=== PATIENT | female | born 1940 | race Caucasian/White ===

== ENCOUNTER 2024-01-03 14:02 | Observation (INO) | payer MEDICARE ==
[2024-01-03 14:06] LABS: Glucose,Whole Blood 64 mg/dL (70-110)
[2024-01-03 14:43] LABS: Glucose,Whole Blood 86 mg/dL (70-110)
--- NOTE | 2024-01-03 15:07 | ED ---
Recheck HPI - General Chief Complaint: Recheck/Abnormal Lab/Rx Stated Complaint: severly low blood sugar Time Seen by Provider: 01/03/24 15:02 Source: patient, family, RN notes reviewed, old records reviewed Mode of arrival: ambulatory Limitations: no limitations - History of Present Illness Initial Comments: This is a 83-year-old female to the ER for evaluation of weakness today. Weakness and recurrent weakness with recurrent episodes of unresponsiveness throughout the day today. EMS eventually called found to have low blood sugar and then patient has recurrently low blood sugar here in the emergency department MD Complaint: abnormal lab (Low blood sugar) -: hour(s) Returns Today for: Called Because of Abnormal Lab/Test Symptoms Since Prior Visit: no new symptoms Context: called for abnormal lab result Associated Symptoms: none Treatments Prior to Arrival: other - Related Data Home Medications Medication Instructions Recorded Confirmed Amiodarone [Cordarone] 200 mg PO BID 01/03/24 01/03/24 Atorvastatin [Lipitor] 20 mg PO HS 01/03/24 01/03/24 Budesonide/Formoterol Fumarate 2 puff INHALATION RT-BID 01/03/24 01/03/24 [Symbicort 160-4.5 Mcg Inhaler] Cholecalciferol [Vitamin D3 (25 75 mcg PO DAILY 01/03/24 01/03/24 Mcg = 1000 Iu)] Clopidogrel [Plavix] 75 mg PO QAM 01/03/24 01/03/24 Digoxin [Digitek] 125 mcg PO QAM 01/03/24 01/03/24 Empagliflozin [Jardiance] 25 mg PO QAM 01/03/24 01/03/24 Famotidine [Pepcid] 20 mg PO HS 01/03/24 01/03/24 Isosorbide Mononitrate ER [Imdur] 15 mg PO DAILY 01/03/24 01/03/24 Metoprolol Tartrate [Lopressor] 12.5 mg PO TID 01/03/24 01/03/24 Pregabalin [Lyrica] 75 mg PO TID 01/03/24 01/03/24 busPIRone HCL 10 mg PO QAM 01/03/24 01/03/24 Previous Rx's Medication Instructions Recorded Apixaban [Eliquis] 5 mg PO BID #60 tab 01/05/24 Cefuroxime [Ceftin] 250 mg PO BID 7 Days #14 tab 01/05/24 Furosemide [Lasix] 20 mg PO MOWEFR #0 01/05/24 INSULIN ASPART (NovoLOG) [NovoLOG 0 unit SQ ACHS each 01/05/24 (formulary)] Insulin Glargine,Hum.rec.anlog 10 units SQ HS #0 01/05/24 [Lantus Solostar Pen] Midodrine [ProAmatine] 5 mg PO TID PRN #0 01/05/24 Zinc Oxide 20% Oint 1 applic TOPICAL BID #20 gm 01/05/24 Allergies Allergy/AdvReac Type Severity Reaction Status Date / Time codeine Allergy Unknown Verified 01/03/24 17:34 Review of Systems ROS Statement: Those systems with pertinent positive or pertinent negative responses have been documented in the HPI. ROS Other: All systems not noted in ROS Statement are negative. Past Medical History Past Medical History: Coronary Artery Disease (CAD), Diabetes Mellitus, Eye Disorder Additional Past Medical History / Comment(s): Heart attack 2013. Disconnected retina 2013 History of Any Multi-Drug Resistant Organisms: None Reported Past Surgical History: Coronary Bypass/CABG Past Anesthesia/Blood Transfusion Reactions: No Reported Reaction Past Psychological History: No Psychological Hx Reported Past Alcohol Use History: Rare Past Drug Use History: None Reported General Exam Limitations: no limitations General appearance: alert, in no apparent distress, anxious Head exam: Present: atraumatic, normocephalic, normal inspection Eye exam: Present: normal appearance, PERRL, EOMI. Absent: scleral icterus, conjunctival injection, periorbital swelling ENT exam: Present: normal exam, mucous membranes moist Neck exam: Present: normal inspection. Absent: tenderness, meningismus, lymphadenopathy Respiratory exam: Present: normal lung sounds bilaterally. Absent: respiratory distress, wheezes, rales, rhonchi, stridor Cardiovascular Exam: Present: normal rhythm, bradycardia, normal heart sounds. Absent: systolic murmur, diastolic murmur, rubs, gallop, clicks GI/Abdominal exam: Present: soft, normal bowel sounds. Absent: distended, tenderness, guarding, rebound, rigid Extremities exam: Present: normal inspection, full ROM, normal capillary refill. Absent: tenderness, pedal edema, joint swelling, calf tenderness Back exam: Present: normal inspection Neurological exam: Present: alert, oriented X3, CN II-XII intact Psychiatric exam: Present: normal affect, normal mood Skin exam: Present: warm, dry, intact, normal color. Absent: rash Course Vital Signs 01/03/24 01/03/24 01/03/24 14:40 17:00 18:00 Temperature 97.4 F L Pulse Rate 51 L 59 L 64 Respiratory 18 16 16 Rate Blood Pressure 93/57 121/43 127/67 O2 Sat by Pulse 100 99 98 Oximetry 01/03/24 01/03/24 01/03/24 18:30 19:00 19:36 Temperature 97.7 F Pulse Rate 66 64 69 Respiratory 16 16 18 Rate Blood Pressure 169/71 175/65 177/65 O2 Sat by Pulse 96 95 95 Oximetry 01/03/24 21:01 Temperature 97.8 F Pulse Rate 71 Respiratory 18 Rate Blood Pressure 170/62 O2 Sat by Pulse 98 Oximetry - Reevaluation(s) Reevaluation #1: 01/03/24 18:36 Records reviewed Reevaluation #2: 01/03/24 18:36 Patient symptoms unchanged Reevaluation #3: 01/03/24 18:36 Patient informed of results and questions answered Reevaluation #4: Was pt. sent in by a medical professional or institution (, PA, ELECTRICIAN RESEARCH, urgent care, hospital, or senior living...) When possible be specific @ -no Did you speak to anyone other than the patient for history (EMS, parent, family, police, friend...)? What history was obtained from this source @ -no Did you review nursing and triage notes (agree or disagree)? Why? @ -agree Are old charts reviewed (outside hosp., previous admission, EMS record, old EKG, old radiological studies, urgent care reports/EKG's, senior living records)? Report findings @ -yes Differential Diagnosis (chest pain, altered mental status, abdominal pain women, abdominal pain men, vaginal bleeding, weakness, fever, dyspnea, syncope, headache, dizziness, GI bleed, back pain, seizure, CVA, palpatations, mental health, musculoskeletal)? @ -prior EKG interpreted by me (3pts min.). @ -yes X-rays interpreted by me (1pt min.). @ -no CT interpreted by me (1pt min.). @ -no U/S interpreted by me (1pt. min.). @ -no What testing was considered but not performed or refused? (CT, X-rays, U/S, labs)? Why? @ -none What meds were considered but not given or refused? Why? @ -none Did you discuss the management of the patient with other professionals (professionals i.e. , PA, ELECTRICIAN RESEARCH, lab, RT, psych nurse, director social welfare, drywall finishing foreman, teacher, housing management officer, adult protective caseworker)? Give summary @ -no Was smoking cessation discussed for >3mins.? @ -no Was critical care preformed (if so, how long)? @ -no Were there social determinants of health that impacted care today? How? (Homelessness, low income, unemployed, alcoholism, drug addiction, transportation, low edu. Level, literacy, decrease access to med. care, detention, rehab)? @ -none Was there de-escalation of care discussed even if they declined (Discuss DNR or withdrawal of care, Hospice)? DNR status @ -no What co-morbidities impacted this encounter? (DM, HTN, Smoking, COPD, CAD, Cancer, CVA, ARF, Chemo, Hep., AIDS, mental health diagnosis, sleep apnea, morbid obesity)? @ -none Was patient admitted / discharged? Hospital course, mention meds given and route, prescriptions, significant lab abnormalities, going to OR and other pertinent info. @ - 83-year-old female presenting today for evaluation of altered mental status and unresponsiveness found with low blood sugar, patient has multiple repeated repeated low blood sugars here in the ER Admitted Undiagnosed new problem with uncertain prognosis? @ -no Drug Therapy requiring intensive monitoring for toxicity (Heparin, Nitro, Insulin, Cardizem)? @ -no Were any procedures done? @ -no Diagnosis/symptom? @ -Recurrent hypoglycemia Acute, or Chronic, or Acute on Chronic? @ -Acute Uncomplicated (without systemic symptoms) or Complicated (systemic symptoms)? @ -Complicated Side effects of treatment? @ -no Exacerbation, Progression, or Severe Exacerbation? @ -exacerbation Poses a threat to life or bodily function? How? (Chest pain, USA, NM, pneumonia, PE, COPD, DKA, ARF, appy, cholecystitis, CVA, Diverticulitis, Homicidal, Suicidal, threat to staff... and all critical care pts) @ -yes extremes of age Reevaluation #5: Differential Weakness: Hypoglycemia, shock, sepsis, hyponatremia, anemia, infection, NM, ETOH, adverse medicine reaction, overdose, stroke, this is not meant to be an all-inclusive list. - Consultations Consultation #1: Spoke with admitting who agrees to admit this patient Medical Decision Making - Medical Decision Making 83-year-old female presenting today for evaluation of altered mental status and unresponsiveness found with low blood sugar, patient has multiple repeated repeated low blood sugars here in the ER - Lab Data Result diagrams: 01/04/24 04:16 01/04/24 04:16 Lab Results 01/03/24 01/03/24 01/03/24 Range/Units 14:05 14:41 15:35 WBC 11.1 H (3.8-10.6) k/uL RBC 4.09 (3.80-5.40) m/uL Hgb 11.5 (11.4-16.0) gm/dL Hct 36.8 (34.0-46.0) % MCV 90.0 (80.0-100.0) fL MCH 28.2 (25.0-35.0) pg MCHC 31.3 (31.0-37.0) g/dL RDW 14.8 (11.5-15.5) % Plt Count 371 (150-450) k/uL MPV 7.6 Neutrophils % 82 % Lymphocytes % 10 % Monocytes % 5 % Eosinophils % 1 % Basophils % 0 % Neutrophils # 9.0 H (1.3-7.7) k/uL Lymphocytes # 1.1 (1.0-4.8) k/uL Monocytes # 0.6 (0-1.0) k/uL Eosinophils # 0.1 (0-0.7) k/uL Basophils # 0.0 (0-0.2) k/uL Hypochromasia Slight Sodium (137-145) mmol/L Potassium (3.5-5.1) mmol/L Chloride (98-107) mmol/L Carbon Dioxide (22-30) mmol/L Anion Gap mmol/L BUN (7-17) mg/dL Creatinine (0.52-1.04) mg/dL Est GFR (CKD-EPI)AfAm (>60 ml/min/1.73 sqM) Est GFR (CKD-EPI)NonAf (>60 ml/min/1.73 sqM) Glucose (74-99) mg/dL POC Glucose (mg/dL) 64 L 86 (70-110) mg/dL POC Glu Edger Liner ID Nara Barron Calcium (8.4-10.2) mg/dL Phosphorus (2.5-4.5) mg/dL Magnesium (1.6-2.3) mg/dL Total Bilirubin (0.2-1.3) mg/dL AST (14-36) U/L ALT (4-34) U/L Alkaline Phosphatase (38-126) U/L Troponin I (0.000-0.034) ng/mL Total Protein (6.3-8.2) g/dL Albumin (3.5-5.0) g/dL 01/03/24 01/03/24 01/03/24 Range/Units 15:35 15:35 16:13 WBC (3.8-10.6) k/uL RBC (3.80-5.40) m/uL Hgb (11.4-16.0) gm/dL Hct (34.0-46.0) % MCV (80.0-100.0) fL MCH (25.0-35.0) pg MCHC (31.0-37.0) g/dL RDW (11.5-15.5) % Plt Count (150-450) k/uL MPV Neutrophils % % Lymphocytes % % Monocytes % % Eosinophils % % Basophils % % Neutrophils # (1.3-7.7) k/uL Lymphocytes # (1.0-4.8) k/uL Monocytes # (0-1.0) k/uL Eosinophils # (0-0.7) k/uL Basophils # (0-0.2) k/uL Hypochromasia Sodium 141 (137-145) mmol/L Potassium 4.0 (3.5-5.1) mmol/L Chloride 108 H (98-107) mmol/L Carbon Dioxide 28 (22-30) mmol/L Anion Gap 5 mmol/L BUN 27 H (7-17) mg/dL Creatinine 1.31 H (0.52-1.04) mg/dL Est GFR (CKD-EPI)AfAm 44 (>60 ml/min/1.73 sqM) Est GFR (CKD-EPI)NonAf 38 (>60 ml/min/1.73 sqM) Glucose 42 L* (74-99) mg/dL POC Glucose (mg/dL) 62 L (70-110) mg/dL POC Glu Edger Liner ID Edith Ramos Calcium 9.3 (8.4-10.2) mg/dL Phosphorus 3.6 (2.5-4.5) mg/dL Magnesium 1.8 (1.6-2.3) mg/dL Total Bilirubin 0.3 (0.2-1.3) mg/dL AST 24 (14-36) U/L ALT 20 (4-34) U/L Alkaline Phosphatase 80 (38-126) U/L Troponin I 0.012 (0.000-0.034) ng/mL Total Protein 6.0 L (6.3-8.2) g/dL Albumin 3.5 (3.5-5.0) g/dL Critical Care Time Critical Care Time: Yes Total Critical Care Time: 31 Disposition Clinical Impression: Weakness, Near syncope, Hypoglycemia Disposition: ADMITTED IP TO THIS HOSP Condition: Stable Is patient prescribed a controlled substance at d/c from ED?: No Time of Disposition: 17:00
[2024-01-03] MEDS: DEXTROSE 5%-0.45% NACL 1,000 ML IV ONE (15:37)
[2024-01-03 15:47] LABS: Basophils % (A) 0 %; Eosinophils # (A) 0.1 k/uL (0-0.7); Eosinophils % (A) 1 %; HCT 36.8 % (34.0-46.0); HGB 11.5 gm/dL (11.4-16.0); Hypochromasia Slight; Lymphocytes # (A) 1.1 k/uL (1.0-4.8); Lymphocytes % (A) 10 %; MCH 28.2 pg (25.0-35.0); MCHC 31.3 g/dL (31.0-37.0); Mean Platelet Volume 7.6; Monocytes # (A) 0.6 k/uL (0-1.0); Monocytes % (A) 5 %; Neutrophils % (A) 82 %; Platelet Count 371 k/uL (150-450); RBC 4.09 m/uL (3.80-5.40); RDW 14.8 % (11.5-15.5); WBC 11.1 k/uL (3.8-10.6)
[2024-01-03 16:03] LABS: ALT 20 U/L (4-34); AST 24 U/L (14-36); African American GFR (CKD) 44 (>60 ml/min/1.73 sqM); Albumin 3.5 g/dL (3.5-5.0); Alkaline Phosphatase 80 U/L (38-126); Anion Gap 5 mmol/L; Blood Urea Nitrogen 27 mg/dL (7-17); Calcium 9.3 mg/dL (8.4-10.2); Carbon Dioxide 28 mmol/L (22-30); Chloride 108 mmol/L (98-107); Magnesium 1.8 mg/dL (1.6-2.3); Non-African American GFR(CKD) 38 (>60 ml/min/1.73 sqM); Phosphorus 3.6 mg/dL (2.5-4.5); Sodium 141 mmol/L (137-145); Total Bilirubin 0.3 mg/dL (0.2-1.3)
[2024-01-03 16:08] LABS: Glucose 42 mg/dL (74-99)
[2024-01-03 16:15] LABS: Glucose,Whole Blood 62 mg/dL (70-110)
[2024-01-03] MEDS ORDERED: NALOXONE 0.4 MG/ML 1 ML VIAL IV PRN ×2 (17:00→17:01)
[2024-01-03] MEDS ORDERED: ONDANSETRON 4 MG/2 ML VIAL IVP PRN (17:01)
[2024-01-03] MEDS ORDERED: MORPHINE SULFATE 4 MG/ML SYRINGE IV PRN (17:01)
[2024-01-03 18:10] LABS: Glucose,Whole Blood 104 mg/dL (70-110)
[2024-01-03 20:03] LABS: Glucose,Whole Blood 120 mg/dL (70-110)
[2024-01-03 20:16] LABS: Appearance,Urine Cloudy (Clear); Bacteria,Urine Occasional /hpf; Bilirubin,Urine Negative (Negative); Blood,Urine Moderate (Negative); Color,Urine Colorless; Glucose,Urine (UA) 4+ (Negative); Ketones,Urine Negative (Negative); Leukocyte Esterase,Urine Large (Negative); Nitrite,Urine Negative (Negative); PH, Urine 5.5 (5.0-8.0); Protein,Urine 1+ (Negative); RBC,Urine 9 /hpf (0-5); Specific Gravity,Urine 1.012 (1.001-1.035); Squamous Epithelial Cell,Urine <1 /hpf (0-4); Urobilinogen,Urine <2.0 mg/dL (<2.0); WBC,Urine 24 /hpf (0-5)
[2024-01-03] MEDS ORDERED: ZINC OXIDE PASTE (Z-GUARD) 1 APPLIC TOPICAL PRN (22:50)
[2024-01-03] MEDS: MIDODRINE 5 MG TAB PO SCH (22:53)
[2024-01-03] MEDS: METOPROLOL TARTRATE 12.5 MG TAB PO SCH (23:00)
[2024-01-03] MEDS: FAMOTIDINE 20 MG TAB PO SCH (23:00)
[2024-01-03] MEDS: ATORVASTATIN 20 MG TAB PO SCH (23:00)
[2024-01-03] MEDS: PREGABALIN 75 MG CAP PO SCH (23:01)
[2024-01-04 06:24] LABS: Glucose,Whole Blood 135 mg/dL (70-110)
[2024-01-04] MEDS: APIXABAN 2.5 MG TABLET PO SCH (07:30)
[2024-01-04] MEDS: SYMBICORT 160-4.5 MCG INHALER INHALATION SCH (08:20)
[2024-01-04] MEDS: FUROSEMIDE 20 MG TAB PO SCH (08:37)
[2024-01-04] MEDS: busPIRone HCl 5 MG TAB PO SCH (08:37)
[2024-01-04] MEDS: CHOLECALCIFEROL 25 MCG (1000 IU) TABLET PO SCH (08:38)
[2024-01-04] MEDS: APIXABAN 5 MG TAB PO SCH (08:38)
[2024-01-04] MEDS: AMIODARONE 200 MG TAB PO SCH (08:38)
[2024-01-04] MEDS: CLOPIDOGREL 75 MG TAB PO SCH (08:39)
[2024-01-04] MEDS: DIGOXIN 125 MCG TAB PO SCH (08:39)
[2024-01-04] MEDS: ISOSORBIDE MONONITRATE ER 15 MG TAB PO SCH (08:39)
[2024-01-04 08:42] LABS: ALT 20 U/L (8-44); AST 19 U/L (13-35); Albumin 3.5 g/dL (3.8-4.9); Albumin/Globulin Ratio 1.46 Ratio (1.60-3.17); Alkaline Phosphatase 91 U/L (41-126); Basophils # (A) 0.06 X 10*3/uL (0.00-0.10); Basophils % (A) 0.8 %; Blood Urea Nitrogen 21.2 mg/dL (9.0-27.0); Calcium 8.8 mg/dL (8.7-10.3); Carbon Dioxide 25.4 mmol/L (21.6-31.8); Chloride 106 mmol/L (96-109); Eosinophils # (A) 0.19 X 10*3/uL (0.04-0.35); Eosinophils % (A) 2.4 %; Globulin 2.4 g/dL (1.6-3.3); Glucose 154 mg/dL (70-110); HCT 36.4 % (37.2-46.3); HGB 11.4 g/dL (12.0-15.0); Lymphocytes # (A) 1.49 X 10*3/uL (0.90-5.00); Lymphocytes % (A) 18.8 %; MCH 27.1 pg (27.0-32.0); MCHC 31.3 g/dL (32.0-37.0); MCV 86.7 FL (80.0-97.0); Magnesium 1.9 mg/dL (1.5-2.4); Mean Platelet Volume 10.6 FL (9.5-12.2); Monocytes # (A) 0.73 X 10*3/uL (0.20-1.00); Monocytes % (A) 9.2 %; NRBC Per 100 WBC 0 X 10*3/uL (0.00-0.01); Neutrophils # (A) 5.23 X 10*3/uL (1.80-7.70); Neutrophils % (A) 65.8 %; Phosphorus 3.7 mg/dL (2.4-5.1); Platelet Count 344 X 10*3/uL (140-440); Potassium 4.3 mmol/L (3.5-5.5); RDW 15.4 % (11.5-14.5); Sodium 142 mmol/L (135-145); Total Bilirubin <0.2 mg/dL (0.3-1.2); Total Protein 5.9 g/dL (6.2-8.2); WBC 7.94 X 10*3/uL (4.50-10.00)
[2024-01-04] MEDS ORDERED: DAPAGLIFLOZIN PROPANEDIOL 10 MG TABLET PO SCH (09:00)
[2024-01-04 11:31] LABS: Glucose,Whole Blood 176 mg/dL (70-110)
[2024-01-04] MEDS: INSULIN ASPART (NovoLOG) 100 UNIT/ML VIAL SQ SCH (12:52)
[2024-01-04 13:56] VITALS: BMI 27.4
[2024-01-04] MEDS: ACETAMINOPHEN TAB 325 MG TAB PO PRN (14:30)
[2024-01-04 16:58] LABS: Glucose,Whole Blood 109 mg/dL (70-110)
[2024-01-04] MEDS: INSULIN DETEMIR (LEVEMIR) 100 UNIT/ML SYR SQ SCH (21:19)
[2024-01-04 21:22] LABS: Glucose,Whole Blood 152 mg/dL (70-110)
[2024-01-05 06:21] LABS: Glucose,Whole Blood 65 mg/dL (70-110)
[2024-01-05 06:48] LABS: Glucose,Whole Blood 113 mg/dL (70-110)
[2024-01-05 07:43] VITALS: BP 136/55; PULSE 68; RESP 16; TEMP 97.9
--- NOTE | 2024-01-07 14:20 | P.HPIM ---
History of Present Illness H&P Date: 01/04/24 Chief Complaint: Severe hyperglycemia HISTORY OF PRESENT ILLNESS: This is an 83-year-old female with a previous medical history significant for coronary artery disease status post coronary artery bypass graft, hypertension and hypertensive cardiovascular disease, hyperlipidemia, diabetes mellitus type 2, with diabetic polyneuropathy, history of peripheral vascular occlusive disease status post multiple angioplasties with left above knee amputation that was done at [facility], history of paroxysmal atrial fibrillation, history of recurrent UTI, patient was at [facility] for quite some times, she just left [facility] about a week ago on December 09, 2023 and she was supposed to come to see me in the office for follow-up, as a matter fact I saw the patient not too long ago about a week ago in the office and the patient was confused about her insulin regimen, she was overwhelmed with her new living at [facility] and she was asking to have a scooter because the patient is not able to move her wheelchair all the way down to the dining room and back, patient apparently had elevated blood glucose level while she was there, and she was started on Lantus at 24 units at bedtime along with Humalog 7 units before each meal 3 times every day, apparently the patient was supposed to go to the dentist for work on her tooth that was broken and she did receive by her staff at [facility] 7 units of insulin patient did not take any food at that time, patient became quite obtunded and she was not responsive, EMS was called and the patient was brought into the ER at [facility], she was found to have significant hypoglycemia, she was treated but because of the fact that she was in and out of hypoglycemia she was admitted to the hospital she was started on D5W and she was kept in the hospital for observation, at the same time patient was complaining of increased urinary frequency, she had a slight elevation of leukocytes in the urine, she was also found to have a UTI without evidence of sepsis at this time, patient was kept in the hospital overnight, she was started back on Lantus at 12 units at bedtime, however she dropped in the morning to 65, this was taken down to 10 units at bedtime, along with a sliding scale insulin she was taken off , she was maintained on Jardiance, and she was started on oral antibiotic in the form of ciprofloxacin 500 mg orally twice every day for 7 days for UTI without SIRS. REVIEW OF SYSTEMS: Constitutional: No documented fever, no chills, no night sweats. No weight change. No weakness, fatigue or lethargy. No daytime sleepiness. EENT: No headache. No blurred vision or double vision, no loss of vision. No loss of Hearing, no ringing in the ears, no dizziness. No nasal drainage or congestion. No epistaxis. No sore throat. Lungs: No shortness of breath, no cough, no sputum production. No wheezing. Reports dyspnea with activity. Cardiovascular: No chest pain, no lower extremity edema. No palpitations. No paroxysmal nocturnal dyspnea. No orthopnea. No lightheadedness or dizziness. No syncopal episodes. Abdominal: Reports no abdominal pain. No nausea, vomiting. No diarrhea. No constipation. No bloody or tarry stools reports loss of appetite. Genitourinary: No dysuria, increased frequency, urgency. No urinary retention. No flank pain. Musculoskeletal: No myalgias. No muscle weakness, positive for gait dysfunction, no frequent falls. No back pain. No neck pain. Integumentary: No wounds, no lesions. No rash or pruritus. No unusual bruisin g. No change in hair or nails. Neurologic: No aphasia. No facial droop. No change in mentation. No head injury. No headache. No paralysis. No paresthesia. Psychiatric: No depression. No anxiety. No mood swings. Endocrine: No abnormal blood sugars. No weight change. PAST MEDICAL HISTORY: Hypertension and hypertensive cardiovascular disease. Mixed hyperlipidemia. Paroxysmal atrial fibrillation. PAD post multiple angioplasties ended up with left above-knee amputation. CAD post CABG. Status post left above-knee amputation currently in a wheelchair. Recurrent UTI. 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 Osteoarthritis. Orthostatic hypotension. GERD with esophagitis. Diabetes mellitus type 2. Diabetic polyneuropathy. PAST SURGICAL HISTORY: Coronary artery bypass graft. Left above-knee amputation. Bilateral cataract surgery. Multiple angioplasty of bilateral lower extremities. Left transmetatarsal amputation EGD and colonoscopy. SOCIAL HISTORY: Patient is a lifelong non-smoker, she denies any alcohol ingestion, she denies any drug use or abuse, she currently resides at the [facility]. FAMILY HISTORY: Noncontributory. PHYSICAL EXAMINATION: General: This is an 83-year-old female down in bed in no apparent distress. HEENT: Head is atraumatic, normocephalic, pupils were equal round reactive to light and recommendation, extraocular muscle movement were intact, sclera nonicteric, conjunctivae were pale, mucous membranes of the mouth are somewhat dry. Neck: Supple, no JVP, normal carotid upstroke bilaterally, no lymphadenopathy. Chest: Decreased breath sounds at the bases, few rhonchi, no expiratory wheezes, no chest wall tenderness, no intercostal retractions. Heart: First heart sound is normal, second heart sound is normal there is systolic ejection murmur 2/6 located in the left sternal border. Abdomen: Soft, nontender, nondistended, positive bowel sounds. Extremities: There is no edema no calf tenderness dorsalis pedis +1 on the right side posterior tibialis could not be palpated, there is a wound to the left heel that is covered with Aquacel silver there is left above-knee amputation. Neurologic examination: Patient is awake alert and oriented x3, cranial nerves II-12 appear grossly intact, muscle power were 4 out of 5 in upper extremities and 3 out of 5 in the right lower extremity, left [id number] amputation. ASSESSMENT AND PLAN: 1. Uncontrolled diabetes mellitus type 2 with hypoglycemic episode. Patient is not familiar with her insulin regimen at this point in time, we will decrease her Lantus to 12 units at bedtime along with a sliding scale insulin discontinue Janumet, continue Jardiance 25 mg once every day, monitor the patient blood glucose level before each meal and at bedtime, continue with a sliding scale insulin as well. Patient was instructed to eat breakfast lunch and dinner, she continues to follow-up with us as an outpatient. 2. UTI without sepsis. Start the patient on ciprofloxacin 500 mg orally twice every day for 7 days. Urine culture was never sent. 3. Coronary artery disease status post coronary artery bypass graft continue patient on isosorbide mononitrate 30 mg once every day, continue metoprolol 12.5 mg orally twice every day, continue patient on atorvastatin 20 mg orally once every day, continue patient on Plavix 75 mg orally once every day. 4. Paroxysmal atrial fibrillation. Continue patient on digoxin 1 125 mcg orally once every day, metoprolol 12.5 mg twice every day, continue Eliquis 5 mg orally twice every day, monitor the patient very closely. 5. Chronic diastolic heart failure. Continue patient on metoprolol 12.5 mg orally twice every day, Jardiance 25 mg once every day, discontinue Lasix for now. 6. Hypertension and hypertensive cardiovascular disease. Continue patient on metoprolol 12.5 mg orally twice every day monitor the patient blood pressure very closely. 7. Mixed hyperlipidemia. Continue patient on atorvastatin 20 mg once every day, monitor lipid panel, keep LDL 55-70. 8. History of PAD status post multiple interventions along with left above-knee amputation. Continue patient on Plavix 75 mg once every day as well as atorvastatin 20 mg once every day for secondary prevention, continue patient with a local care for the right heel wound with Aquacel silver to be changed Monday and Monday. Increase protein intake in the form of Glucerna twice every day. 9. GERD with esophagitis. Continue with Protonix 40 mg orally once every day. Continue famotidine 20 mg orally twice every day. 10. Diabetic polyneuropathy. Continue pregabalin 75 mg orally 3 times every day. 11. Orthostatic hypotension. Continue midodrine 5 mg orally 3 times every day. If systolic blood pressure less than 100. 12. DVT prophylaxis. Continue patient on Eliquis 5 mg orally twice every day. 13. GI prophylaxis. Continue patient on famotidine 20 mg orally twice a day as well as pantoprazole 40 mg once every day. 14. Observation. 15. Patient is full code. Past Medical History Past Medical History: Coronary Artery Disease (CAD), Diabetes Mellitus, Eye Disorder Additional Past Medical History / Comment(s): Heart attack 2013. Disconnected retina 2013 History of Any Multi-Drug Resistant Organisms: None Reported Past Surgical History: Coronary Bypass/CABG Past Anesthesia/Blood Transfusion Reactions: No Reported Reaction Past Psychological History: No Psychological Hx Reported Smoking Status: Former smoker Past Alcohol Use History: Rare Past Drug Use History: None Reported Medications and Allergies Home Medications Medication Instructions Recorded Confirmed Type Amiodarone [Cordarone] 200 mg PO BID 01/03/24 01/03/24 History Atorvastatin [Lipitor] 20 mg PO HS 01/03/24 01/03/24 History Budesonide/Formoterol Fumarate 2 puff INHALATION RT-BID 01/03/24 01/03/24 History [Symbicort 160-4.5 Mcg Inhaler] Cholecalciferol [Vitamin D3 (25 75 mcg PO DAILY 01/03/24 01/03/24 History Mcg = 1000 Iu)] Clopidogrel [Plavix] 75 mg PO QAM 01/03/24 01/03/24 History Digoxin [Digitek] 125 mcg PO QAM 01/03/24 01/03/24 History Empagliflozin [Jardiance] 25 mg PO QAM 01/03/24 01/03/24 History Famotidine [Pepcid] 20 mg PO HS 01/03/24 01/03/24 History Isosorbide Mononitrate ER [Imdur] 15 mg PO DAILY 01/03/24 01/03/24 History Metoprolol Tartrate [Lopressor] 12.5 mg PO TID 01/03/24 01/03/24 History Pregabalin [Lyrica] 75 mg PO TID 01/03/24 01/03/24 History busPIRone HCL 10 mg PO QAM 01/03/24 01/03/24 History Apixaban [Eliquis] 5 mg PO BID #60 tab 01/05/24 Rx Cefuroxime [Ceftin] 250 mg PO BID 7 Days #14 tab 01/05/24 Rx Furosemide [Lasix] 20 mg PO MOWEFR #0 01/05/24 01/03/24 Rx INSULIN ASPART (NovoLOG) [NovoLOG 0 unit SQ ACHS each 01/05/24 Rx (formulary)] Insulin Glargine,Hum.rec.anlog 10 units SQ HS #0 01/05/24 01/03/24 Rx [Lantus Solostar Pen] Midodrine [ProAmatine] 5 mg PO TID PRN #0 01/05/24 01/03/24 Rx Zinc Oxide 20% Oint 1 applic TOPICAL BID #20 gm 01/05/24 Rx Allergies Allergy/AdvReac Type Severity Reaction Status Date / Time codeine Allergy Unknown Verified 01/03/24 17:34 Physical Exam Vitals: Vital Signs Temp Pulse Pulse Resp BP BP BP 01/04/24 11:30 173/69 01/04/24 07:29 97.9 F 60 16 187/65 01/04/24 01:19 98.2 F 61 20 159/52 01/03/24 21:01 97.8 F 71 18 170/62 01/03/24 19:36 97.7 F 69 18 177/65 01/03/24 19:00 64 16 175/65 01/03/24 18:30 66 16 169/71 01/03/24 18:00 64 16 127/67 01/03/24 17:00 59 L 16 121/43 01/03/24 14:40 97.4 F L 51 L 18 93/57 Pulse Ox 01/04/24 11:30 01/04/24 07:29 97 01/04/24 01:19 97 01/03/24 21:01 98 01/03/24 19:36 95 01/03/24 19:00 95 01/03/24 18:30 96 01/03/24 18:00 98 01/03/24 17:00 99 01/03/24 14:40 100 Intake and Output 01/03/24 01/04/24 01/04/24 22:59 06:59 14:59 Intake Total 1040 Output Total 500 Balance 540 Intake: Oral 1040 Output: Urine 500 Other: Voiding Method Incontinent Diaper External Catheter # Voids 2 Weight 68.039 kg Results CBC & Chem 7: 01/04/24 04:16 01/04/24 04:16 Labs: Abnormal Lab Results - Last 24 Hours (Table) 01/03/24 01/03/24 01/03/24 Range/Units 14:05 15:35 15:35 WBC 11.1 H (3.8-10.6) k/uL Hgb (12.0-15.0) g/dL Hct (37.2-46.3) % MCHC (32.0-37.0) g/dL RDW (11.5-14.5) % Immature Gran # (0.00-0.04) X 10*3/uL Neutrophils # 9.0 H (1.3-7.7) k/uL Chloride 108 H (98-107) mmol/L BUN 27 H (7-17) mg/dL Creatinine 1.31 H (0.52-1.04) mg/dL Est GFR (CKD-EPI) (>=60) BUN/Creatinine Ratio (12.00-20.00) Ratio Glucose 42 L* (74-99) mg/dL POC Glucose (mg/dL) 64 L (70-110) mg/dL Total Bilirubin (0.3-1.2) mg/dL Total Protein 6.0 L (6.3-8.2) g/dL Albumin (3.8-4.9) g/dL Albumin/Globulin Ratio (1.60-3.17) Ratio Urine Appearance (Clear) Urine Protein (Negative) Urine Glucose (UA) (Negative) Urine Blood (Negative) Ur Leukocyte Esterase (Negative) Urine RBC (0-5) /hpf Urine WBC (0-5) /hpf Urine WBC Clumps (None) /hpf Urine Bacteria (None) /hpf 01/03/24 01/03/24 01/03/24 Range/Units 16:13 19:35 20:00 WBC (3.8-10.6) k/uL Hgb (12.0-15.0) g/dL Hct (37.2-46.3) % MCHC (32.0-37.0) g/dL RDW (11.5-14.5) % Immature Gran # (0.00-0.04) X 10*3/uL Neutrophils # (1.3-7.7) k/uL Chloride (98-107) mmol/L BUN (7-17) mg/dL Creatinine (0.52-1.04) mg/dL Est GFR (CKD-EPI) (>=60) BUN/Creatinine Ratio (12.00-20.00) Ratio Glucose (74-99) mg/dL POC Glucose (mg/dL) 62 L 120 H (70-110) mg/dL Total Bilirubin (0.3-1.2) mg/dL Total Protein (6.3-8.2) g/dL Albumin (3.8-4.9) g/dL Albumin/Globulin Ratio (1.60-3.17) Ratio Urine Appearance Cloudy H (Clear) Urine Protein 1+ H (Negative) Urine Glucose (UA) 4+ H (Negative) Urine Blood Moderate H (Negative) Ur Leukocyte Esterase Large H (Negative) Urine RBC 9 H (0-5) /hpf Urine WBC 24 H (0-5) /hpf Urine WBC Clumps Rare H (None) /hpf Urine Bacteria Occasional H (None) /hpf 01/04/24 01/04/24 01/04/24 Range/Units 04:16 04:16 06:23 WBC (3.8-10.6) k/uL Hgb 11.4 L (12.0-15.0) g/dL Hct 36.4 L (37.2-46.3) % MCHC 31.3 L (32.0-37.0) g/dL RDW 15.4 H (11.5-14.5) % Immature Gran # 0.24 H (0.00-0.04) X 10*3/uL Neutrophils # (1.3-7.7) k/uL Chloride (98-107) mmol/L BUN (7-17) mg/dL Creatinine (0.52-1.04) mg/dL Est GFR (CKD-EPI) 57 L (>=60) BUN/Creatinine Ratio 21.20 H (12.00-20.00) Ratio Glucose 154 H (74-99) mg/dL POC Glucose (mg/dL) 135 H (70-110) mg/dL Total Bilirubin <0.2 L (0.3-1.2) mg/dL Total Protein 5.9 L (6.3-8.2) g/dL Albumin 3.5 L (3.8-4.9) g/dL Albumin/Globulin Ratio 1.46 L (1.60-3.17) Ratio Urine Appearance (Clear) Urine Protein (Negative) Urine Glucose (UA) (Negative) Urine Blood (Negative) Ur Leukocyte Esterase (Negative) Urine RBC (0-5) /hpf Urine WBC (0-5) /hpf Urine WBC Clumps (None) /hpf Urine Bacteria (None) /hpf 01/03/ Range/Units 11:29 WBC (3.8-10.6) k/uL Hgb (12.0-15.0) g/dL Hct (37.2-46.3) % MCHC (32.0-37.0) g/dL RDW (11.5-14.5) % Immature Gran # (0.00-0.04) X 10*3/uL Neutrophils # (1.3-7.7) k/uL Chloride (98-107) mmol/L BUN (7-17) mg/dL Creatinine (0.52-1.04) mg/dL Est GFR (CKD-EPI) (>=60) BUN/Creatinine Ratio (12.00-20.00) Ratio Glucose (74-99) mg/dL POC Glucose (mg/dL) 176 H (70-110) mg/dL Total Bilirubin (0.3-1.2) mg/dL Total Protein (6.3-8.2) g/dL Albumin (3.8-4.9) g/dL Albumin/Globulin Ratio (1.60-3.17) Ratio Urine Appearance (Clear) Urine Protein (Negative) Urine Glucose (UA) (Negative) Urine Blood (Negative) Ur Leukocyte Esterase (Negative) Urine RBC (0-5) /hpf Urine WBC (0-5) /hpf Urine WBC Clumps (None) /hpf Urine Bacteria (None) /hpf
--- NOTE | 2024-01-07 14:23 | P.DS ---
Providers Date of admission: 01/03/24 17:01 Expected date of discharge: 01/05/24 Attending physician: Pierre White Primary care physician: Pierre White [facility] Course: HISTORY OF PRESENT ILLNESS: This is an 83-year-old female with a previous medical history significant for coronary artery disease status post coronary artery bypass graft, hypertension and hypertensive cardiovascular disease, hyperlipidemia, diabetes mellitus type 2, with diabetic polyneuropathy, history of peripheral vascular occlusive disease status post multiple angioplasties with left above knee amputation that was done at [facility], history of paroxysmal atrial fibrillation, history of recurrent UTI, patient was at [facility] for quite some times, she just left [facility] about a week ago on December 09, 2023 and she was supposed to come to see me in the office for follow-up, as a matter fact I saw the patient not too long ago about a week ago in the office and the patient was confused about her insulin regimen, she was overwhelmed with her new living at [facility] and she was asking to have a scooter because the patient is not able to move her wheelchair all the way down to the dining room and back, patient apparently had elevated blood glucose level while she was there, and she was started on Lantus at 24 units at bedtime along with Humalog 7 units before each meal 3 times every day, apparently the patient was supposed to go to the dentist for work on her tooth that was broken and she did receive by her staff at [facility] 7 units of insulin patient did not take any food at that time, patient became quite obtunded and she was not responsive, EMS was called and the patient was brought into the ER at [facility], she was found to have significant hypoglycemia, she was treated but because of the fact that she was in and out of hypoglycemia she was admitted to the hospital she was started on D5W and she was kept in the hospital for observation, at the same time patient was complaining of increased urinary frequency, she had a slight elevation of leukocytes in the urine, she was also found to have a UTI without evidence of sepsis at this time, patient was kept in the hospital overnight, she was started back on Lantus at 12 units at bedtime, however she dropped in the morning to 65, this was taken down to 10 units at bedtime, along with a sliding scale insulin she was taken off [facility], she was maintained on Jardiance, and she was started on oral antibiotic in the form of cefuroxime 500 mg orally twice every day for 7 days for UTI without SIRS. 01/04: Patient is doing better today, she denies any chest pain, shortness of breath, her blood glucose dropped in the morning to 65, her Lantus will be decreased to 10 units at bedtime along with a sliding scale insulin she will be taken off Janumet completely, she will be taken off any other medication except for Jardiance 25 mg once every day due to her atrial fibrillation, and her chronic diastolic heart failure, patient will be started on cefuroxime Mexitil 500 mg orally twice every day for UTI without sepsis, patient will be discharged home and follow-up with us as an outpatient 1 week, patient also will have a visiting nurse for her wound care to the right heel with Aquacel silver Monday and Monday, we will change her Aquacel silver before her discharge, patient will be discharged in stable condition. Patient's daughter is asking for the patient to be seen in consultation by cardiology as an outpatient as well as by endocrinology will take care of that as an outpatient. She was also asking for the patient to have electric wheelchair for the patient to be more freely movable around the facility where she lives because it takes her a while to get from her room to the dining room over there. Discharge diagnoses: 1. Uncontrolled diabetes mellitus type 2 with hypoglycemic episode. 2. UTI without sepsis. 3. Coronary artery disease status post coronary artery bypass graft 4. Paroxysmal atrial fibrillation. 5. Chronic diastolic heart failure. 6. Hypertension and hypertensive cardiovascular disease. 7. Mixed hyperlipidemia. 8. History of PAD status post multiple interventions along with left above-knee amputation. 9. GERD with esophagitis. 10. Diabetic polyneuropathy. 11. Orthostatic hypotension. Patient Condition at Discharge: Stable Plan - Discharge Summary Discharge Rx Participant: No New Discharge Prescriptions: New Apixaban [Eliquis] 5 mg PO BID #60 tab INSULIN ASPART (NovoLOG) [NovoLOG (formulary)] 0 unit SQ ACHS each Zinc Oxide 20% Oint 1 applic TOPICAL BID #20 gm Cefuroxime [Ceftin] 250 mg PO BID 7 Days #14 tab Continue Famotidine [Pepcid] 20 mg PO HS Pregabalin [Lyrica] 75 mg PO TID Metoprolol Tartrate [Lopressor] 12.5 mg PO TID Isosorbide Mononitrate ER [Imdur] 15 mg PO DAILY Digoxin [Digitek] 125 mcg PO QAM Clopidogrel [Plavix] 75 mg PO QAM Cholecalciferol [Vitamin D3 (25 Mcg = 1000 Iu)] 75 mcg PO DAILY Budesonide/Formoterol Fumarate [Symbicort 160-4.5 Mcg Inhaler] 2 puff INHALATION RT-BID Atorvastatin [Lipitor] 20 mg PO HS Amiodarone [Cordarone] 200 mg PO BID Empagliflozin [Jardiance] 25 mg PO QAM busPIRone HCL 10 mg PO QAM Changed Insulin Glargine,Hum.rec.anlog [Lantus Solostar Pen] 10 units SQ HS #0 Midodrine [ProAmatine] 5 mg PO TID PRN #0 PRN Reason: hypotensio Furosemide [Lasix] 20 mg PO MOWEFR #0 Discontinued Apixaban [Eliquis] 2.5 mg PO BID Insulin Lispro [humaLOG Kwikpen] 7 unit SQ AC-TID sitaGLIPtin PHOS/metFORMIN HCL [Janumet 50-500 mg Tablet] 1 tab PO DAILY Discharge Medication List Amiodarone [Cordarone] 200 mg PO BID 01/03/24 [History] Atorvastatin [Lipitor] 20 mg PO HS 01/03/24 [History] Budesonide/Formoterol Fumarate [Symbicort 160-4.5 Mcg Inhaler] 2 puff INHALATION RT-BID 01/03/24 [History] Cholecalciferol [Vitamin D3 (25 Mcg = 1000 Iu)] 75 mcg PO DAILY 01/03/24 [History] Clopidogrel [Plavix] 75 mg PO QAM 01/03/24 [History] Digoxin [Digitek] 125 mcg PO QAM 01/03/24 [History] Empagliflozin [Jardiance] 25 mg PO QAM 01/03/24 [History] Famotidine [Pepcid] 20 mg PO HS 01/03/24 [History] Isosorbide Mononitrate ER [Imdur] 15 mg PO DAILY 01/03/24 [History] Metoprolol Tartrate [Lopressor] 12.5 mg PO TID 01/03/24 [History] Pregabalin [Lyrica] 75 mg PO TID 01/03/24 [History] busPIRone HCL 10 mg PO QAM 01/03/24 [History] Apixaban [Eliquis] 5 mg PO BID #60 tab 01/05/24 [Rx] Cefuroxime [Ceftin] 250 mg PO BID 7 Days #14 tab 01/05/24 [Rx] Furosemide [Lasix] 20 mg PO MOWEFR #0 01/05/24 [Rx] INSULIN ASPART (NovoLOG) [NovoLOG (formulary)] 0 unit SQ ACHS each 01/05/24 [Rx] Insulin Glargine,Hum.rec.anlog [Lantus Solostar Pen] 10 units SQ HS #0 01/05/24 [Rx] Midodrine [ProAmatine] 5 mg PO TID PRN #0 01/05/24 [Rx] Zinc Oxide 20% Oint 1 applic TOPICAL BID #20 gm 01/05/24 [Rx] Follow up Appointment(s)/Referral(s): Pierre White MD [Primary Care Provider] - 1 Week (Office is not answering at time of discharge. Please call for follow-up appointment.) Discharge Disposition: HOME WITH HOME HEALTH SERVICES
== END 2024-01-05 10:58 | disposition home health service (06) ==
LOC: EC 14:02 → 4SSUR 17:01
PROVIDERS: ADMIT Internal Medicine; ATTEND Internal Medicine
DX: E11.649 Type 2 diabetes mellitus with hypoglycemia without coma (principal); E11.42 Type 2 diabetes mellitus with diabetic polyneuropathy; E11.51 Type 2 diabetes mellitus with diabetic peripheral angiopathy without gangrene; N39.0 Urinary tract infection, site not specified; I95.1 Orthostatic hypotension; I11.0 Hypertensive heart disease with heart failure; I50.32 Chronic diastolic (congestive) heart failure; I25.10 Atherosclerotic heart disease of native coronary artery without angina pectoris; E78.2 Mixed hyperlipidemia; I48.0 Paroxysmal atrial fibrillation; R53.1 Weakness; M19.90 Unspecified osteoarthritis, unspecified site; K21.00 Gastro-esophageal reflux disease with esophagitis, without bleeding; I25.2 Old myocardial infarction; Z87.440 Personal history of urinary (tract) infections; Z87.891 Personal history of nicotine dependence; Z89.612 Acquired absence of left leg above knee; Z95.1 Presence of aortocoronary bypass graft; Z79.01 Long term (current) use of anticoagulants; Z79.02 Long term (current) use of antithrombotics/antiplatelets; Z79.51 Long term (current) use of inhaled steroids; Z79.84 Long term (current) use of oral hypoglycemic drugs; Z79.899 Other long term (current) drug therapy; Z88.5 Allergy status to narcotic agent
CPT/HCPCS: 99291; 36415; 94640; 97161; 80053 ×2; 83735 ×2; 84100 ×2; 84484; 85025 ×2; 81001; G0378 ×3

== ENCOUNTER 2024-01-21 18:50 | Emergency (ER) | payer MEDICARE ==
--- NOTE | 2024-01-21 18:59 | ED ---
Weakness HPI - General Chief complaint: Weakness Stated complaint: Weakness, hypoglycemia, UTI Time Seen by Provider: 01/21/24 18:55 Source: patient, RN notes reviewed, old records reviewed, Caregiver Mode of arrival: EMS Limitations: physical limitation - History of Present Illness Initial comments: This is a 83-year-old female to the ER for evaluation patient [facility] for evaluation regards to weakness generalized weakness which she believes is due to new medication she took for pain today. Patient was found to have low blood sugar here in the emergency department which she has been dealing with low blood sugar attacks as well as pain pain in the back from a minor bed wound and weakness. Patient does believe she has a UTI MD Complaint: generalized weakness, focal weakness, lack of energy, difficulty walking -: days(s) Location: generalized Severity: moderate Severity scale (1-10): 4 Consistency: constant Improves with: none Worsens with: none Context: recent illness, history of similar Associated Symptoms: denies other symptoms - Related Data Home Medications Medication Instructions Recorded Confirmed Amiodarone [Cordarone] 200 mg PO BID 01/03/24 01/03/24 Atorvastatin [Lipitor] 20 mg PO HS 01/03/24 01/03/24 Budesonide/Formoterol Fumarate 2 puff INHALATION RT-BID 01/03/24 01/03/24 [Symbicort 160-4.5 Mcg Inhaler] Cholecalciferol [Vitamin D3 (25 75 mcg PO DAILY 01/03/24 01/03/24 Mcg = 1000 Iu)] Clopidogrel [Plavix] 75 mg PO QAM 01/03/24 01/03/24 Digoxin [Digitek] 125 mcg PO QAM 01/03/24 01/03/24 Empagliflozin [Jardiance] 25 mg PO QAM 01/03/24 01/03/24 Famotidine [Pepcid] 20 mg PO HS 01/03/24 01/03/24 Isosorbide Mononitrate ER [Imdur] 15 mg PO DAILY 01/03/24 01/03/24 Metoprolol Tartrate [Lopressor] 12.5 mg PO TID 01/03/24 01/03/24 Pregabalin [Lyrica] 75 mg PO TID 01/03/24 01/03/24 busPIRone HCL 10 mg PO QAM 01/03/24 01/03/24 Previous Rx's Medication Instructions Recorded Apixaban [Eliquis] 5 mg PO BID #60 tab 01/05/24 Cefuroxime [Ceftin] 250 mg PO BID 7 Days #14 tab 01/05/24 Furosemide [Lasix] 20 mg PO MOWEFR #0 01/05/24 INSULIN ASPART (NovoLOG) [NovoLOG 0 unit SQ ACHS each 01/05/24 (formulary)] Insulin Glargine,Hum.rec.anlog 10 units SQ HS #0 01/05/24 [Lantus Solostar Pen] Midodrine [ProAmatine] 5 mg PO TID PRN #0 01/05/24 Zinc Oxide 20% Oint 1 applic TOPICAL BID #20 gm 01/05/24 Allergies Allergy/AdvReac Type Severity Reaction Status Date / Time codeine Allergy Unknown Verified 01/21/24 18:56 Review of Systems ROS Statement: Those systems with pertinent positive or pertinent negative responses have been documented in the HPI. ROS Other: All systems not noted in ROS Statement are negative. Past Medical History Past Medical History: Coronary Artery Disease (CAD), Diabetes Mellitus, Eye Disorder Additional Past Medical History / Comment(s): Heart attack 2013. 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 History of Any Multi-Drug Resistant Organisms: None Reported Past Surgical History: Coronary Bypass/CABG Past Anesthesia/Blood Transfusion Reactions: No Reported Reaction Past Psychological History: No Psychological Hx Reported Smoking Status: Former smoker Past Alcohol Use History: Rare Past Drug Use History: None Reported General Exam Limitations: physical limitation General appearance: alert, in no apparent distress Head exam: Present: atraumatic, normocephalic, normal inspection Eye exam: Present: normal appearance, PERRL, EOMI. Absent: scleral icterus, conjunctival injection, periorbital swelling ENT exam: Present: normal exam, mucous membranes moist Neck exam: Present: normal inspection. Absent: tenderness, meningismus, lymphadenopathy Respiratory exam: Present: normal lung sounds bilaterally. Absent: respiratory distress, wheezes, rales, rhonchi, stridor Cardiovascular Exam: Present: regular rate, normal rhythm, normal heart sounds. Absent: systolic murmur, diastolic murmur, rubs, gallop, clicks GI/Abdominal exam: Present: soft, normal bowel sounds. Absent: distended, tenderness, guarding, rebound, rigid Extremities exam: Present: normal inspection, full ROM, normal capillary refill. Absent: tenderness, pedal edema, joint swelling, calf tenderness Back exam: Present: normal inspection Neurological exam: Present: alert, oriented X3, CN II-XII intact Psychiatric exam: Present: normal affect, normal mood Skin exam: Present: warm, dry, intact, normal color. Absent: rash Course Vital Signs 01/21/24 01/21/24 18:51 21:40 Temperature 97.1 F L Pulse Rate 62 58 L Respiratory 18 19 Rate Blood Pressure 165/51 168/61 O2 Sat by Pulse 98 100 Oximetry - Reevaluation(s) Reevaluation #1: 01/21/24 18:59 Medical records reviewed Reevaluation #2: 01/21/24 22:57 Patient symptoms continue to improve Reevaluation #3: 01/21/24 22:57 Patient informed of results and questions answered Reevaluation #4: Was pt. sent in by a medical professional or institution (, PA, YIELD ENGINEER, urgent care, hospital, or long-term...) When possible be specific @ -no Did you speak to anyone other than the patient for history (EMS, parent, family, police, friend...)? What history was obtained from this source @ -no Did you review nursing and triage notes (agree or disagree)? Why? @ -agree Are old charts reviewed (outside hosp., previous admission, EMS record, old EKG, old radiological studies, urgent care reports/EKG's, long-term records)? Report findings @ -yes Differential Diagnosis (chest pain, altered mental status, abdominal pain women, abdominal pain men, vaginal bleeding, weakness, fever, dyspnea, syncope, headache, dizziness, GI bleed, back pain, seizure, CVA, palpatations, mental health, musculoskeletal)? @ -prior EKG interpreted by me (3pts min.). @ -yes X-rays interpreted by me (1pt min.). @ -yes negative for acute disease CT interpreted by me (1pt min.). @ -no U/S interpreted by me (1pt. min.). @ -no What testing was considered but not performed or refused? (CT, X-rays, U/S, labs)? Why? @ -none What meds were considered but not given or refused? Why? @ -none Did you discuss the management of the patient with other professionals (professionals i.e. , PA, YIELD ENGINEER, lab, RT, psych nurse, director of social media marketing, transition manager, teacher, staff weapons officer, rehabilitation case coordinator)? Give summary @ -no Was smoking cessation discussed for >3mins.? @ -no Was critical care preformed (if so, how long)? @ -no Were there social determinants of health that impacted care today? How? (Homelessness, low income, unemployed, alcoholism, drug addiction, transportation, low edu. Level, literacy, decrease access to med. care, detention, rehab)? @ -none Was there de-escalation of care discussed even if they declined (Discuss DNR or withdrawal of care, Hospice)? DNR status @ -no What co-morbidities impacted this encounter? (DM, HTN, Smoking, COPD, CAD, Cancer, CVA, ARF, Chemo, Hep., AIDS, mental health diagnosis, sleep apnea, morbid obesity)? @ -none Was patient admitted / discharged? Hospital course, mention meds given and route, prescriptions, significant lab abnormalities, going to OR and other pertinent info. @ - Undiagnosed new problem with uncertain prognosis? @ -no Drug Therapy requiring intensive monitoring for toxicity (Heparin, Nitro, Insulin, Cardizem)? @ -no Were any procedures done? @ -no Diagnosis/symptom? @ - Acute, or Chronic, or Acute on Chronic? @ -Acute Uncomplicated (without systemic symptoms) or Complicated (systemic symptoms)? @ -Complicated Side effects of treatment? @ -no Exacerbation, Progression, or Severe Exacerbation? @ -exacerbation Poses a threat to life or bodily function? How? (Chest pain, USA, MT, pneumonia, PE, COPD, DKA, ARF, appy, cholecystitis, CVA, Diverticulitis, Homicidal, Suicidal, threat to staff... and all critical care pts) @ -yes Reevaluation #5: Differential Weakness: Hypoglycemia, shock, sepsis, hyponatremia, anemia, infection, MT, ETOH, adverse medicine reaction, overdose, stroke, this is not meant to be an all-inclusive list. EKG Findings - EKG Comments: EKG Findings:: EKG sinus bradycardia 51 PA 183 QRS 112 QTc 517 - EKG Results: EKG: interpreted by ROBIN Medical Decision Making - Medical Decision Making 83 female to ER for evaluation of weakness, patient feels well here in the emergency room and has no complaints here in the ER blood sugar has normalized patient is able to eat and drink she feels well can be discharged home - Lab Data Result diagrams: 01/21/24 19:10 01/21/24 19:10 Lab Results 01/21/24 01/21/24 01/21/24 Range/Units 18:57 18:58 19:06 WBC (3.8-10.6) k/uL RBC (3.80-5.40) m/uL Hgb (11.4-16.0) gm/dL Hct (34.0-46.0) % MCV (80.0-100.0) fL MCH (25.0-35.0) pg MCHC (31.0-37.0) g/dL RDW (11.5-15.5) % Plt Count (150-450) k/uL MPV Neutrophils % % Lymphocytes % % Monocytes % % Eosinophils % % Basophils % % Neutrophils # (1.3-7.7) k/uL Lymphocytes # (1.0-4.8) k/uL Monocytes # (0-1.0) k/uL Eosinophils # (0-0.7) k/uL Basophils # (0-0.2) k/uL Hypochromasia Anisocytosis PT (10.0-12.5) sec INR (<1.2) APTT (22.0-30.0) sec Sodium (137-145) mmol/L Potassium (3.5-5.1) mmol/L Chloride (98-107) mmol/L Carbon Dioxide (22-30) mmol/L Anion Gap mmol/L BUN (7-17) mg/dL Creatinine (0.52-1.04) mg/dL Est GFR (CKD-EPI)AfAm (>60 ml/min/1.73 sqM) Est GFR (CKD-EPI)NonAf (>60 ml/min/1.73 sqM) Glucose (74-99) mg/dL POC Glucose (mg/dL) 47 L* 42 L* 51 L (70-110) mg/dL POC Glu [employer] Head ID Judit Carter Lactic Ac Sepsis Rflx Plasma Lactic Acid Ronn (0.7-2.0) mmol/L Calcium (8.4-10.2) mg/dL Phosphorus (2.5-4.5) mg/dL Magnesium (1.6-2.3) mg/dL Total Bilirubin (0.2-1.3) mg/dL AST (14-36) U/L ALT (4-34) U/L Alkaline Phosphatase (38-126) U/L Troponin I (0.000-0.034) ng/mL NT-Pro-B Natriuret Pep pg/mL Total Protein (6.3-8.2) g/dL Albumin (3.5-5.0) g/dL TSH (0.465-4.680) mIU/L Urine Color Urine Appearance (Clear) Urine pH (5.0-8.0) Ur Specific [place] (1.001-1.035) Urine Protein (Negative) Urine Glucose (UA) (Negative) Urine Ketones (Negative) Urine Blood (Negative) Urine Nitrite (Negative) Urine Bilirubin (Negative) Urine Urobilinogen (<2.0) mg/dL Ur Leukocyte Esterase (Negative) Urine RBC (0-5) /hpf Urine WBC (0-5) /hpf Ur Squamous Epith Cells (0-4) /hpf Urine Bacteria (None) /hpf Urine Yeast (Budding) (None) /hpf 01/21/24 01/21/24 01/21/24 Range/Units 19:10 19:10 19:10 WBC 11.8 H (3.8-10.6) k/uL RBC 4.59 (3.80-5.40) m/uL Hgb 12.7 (11.4-16.0) gm/dL Hct 41.2 (34.0-46.0) % MCV 89.7 (80.0-100.0) fL MCH 27.7 (25.0-35.0) pg MCHC 30.9 L (31.0-37.0) g/dL RDW 16.3 H (11.5-15.5) % Plt Count 380 (150-450) k/uL MPV 8.1 Neutrophils % 64 % Lymphocytes % 23 % Monocytes % 7 % Eosinophils % 2 % Basophils % 0 % Neutrophils # 7.6 (1.3-7.7) k/uL Lymphocytes # 2.8 (1.0-4.8) k/uL Monocytes # 0.9 (0-1.0) k/uL Eosinophils # 0.3 (0-0.7) k/uL Basophils # 0.1 (0-0.2) k/uL Hypochromasia Slight Anisocytosis Slight PT 10.7 (10.0-12.5) sec INR 1.0 (<1.2) APTT 26.0 (22.0-30.0) sec Sodium 138 (137-145) mmol/L Potassium 3.7 (3.5-5.1) mmol/L Chloride 110 H (98-107) mmol/L Carbon Dioxide 19 L (22-30) mmol/L Anion Gap 9 mmol/L BUN 37 H (7-17) mg/dL Creatinine 1.22 H (0.52-1.04) mg/dL Est GFR (CKD-EPI)AfAm 48 (>60 ml/min/1.73 sqM) Est GFR (CKD-EPI)NonAf 42 (>60 ml/min/1.73 sqM) Glucose 42 L* (74-99) mg/dL POC Glucose (mg/dL) (70-110) mg/dL POC Glu [employer] Head ID Lactic Ac Sepsis Rflx Plasma Lactic Acid Ronn (0.7-2.0) mmol/L Calcium 9.4 (8.4-10.2) mg/dL Phosphorus 3.3 (2.5-4.5) mg/dL Magnesium 1.9 (1.6-2.3) mg/dL Total Bilirubin 0.4 (0.2-1.3) mg/dL AST 27 (14-36) U/L ALT 26 (4-34) U/L Alkaline Phosphatase 92 (38-126) U/L Troponin I (0.000-0.034) ng/mL NT-Pro-B Natriuret Pep 1970 pg/mL Total Protein 7.0 (6.3-8.2) g/dL Albumin 4.1 (3.5-5.0) g/dL TSH 5.730 H (0.465-4.680) mIU/L Urine Color Urine Appearance (Clear) Urine pH (5.0-8.0) Ur Specific [place] (1.001-1.035) Urine Protein (Negative) Urine Glucose (UA) (Negative) Urine Ketones (Negative) Urine Blood (Negative) Urine Nitrite (Negative) Urine Bilirubin (Negative) Urine Urobilinogen (<2.0) mg/dL Ur Leukocyte Esterase (Negative) Urine RBC (0-5) /hpf Urine WBC (0-5) /hpf Ur Squamous Epith Cells (0-4) /hpf Urine Bacteria (None) /hpf Urine Yeast (Budding) (None) /hpf 01/21/24 01/21/24 01/21/24 Range/Units 19:10 19:10 19:14 WBC (3.8-10.6) k/uL RBC (3.80-5.40) m/uL Hgb (11.4-16.0) gm/dL Hct (34.0-46.0) % MCV (80.0-100.0) fL MCH (25.0-35.0) pg MCHC (31.0-37.0) g/dL RDW (11.5-15.5) % Plt Count (150-450) k/uL MPV Neutrophils % % Lymphocytes % % Monocytes % % Eosinophils % % Basophils % % Neutrophils # (1.3-7.7) k/uL Lymphocytes # (1.0-4.8) k/uL Monocytes # (0-1.0) k/uL Eosinophils # (0-0.7) k/uL Basophils # (0-0.2) k/uL Hypochromasia Anisocytosis PT (10.0-12.5) sec INR (<1.2) APTT (22.0-30.0) sec Sodium (137-145) mmol/L Potassium (3.5-5.1) mmol/L Chloride (98-107) mmol/L Carbon Dioxide (22-30) mmol/L Anion Gap mmol/L BUN (7-17) mg/dL Creatinine (0.52-1.04) mg/dL Est GFR (CKD-EPI)AfAm (>60 ml/min/1.73 sqM) Est GFR (CKD-EPI)NonAf (>60 ml/min/1.73 sqM) Glucose (74-99) mg/dL POC Glucose (mg/dL) 69 L (70-110) mg/dL POC Glu [employer] Head ID Muller Ursula Lactic Ac Sepsis Rflx Plasma Lactic Acid Ronn 4.1 H* (0.7-2.0) mmol/L Calcium (8.4-10.2) mg/dL Phosphorus (2.5-4.5) mg/dL Magnesium (1.6-2.3) mg/dL Total Bilirubin (0.2-1.3) mg/dL AST (14-36) U/L ALT (4-34) U/L Alkaline Phosphatase (38-126) U/L Troponin I 0.017 (0.000-0.034) ng/mL NT-Pro-B Natriuret Pep pg/mL Total Protein (6.3-8.2) g/dL Albumin (3.5-5.0) g/dL TSH (0.465-4.680) mIU/L Urine Color Urine Appearance (Clear) Urine pH (5.0-8.0) Ur Specific [place] (1.001-1.035) Urine Protein (Negative) Urine Glucose (UA) (Negative) Urine Ketones (Negative) Urine Blood (Negative) Urine Nitrite (Negative) Urine Bilirubin (Negative) Urine Urobilinogen (<2.0) mg/dL Ur Leukocyte Esterase (Negative) Urine RBC (0-5) /hpf Urine WBC (0-5) /hpf Ur Squamous Epith Cells (0-4) /hpf Urine Bacteria (None) /hpf Urine Yeast (Budding) (None) /hpf 01/21/24 01/21/24 01/21/24 Range/Units 19:43 20:23 20:32 WBC (3.8-10.6) k/uL RBC (3.80-5.40) m/uL Hgb (11.4-16.0) gm/dL Hct (34.0-46.0) % MCV (80.0-100.0) fL MCH (25.0-35.0) pg MCHC (31.0-37.0) g/dL RDW (11.5-15.5) % Plt Count (150-450) k/uL MPV Neutrophils % % Lymphocytes % % Monocytes % % Eosinophils % % Basophils % % Neutrophils # (1.3-7.7) k/uL Lymphocytes # (1.0-4.8) k/uL Monocytes # (0-1.0) k/uL Eosinophils # (0-0.7) k/uL Basophils # (0-0.2) k/uL Hypochromasia Anisocytosis PT (10.0-12.5) sec INR (<1.2) APTT (22.0-30.0) sec Sodium (137-145) mmol/L Potassium (3.5-5.1) mmol/L Chloride (98-107) mmol/L Carbon Dioxide (22-30) mmol/L Anion Gap mmol/L BUN (7-17) mg/dL Creatinine (0.52-1.04) mg/dL Est GFR (CKD-EPI)AfAm (>60 ml/min/1.73 sqM) Est GFR (CKD-EPI)NonAf (>60 ml/min/1.73 sqM) Glucose (74-99) mg/dL POC Glucose (mg/dL) 130 H 145 H (70-110) mg/dL POC Glu [employer] Head ID Neeru Navarrete Lactic Ac Sepsis Rflx Y Plasma Lactic Acid Ronn (0.7-2.0) mmol/L Calcium (8.4-10.2) mg/dL Phosphorus (2.5-4.5) mg/dL Magnesium (1.6-2.3) mg/dL Total Bilirubin (0.2-1.3) mg/dL AST (14-36) U/L ALT (4-34) U/L Alkaline Phosphatase (38-126) U/L Troponin I (0.000-0.034) ng/mL NT-Pro-B Natriuret Pep pg/mL Total Protein (6.3-8.2) g/dL Albumin (3.5-5.0) g/dL TSH (0.465-4.680) mIU/L Urine Color Urine Appearance (Clear) Urine pH (5.0-8.0) Ur Specific [place] (1.001-1.035) Urine Protein (Negative) Urine Glucose (UA) (Negative) Urine Ketones (Negative) Urine Blood (Negative) Urine Nitrite (Negative) Urine Bilirubin (Negative) Urine Urobilinogen (<2.0) mg/dL Ur Leukocyte Esterase (Negative) Urine RBC (0-5) /hpf Urine WBC (0-5) /hpf Ur Squamous Epith Cells (0-4) /hpf Urine Bacteria (None) /hpf Urine Yeast (Budding) (None) /hpf 01/21/24 01/21/24 01/21/24 Range/Units 21:29 22:18 22:43 WBC (3.8-10.6) k/uL RBC (3.80-5.40) m/uL Hgb (11.4-16.0) gm/dL Hct (34.0-46.0) % MCV (80.0-100.0) fL MCH (25.0-35.0) pg MCHC (31.0-37.0) g/dL RDW (11.5-15.5) % Plt Count (150-450) k/uL MPV Neutrophils % % Lymphocytes % % Monocytes % % Eosinophils % % Basophils % % Neutrophils # (1.3-7.7) k/uL Lymphocytes # (1.0-4.8) k/uL Monocytes # (0-1.0) k/uL Eosinophils # (0-0.7) k/uL Basophils # (0-0.2) k/uL Hypochromasia Anisocytosis PT (10.0-12.5) sec INR (<1.2) APTT (22.0-30.0) sec Sodium (137-145) mmol/L Potassium (3.5-5.1) mmol/L Chloride (98-107) mmol/L Carbon Dioxide (22-30) mmol/L Anion Gap mmol/L BUN (7-17) mg/dL Creatinine (0.52-1.04) mg/dL Est GFR (CKD-EPI)AfAm (>60 ml/min/1.73 sqM) Est GFR (CKD-EPI)NonAf (>60 ml/min/1.73 sqM) Glucose (74-99) mg/dL POC Glucose (mg/dL) 158 H 155 H (70-110) mg/dL POC Glu [employer] Head ID Neeru Navarrete Lactic Ac Sepsis Rflx Plasma Lactic Acid Ronn (0.7-2.0) mmol/L Calcium (8.4-10.2) mg/dL Phosphorus (2.5-4.5) mg/dL Magnesium (1.6-2.3) mg/dL Total Bilirubin (0.2-1.3) mg/dL AST (14-36) U/L ALT (4-34) U/L Alkaline Phosphatase (38-126) U/L Troponin I (0.000-0.034) ng/mL NT-Pro-B Natriuret Pep pg/mL Total Protein (6.3-8.2) g/dL Albumin (3.5-5.0) g/dL TSH (0.465-4.680) mIU/L Urine Color Colorless Urine Appearance Clear (Clear) Urine pH 5.5 (5.0-8.0) Ur Specific [place] 1.015 (1.001-1.035) Urine Protein Trace H (Negative) Urine Glucose (UA) 4+ H (Negative) Urine Ketones Negative (Negative) Urine Blood Large H (Negative) Urine Nitrite Negative (Negative) Urine Bilirubin Negative (Negative) Urine Urobilinogen <2.0 (<2.0) mg/dL Ur Leukocyte Esterase Small H (Negative) Urine RBC 58 H (0-5) /hpf Urine WBC 9 H (0-5) /hpf Ur Squamous Epith Cells 1 (0-4) /hpf Urine Bacteria Rare H (None) /hpf Urine Yeast (Budding) Rare H (None) /hpf - EKG Data -: EKG Interpreted by Tn - Radiology Data Radiology results: report reviewed (Chest x-ray is negative for acute disease), image reviewed Disposition Clinical Impression: Weakness Disposition: HOME SELF-CARE Condition: Good Instructions (If sedation given, give patient instructions): Weakness (ED) Is patient prescribed a controlled substance at d/c from ED?: No Referrals: Pierre White MD [Primary Care Provider] - 1-2 days Time of Disposition: 23:00
[2024-01-21 19:00] LABS: Glucose,Whole Blood 42 mg/dL (70-110)
[2024-01-21 19:00] LABS: Glucose,Whole Blood 47 mg/dL (70-110)
[2024-01-21 19:06] LABS: Glucose,Whole Blood 51 mg/dL (70-110)
[2024-01-21] MEDS: DEXTROSE 5%-0.45% NACL 1,000 ML IV ONE (19:12)
[2024-01-21 19:15] LABS: Glucose,Whole Blood 69 mg/dL (70-110)
[2024-01-21 19:19] LABS: Anisocytosis Slight; Basophils # (A) 0.1 k/uL (0-0.2); Basophils % (A) 0 %; Eosinophils # (A) 0.3 k/uL (0-0.7); Eosinophils % (A) 2 %; HCT 41.2 % (34.0-46.0); HGB 12.7 gm/dL (11.4-16.0); Hypochromasia Slight; Lymphocytes # (A) 2.8 k/uL (1.0-4.8); Lymphocytes % (A) 23 %; MCH 27.7 pg (25.0-35.0); MCHC 30.9 g/dL (31.0-37.0); MCV 89.7 fL (80.0-100.0); Mean Platelet Volume 8.1; Monocytes # (A) 0.9 k/uL (0-1.0); Monocytes % (A) 7 %; Neutrophils # (A) 7.6 k/uL (1.3-7.7); Neutrophils % (A) 64 %; Platelet Count 380 k/uL (150-450); RBC 4.59 m/uL (3.80-5.40); RDW 16.3 % (11.5-15.5); WBC 11.8 k/uL (3.8-10.6)
[2024-01-21 19:33] LABS: ALT 26 U/L (4-34); AST 27 U/L (14-36); African American GFR (CKD) 48 (>60 ml/min/1.73 sqM); Albumin 4.1 g/dL (3.5-5.0); Alkaline Phosphatase 92 U/L (38-126); Anion Gap 9 mmol/L; Blood Urea Nitrogen 37 mg/dL (7-17); Calcium 9.4 mg/dL (8.4-10.2); Carbon Dioxide 19 mmol/L (22-30); Chloride 110 mmol/L (98-107); Magnesium 1.9 mg/dL (1.6-2.3); Non-African American GFR(CKD) 42 (>60 ml/min/1.73 sqM); Phosphorus 3.3 mg/dL (2.5-4.5); Potassium 3.7 mmol/L (3.5-5.1); Sodium 138 mmol/L (137-145); Total Bilirubin 0.4 mg/dL (0.2-1.3)
[2024-01-21 19:35] LABS: Prothrombin Time 10.7 sec (10.0-12.5)
[2024-01-21 19:38] LABS: Glucose 42 mg/dL (74-99)
[2024-01-21 19:42] LABS: NT-Pro-B-Type Natriuretic Pept 1970 pg/mL
[2024-01-21] MEDS: ONDANSETRON 4 MG/2 ML VIAL IVP STA (19:42)
[2024-01-21] MEDS: SODIUM CHLORIDE 0.9% 1,000 ML IV STA ×2 (19:42→22:46)
[2024-01-21 19:44] LABS: Glucose,Whole Blood 130 mg/dL (70-110)
--- NOTE | 2024-01-21 20:06 | XR ---
EXAMINATION TYPE: XR chest 2V DATE OF EXAM: 01/21/2024 7:59 PM COMPARISON: None. CLINICAL INDICATION: Female, 83 years old with history of Weakness; [facility] TECHNIQUE: XR chest 2V Frontal and lateral views of the chest. FINDINGS: Lungs/Pleura: There is no evidence of pleural effusion, focal consolidation, or pneumothorax. Pulmonary vascularity: Unremarkable. Heart/mediastinum: Cardiomediastinal silhouette is unremarkable. Musculoskeletal: No acute osseous pathology. Midline sternotomy wires are noted. IMPRESSION: No acute cardiopulmonary disease/process. [facility] Bettina Sanchez, , 01/21/2024 8:04 PM
[2024-01-21 20:36] LABS: Glucose,Whole Blood 145 mg/dL (70-110)
[2024-01-21 21:30] LABS: Glucose,Whole Blood 158 mg/dL (70-110)
[2024-01-21 21:42] VITALS: RESP 19
[2024-01-21] MEDS: SODIUM CHLORIDE 0.9% 500 ML 500 ML IV STA (21:53)
[2024-01-21 22:40] LABS: Appearance,Urine Clear (Clear); Bacteria,Urine Rare /hpf; Bilirubin,Urine Negative (Negative); Blood,Urine Large (Negative); Budding Yeast,Urine Rare /hpf; Color,Urine Colorless; Glucose,Urine (UA) 4+ (Negative); Ketones,Urine Negative (Negative); Leukocyte Esterase,Urine Small (Negative); Nitrite,Urine Negative (Negative); PH, Urine 5.5 (5.0-8.0); Protein,Urine Trace (Negative); RBC,Urine 58 /hpf (0-5); Specific Gravity,Urine 1.015 (1.001-1.035); Squamous Epithelial Cell,Urine 1 /hpf (0-4); Urobilinogen,Urine <2.0 mg/dL (<2.0); WBC,Urine 9 /hpf (0-5)
[2024-01-21 22:45] LABS: Glucose,Whole Blood 155 mg/dL (70-110)
[2024-01-21 23:13] VITALS: BP 186/69; PULSE 62; TEMP 96.9
== END 2024-01-21 23:22 | disposition home or self-care (01) ==
LOC: EC 18:50
DX: R53.1 Weakness (principal); E11.65 Type 2 diabetes mellitus with hyperglycemia; Z87.891 Personal history of nicotine dependence; Z88.5 Allergy status to narcotic agent
CPT/HCPCS: 99285; 96365; 96368; 96375; 36415; 93005; 83880; 80053; 83605; 83735; 84100; 84443; 84484; 85025; 85610; 85730; 81001; 71046; 96361; J2405; J0696; 96366

== ENCOUNTER 2024-01-23 17:11 | Inpatient (IN) | payer MEDICARE ==
--- NOTE | 2024-01-23 17:29 | ED ---
Weakness HPI <Indira Goodman Leonardo - Last Filed: 01/25/24 16:10> - General Source: RN notes reviewed, old records reviewed Limitations: no limitations - History of Present Illness -: hour(s) Location: generalized Severity: moderate Severity scale (1-10): 4 Improves with: none Worsens with: none Associated Symptoms: denies other symptoms <Randell Griffin - Last Filed: 01/26/24 19:00> - General Stated complaint: Vaginal Bleed Time Seen by Provider: 01/23/24 17:13 - History of Present Illness Initial comments: This is an 83-year-old female with some bleeding today. Patient presents with may be urinary tract vaginal or rectal bleeding. Patient himself has no complaints here in the emergency department they did find blood in the diaper (Randell Griffin) - Related Data Home Medications Medication Instructions Recorded Confirmed Amiodarone [Cordarone] 200 mg PO BID 01/03/24 01/23/24 Atorvastatin [Lipitor] 20 mg PO HS 01/03/24 01/23/24 Cholecalciferol [Vitamin D3 (25 25 mcg PO DAILY 01/03/24 01/23/24 Mcg = 1000 Iu)] Clopidogrel [Plavix] 75 mg PO DAILY 01/03/24 01/23/24 Digoxin [Digitek] 125 mcg PO DAILY 01/03/24 01/23/24 Isosorbide Mononitrate ER [Imdur] 15 mg PO DAILY 01/03/24 01/23/24 Metoprolol Tartrate [Lopressor] 12.5 mg PO TID 01/03/24 01/23/24 Pregabalin [Lyrica] 75 mg PO TID 01/03/24 01/23/24 busPIRone HCL 10 mg PO DAILY 01/03/24 01/23/24 Ciprofloxacin HCl [Cipro] 500 mg PO BID 01/23/24 01/23/24 Collagenase [Santyl Ointment] 1 applic TOPICAL DAILY 01/23/24 01/23/24 Empagliflozin [Jardiance] 10 mg PO DAILY 01/23/24 01/23/24 Hydrophilic Cream [Triad (Kerodex 1 applic TOPICAL DIRECTED PRN 01/23/24 01/23/24 geq)] Insulin Lispro [humaLOG Kwikpen] See Protocol SQ ACHS 01/23/24 01/23/24 Previous Rx's Medication Instructions Recorded Apixaban [Eliquis] 5 mg PO BID #60 tab 01/05/24 Insulin Glargine,Hum.rec.anlog 10 units SQ HS #0 01/05/24 [Lantus Solostar Pen] Midodrine [ProAmatine] 5 mg PO TID PRN #0 01/05/24 Allergies Allergy/AdvReac Type Severity Reaction Status Date / Time codeine Allergy Swelling Verified 01/23/24 21:12 Review of Systems ROS Other: All systems not noted in ROS Statement are negative. <Indira Goodman - Last Filed: 01/25/24 16:10> ROS Other: All systems not noted in ROS Statement are negative. <Randell Griffin - Last Filed: 01/26/24 19:00> ROS Statement: Those systems with pertinent positive or pertinent negative responses have been documented in the HPI. Past Medical History Past Medical History: Coronary Artery Disease (CAD), Diabetes Mellitus, Eye Disorder Additional Past Medical History / Comment(s): Heart attack 2013. 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 History of Any Multi-Drug Resistant Organisms: None Reported Past Surgical History: Coronary Bypass/CABG Past Anesthesia/Blood Transfusion Reactions: No Reported Reaction Past Psychological History: No Psychological Hx Reported Smoking Status: Former smoker Past Alcohol Use History: Rare Past Drug Use History: None Reported - Past Family History Father Family Medical History: Unable to Obtain Mother Family Medical History: Cancer Additional Family Medical History / Comment(s): colon CA <Randell Griffni - Last Filed: 01/26/24 19:00> General Exam General appearance: alert, in no apparent distress Head exam: Present: atraumatic, normocephalic, normal inspection Eye exam: Present: normal appearance, PERRL, EOMI. Absent: scleral icterus, con junctival injection, periorbital swelling ENT exam: Present: normal exam, mucous membranes moist Neck exam: Present: normal inspection. Absent: tenderness, meningismus, lymphadenopathy Respiratory exam: Present: normal lung sounds bilaterally. Absent: respiratory distress, wheezes, rales, rhonchi, stridor Cardiovascular Exam: Present: regular rate, normal rhythm, normal heart sounds. Absent: systolic murmur, diastolic murmur, rubs, gallop, clicks GI/Abdominal exam: Present: soft, normal bowel sounds. Absent: distended, tenderness, guarding, rebound, rigid Extremities exam: Present: normal inspection, full ROM, normal capillary refill. Absent: tenderness, pedal edema, joint swelling, calf tenderness Back exam: Present: normal inspection Neurological exam: Present: alert, oriented X3, CN II-XII intact Psychiatric exam: Present: normal affect, normal mood Skin exam: Present: warm, dry, intact, normal color. Absent: rash <Randell Griffin - Last Filed: 01/26/24 19:00> Course <Randell Griffin - Last Filed: 01/26/24 19:00> Vital Signs 01/23/24 01/23/24 01/24/24 17:38 23:36 06:00 Pulse Rate 54 L 61 66 Respiratory 16 18 18 Rate Blood Pressure 183/73 176/62 173/67 O2 Sat by Pulse 97 93 L 96 Oximetry - Reevaluation(s) Reevaluation #1: 01/23/24 20:26 Medical records reviewed (Randell rGiffin) Reevaluation #2: 01/23/24 20:27 Medical records reviewed (Randell Griffin) Reevaluation #3: 01/23/24 22:21 Patient is to informed of results and questions answered (Randell Griffin) Reevaluation #4: Was pt. sent in by a medical professional or institution (, PA, CLIENT SERVICE SUPERVISOR, urgent care, hospital, or longterm...) When possible be specific @ -no Did you speak to anyone other than the patient for history (EMS, parent, family, police, friend...)? What history was obtained from this source @ -no Did you review nursing and triage notes (agree or disagree)? Why? @ -agree Are old charts reviewed (outside hosp., previous admission, EMS record, old EKG, old radiological studies, urgent care reports/EKG's, longterm records)? Report findings @ -yes Differential Diagnosis (chest pain, altered mental status, abdominal pain women, abdominal pain men, vaginal bleeding, weakness, fever, dyspnea, syncope, headache, dizziness, GI bleed, back pain, seizure, CVA, palpatations, mental health, musculoskeletal)? @ -prior EKG interpreted by me (3pts min.). @ -yes X-rays interpreted by me (1pt min.). @ -no CT interpreted by me (1pt min.). @ -Yes negative for acute disease U/S interpreted by me (1pt. min.). @ -no What testing was considered but not performed or refused? (CT, X-rays, U/S, labs)? Why? @ -none What meds were considered but not given or refused? Why? @ -none Did you discuss the management of the patient with other professionals (professionals i.e. Dr., PA, CLIENT SERVICE SUPERVISOR, lab, RT, psych nurse, social media marketer, fax machine repairer, teacher, security officer supervisor, gearcase assembler)? Give summary @ -no Was smoking cessation discussed for >3mins.? @ -no Was critical care preformed (if so, how long)? @ -no Were there social determinants of health that impacted care today? How? (Homelessness, low income, unemployed, alcoholism, drug addiction, transportat ion, low edu. Level, literacy, decrease access to med. care, long term, rehab)? @ -none Was there de-escalation of care discussed even if they declined (Discuss DNR or withdrawal of care, Hospice)? DNR status @ -no What co-morbidities impacted this encounter? (DM, HTN, Smoking, COPD, CAD, Cancer, CVA, ARF, Chemo, Hep., AIDS, mental health diagnosis, sleep apnea, morbid obesity)? @ -none Was patient admitted / discharged? Hospital course, mention meds given and route, prescriptions, significant lab abnormalities, going to OR and other pertinent info. @ -83 female admitted for UTI hematuria weakness Undiagnosed new problem with uncertain prognosis? @ -no Drug Therapy requiring intensive monitoring for toxicity (Heparin, Nitro, Insulin, Cardizem)? @ -no Were any procedures done? @ -no Diagnosis/symptom? @ -UTI hematuria weakness Acute, or Chronic, or Acute on Chronic? @ -Acute Uncomplicated (without systemic symptoms) or Complicated (systemic symptoms)? @ -Complicated Side effects of treatment? @ -no Exacerbation, Progression, or Severe Exacerbation? @ -exacerbation Poses a threat to life or bodily function? How? (Chest pain, USA, NE, pneumonia, PE, COPD, DKA, ARF, appy, cholecystitis, CVA, Diverticulitis, Homicidal, Suicidal, threat to staff... and all critical care pts) @ -yes extremes of age (Randell Griffin) Reevaluation #5: Differential GI Bleed: Esophageal varices, aortoenteric fistula, Carmelina-Sorto, gastritis, peptic ulcer disease, diverticulosis, inflammatory bowel disease, hemorrhoids, fissure, colitis, malignancy, Meckel's diverticulum, this is not meant to be an all- inclusive list. (Randell Griffin) - Consultations Consultation #1: Spoke with To her requesting CT scan, informed of results q okay for discharge (Randell Griffin) Medical Decision Making - Lab Data Result diagrams: 01/25/24 04:24 01/25/24 04:20 <Indira Goodman - Last Filed: 01/25/24 16:10> - Lab Data Result diagrams: 01/26/24 05:28 01/26/24 05:28 - Radiology Data Radiology results: report reviewed (CT abdomen pelvis is negative for acute disease), image reviewed <Randell Griffin - Last Filed: 01/26/24 19:00> - Medical Decision Making Was patient admitted / discharged? Hospital course, mention meds given and route, prescriptions, significant lab abnormalities, going to OR and other pertinent info. @ -Patient was awaiting CT report. After the CT does return I called and spoke with Dr. White. He does agree to admit the patient for hematuria with an infectious disease consult Undiagnosed new problem with uncertain prognosis? @ -Yes Drug Therapy requiring intensive monitoring for toxicity (Heparin, Nitro, Insulin, Cardizem)? @ -No Were any procedures done? @ -No Diagnosis/symptom? @ -Acute hematuria, recent UTI, history of ESBL Acute, or Chronic, or Acute on Chronic? @ -Acute Uncomplicated (without systemic symptoms) or Complicated (systemic symptoms)? @ -Complicated Side effects of treatment? @ -No Exacerbation, Progression, or Severe Exacerbation? @ -No Poses a threat to life or bodily function? How? (Chest pain, USA, NE, pneumonia, PE, COPD, DKA, ARF, appy, cholecystitis, CVA, Diverticulitis, Homicidal, Suicidal, threat to staff... and all critical care pts) @ -No (Indira Goodman) 83 female with weakness and hematuria, patient has no other acute findings or symptoms. Patient can be discharged home (Randell Griffin) - Lab Data Lab Results 01/23/24 01/23/24 01/23/24 Range/Units 17:38 17:38 17:38 WBC 9.8 (3.8-10.6) k/uL RBC 4.48 (3.80-5.40) m/uL Hgb 12.5 (11.4-16.0) gm/dL Hct 40.4 (34.0-46.0) % MCV 90.3 (80.0-100.0) fL MCH 28.0 (25.0-35.0) pg MCHC 31.0 (31.0-37.0) g/dL RDW 16.6 H (11.5-15.5) % Plt Count 304 (150-450) k/uL MPV 8.1 Neutrophils % 63 % Lymphocytes % 25 % Monocytes % 6 % Eosinophils % 3 % Basophils % 1 % Neutrophils # 6.2 (1.3-7.7) k/uL Lymphocytes # 2.4 (1.0-4.8) k/uL Monocytes # 0.6 (0-1.0) k/uL Eosinophils # 0.3 (0-0.7) k/uL Basophils # 0.1 (0-0.2) k/uL Hypochromasia Slight Anisocytosis Slight Sodium 137 (137-145) mmol/L Potassium 4.9 (3.5-5.1) mmol/L Chloride 108 H (98-107) mmol/L Carbon Dioxide 23 (22-30) mmol/L Anion Gap 6 mmol/L BUN 45 H (7-17) mg/dL Creatinine 1.14 H (0.52-1.04) mg/dL Est GFR (CKD-EPI)AfAm 52 (>60 ml/min/1.73 sqM) Est GFR (CKD-EPI)NonAf 45 (>60 ml/min/1.73 sqM) Glucose 132 H (74-99) mg/dL POC Glucose (mg/dL) (70-110) mg/dL POC Glu Consulting Intern ID Calcium 9.1 (8.4-10.2) mg/dL Phosphorus 3.7 (2.5-4.5) mg/dL Magnesium 2.3 (1.6-2.3) mg/dL Total Bilirubin 0.6 (0.2-1.3) mg/dL AST 47 H (14-36) U/L ALT 46 H (4-34) U/L Alkaline Phosphatase 91 (38-126) U/L Troponin I 0.021 (0.000-0.034) ng/mL Total Protein 7.2 (6.3-8.2) g/dL Albumin 4.1 (3.5-5.0) g/dL Urine Color Urine Appearance (Clear) Urine RBC (0-5) /hpf Urine Bacteria (None) /hpf 01/23/24 01/24/24 01/24/24 Range/Units 20:10 08:07 12:07 WBC (3.8-10.6) k/uL RBC (3.80-5.40) m/uL Hgb (11.4-16.0) gm/dL Hct (34.0-46.0) % MCV (80.0-100.0) fL MCH (25.0-35.0) pg MCHC (31.0-37.0) g/dL RDW (11.5-15.5) % Plt Count (150-450) k/uL MPV Neutrophils % % Lymphocytes % % Monocytes % % Eosinophils % % Basophils % % Neutrophils # (1.3-7.7) k/uL Lymphocytes # (1.0-4.8) k/uL Monocytes # (0-1.0) k/uL Eosinophils # (0-0.7) k/uL Basophils # (0-0.2) k/uL Hypochromasia Anisocytosis Sodium (137-145) mmol/L Potassium (3.5-5.1) mmol/L Chloride (98-107) mmol/L Carbon Dioxide (22-30) mmol/L Anion Gap mmol/L BUN (7-17) mg/dL Creatinine (0.52-1.04) mg/dL Est GFR (CKD-EPI)AfAm (>60 ml/min/1.73 sqM) Est GFR (CKD-EPI)NonAf (>60 ml/min/1.73 sqM) Glucose (74-99) mg/dL POC Glucose (mg/dL) 107 140 H (70-110) mg/dL POC Glu Consulting Intern ID Edgardo Avelar Calcium (8.4-10.2) mg/dL Phosphorus (2.5-4.5) mg/dL Magnesium (1.6-2.3) mg/dL Total Bilirubin (0.2-1.3) mg/dL AST (14-36) U/L ALT (4-34) U/L Alkaline Phosphatase (38-126) U/L Troponin I (0.000-0.034) ng/mL Total Protein (6.3-8.2) g/dL Albumin (3.5-5.0) g/dL Urine Color Red Urine Appearance Cloudy H (Clear) Urine RBC >182 H (0-5) /hpf Urine Bacteria Few H (None) /hpf Disposition Decision to Admit Reason: Admit from EC Decision Date: 01/24/24 Decision Time: 01:10 <Indira Goodman - Last Filed: 01/25/24 16:10> Is patient prescribed a controlled substance at d/c from ED?: No Time of Disposition: 22:20 <Randell Griffin - Last Filed: 01/26/24 19:00> Clinical Impression: Weakness, Hematuria, UTI (urinary tract infection), VRE (vancomycin resistant enterococcus) culture positive Disposition: ADMITTED IP TO THIS HOSP Condition: Fair
[2024-01-23 17:48] LABS: Anisocytosis Slight; Basophils # (A) 0.1 k/uL (0-0.2); Basophils % (A) 1 %; Eosinophils # (A) 0.3 k/uL (0-0.7); Eosinophils % (A) 3 %; HCT 40.4 % (34.0-46.0); HGB 12.5 gm/dL (11.4-16.0); Hypochromasia Slight; Lymphocytes # (A) 2.4 k/uL (1.0-4.8); Lymphocytes % (A) 25 %; MCV 90.3 fL (80.0-100.0); Mean Platelet Volume 8.1; Monocytes # (A) 0.6 k/uL (0-1.0); Monocytes % (A) 6 %; Neutrophils # (A) 6.2 k/uL (1.3-7.7); Neutrophils % (A) 63 %; Platelet Count 304 k/uL (150-450); RBC 4.48 m/uL (3.80-5.40); RDW 16.6 % (11.5-15.5); WBC 9.8 k/uL (3.8-10.6)
[2024-01-23] MEDS: SODIUM CHLORIDE 0.9% 1,000 ML IV STA (17:49)
[2024-01-23 18:07] LABS: ALT 46 U/L (4-34); AST 47 U/L (14-36); African American GFR (CKD) 52 (>60 ml/min/1.73 sqM); Albumin 4.1 g/dL (3.5-5.0); Alkaline Phosphatase 91 U/L (38-126); Anion Gap 6 mmol/L; Blood Urea Nitrogen 45 mg/dL (7-17); Calcium 9.1 mg/dL (8.4-10.2); Carbon Dioxide 23 mmol/L (22-30); Chloride 108 mmol/L (98-107); Glucose 132 mg/dL (74-99); Magnesium 2.3 mg/dL (1.6-2.3); Non-African American GFR(CKD) 45 (>60 ml/min/1.73 sqM); Phosphorus 3.7 mg/dL (2.5-4.5); Sodium 137 mmol/L (137-145); Total Bilirubin 0.6 mg/dL (0.2-1.3); Total Protein 7.2 g/dL (6.3-8.2)
[2024-01-23 18:11] LABS: Potassium 4.9 mmol/L (3.5-5.1)
[2024-01-23 20:55] LABS: Appearance,Urine Cloudy (Clear); Color,Urine Red
[2024-01-23 21:09] LABS: Bacteria,Urine Few /hpf; RBC,Urine >182 /hpf (0-5)
[2024-01-23] MEDS: cefTRIAXone IN SWFI 1,000 MG/10 ML SYRINGE IVP STA (21:38)
--- NOTE | 2024-01-24 00:26 | CT ---
EXAMINATION TYPE: CT abdomen pelvis w con DATE OF EXAM: 01/23/2024 10:13 PM COMPARISON: None CLINICAL INDICATION: Female, 83 years old with history of pain/?bleed; TECHNIQUE: Axial CT abdomen pelvis w con;Sagittal and coronal reformats were created on a separate w orkstation. Contrast used: mL of , (none if empty) Oral contrast used: (none if empty) CT DLP: 875 mGycm, Automated exposure control for dose reduction was used. FINDINGS: LOWER CHEST: Intralobular septal thickening with trace bilateral pleural effusions. Mitral annular ca lcifications present. Coronary artery atherosclerosis. ABDOMEN LIVER: Unremarkable GALLBLADDER AND BILE DUCTS: Unremarkable. PANCREAS: Unremarkable. SPLEEN: Unremarkable. ADRENAL GLANDS: Unremarkable. KIDNEYS AND URETERS: No evidence of hydronephrosis or renal calculus. The ureters are unremarkable. PELVIS BLADDER: Trabeculated bladder huffman with gastric lumen. No evidence for wall thickening or mass given limitations of exam. REPRODUCTIVE: . The vagina is grossly unremarkable. ABDOMEN & PELVIS STOMACH AND BOWEL: Small hiatal hernia present. Large amount stool in the rectum measuring up to 8.4 cm. No evidence of bowel obstruction. PERITONEUM/RETROPERITONEUM: No evidence of pneumoperitoneum or free fluid. VASCULATURE: No evidence of aortic aneurysm. MUSCULOSKELETAL: No acute osseous abnormalities LYMPH NODES: No gross evidence for lymphadenopathy. SOFT TISSUE/ABDOMINAL WALL: Unremarkable IMPRESSION: 1. No evidence for acute abdominal process. 2. Large stool burden in the rectum with small bowel feces correlate for constipation/fecal stasis. 3. Irregular appearance of the urinary bladder huffman correlate with urinalysis for cystitis. 4. Cholelithiasis. 5. Pulmonary vascular congestion with trace bilateral pleural effusions correlate with serum BNP. 6. Small hiatal hernia. [facility], , 01/24/2024 12:24 AM
[2024-01-24] MEDS: ACETAMINOPHEN TAB 500 MG TAB PO STA (00:46)
[2024-01-24] MEDS ORDERED: NALOXONE 0.4 MG/ML 1 ML VIAL IV PRN (01:36)
[2024-01-24] MEDS ORDERED: MIDODRINE 5 MG TAB PO PRN (07:18)
[2024-01-24] MEDS ORDERED: DEXTROSE 50% SYRINGE 50 ML IVP PRN ×2 (07:20)
[2024-01-24 08:08] LABS: Glucose,Whole Blood 107 mg/dL (70-110)
[2024-01-24] MEDS: AMIODARONE 200 MG TAB PO SCH (08:48)
[2024-01-24] MEDS: DAPAGLIFLOZIN PROPANEDIOL 5 MG TABLET PO SCH (08:48)
[2024-01-24] MEDS: METOPROLOL TARTRATE 12.5 MG TAB PO SCH (08:48)
[2024-01-24] MEDS: busPIRone HCl 10 MG TAB PO SCH (08:48)
[2024-01-24] MEDS: PREGABALIN 75 MG CAP PO SCH (08:48)
[2024-01-24] MEDS: CLOPIDOGREL 75 MG TAB PO SCH (08:49)
[2024-01-24] MEDS: CHOLECALCIFEROL 25 MCG (1000 IU) TABLET PO SCH (08:49)
[2024-01-24] MEDS: INSULIN ASPART (NovoLOG) 100 UNIT/ML VIAL SQ SCH (08:49)
[2024-01-24] MEDS: APIXABAN 5 MG TAB PO SCH (08:49)
[2024-01-24] MEDS: DIGOXIN 125 MCG TAB PO SCH (09:15)
[2024-01-24] MEDS: ISOSORBIDE MONONITRATE ER 15 MG TAB PO SCH (09:16)
--- NOTE | 2024-01-24 11:44 | P.GSCN ---
History of Present Illness Consult date: 01/24/24 History of present illness: 83-year-old female with multiple medical morbidities including an qnkml-qvl-vcmn amputation insulin-dependent diabetes and recurrent urine infections was admitted to the hospital with hematuria. She noticed the hematuria in her diaper. She does have incontinence. she is bedridden due to an amputation. She has had bedsores. She was in the hospital recently and treated for an infection with Ceftin by We're asked to see the patient. she is non ambulatory. Her recent uti was klebsiella and enterococcus. She denies pneumaturia. She has never seen a urologist. She hasnt been instrumented in the bladder for a while per her daughter. Her last colonoscopy was [address] Matthews It was ok other than some mild diverticulosis. She has constipation but no diarrhea. Review of Systems All systems: negative - Constitutional Denies fever, Denies weight loss - EENT Eyes: denies blurred vision Ears, nose, mouth and throat: Denies dysphagia - Cardiovascular Denies chest pain, Denies shortness of breath - Respiratory Denies cough, Denies 7 - Gastrointestinal Reports as per HPI - Genitourinary Genitourinary: Denies dysuria, Denies hematuria - Integumentary Denies rash, Denies unusual bruising - Neurological Denies headaches, Denies syncope - Hematologic/Lymphatic Denies easy bleeding, Denies easy bruising Past Medical History Past Medical History: Coronary Artery Disease (CAD), Diabetes Mellitus, Eye Disorder Additional Past Medical History / Comment(s): Heart attack 2013. 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 History of Any Multi-Drug Resistant Organisms: None Reported Past Surgical History: Coronary Bypass/CABG Past Anesthesia/Blood Transfusion Reactions: No Reported Reaction Past Psychological History: No Psychological Hx Reported Smoking Status: Former smoker Past Alcohol Use History: Rare Past Drug Use History: None Reported - Past Family History Father Family Medical History: Unable to Obtain Mother Family Medical History: Cancer Additional Family Medical History / Comment(s): colon CA Medications and Allergies Home Medications Medication Instructions Recorded Confirmed Type Amiodarone [Cordarone] 200 mg PO BID 01/03/24 01/23/24 History Atorvastatin [Lipitor] 20 mg PO HS 01/03/24 01/23/24 History Cholecalciferol [Vitamin D3 (25 25 mcg PO DAILY 01/03/24 01/23/24 History Mcg = 1000 Iu)] Clopidogrel [Plavix] 75 mg PO DAILY 01/03/24 01/23/24 History Digoxin [Digitek] 125 mcg PO DAILY 01/03/24 01/23/24 History Isosorbide Mononitrate ER [Imdur] 15 mg PO DAILY 01/03/24 01/23/24 History Metoprolol Tartrate [Lopressor] 12.5 mg PO TID 01/03/24 01/23/24 History Pregabalin [Lyrica] 75 mg PO TID 01/03/24 01/23/24 History busPIRone HCL 10 mg PO DAILY 01/03/24 01/23/24 History Apixaban [Eliquis] 5 mg PO BID #60 tab 01/05/24 01/23/24 Rx Insulin Glargine,Hum.rec.anlog 10 units SQ HS #0 01/05/24 01/23/24 Rx [Lantus Solostar Pen] Midodrine [ProAmatine] 5 mg PO TID PRN #0 01/05/24 01/23/24 Rx Ciprofloxacin HCl [Cipro] 500 mg PO BID 01/23/24 01/23/24 History Collagenase [Santyl Ointment] 1 applic TOPICAL DAILY 01/23/24 01/23/24 History Empagliflozin [Jardiance] 10 mg PO DAILY 01/23/24 01/23/24 History Hydrophilic Cream [Triad (Kerodex 1 applic TOPICAL DIRECTED PRN 01/23/24 01/23/24 History geq)] Insulin Lispro [humaLOG Kwikpen] See Protocol SQ ACHS 01/23/24 01/23/24 History Allergies Allergy/AdvReac Type Severity Reaction Status Date / Time codeine Allergy Swelling Verified 01/23/24 21:12 Surgical - Exam Vital Signs Pulse Resp BP Pulse Ox 54 L 16 183/73 97 01/23/24 17:38 01/23/24 17:38 01/23/24 17:38 01/23/24 17:38 - General well developed, well nourished, no distress - Eyes normal ocular movement, no icteric - ENT no hearing loss, no congestion - Neck no masses, trachea midline - Respiratory normal respiratory effort, clear to auscultation - Abdomen Abdomen: soft, non tender, no guarding, no rigid, no rebound - Genitourinary external catheter with old bloody urine - Integumentary no rash, no abnormal pigmentation - Neurologic no disoriented, no combative - Musculoskeletal right AKA - Psychiatric oriented to time, oriented to person, oriented to place, speech is normal, memory intact Results - Labs 01/23/24 17:38 01/23/24 17:38 Abnormal Lab Results - Last 24 Hours (Table) 01/23/24 01/23/24 01/23/24 Range/Units 17:38 17:38 20:10 RDW 16.6 H (11.5-15.5) % Chloride 108 H (98-107) mmol/L BUN 45 H (7-17) mg/dL Creatinine 1.14 H (0.52-1.04) mg/dL Glucose 132 H (74-99) mg/dL AST 47 H (14-36) U/L ALT 46 H (4-34) U/L Urine Appearance Cloudy H (Clear) Urine RBC >182 H (0-5) /hpf Urine Bacteria Few H (None) /hpf Diabetes panel 01/23/24 Range/Units 17:38 Sodium 137 (137-145) mmol/L Potassium 4.9 (3.5-5.1) mmol/L Chloride 108 H (98-107) mmol/L Carbon Dioxide 23 (22-30) mmol/L BUN 45 H (7-17) mg/dL Creatinine 1.14 H (0.52-1.04) mg/dL Glucose 132 H (74-99) mg/dL Calcium 9.1 (8.4-10.2) mg/dL AST 47 H (14-36) U/L ALT 46 H (4-34) U/L Alkaline Phosphatase 91 (38-126) U/L Total Protein 7.2 (6.3-8.2) g/dL Albumin 4.1 (3.5-5.0) g/dL Calcium panel 01/23/24 Range/Units 17:38 Calcium 9.1 (8.4-10.2) mg/dL Phosphorus 3.7 (2.5-4.5) mg/dL Albumin 4.1 (3.5-5.0) g/dL Pituitary panel 01/23/24 Range/Units 17:38 Sodium 137 (137-145) mmol/L Potassium 4.9 (3.5-5.1) mmol/L Chloride 108 H (98-107) mmol/L Carbon Dioxide 23 (22-30) mmol/L BUN 45 H (7-17) mg/dL Creatinine 1.14 H (0.52-1.04) mg/dL Glucose 132 H (74-99) mg/dL Calcium 9.1 (8.4-10.2) mg/dL Adrenal panel 01/23/24 Range/Units 17:38 Sodium 137 (137-145) mmol/L Potassium 4.9 (3.5-5.1) mmol/L Chloride 108 H (98-107) mmol/L Carbon Dioxide 23 (22-30) mmol/L BUN 45 H (7-17) mg/dL Creatinine 1.14 H (0.52-1.04) mg/dL Glucose 132 H (74-99) mg/dL Calcium 9.1 (8.4-10.2) mg/dL Total Bilirubin 0.6 (0.2-1.3) mg/dL AST 47 H (14-36) U/L ALT 46 H (4-34) U/L Alkaline Phosphatase 91 (38-126) U/L Total Protein 7.2 (6.3-8.2) g/dL Albumin 4.1 (3.5-5.0) g/dL - Imaging CT scan - abdomen: report reviewed, image reviewed CT scan - pelvis: report reviewed, image reviewed Assessment and Plan Assessment: impression: Hematuria. Recent enterococcus/Klebsiella urine infection. Air in the bladder on computed tomography scan. Diabetes. Recommendations: The hematuria most likely is related to the recent urine infection. The causes of pneumaturia include instrumentation, infection with an air producing bacteria (E. coli/Klebsiella), fistulization from the bowel to the bladder. I reviewed the computed tomography scan at length with the radiologist and there does not appear to be a distinct fistula however general surgical consultation would be reasonable. Patient would probably benefit from colonoscopy as well as cystoscopy in the future. Daughter however stated that she didn't relieve she was up for any sort of anesthetic. I will discuss the case with and further recommendations will be made. Otherwise clinically she is stable Time with Patient: Greater than 30
[2024-01-24 12:08] LABS: Glucose,Whole Blood 140 mg/dL (70-110)
[2024-01-24] MEDS ORDERED: COLLAGENASE 250 UNIT/GM OINTMENT 30 GM TUBE TOPICAL SCH (12:30)
[2024-01-24] MEDS: ACETAMINOPHEN TAB 325 MG TAB PO PRN (12:42)
[2024-01-24] MEDS: ERTAPENEM 1 GM in SODIUM CHLORIDE 0.9% 50 ML IVPB SCH (12:43)
[2024-01-24] MEDS: HYDROPHILIC CREAM 180 GM TUBE TOPICAL SCH (12:56)
[2024-01-24 17:09] LABS: Glucose,Whole Blood 96 mg/dL (70-110)
[2024-01-24 20:24] LABS: Glucose,Whole Blood 142 mg/dL (70-110)
[2024-01-24] MEDS: INSULIN DETEMIR (LEVEMIR) 100 UNIT/ML SYR SQ SCH (21:03)
[2024-01-24] MEDS: NYSTATIN 100,000 UNIT/GM POWD 15 GM TOPICAL SCH (21:03)
[2024-01-24] MEDS: ATORVASTATIN 20 MG TAB PO SCH (21:03)
[2024-01-25 07:24] LABS: Glucose,Whole Blood 63 mg/dL (70-110)
[2024-01-25 07:37] LABS: Glucose,Whole Blood 118 mg/dL (70-110)
--- NOTE | 2024-01-25 08:02 | P.PN ---
Subjective Progress Note Date: 01/25/24 The patient is in the hospital with hematuria. She had a urine infection with Klebsiella 2 weeks ago. She had a computed tomography scan identifying air in her bladder. He is feeling better this morning. Her urine is clearing. Objective - Vital Signs Vital signs: Vital Signs Temp 97.9 F 01/25/24 00:34 Pulse 58 L 01/25/24 00:34 Resp 18 01/25/24 00:34 BP 189/72 01/25/24 00:34 Pulse Ox 97 01/25/24 00:34 FiO2 Intake & Output 01/24/24 01/25/24 01/25/24 18:59 06:59 18:59 Intake Total 2758 Output Total 2600 350 Balance 158 -350 Intake: Oral 2758 Output: Urine 2600 350 Other: Voiding Method External Catheter External Catheter # Voids 3 1 # Bowel Movements 7 1 - Labs CBC & Chem 7: 01/23/24 17:38 01/23/24 17:38 Labs: Abnormal Lab Results - Last 24 Hours (Table) 01/24/24 01/24/24 01/25/24 Range/Units 12:07 20:18 07:05 POC Glucose (mg/dL) 140 H 142 H 63 L (70-110) mg/dL 01/25/24 Range/Units 07:32 POC Glucose (mg/dL) 118 H (70-110) mg/dL Assessment and Plan Assessment: Impression: Hematuria probably secondary to urinary infection. 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 Constipation Recommendations: I had a lengthy discussion with about her situation including cystoscopy, colonoscopy, possible colovesical fistula. Given her overall poor health the recommendation will be to observe her and see how she does. Hopefully with antibiotics things will settle down and nothing further would need to be done. She looks better this morning. We will continue to observe.
[2024-01-25 08:30] LABS: Basophils # (A) 0.06 X 10*3/uL (0.00-0.10); Basophils % (A) 0.6 %; Eosinophils % (A) 5.4 %; HCT 39.1 % (37.2-46.3); HGB 12.4 g/dL (12.0-15.0); Lymphocytes # (A) 1.23 X 10*3/uL (0.90-5.00); Lymphocytes % (A) 13.3 %; MCH 28.3 pg (27.0-32.0); MCHC 31.7 g/dL (32.0-37.0); MCV 89.3 FL (80.0-97.0); Mean Platelet Volume 11.6 FL (9.5-12.2); Monocytes # (A) 0.78 X 10*3/uL (0.20-1.00); Monocytes % (A) 8.4 %; NRBC Per 100 WBC 0 X 10*3/uL (0.00-0.01); Neutrophils # (A) 6.53 X 10*3/uL (1.80-7.70); Neutrophils % (A) 70.8 %; Platelet Count 292 X 10*3/uL (140-440); RBC 4.38 X 10*6/uL (4.10-5.20); WBC 9.24 X 10*3/uL (4.50-10.00)
--- NOTE | 2024-01-25 09:22 | P.CONS ---
History of Present Illness - Reason for Consult Consult date: 01/24/24 Hematuria, recent antibiotic treatment ESBL Requesting physician: Pierre White - Chief Complaint Blood in the urine x 1 day - History of Present Illness Patient is a 83-year-old female with a past medical history significant for diabetes mellitus coronary artery disease recurrent urinary tract infection in this patient currently has been treated for UTI over the last 3 weeks with an oral antibiotic therapy patient has not been brought into the hospital as the patient started having blood in the urine that started yesterday evening patient did not have significant burning or frequency some suprapubic discomfort nausea but no vomiting did have some chills but no fever with the symptoms the patient has been brought to the hospital on arrival to the ER the p atient was afebrile and a few have recorded subsequently patient was not tachycardic hypotensive or hypoxic patient did have a white count of 9.8 BUN/creatinine mildly elevated liver enzymes are mildly elevated patient did have a cloudy urine with more than 182 WBC patient was started on Rocephin has been admitted to hospital infectious disease was consulted for further management of antibiotic therapy patient did have CT of abdominal pelvis large stool burden irregular appearance of the urinary bladder huffman correlate for cystitis and cholelithiasis Review of Systems Positive point and negatives has been mentioned in the HPI, complete review of systems was performed and all other systems are negative Past Medical History Past Medical History: Coronary Artery Disease (CAD), Diabetes Mellitus, Eye Disorder Additional Past Medical History / Comment(s): Heart attack 2013. 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 History of Any Multi-Drug Resistant Organisms: None Reported Past Surgical History: Coronary Bypass/CABG Past Anesthesia/Blood Transfusion Reactions: No Reported Reaction Past Psychological History: No Psychological Hx Reported Smoking Status: Former smoker Past Alcohol Use History: Rare Past Drug Use History: None Reported - Past Family History Father Family Medical History: Unable to Obtain Mother Family Medical History: Cancer Additional Family Medical History / Comment(s): colon CA Medications and Allergies Home Medications Medication Instructions Recorded Confirmed Type Amiodarone [Cordarone] 200 mg PO BID 01/03/24 01/23/24 History Atorvastatin [Lipitor] 20 mg PO HS 01/03/24 01/23/24 History Cholecalciferol [Vitamin D3 (25 25 mcg PO DAILY 01/03/24 01/23/24 History Mcg = 1000 Iu)] Clopidogrel [Plavix] 75 mg PO DAILY 01/03/24 01/23/24 History Digoxin [Digitek] 125 mcg PO DAILY 01/03/24 01/23/24 History Isosorbide Mononitrate ER [Imdur] 15 mg PO DAILY 01/03/24 01/23/24 History Metoprolol Tartrate [Lopressor] 12.5 mg PO TID 01/03/24 01/23/24 History Pregabalin [Lyrica] 75 mg PO TID 01/03/24 01/23/24 History busPIRone HCL 10 mg PO DAILY 01/03/24 01/23/24 History Apixaban [Eliquis] 5 mg PO BID #60 tab 01/05/24 01/23/24 Rx Insulin Glargine,Hum.rec.anlog 10 units SQ HS #0 01/05/24 01/23/24 Rx [Lantus Solostar Pen] Midodrine [ProAmatine] 5 mg PO TID PRN #0 01/05/24 01/23/24 Rx Ciprofloxacin HCl [Cipro] 500 mg PO BID 01/23/24 01/23/24 History Collagenase [Santyl Ointment] 1 applic TOPICAL DAILY 01/23/24 01/23/24 History Empagliflozin [Jardiance] 10 mg PO DAILY 01/23/24 01/23/24 History Hydrophilic Cream [Triad (Kerodex 1 applic TOPICAL DIRECTED PRN 01/23/24 01/23/24 History geq)] Insulin Lispro [humaLOG Kwikpen] See Protocol SQ ACHS 01/23/24 01/23/24 History Allergies Allergy/AdvReac Type Severity Reaction Status Date / Time codeine Allergy Swelling Verified 01/23/24 21:12 Physical Exam Vitals: Vital Signs Temp Pulse Pulse Resp BP BP Pulse Ox 01/24/24 08:00 97.6 F 64 16 182/69 92 L 01/24/24 06:00 66 18 173/67 96 01/23/24 23:36 61 18 176/62 93 L 01/23/24 17:38 54 L 16 183/73 97 Intake and Output 01/23/24 01/24/24 01/24/24 22:59 06:59 14:59 Intake Total 118 Balance 118 Intake: Oral 118 Other: Weight 68.039 kg 68.039 kg GENERAL DESCRIPTION: Elderly female lying in bed, no distress. No tachypnea or accessory muscle of respiration use. HEENT: Shows Pallor , no scleral icterus. Oral mucous membrane is dry. NECK: Trachea central, no thyromegaly. LUNGS: Unlabored breathing. Clear to auscultation anteriorly. No wheeze or crackle. HEART: S1, S2, regular rate and rhythm. No loud murmur ABDOMEN: Soft, no tenderness , guarding or rigidity, no organomegaly EXTREMITIES: No edema of feet. SKIN: No rash, no masses palpable. NEUROLOGICAL: The patient is awake, alert, oriented x3, mood and affect normal. Results CBC & Chem 7: 01/25/24 04:24 01/23/24 17:38 Labs: Abnormal Lab Results - Last 24 Hours (Table) 01/23/24 01/23/24 01/23/24 Range/Units 17:38 17:38 20:10 RDW 16.6 H (11.5-15.5) % Chloride 108 H (98-107) mmol/L BUN 45 H (7-17) mg/dL Creatinine 1.14 H (0.52-1.04) mg/dL Glucose 132 H (74-99) mg/dL AST 47 H (14-36) U/L ALT 46 H (4-34) U/L Urine Appearance Cloudy H (Clear) Urine RBC >182 H (0-5) /hpf Urine Bacteria Few H (None) /hpf Assessment and Plan (1) Hematuria Current Visit: Yes Status: Acute Code(s): R31.9 - HEMATURIA, UNSPECIFIED SNOMED Code(s): 97633998 (2) UTI (urinary tract infection) Current Visit: Yes Status: Acute Code(s): N39.0 - URINARY TRACT INFECTION, SITE NOT SPECIFIED SNOMED Code(s): 37040537 (3) History of ESBL Klebsiella pneumoniae infection Current Visit: Yes Status: Acute Code(s): Z86.19 - PERSONAL HISTORY OF OTHER INFECTIOUS AND PARASITIC DISEASES SNOMED Code(s): 881151707 (4) VRE (vancomycin resistant enterococcus) culture positive Current Visit: Yes Status: Acute Code(s): Z22.39 - CARRIER OF OTHER SPECIFIED BACTERIAL DISEASES SNOMED Code(s): 205902289 Plan: 1patient presented to the hospital for hematuria and this patient apparently did have history of recurrent UTI with a last urine culture done on 01/12/2024 was positive for ESBL Klebsiella as well as VRE which was ampicillin sensitive failing outpatient oral antibiotic therapy with evidence of cystitis on the CT but did not show any other structural abnormality 2-we will obtain urine cultures as no culture ordered from the ER 3-discontinue Rocephin 4-we will start patient on Invanz that should cover for both ESBL Klebsiella as well as ampicillin sensitive VRE while waiting for the repeat urine cultures to be finalized Daughter at the bedside multiple question concern answered We will follow on clinical condition and cultures to further adjust medication if needed Thank you for this consultation we will follow the patient along with you Dictation was produced using [employer] dictation software. please excuse any grammatical, word or spelling errors. Time with Patient: Greater than 30
[2024-01-25 09:27] LABS: BUN/Creat Ratio 24.83 Ratio (12.00-20.00); Blood Urea Nitrogen 14.9 mg/dL (9.0-27.0); Calcium 8.8 mg/dL (8.7-10.3); Carbon Dioxide 22.6 mmol/L (21.6-31.8); Chloride 109 mmol/L (96-109); Glucose 64 mg/dL (70-110); Sodium 143 mmol/L (135-145)
[2024-01-25 12:18] LABS: Glucose,Whole Blood 92 mg/dL (70-110)
--- NOTE | 2024-01-25 15:19 | P.PN ---
Subjective Progress Note Date: 01/25/24 Principal diagnosis: Reason for follow-up is a urinary tract infection Patient is a 83-year-old female with a past medical history significant for diabetes mellitus coronary artery disease recurrent urinary tract infection in this patient currently has been treated for UTI over the last 3 weeks with an oral antibiotic therapy patient has not been brought into the hospital as the patient started having blood in the urine, patient did have CT of abdominal pelvis which shows irregular bladder wall correlate for cystitis. On today's evaluation that is 01/25/2024, the patient continues to be afebrile, the patient is on room air and breathing comfortably, the Pt denies having any chest pain or cough, the patient denies having any abdominal pain no vomiting or any diarrhea and mention resolution of her hematuria. Patient white count is 9.24 creatinine 0.6 cultures are currently pending Objective - Vital Signs Vital signs: Vital Signs Temp 98 F 01/25/24 08:00 Pulse 60 01/25/24 08:00 Resp 16 01/25/24 08:00 BP 176/62 01/25/24 08:00 Pulse Ox 95 01/25/24 08:00 FiO2 Intake & Output 01/24/24 01/25/24 01/25/24 18:59 06:59 18:59 Intake Total 2758 Output Total 2600 350 Balance 158 -350 Intake: Oral 2758 Output: Urine 2600 350 Other: Voiding Method External Catheter External Catheter External Catheter # Voids 3 1 # Bowel Movements 7 1 - Exam GENERAL DESCRIPTION: An elderly female lying in bed in no distress RESPIRATORY SYSTEM: Unlabored breathing , decreased breath sounds at bases HEART: S1 S2 regular rate and rhythm , ABDOMEN: Soft , no tenderness EXTREMITIES: No edema feet - Labs CBC & Chem 7: 01/25/24 04:24 01/25/24 04:20 Labs: Abnormal Lab Results - Last 24 Hours (Table) 01/24/24 01/24/24 01/25/24 Range/Units 12:07 20:18 04:24 MCHC (32.0-37.0) g/dL RDW (11.5-14.5) % Immature Gran # (0.00-0.04) X 10*3/uL Eosinophils # (0.04-0.35) X 10*3/uL POC Glucose (mg/dL) 140 H 142 H (70-110) mg/dL Hemoglobin A1c 6.9 H (<=6.0) % 01/25/24 01/25/24 01/25/24 Range/Units 04:24 07:05 07:32 MCHC 31.7 L (32.0-37.0) g/dL RDW 18.0 H (11.5-14.5) % Immature Gran # 0.14 H (0.00-0.04) X 10*3/uL Eosinophils # 0.50 H (0.04-0.35) X 10*3/uL POC Glucose (mg/dL) 63 L 118 H (70-110) mg/dL Hemoglobin A1c (<=6.0) % Assessment and Plan (1) Hematuria Current Visit: Yes Status: Acute Code(s): R31.9 - HEMATURIA, UNSPECIFIED SNOMED Code(s): 14119231 (2) UTI (urinary tract infection) Current Visit: Yes Status: Acute Code(s): N39.0 - URINARY TRACT INFECTION, SITE NOT SPECIFIED SNOMED Code(s): 47239574 (3) History of ESBL Klebsiella pneumoniae infection Current Visit: Yes Status: Acute Code(s): Z86.19 - PERSONAL HISTORY OF OTHER INFECTIOUS AND PARASITIC DISEASES SNOMED Code(s): 687805328 (4) VRE (vancomycin resistant enterococcus) culture positive Current Visit: Yes Status: Acute Code(s): Z22.39 - CARRIER OF OTHER SPECIFIED BACTERIAL DISEASES SNOMED Code(s): 352660669 Plan: 1patient presented to the hospital for hematuria and this patient apparently did have history of recurrent UTI with a last urine culture done on 01/12/2024 was positive for ESBL Klebsiella as well as VRE which was ampicillin sensitive failing outpatient oral antibiotic therapy with evidence of cystitis on the CT but did not show any other structural abnormality 2-urine cultures currently pending 3-patient mention improvement in her hematuria we will continue with Van while waiting for the repeat urine cultures to be finalized Daughter at the bedside multiple question concern answered Dictation was produced using [employer] dictation software. please excuse any grammatical, word or spelling errors. Time with Patient: Less than 30
[2024-01-25] MEDS: LIDOCAINE 1% INJ 10MG/ML (20 ML MDV) SQ STA (16:15)
--- NOTE | 2024-01-25 16:19 | P.GSCN ---
History of Present Illness History of present illness: 83-year-old white female patient is known to me from the wound clinic. Current wound clinic patient has a wound on the right heel and also patient has a pressure ulcer at the sacral we will treating local wound care. Patient had an episode of hematuria under care of urology was consulted for right heel wound and has been using Santyl cream at home follow-up with me in the wound clinic History patient has history of diabetes coronary artery disease On examination patient was seen in her room chest examination chest is clear both lungs are clear. Second sound present Abdomen soft nontender Vascular femorals are are 1+ bilateral patient had a left B-K amputation done in the past right heel has a wound we have been treating with local wound care some devitalized tissue noted will do the debridement and deep culture Past Medical History Past Medical History: Coronary Artery Disease (CAD), Diabetes Mellitus, Eye Disorder Additional Past Medical History / Comment(s): Heart attack 2013. 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 History of Any Multi-Drug Resistant Organisms: None Reported Past Surgical History: Coronary Bypass/CABG Past Anesthesia/Blood Transfusion Reactions: No Reported Reaction Past Psychological History: No Psychological Hx Reported Smoking Status: Former smoker Past Alcohol Use History: Rare Past Drug Use History: None Reported - Past Family History Father Family Medical History: Unable to Obtain Mother Family Medical History: Cancer Additional Family Medical History / Comment(s): colon CA Medications and Allergies Home Medications Medication Instructions Recorded Confirmed Type Amiodarone [Cordarone] 200 mg PO BID 01/03/24 01/23/24 History Atorvastatin [Lipitor] 20 mg PO HS 01/03/24 01/23/24 History Cholecalciferol [Vitamin D3 (25 25 mcg PO DAILY 01/03/24 01/23/24 History Mcg = 1000 Iu)] Clopidogrel [Plavix] 75 mg PO DAILY 01/03/24 01/23/24 History Digoxin [Digitek] 125 mcg PO DAILY 01/03/24 01/23/24 History Isosorbide Mononitrate ER [Imdur] 15 mg PO DAILY 01/03/24 01/23/24 History Metoprolol Tartrate [Lopressor] 12.5 mg PO TID 01/03/24 01/23/24 History Pregabalin [Lyrica] 75 mg PO TID 01/03/24 01/23/24 History busPIRone HCL 10 mg PO DAILY 01/03/24 01/23/24 History Apixaban [Eliquis] 5 mg PO BID #60 tab 01/05/24 01/23/24 Rx Insulin Glargine,Hum.rec.anlog 10 units SQ HS #0 01/05/24 01/23/24 Rx [Lantus Solostar Pen] Midodrine [ProAmatine] 5 mg PO TID PRN #0 01/05/24 01/23/24 Rx Ciprofloxacin HCl [Cipro] 500 mg PO BID 01/23/24 01/23/24 History Collagenase [Santyl Ointment] 1 applic TOPICAL DAILY 01/23/24 01/23/24 History Empagliflozin [Jardiance] 10 mg PO DAILY 01/23/24 01/23/24 History Hydrophilic Cream [Triad (Kerodex 1 applic TOPICAL DIRECTED PRN 01/23/24 01/23/24 History geq)] Insulin Lispro [humaLOG Kwikpen] See Protocol SQ ACHS 01/23/24 01/23/24 History Allergies Allergy/AdvReac Type Severity Reaction Status Date / Time codeine Allergy Swelling Verified 01/23/24 21:12 Surgical - Exam Vital Signs Pulse Resp BP Pulse Ox 54 L 16 183/73 97 01/23/24 17:38 01/23/24 17:38 01/23/24 17:38 01/23/24 17:38 Results - Labs 01/25/24 04:24 01/25/24 04:20 Abnormal Lab Results - Last 24 Hours (Table) 01/24/24 01/25/24 01/25/24 Range/Units 20:18 04:20 04:24 MCHC (32.0-37.0) g/dL RDW (11.5-14.5) % Immature Gran # (0.00-0.04) X 10*3/uL Eosinophils # (0.04-0.35) X 10*3/uL BUN/Creatinine Ratio 24.83 H (12.00-20.00) Ratio Glucose 64 L (70-110) mg/dL POC Glucose (mg/dL) 142 H (70-110) mg/dL Hemoglobin A1c 6.9 H (<=6.0) % 01/25/24 01/25/24 01/25/24 Range/Units 04:24 07:05 07:32 MCHC 31.7 L (32.0-37.0) g/dL RDW 18.0 H (11.5-14.5) % Immature Gran # 0.14 H (0.00-0.04) X 10*3/uL Eosinophils # 0.50 H (0.04-0.35) X 10*3/uL BUN/Creatinine Ratio (12.00-20.00) Ratio Glucose (70-110) mg/dL POC Glucose (mg/dL) 63 L 118 H (70-110) mg/dL Hemoglobin A1c (<=6.0) % Diabetes panel 01/25/24 01/25/24 Range/Units 04:20 04:24 Sodium 143 (135-145) mmol/L Potassium 4.0 (3.5-5.5) mmol/L Chloride 109 (96-109) mmol/L Carbon Dioxide 22.6 (21.6-31.8) mmol/L BUN 14.9 (9.0-27.0) mg/dL Creatinine 0.6 (0.6-1.5) mg/dL Glucose 64 L (70-110) mg/dL Hemoglobin A1c 6.9 H (<=6.0) % Calcium 8.8 (8.7-10.3) mg/dL Calcium panel 01/25/24 Range/Units 04:20 Calcium 8.8 (8.7-10.3) mg/dL Pituitary panel 01/25/24 Range/Units 04:20 Sodium 143 (135-145) mmol/L Potassium 4.0 (3.5-5.5) mmol/L Chloride 109 (96-109) mmol/L Carbon Dioxide 22.6 (21.6-31.8) mmol/L BUN 14.9 (9.0-27.0) mg/dL Creatinine 0.6 (0.6-1.5) mg/dL Glucose 64 L (70-110) mg/dL Calcium 8.8 (8.7-10.3) mg/dL Adrenal panel 01/25/24 Range/Units 04:20 Sodium 143 (135-145) mmol/L Potassium 4.0 (3.5-5.5) mmol/L Chloride 109 (96-109) mmol/L Carbon Dioxide 22.6 (21.6-31.8) mmol/L BUN 14.9 (9.0-27.0) mg/dL Creatinine 0.6 (0.6-1.5) mg/dL Glucose 64 L (70-110) mg/dL Calcium 8.8 (8.7-10.3) mg/dL
--- NOTE | 2024-01-25 16:21 | P.PCN ---
Description of Procedure: Preop diagnosis pressure wound right heel measurement is 2 x 2 x 0.2 cm postop the same Procedure right foot wound was prepped 1% lidocaine were infiltrated if we did the debridement down to subcu tissue some tissue was sent for deep culture no active bleeding was noted change dressing with Santyl cream this should be changed on daily basis follow-up with
[2024-01-25] MEDS: COLLAGENASE 250 UNIT/GM OINTMENT 30 GM TUBE TOPICAL SCH (17:05)
[2024-01-25 17:23] LABS: Glucose,Whole Blood 107 mg/dL (70-110)
[2024-01-25 17:28] VITALS: BMI 27.4
--- NOTE | 2024-01-25 17:41 | CDI ---
Documentation Clarification Form Date: 01/25/2024 05:22:54 PM From: Kelly Ramierz RN, CCD Phone: [phone] Admit Date: 01/24/2024 04:22:00 PM Patient Name: Jeanette Varela Visit Number: [id number] Discharge Date: ATTENTION: The Clinical Documentation Specialists (CDI) and [facility] Coding Staff appreciate your assistance in clarifying documentation. Please respond to the clarification below the line at the bottom and electronically sign. The CDI & [facility] Coding staff will review the response and follow-up if needed. Please note: Queries are made part of the Legal Health Record. If you have any questions, please contact the author of this message via ITS. Doctor/Provider: Ed Patterson debridement is documented on 01/25/2024. Unfortunately, some required elements have not been documented. Additional clarification regarding the procedure is requested. History/Risk Factors: Coronary Artery Disease (CAD), Diabetes Mellitus, Eye disorder, Former smoker Clinical Indicators: 83-year-old female present to ED with bleeding. She is current wound clinic patient has a wound on the right heel and also patient has a pressure ulcer at the sacral area. 01/24 Preop diagnosis pressure wound right heel measurement is 2 x 2 x 0.2 cm postop -the same. 01/24 Procedure: debridement down to subcu tissue some tissue was sent for deep culture no active bleeding was noted Treatment: Change dressing with Santyl cream daily Follow up with wound care clinic Please clarify the procedure performed: [X ] Excisional debridement (the removal of necrotic, devitalized tissue or slough by means of cutting away of tissue) Instrument: Scapel Nature of the tissue removed: Subcutaneous Appearance of the wound: Necrotic Depth of debridement: subcutaneous tissue [ ] Non-excisional debridement (the removal of necrotic, devitalized tissue or slough by means of flushing, brushing, or washing. (Irrigation) Instrument: Nature of the tissue removed Appearance of the wound Depth of debridement [ ] Other; please specify Dr. Garnica Five elements required for accurate and compliant documentation of a debridement: -Technique used (e.g., excisional, excised, cutting, brushing, jet lavage etc.) -Instrument(s) used (e.g., scalpel, curette, etc.) -Nature of the tissue removed (e.g., necrotic, devitalized tissues, non-viable tissue, etc.) -Appearance and size of the wound (e.g., down to fresh bleeding tissue, 7cm x 10cm, etc.) -Depth of the debridement* (e.g., skin, subcutaneous tissue, fascia, muscle, bone, etc.) (Template Last Revised: November 2023) MTDD
--- NOTE | 2024-01-25 18:19 | P.HPIM ---
History of Present Illness H&P Date: 01/24/24 HISTORY OF PRESENT ILLNESS: This is an 83-year-old female with a previous medical history significant for coronary artery disease status post coronary artery bypass graft, hypertension and hypertensive cardiovascular disease, hyperlipidemia, diabetes mellitus type 2, with diabetic polyneuropathy, history of peripheral vascular occlusive disease status post multiple angioplasties with left above knee amputation that was done at [facility], history of paroxysmal atrial fibrillation, history of recurrent UTI, patient was at [facility] for quite some times, she just left [facility] about a week ago on December 09, 2023 and she has been residing at [facility] with her , patient was recently seen in the office and she had urinary tract infection that was positiv e for ESBL Klebsiella as well as VRE that is ampicillin sensitive at that time she was treated with oral antibiotic that she just finished yesterday, however the patient presented to the emergency department at [facility] today because of her brief was full of bloody urine, and she was seen and evaluated in the emergency department, had a CT scan of the abdomen pelvis that did show evidence of cystitis at that time, no evidence of any fistula at this point, patient was seen in consultation by urology as well as by infectious disease because of her prior urine culture on 01/15/2024 was positive for ESBL Klebsiella and VRE she was placed on Invanz 1 g piggyback every 24 hours, she was seen in consultation by urology I had a long conversation with the urologist Dr. Houser and at this point in time we are going to treat the patient conservatively, we are not trying to look for any cystoscopy or any colonoscopy at this point in time to rule out any fistula as the patient is not interested in any surgical intervention at this point. REVIEW OF SYSTEMS: Constitutional: No documented fever, no chills, no night sweats. No weight change. No weakness, fatigue or lethargy. No daytime sleepiness. EENT: No headache. No blurred vision or double vision, no loss of vision. No loss of Hearing, no ringing in the ears, no dizziness. No nasal drainage or congestion. No epistaxis. No sore throat. Lungs: No shortness of breath, no cough, no sputum production. No wheezing. Reports dyspnea with activity. Cardiovascular: No chest pain, no lower extremity edema. No palpitations. No paroxysmal nocturnal dyspnea. No orthopnea. No lightheadedness or dizziness. No syncopal episodes. Abdominal: Reports no abdominal pain. No nausea, vomiting. No diarrhea. No constipation. No bloody or tarry stools reports loss of appetite. Genitourinary: Positive for dysuria, increased frequency, urgency. No urinary retention. No flank pain. Positive for hematuria Musculoskeletal: No myalgias. No muscle weakness, positive for gait dysfunction, no frequent falls. No back pain. No neck pain. Integumentary: No wounds, no lesions. No rash or pruritus. No unusual bruising. No change in hair or nails. Neurologic: No aphasia. No facial droop. No change in mentation. No head injury. No headache. No paralysis. No paresthesia. Psychiatric: No depression. No anxiety. No mood swings. Endocrine: No abnormal blood sugars. No weight change. PAST MEDICAL HISTORY: Hypertension and hypertensive cardiovascular disease. Mixed hyperlipidemia. Paroxysmal atrial fibrillation. PAD post multiple angioplasties ended up with left above-knee amputation. CAD post CABG. Status post left above-knee amputation currently in a wheelchair. Recurrent UTI. 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 Osteoarthritis. Orthostatic hypotension. GERD with esophagitis. Diabetes mellitus type 2. Diabetic polyneuropathy. PAST SURGICAL HISTORY: Coronary artery bypass graft. Left above-knee amputation. Bilateral cataract surgery. Multiple angioplasty of bilateral lower extremities. Left transmetatarsal amputation EGD and colonoscopy. SOCIAL HISTORY: Patient is a lifelong non-smoker, she denies any alcohol ingestion, she denies any drug use or abuse, she currently resides at the [facility]. FAMILY HISTORY: Noncontributory. PHYSICAL EXAMINATION: General: This is an 83-year-old female down in bed in no apparent distress. HEENT: Head is atraumatic, normocephalic, pupils were equal round reactive to light and recommendation, extraocular muscle movement were intact, sclera nonicteric, conjunctivae were pale, mucous membranes of the mouth are somewhat dry. Neck: Supple, no JVP, normal carotid upstroke bilaterally, no lymphadenopathy. Chest: Decreased breath sounds at the bases, few rhonchi, no expiratory wheezes, no chest wall tenderness, no intercostal retractions. Heart: First heart sound is normal, second heart sound is normal there is systolic ejection murmur 2/6 located in the left sternal border. Abdomen: Soft, nontender, nondistended, positive bowel sounds. Extremities: There is no edema no calf tenderness dorsalis pedis +1 on the right side posterior tibialis could not be palpated, there is a wound to the left heel that is covered with Aquacel silver there is left above-knee amputation. Neurologic examination: Patient is awake alert and oriented x3, cranial nerves II-12 appear grossly intact, muscle power were 4 out of 5 in upper extremities and 3 out of 5 in the right lower extremity, left [id number] amputation. ASSESSMENT AND PLAN: 1. Gross hematuria secondary to cystitis with hematuria with an ESBL Klebsiella as well as VRE ampicillin sensitive UTI. Continue patient on IV fluid resuscitation in the form of normal saline at 75 cc an hour, continue Invanz 1 g piggyback every 24 hours, repeat urine culture at this time, follow-up with the patient very closely, urology consultation as well as infectious disease consultation appreciated. 2. Recurrent UTI. Continue patient on treatment as in previous paragraph, I had a long conversation with urology regarding patient is not interested in any surgical intervention, she may need to have a cystoscopy as an outpatient down the line with infection is better, to rule out any urinary malignancy, otherwise the surgery for fistula at this point in time is not warranted as the patient is not interested in any surgical intervention. 3. Diabetes mellitus type 2. Continue patient on Lantus 10 units at bedtime along with a sliding scale insulin. 4. Coronary artery disease status post coronary artery bypass graft continue patient on isosorbide mononitrate 30 mg once every day, continue metoprolol 12.5 mg orally twice every day, continue patient on atorvastatin 20 mg orally once every day, continue patient on Plavix 75 mg orally once every day. 5. Paroxysmal atrial fibrillation. Continue patient on digoxin 125 mcg orally once every day, metoprolol 12.5 mg twice every day, continue amiodarone 200 mg orally twice every day continue Eliquis 5 mg orally twice every day, monitor the patient very closely. 6. Chronic diastolic heart failure. Continue patient on metoprolol 12.5 mg orally twice every day, Jardiance 25 mg once every day we will monitor the patient very closely. 7. Hypertension and hypertensive cardiovascular disease. Continue patient on metoprolol 12.5 mg orally twice every day monitor the patient blood pressure very closely. 8. Mixed hyperlipidemia. Continue patient on atorvastatin 20 mg once every day, monitor lipid panel, keep LDL 55-70. 9. History of PAD status post multiple interventions along with left above-knee amputation. Continue patient on Plavix 75 mg once every day as well as atorvastatin 20 mg once every day for secondary prevention, continue patient with a local care for the right heel wound with Santyl will consult vascular surgery for wound care. 10. GERD with esophagitis. Continue with Protonix 40 mg orally once every day. Continue famotidine 20 mg orally twice every day. 11. Diabetic polyneuropathy. Continue pregabalin 75 mg orally 3 times every day. 12. Orthostatic hypotension. Continue midodrine 5 mg orally 3 times every day. If systolic blood pressure less than 100. 13. DVT prophylaxis. Continue patient on Eliquis 5 mg orally twice every day. 14. GI prophylaxis. Continue patient on famotidine 20 mg orally twice a day as well as pantoprazole 40 mg once every day. 15. Admit patient as inpatient with plan for minimal hospitalization of 2 nights. 16. Patient is full code. Past Medical History Past Medical History: Coronary Artery Disease (CAD), Diabetes Mellitus, Eye Disorder Additional Past Medical History / Comment(s): Heart attack 2013. 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 History of Any Multi-Drug Resistant Organisms: None Reported Past Surgical History: Coronary Bypass/CABG Past Anesthesia/Blood Transfusion Reactions: No Reported Reaction Past Psychological History: No Psychological Hx Reported Smoking Status: Former smoker Past Alcohol Use History: Rare Past Drug Use History: None Reported - Past Family History Father Family Medical History: Unable to Obtain Mother Family Medical History: Cancer Additional Family Medical History / Comment(s): colon CA Medications and Allergies Home Medications Medication Instructions Recorded Confirmed Type Amiodarone [Cordarone] 200 mg PO BID 01/03/24 01/23/24 History Atorvastatin [Lipitor] 20 mg PO HS 01/03/24 01/23/24 History Cholecalciferol [Vitamin D3 (25 25 mcg PO DAILY 01/03/24 01/23/24 History Mcg = 1000 Iu)] Clopidogrel [Plavix] 75 mg PO DAILY 01/03/24 01/23/24 History Digoxin [Digitek] 125 mcg PO DAILY 01/03/24 01/23/24 History Isosorbide Mononitrate ER [Imdur] 15 mg PO DAILY 01/03/24 01/23/24 History Metoprolol Tartrate [Lopressor] 12.5 mg PO TID 01/03/24 01/23/24 History Pregabalin [Lyrica] 75 mg PO TID 01/03/24 01/23/24 History busPIRone HCL 10 mg PO DAILY 01/03/24 01/23/24 History Apixaban [Eliquis] 5 mg PO BID #60 tab 01/05/24 01/23/24 Rx Insulin Glargine,Hum.rec.anlog 10 units SQ HS #0 01/05/24 01/23/24 Rx [Lantus Solostar Pen] Midodrine [ProAmatine] 5 mg PO TID PRN #0 01/05/24 01/23/24 Rx Ciprofloxacin HCl [Cipro] 500 mg PO BID 01/23/24 01/23/24 History Collagenase [Santyl Ointment] 1 applic TOPICAL DAILY 01/23/24 01/23/24 History Empagliflozin [Jardiance] 10 mg PO DAILY 01/23/24 01/23/24 History Hydrophilic Cream [Triad (Kerodex 1 applic TOPICAL DIRECTED PRN 01/23/24 01/23/24 History geq)] Insulin Lispro [humaLOG Kwikpen] See Protocol SQ ACHS 01/23/24 01/23/24 History Allergies Allergy/AdvReac Type Severity Reaction Status Date / Time codeine Allergy Swelling Verified 01/23/24 21:12 Physical Exam Vitals: Vital Signs Temp Pulse Pulse Resp BP BP Pulse Ox 01/24/24 16:05 66 197/77 01/24/24 13:50 97.7 F 64 16 200/74 97 01/24/24 08:00 97.6 F 64 16 182/69 92 L 01/24/24 06:00 66 18 173/67 96 01/23/24 23:36 61 18 176/62 93 L 01/23/24 17:38 54 L 16 183/73 97 Intake and Output 01/24/24 01/24/24 01/24/24 06:59 14:59 22:59 Intake Total 1438 Output Total 900 Balance 538 Intake: Oral 1438 Output: Urine 900 Other: Voiding Method External Catheter # Bowel Movements 6 Weight 68.039 kg Results CBC & Chem 7: 01/25/24 04:24 01/25/24 04:20 Labs: Abnormal Lab Results - Last 24 Hours (Table) 01/23/24 01/23/24 01/23/24 Range/Units 17:38 17:38 20:10 RDW 16.6 H (11.5-15.5) % Chloride 108 H (98-107) mmol/L BUN 45 H (7-17) mg/dL Creatinine 1.14 H (0.52-1.04) mg/dL Glucose 132 H (74-99) mg/dL POC Glucose (mg/dL) (70-110) mg/dL AST 47 H (14-36) U/L ALT 46 H (4-34) U/L Urine Appearance Cloudy H (Clear) Urine RBC >182 H (0-5) /hpf Urine Bacteria Few H (None) /hpf 01/24/24 Range/Units 12:07 RDW (11.5-15.5) % Chloride (98-107) mmol/L BUN (7-17) mg/dL Creatinine (0.52-1.04) mg/dL Glucose (74-99) mg/dL POC Glucose (mg/dL) 140 H (70-110) mg/dL AST (14-36) U/L ALT (4-34) U/L Urine Appearance (Clear) Urine RBC (0-5) /hpf Urine Bacteria (None) /hpf Thrombosis Risk Factor Assmnt - Choose All That Apply Each Risk Factor Represents 3 Points: Age 75 years or older Thrombosis Risk Factor Assessment Total Risk Factor Score: 3 Thrombosis Risk Factor Assessment Level: Moderate Risk
[2024-01-25 20:06] LABS: Glucose,Whole Blood 205 mg/dL (70-110)
[2024-01-26 07:46] LABS: Glucose,Whole Blood 58 mg/dL (70-110)
[2024-01-26 07:48] LABS: Glucose,Whole Blood 88 mg/dL (70-110)
[2024-01-26 09:38] LABS: Basophils # (A) 0.08 X 10*3/uL (0.00-0.10); Basophils % (A) 0.9 %; Eosinophils # (A) 0.49 X 10*3/uL (0.04-0.35); Eosinophils % (A) 5.4 %; HCT 38.8 % (37.2-46.3); HGB 12.3 g/dL (12.0-15.0); Lymphocytes # (A) 1.58 X 10*3/uL (0.90-5.00); Lymphocytes % (A) 17.6 %; MCH 28.7 pg (27.0-32.0); MCHC 31.7 g/dL (32.0-37.0); MCV 90.4 FL (80.0-97.0); Mean Platelet Volume 12.1 FL (9.5-12.2); Monocytes # (A) 0.86 X 10*3/uL (0.20-1.00); Monocytes % (A) 9.6 %; NRBC Per 100 WBC 0 X 10*3/uL (0.00-0.01); Neutrophils # (A) 5.78 X 10*3/uL (1.80-7.70); Neutrophils % (A) 64.2 %; Platelet Count 284 X 10*3/uL (140-440); RBC 4.29 X 10*6/uL (4.10-5.20); RDW 18.2 % (11.5-14.5)
[2024-01-26 09:47] LABS: ALT 26 U/L (8-44); AST 21 U/L (13-35); Albumin 3.5 g/dL (3.8-4.9); Albumin/Globulin Ratio 1.75 Ratio (1.60-3.17); Alkaline Phosphatase 87 U/L (41-126); BUN/Creat Ratio 34.71 Ratio (12.00-20.00); Blood Urea Nitrogen 24.3 mg/dL (9.0-27.0); Calcium 9.1 mg/dL (8.7-10.3); Carbon Dioxide 24.6 mmol/L (21.6-31.8); Chloride 109 mmol/L (96-109); Glucose 63 mg/dL (70-110); Potassium 4.3 mmol/L (3.5-5.5); Sodium 143 mmol/L (135-145); Total Bilirubin 0.2 mg/dL (0.3-1.2); Total Protein 5.5 g/dL (6.2-8.2)
--- NOTE | 2024-01-26 11:58 | P.PN ---
Subjective Progress Note Date: 01/25/24 HISTORY OF PRESENT ILLNESS: This is an 83-year-old female with a previous medical history signi ficant for coronary artery disease status post coronary artery bypass graft, hypertension and hypertensive cardiovascular disease, hyperlipidemia, diabetes mellitus type 2, with diabetic polyneuropathy, history of peripheral vascular occlusive disease status post multiple angioplasties with left above knee amputation that was done at [facility], history of paroxysmal atrial fibrillation, history of recurrent UTI, patient was at [facility] for quite some times, she just left [facility] about a week ago on December 09, 2023 and she has been residing at [facility] with her , patient was recently seen in the office and she had urinary tract infection that was positive for ESBL Klebsiella as well as VRE that is ampicillin sensitive at that time she was treated with oral antibiotic that she just finished yesterday, however the patient presented to the emergency department at [facility] today because of her brief was full of bloody urine, and she was seen and evaluated in the emergency department, had a CT scan of the abdomen pelvis that did show evidence of cystitis at that time, no evidence of any fistula at this point, patient was seen in consultation by urology as well as by infectious disease because of her prior urine culture on 01/15/2024 was positive for ESBL Klebsiella and VRE she was placed on Invanz 1 g piggyback every 24 hours, she was seen in consultation by urology I had a long conversation with the urologist Dr. Houser and at this point in time we are going to treat the patient conservatively, we are not trying to look for any cystoscopy or any colonoscopy at this point in time to rule out any fistula as the patient is not interested in any surgical intervention at this point. 01/24: Patient is laying down in bed in no apparent distress, she did have multiple episode of diarrhea after she received enema, she cannot control her bowel at this point, we will monitor the patient very closely, if she continues to have diarrhea over the next 24 hours, will check her stool for C. difficile, otherwise she is female better, she has no abdominal pain, she has no chest pain or shortness of breath, she continues to be on Invanz 1 g IV every 24 hours because of her multidrug resistant organism including ESBL Klebsiella UTI as well as VRE that is sensitive to ampicillin infectious disease as well as urology is following patient is not a candidate for any surgical intervention at this point. REVIEW OF SYSTEMS: Constitutional: No documented fever, no chills, no night sweats. No weight change. No weakness, fatigue or lethargy. No daytime sleepiness. EENT: No headache. No blurred vision or double vision, no loss of vision. No loss of Hearing, no ringing in the ears, no dizziness. No nasal drainage or congestion. No epistaxis. No sore throat. Lungs: No shortness of breath, no cough, no sputum production. No wheezing. Reports dyspnea with activity. Cardiovascular: No chest pain, no lower extremity edema. No palpitations. No paroxysmal nocturnal dyspnea. No orthopnea. No lightheadedness or dizziness. No syncopal episodes. Abdominal: Reports no abdominal pain. No nausea, vomiting. No diarrhea. No constipation. No bloody or tarry stools reports loss of appetite. Genitourinary: Positive for dysuria, increased frequency, urgency. No urinary retention. No flank pain. Positive for hematuria Musculoskeletal: No myalgias. No muscle weakness, positive for gait dysfunction, no frequent falls. No back pain. No neck pain. Integumentary: No wounds, no lesions. No rash or pruritus. No unusual bruising. No change in hair or nails. Neurologic: No aphasia. No facial droop. No change in mentation. No head injury. No headache. No paralysis. No paresthesia. Psychiatric: No depression. No anxiety. No mood swings. Endocrine: No abnormal blood sugars. No weight change. PHYSICAL EXAMINATION: General: This is an 83-year-old female down in bed in no apparent distress. HEENT: Head is atraumatic, normocephalic, pupils were equal round reactive to light and recommendation, extraocular muscle movement were intact, sclera nonicteric, conjunctivae were pale, mucous membranes of the mouth are somewhat dry. Neck: Supple, no JVP, normal carotid upstroke bilaterally, no lymphadenopathy. Chest: Decreased breath sounds at the bases, few rhonchi, no expiratory wheezes, no chest wall tenderness, no intercostal retractions. Heart: First heart sound is normal, second heart sound is normal there is systolic ejection murmur 2/6 located in the left sternal border. Abdomen: Soft, nontender, nondistended, positive bowel sounds. Extremities: There is no edema no calf tenderness dorsalis pedis +1 on the right side posterior tibialis could not be palpated, there is a wound to the left heel that is covered with Aquacel silver there is left above-knee amputation. Neurologic examination: Patient is awake alert and oriented x3, cranial nerves II-12 appear grossly intact, muscle power were 4 out of 5 in upper extremities and 3 out of 5 in the right lower extremity, left [id number] amputation. ASSESSMENT AND PLAN: 1. Gross hematuria secondary to cystitis with hematuria with an ESBL Klebsiella as well as VRE ampicillin sensitive UTI. Continue patient on IV fluid resuscitation in the form of normal saline at 75 cc an hour, continue Invanz 1 g piggyback every 24 hours, repeat urine culture at this time, follow-up with the patient very closely, urology consultation as well as infectious disease consultation appreciated. 2. Recurrent UTI. Continue patient on treatment as in previous paragraph, I had a long conversation with urology regarding patient is not interested in any surgical intervention, she may need to have a cystoscopy as an outpatient down the line with infection is better, to rule out any urinary malignancy, otherwise the surgery for fistula at this point in time is not warranted as the patient is not interested in any surgical intervention. 3. Coronary artery disease status post coronary artery bypass graft continue patient on isosorbide mononitrate 30 mg once every day, continue metoprolol 12.5 mg orally twice every day, continue patient on atorvastatin 20 mg orally once every day, continue patient on Plavix 75 mg orally once every day. 4. Paroxysmal atrial fibrillation. Continue patient on digoxin 125 mcg orally once every day, metoprolol 12.5 mg twice every day, continue amiodarone 200 mg orally twice every day continue Eliquis 5 mg orally twice every day, monitor the patient very closely. 5. Chronic diastolic heart failure. Continue patient on metoprolol 12.5 mg orally twice every day, Jardiance 25 mg once every day we will monitor the patient very closely. 6. Hypertension and hypertensive cardiovascular disease. Continue patient on metoprolol 12.5 mg orally twice every day monitor the patient blood pressure very closely. 7. Mixed hyperlipidemia. Continue patient on atorvastatin 20 mg once every day, monitor lipid panel, keep LDL 55-70. 8. History of PAD status post multiple interventions along with left above-knee amputation. Continue patient on Plavix 75 mg once every day as well as atorvastatin 20 mg once every day for secondary prevention, continue patient with a local care for the right heel wound with Santyl will consult vascular surgery for wound care. 9. GERD with esophagitis. Continue with Protonix 40 mg orally once every day. Continue famotidine 20 mg orally twice every day. 10. Diabetic polyneuropathy. Continue pregabalin 75 mg orally 3 times every day. 11. Orthostatic hypotension. Continue midodrine 5 mg orally 3 times every day. If systolic blood pressure less than 100. 12. DVT prophylaxis. Continue patient on Eliquis 5 mg orally twice every day. 13. GI prophylaxis. Continue patient on famotidine 20 mg orally twice a day as well as pantoprazole 40 mg once every day. 14. Diarrhea likely related to the use of enema as well as stool softeners we will recheck in the next 24 hours, if not better will check her stool for C. difficile. Objective - Vital Signs Vital signs: Vital Signs Temp 98.3 F 01/25/24 14:00 Pulse 60 01/25/24 14:00 Resp 18 01/25/24 14:00 BP 181/65 01/25/24 14:00 Pulse Ox 98 01/25/24 14:00 FiO2 Intake & Output 01/24/24 01/25/24 01/25/24 18:59 06:59 18:59 Intake Total 2758 540 Output Total 2600 350 Balance 158 -350 540 Weight 68.039 kg Intake: Oral 2758 540 Output: Urine 2600 350 Other: Voiding Method External Catheter External Catheter External Catheter # Voids 3 1 3 # Bowel Movements 7 1 4 - Labs CBC & Chem 7: 01/26/24 05:28 01/26/24 05:28 Labs: Abnormal Lab Results - Last 24 Hours (Table) 01/24/24 01/25/24 01/25/24 Range/Units 20:18 04:20 04:24 MCHC (32.0-37.0) g/dL RDW (11.5-14.5) % Immature Gran # (0.00-0.04) X 10*3/uL Eosinophils # (0.04-0.35) X 10*3/uL BUN/Creatinine Ratio 24.83 H (12.00-20.00) Ratio Glucose 64 L (70-110) mg/dL POC Glucose (mg/dL) 142 H (70-110) mg/dL Hemoglobin A1c 6.9 H (<=6.0) % 01/25/24 01/25/24 01/25/24 Range/Units 04:24 07:05 07:32 MCHC 31.7 L (32.0-37.0) g/dL RDW 18.0 H (11.5-14.5) % Immature Gran # 0.14 H (0.00-0.04) X 10*3/uL Eosinophils # 0.50 H (0.04-0.35) X 10*3/uL BUN/Creatinine Ratio (12.00-20.00) Ratio Glucose (70-110) mg/dL POC Glucose (mg/dL) 63 L 118 H (70-110) mg/dL Hemoglobin A1c (<=6.0) %
--- NOTE | 2024-01-26 12:00 | P.PN ---
Subjective Progress Note Date: 01/26/24 Principal diagnosis: Reason for follow-up is a urinary tract infection Patient is a 83-year-old female with a past medical history significant for diabetes mellitus coronary artery disease recurrent urinary tract infection in this patient currently has been treated for UTI over the last 3 weeks with an oral antibiotic therapy patient has not been brought into the hospital as the patient started having blood in the urine, patient did have CT of abdominal pelvis which shows irregular bladder wall correlate for cystitis. On today's evaluation that is 01/26/2024, Patient is afebrile patient is currently on room air and denies having any shortness of breath, the patient denies any chest pain or cough, the patient denies any nausea vomiting did not have any abdominal pain and no diarrhea, the patient did have a wound to the right heel area that was debrided by vascular surgery yesterday. It has been complaining of some pain to the area. Patient white count is 9.0, creatinine 0.7 urine cultures came back negative Objective - Vital Signs Vital signs: Vital Signs Temp 97.9 F 01/26/24 08:00 Pulse 59 L 01/26/24 08:00 Resp 16 01/26/24 08:00 BP 150/65 01/26/24 08:00 Pulse Ox 98 01/26/24 08:00 FiO2 Intake & Output 01/25/24 01/26/24 01/26/24 18:59 06:59 18:59 Intake Total 540 480 Balance 540 480 Weight 68.039 kg Intake: Oral 540 480 Other: Voiding Method External Catheter Diaper Incontinent External Catheter # Voids 3 3 # Bowel Movements 4 - Exam GENERAL DESCRIPTION: An elderly female lying in bed in no distress RESPIRATORY SYSTEM: Unlabored breathing , decreased breath sounds at bases HEART: S1 S2 regular rate and rhythm , ABDOMEN: Soft , no tenderness EXTREMITIES: Right heel ulcer with some slough tissue no significant redness or drainage - Labs CBC & Chem 7: 01/26/24 05:28 01/26/24 05:28 Labs: Abnormal Lab Results - Last 24 Hours (Table) 01/25/24 01/26/24 01/26/24 Range/Units 20:04 05:28 05:28 MCHC 31.7 L (32.0-37.0) g/dL RDW 18.2 H (11.5-14.5) % Immature Gran # 0.21 H (0.00-0.04) X 10*3/uL Eosinophils # 0.49 H (0.04-0.35) X 10*3/uL BUN/Creatinine Ratio 34.71 H (12.00-20.00) Ratio Glucose 63 L (70-110) mg/dL POC Glucose (mg/dL) 205 H (70-110) mg/dL Total Bilirubin 0.2 L (0.3-1.2) mg/dL Total Protein 5.5 L (6.2-8.2) g/dL Albumin 3.5 L (3.8-4.9) g/dL 01/26/24 Range/Units 07:31 MCHC (32.0-37.0) g/dL RDW (11.5-14.5) % Immature Gran # (0.00-0.04) X 10*3/uL Eosinophils # (0.04-0.35) X 10*3/uL BUN/Creatinine Ratio (12.00-20.00) Ratio Glucose (70-110) mg/dL POC Glucose (mg/dL) 58 L (70-110) mg/dL Total Bilirubin (0.3-1.2) mg/dL Total Protein (6.2-8.2) g/dL Albumin (3.8-4.9) g/dL Microbiology - Last 24 Hours (Table) 01/24/24 13:00 Urine Culture - Final Urine,Voided Assessment and Plan (1) Hematuria Current Visit: Yes Status: Acute Code(s): R31.9 - HEMATURIA, UNSPECIFIED SNOMED Code(s): 58885948 (2) UTI (urinary tract infection) Current Visit: Yes Status: Acute Code(s): N39.0 - URINARY TRACT INFECTION, SITE NOT SPECIFIED SNOMED Code(s): 57873294 (3) History of ESBL Klebsiella pneumoniae infection Current Visit: Yes Status: Acute Code(s): Z86.19 - PERSONAL HISTORY OF OTHER INFECTIOUS AND PARASITIC DISEASES SNOMED Code(s): 189508753 (4) VRE (vancomycin resistant enterococcus) culture positive Current Visit: Yes Status: Acute Code(s): Z22.39 - CARRIER OF OTHER SPECIFIED BACTERIAL DISEASES SNOMED Code(s): 539015391 Plan: 1patient presented to the hospital for hematuria and this patient apparently did have history of recurrent UTI with a last urine culture done on 01/12/2024 was positive for ESBL Klebsiella as well as VRE which was ampicillin sensitive failing outpatient oral antibiotic therapy with evidence of cystitis on the CT but did not show any other structural abnormality 2-patient did have resolution of her hematuria urine culture has been negative so far she did have a debridement of an ulcer to the right heel which clinically does not look infected however culture has been obtained results will be followed continue with Alan[facility] Dictation was produced using [employer] software. please excuse any grammatical, word or spelling errors.
[2024-01-26 12:21] LABS: Glucose,Whole Blood 109 mg/dL (70-110)
[2024-01-26 17:18] LABS: Glucose,Whole Blood 103 mg/dL (70-110)
[2024-01-26 19:59] LABS: Glucose,Whole Blood 137 mg/dL (70-110)
[2024-01-27 01:35] LABS: Glucose,Whole Blood 116 mg/dL (70-110)
[2024-01-27 07:44] LABS: Glucose,Whole Blood 79 mg/dL (70-110)
[2024-01-27] MEDS ORDERED: VANCOMYCIN IV PER PHARMACY 1 EACH MISC MISCELLANE PRN (12:09)
[2024-01-27 12:18] LABS: Glucose,Whole Blood 188 mg/dL (70-110)
[2024-01-27] MEDS: VANCOMYCIN 1,250 MG in SODIUM CHLORIDE 0.9% 250 ML IVPB SCH (13:10)
--- NOTE | 2024-01-27 14:22 | P.PN ---
Subjective Progress Note Date: 01/27/24 Principal diagnosis: Reason for follow-up is a urinary tract infection Patient is a 83-year-old female with a past medical history significant for diabetes mellitus coronary artery disease recurrent urinary tract infection in this patient currently has been treated for UTI over the last 3 weeks with an oral antibiotic therapy patient has not been brought into the hospital as the patient started having blood in the urine, patient did have CT of abdominal pelvis which shows irregular bladder wall correlate for cystitis. On today's evaluation that is 01/27/2024, patient has been afebrile, patient is breathing comfortably and is currently on room air, patient denies having any significant cough no chest pain, patient denies nausea vomiting or diarrhea and no abdominal pain and denies any worsening pain to the right heel hematuria resolved. Patient did not have lab draw today local culture from the right heel is growing presumptive MRSA Objective - Vital Signs Vital signs: Vital Signs Temp 97.9 F 01/27/24 07:40 Pulse 56 L 01/27/24 08:35 Resp 16 01/27/24 08:35 BP 178/71 01/27/24 07:40 Pulse Ox 97 01/27/24 07:40 FiO2 Intake & Output 01/26/24 01/27/24 01/27/24 18:59 06:59 18:59 Intake Total 1500 240 358 Balance 1500 240 358 Intake: Oral 1500 240 358 Other: Voiding Method Diaper Diaper Incontinent Incontinent External Catheter External Catheter # Voids 4 2 # Bowel Movements 2 - Exam GENERAL DESCRIPTION: An elderly female lying in bed in no distress RESPIRATORY SYSTEM: Unlabored breathing , decreased breath sounds at bases HEART: S1 S2 regular rate and rhythm , ABDOMEN: Soft , no tenderness EXTREMITIES: Right heel currently dressed no drainage - Labs CBC & Chem 7: 01/26/24 05:28 01/26/24 05:28 Labs: Abnormal Lab Results - Last 24 Hours (Table) 01/26/24 01/27/24 Range/Units 19:58 01:34 POC Glucose (mg/dL) 137 H 116 H (70-110) mg/dL Microbiology - Last 24 Hours (Table) 01/25/24 16:00 Gram Stain - Preliminary Foot - Right Tissue Culture - Preliminary Presumptive MRSA Assessment and Plan (1) Hematuria Current Visit: Yes Status: Acute Code(s): R31.9 - HEMATURIA, UNSPECIFIED SNOMED Code(s): 35626064 (2) UTI (urinary tract infection) Current Visit: Yes Status: Acute Code(s): N39.0 - URINARY TRACT INFECTION, SITE NOT SPECIFIED SNOMED Code(s): 88425175 (3) History of ESBL Klebsiella pneumoniae infection Current Visit: Yes Status: Acute Code(s): Z86.19 - PERSONAL HISTORY OF OTHER INFECTIOUS AND PARASITIC DISEASES SNOMED Code(s): 825382871 (4) VRE (vancomycin resistant enterococcus) culture positive Current Visit: Yes Status: Acute Code(s): Z22.39 - CARRIER OF OTHER SPECIFIED BACTERIAL DISEASES SNOMED Code(s): 661297822 Plan: 1patient presented to the hospital for hematuria and this patient apparently did have history of recurrent UTI with a last urine culture done on 01/12/2024 was positive for ESBL Klebsiella as well as VRE which was ampicillin sensitive failing outpatient oral antibiotic therapy with evidence of cystitis on the CT but did not show any other structural abnormality 2-patient did have resolution of her hematuria urine culture has been negative we will call and discontinue Invanz 3-right heel culture currently growing presumptive MRSA vancomycin has been added we will wait for sensitivity to determine discharge antibiotics Dictation was produced using [employer] dictation software. please excuse any grammatical, word or spelling errors. Time with Patient: Less than 30
[2024-01-27 16:55] LABS: Glucose,Whole Blood 175 mg/dL (70-110)
[2024-01-27 20:04] LABS: Glucose,Whole Blood 144 mg/dL (70-110)
[2024-01-28 01:49] LABS: Glucose,Whole Blood 129 mg/dL (70-110)
[2024-01-28 06:50] LABS: ALT 21 U/L (4-34); AST 21 U/L (14-36); African American GFR (CKD) >90 (>60 ml/min/1.73 sqM); Albumin 3.2 g/dL (3.5-5.0); Albumin/Globulin Ratio 1.3; Alkaline Phosphatase 73 U/L (38-126); Anion Gap 2 mmol/L; Blood Urea Nitrogen 26 mg/dL (7-17); Carbon Dioxide 25 mmol/L (22-30); Chloride 112 mmol/L (98-107); Globulin 2.5 g/dL; Glucose 77 mg/dL (74-99); Non-African American GFR(CKD) 86 (>60 ml/min/1.73 sqM); Sodium 139 mmol/L (137-145); Total Bilirubin 0.3 mg/dL (0.2-1.3); Total Protein 5.7 g/dL (6.3-8.2)
[2024-01-28 07:07] LABS: Glucose,Whole Blood 84 mg/dL (70-110)
--- NOTE | 2024-01-28 08:58 | P.PN ---
Subjective Progress Note Date: 01/26/24 HISTORY OF PRESENT ILLNESS: This is an 83-year-old female with a previous medical history signi ficant for coronary artery disease status post coronary artery bypass graft, hypertension and hypertensive cardiovascular disease, hyperlipidemia, diabetes mellitus type 2, with diabetic polyneuropathy, history of peripheral vascular occlusive disease status post multiple angioplasties with left above knee amputation that was done at [facility], history of paroxysmal atrial fibrillation, history of recurrent UTI, patient was at [facility] for quite some times, she just left [facility] about a week ago on December 09, 2023 and she has been residing at [facility] with her , patient was recently seen in the office and she had urinary tract infection that was positive for ESBL Klebsiella as well as VRE that is ampicillin sensitive at that time she was treated with oral antibiotic that she just finished yesterday, however the patient presented to the emergency department at [facility] today because of her brief was full of bloody urine, and she was seen and evaluated in the emergency department, had a CT scan of the abdomen pelvis that did show evidence of cystitis at that time, no evidence of any fistula at this point, patient was seen in consultation by urology as well as by infectious disease because of her prior urine culture on 01/15/2024 was positive for ESBL Klebsiella and VRE she was placed on Invanz 1 g piggyback every 24 hours, she was seen in consultation by urology I had a long conversation with the urologist Dr. Houser and at this point in time we are going to treat the patient conservatively, we are not trying to look for any cystoscopy or any colonoscopy at this point in time to rule out any fistula as the patient is not interested in any surgical intervention at this point. 01/24: Patient is laying down in bed in no apparent distress, she did have multiple episode of diarrhea after she received enema, she cannot control her bowel at this point, we will monitor the patient very closely, if she continues to have diarrhea over the next 24 hours, will check her stool for C. difficile, otherwise she is female better, she has no abdominal pain, she has no chest pain or shortness of breath, she continues to be on Invanz 1 g IV every 24 hours because of her multidrug resistant organism including ESBL Klebsiella UTI as well as VRE that is sensitive to ampicillin infectious disease as well as urology is following patient is not a candidate for any surgical intervention at this point. 01/25: Patient is laying down in bed in no apparent distress, she seems to be tolerating treatment very well, she denies any chest pain, or shortness of breath, she has no soreness in her mouth, she continues to be on Invanz 1 g IV piggyback every 24 hours, infectious disease recommended to continue current treatment plan as the patient failed outpatient management she has 2 bacteria one of them is ESBL Klebsiella the other one is VRE that is sensitive to ampicillin underwent sharp debridement of the right heel, the culture is presumptive MRSA so far REVIEW OF SYSTEMS: Constitutional: No documented fever, no chills, no night sweats. No weight change. No weakness, fatigue or lethargy. No daytime sleepiness. EENT: No headache. No blurred vision or double vision, no loss of vision. No loss of Hearing, no ringing in the ears, no dizziness. No nasal drainage or congestion. No epistaxis. No sore throat. Lungs: No shortness of breath, no cough, no sputum production. No wheezing. Reports dyspnea with activity. Cardiovascular: No chest pain, no lower extremity edema. No palpitations. No paroxysmal nocturnal dyspnea. No orthopnea. No lightheadedness or dizziness. No syncopal episodes. Abdominal: Reports no abdominal pain. No nausea, vomiting. No diarrhea. No constipation. No bloody or tarry stools reports loss of appetite. Genitourinary: Positive for dysuria, increased frequency, urgency. No urinary retention. No flank pain. Positive for hematuria Musculoskeletal: No myalgias. No muscle weakness, positive for gait dysfunction, no frequent falls. No back pain. No neck pain. Integumentary: No wounds, no lesions. No rash or pruritus. No unusual bruising. No change in hair or nails. Neurologic: No aphasia. No facial droop. No change in mentation. No head injury. No headache. No paralysis. No paresthesia. Psychiatric: No depression. No anxiety. No mood swings. Endocrine: No abnormal blood sugars. No weight change. PHYSICAL EXAMINATION: General: This is an 83-year-old female down in bed in no apparent distress. HEENT: Head is atraumatic, normocephalic, pupils were equal round reactive to light and recommendation, extraocular muscle movement were intact, sclera nonicteric, conjunctivae were pale, mucous membranes of the mouth are somewhat dry. Neck: Supple, no JVP, normal carotid upstroke bilaterally, no lymphadenopathy. Chest: Decreased breath sounds at the bases, few rhonchi, no expiratory wheezes, no chest wall tenderness, no intercostal retractions. Heart: First heart sound is normal, second heart sound is normal there is systolic ejection murmur 2/6 located in the left sternal border. Abdomen: Soft, nontender, nondistended, positive bowel sounds. Extremities: There is no edema no calf tenderness dorsalis pedis +1 on the right side posterior tibialis could not be palpated, there is a wound to the left heel that is covered with Aquacel silver there is left above-knee amputation. Neurologic examination: Patient is awake alert and oriented x3, cranial nerves II-12 appear grossly intact, muscle power were 4 out of 5 in upper extremities and 3 out of 5 in the right lower extremity, left [id number] amputation. ASSESSMENT AND PLAN: 1. Gross hematuria secondary to cystitis with hematuria with an ESBL Klebsiella as well as VRE ampicillin sensitive UTI. Continue patient on IV fluid resuscitation in the form of normal saline at 75 cc an hour, continue Invanz 1 g piggyback every 24 hours, repeat urine culture at this time, follow-up with the patient very closely, urology consultation as well as infectious disease consultation appreciated. 2. Recurrent UTI. Continue patient on treatment as in previous paragraph, I had a long conversation with urology regarding patient is not interested in any surgical intervention, she may need to have a cystoscopy as an outpatient down the line with infection is better, to rule out any urinary malignancy, otherwise the surgery for fistula at this point in time is not warranted as the patient is not interested in any surgical intervention. 3. Infected right heel wound status post sharp debridement by vascular surgery cultures presumptive MRSA factious diseases following. 4. Coronary artery disease status post coronary artery bypass graft continue patient on isosorbide mononitrate 30 mg once every day, continue metoprolol 12.5 mg orally twice every day, continue patient on atorvastatin 20 mg orally once every day, continue patient on Plavix 75 mg orally once every day. 5. Paroxysmal atrial fibrillation. Continue patient on digoxin 125 mcg orally once every day, metoprolol 12.5 mg twice every day, continue amiodarone 200 mg orally twice every day continue Eliquis 5 mg orally twice every day, monitor the patient very closely. 6. Chronic diastolic heart failure. Continue patient on metoprolol 12.5 mg orally twice every day, Jardiance 25 mg once every day we will monitor the patient very closely. 7. Hypertension and hypertensive cardiovascular disease. Continue patient on metoprolol 12.5 mg orally twice every day monitor the patient blood pressure very closely. 8. Mixed hyperlipidemia. Continue patient on atorvastatin 20 mg once every day, monitor lipid panel, keep LDL 55-70. 9. History of PAD status post multiple interventions along with left above-knee amputation. Continue patient on Plavix 75 mg once every day as well as atorvastatin 20 mg once every day for secondary prevention, continue patient with a local care for the right heel wound with Jaci will consult vascular surgery for wound care. 10. GERD with esophagitis. Continue with Protonix 40 mg orally once every day. Continue famotidine 20 mg orally twice every day. 11. Diabetic polyneuropathy. Continue pregabalin 75 mg orally 3 times every day. 12. Orthostatic hypotension. Continue midodrine 5 mg orally 3 times every day. If systolic blood pressure less than 100. 13. DVT prophylaxis. Continue patient on Eliquis 5 mg orally twice every day. 14. GI prophylaxis. Continue patient on famotidine 20 mg orally twice a day as well as pantoprazole 40 mg once every day. 15. Diarrhea likely related to the use of enema as well as stool softeners we will recheck in the next 24 hours, if not better will check her stool for C. difficile. Objective - Vital Signs Vital signs: Vital Signs Temp 97.9 F 01/26/24 08:00 Pulse 59 L 01/26/24 08:00 Resp 16 01/26/24 08:00 BP 150/65 01/26/24 08:00 Pulse Ox 98 01/26/24 08:00 FiO2 Intake & Output 01/25/24 01/26/24 01/26/24 18:59 06:59 18:59 Intake Total 540 480 240 Balance 540 480 240 Weight 68.039 kg Intake: Oral 540 480 240 Other: Voiding Method External Catheter Diaper Incontinent External Catheter # Voids 3 3 # Bowel Movements 4 - Labs CBC & Chem 7: 01/26/24 05:28 01/28/24 05:16 Labs: Abnormal Lab Results - Last 24 Hours (Table) 01/25/24 01/26/24 01/26/24 Range/Units 20:04 05:28 05:28 MCHC 31.7 L (32.0-37.0) g/dL RDW 18.2 H (11.5-14.5) % Immature Gran # 0.21 H (0.00-0.04) X 10*3/uL Eosinophils # 0.49 H (0.04-0.35) X 10*3/uL BUN/Creatinine Ratio 34.71 H (12.00-20.00) Ratio Glucose 63 L (70-110) mg/dL POC Glucose (mg/dL) 205 H (70-110) mg/dL Total Bilirubin 0.2 L (0.3-1.2) mg/dL Total Protein 5.5 L (6.2-8.2) g/dL Albumin 3.5 L (3.8-4.9) g/dL 01/26/24 Range/Units 07:31 MCHC (32.0-37.0) g/dL RDW (11.5-14.5) % Immature Gran # (0.00-0.04) X 10*3/uL Eosinophils # (0.04-0.35) X 10*3/uL BUN/Creatinine Ratio (12.00-20.00) Ratio Glucose (70-110) mg/dL POC Glucose (mg/dL) 58 L (70-110) mg/dL Total Bilirubin (0.3-1.2) mg/dL Total Protein (6.2-8.2) g/dL Albumin (3.8-4.9) g/dL Microbiology - Last 24 Hours (Table) 01/24/24 13:00 Urine Culture - Final Urine,Voided
--- NOTE | 2024-01-28 09:01 | P.PN ---
Subjective Progress Note Date: 01/27/24 HISTORY OF PRESENT ILLNESS: This is an 83-year-old female with a previous medical history signi ficant for coronary artery disease status post coronary artery bypass graft, hypertension and hypertensive cardiovascular disease, hyperlipidemia, diabetes mellitus type 2, with diabetic polyneuropathy, history of peripheral vascular occlusive disease status post multiple angioplasties with left above knee amputation that was done at [facility], history of paroxysmal atrial fibrillation, history of recurrent UTI, patient was at [facility] for quite some times, she just left [facility] about a week ago on December 09, 2023 and she has been residing at [facility] with her , patient was recently seen in the office and she had urinary tract infection that was positive for ESBL Klebsiella as well as VRE that is ampicillin sensitive at that time she was treated with oral antibiotic that she just finished yesterday, however the patient presented to the emergency department at [facility] today because of her brief was full of bloody urine, and she was seen and evaluated in the emergency department, had a CT scan of the abdomen pelvis that did show evidence of cystitis at that time, no evidence of any fistula at this point, patient was seen in consultation by urology as well as by infectious disease because of her prior urine culture on 01/15/2024 was positive for ESBL Klebsiella and VRE she was placed on Invanz 1 g piggyback every 24 hours, she was seen in consultation by urology I had a long conversation with the urologist Dr. Houser and at this point in time we are going to treat the patient conservatively, we are not trying to look for any cystoscopy or any colonoscopy at this point in time to rule out any fistula as the patient is not interested in any surgical intervention at this point. 01/24: Patient is laying down in bed in no apparent distress, she did have multiple episode of diarrhea after she received enema, she cannot control her bowel at this point, we will monitor the patient very closely, if she continues to have diarrhea over the next 24 hours, will check her stool for C. difficile, otherwise she is female better, she has no abdominal pain, she has no chest pain or shortness of breath, she continues to be on Invanz 1 g IV every 24 hours because of her multidrug resistant organism including ESBL Klebsiella UTI as well as VRE that is sensitive to ampicillin infectious disease as well as urology is following patient is not a candidate for any surgical intervention at this point. 01/25: Patient is laying down in bed in no apparent distress, she seems to be tolerating treatment very well, she denies any chest pain, or shortness of breath, she has no soreness in her mouth, she continues to be on Invanz 1 g IV piggyback every 24 hours, infectious disease recommended to continue current treatment plan as the patient failed outpatient management she has 2 bacteria one of them is ESBL Klebsiella the other one is VRE that is sensitive to ampicillin underwent sharp debridement of the right heel, the culture is presumptive MRSA so far 01/26: Patient is laying down in no apparent distress, her daughter was at the bedside, her other daughter was on the phone, I spoke with the family about her wound on the right heel is growing MRSA, infectious disease following, added vancomycin for coverage until the final sensitivity panel tomorrow morning, we will continue to monitor the patient very closely, continue patient on Invanz and vancomycin together, patient has not had any further diarrhea at this point in time, she has no abdominal pain, she seems to be tolerating her treatment very well, she is eager to get out of the hospital hopefully the next few days. REVIEW OF SYSTEMS: Constitutional: No documented fever, no chills, no night sweats. No weight change. No weakness, fatigue or lethargy. No daytime sleepiness. EENT: No headache. No blurred vision or double vision, no loss of vision. No loss of Hearing, no ringing in the ears, no dizziness. No nasal drainage or congestion. No epistaxis. No sore throat. Lungs: No shortness of breath, no cough, no sputum production. No wheezing. Reports dyspnea with activity. Cardiovascular: No chest pain, no lower extremity edema. No palpitations. No paroxysmal nocturnal dyspnea. No orthopnea. No lightheadedness or dizziness. No syncopal episodes. Abdominal: Reports no abdominal pain. No nausea, vomiting. No diarrhea. No constipation. No bloody or tarry stools reports loss of appetite. Genitourinary: Positive for dysuria, increased frequency, urgency. No urinary retention. No flank pain. Positive for hematuria Musculoskeletal: No myalgias. No muscle weakness, positive for gait dysfunction, no frequent falls. No back pain. No neck pain. Integumentary: No wounds, no lesions. No rash or pruritus. No unusual bruising. No change in hair or nails. Neurologic: No aphasia. No facial droop. No change in mentation. No head injury. No headache. No paralysis. No paresthesia. Psychiatric: No depression. No anxiety. No mood swings. Endocrine: No abnormal blood sugars. No weight change. PHYSICAL EXAMINATION: General: This is an 83-year-old female down in bed in no apparent distress. HEENT: Head is atraumatic, normocephalic, pupils were equal round reactive to light and recommendation, extraocular muscle movement were intact, sclera nonicteric, conjunctivae were pale, mucous membranes of the mouth are somewhat d ry. Neck: Supple, no JVP, normal carotid upstroke bilaterally, no lymphadenopathy. Chest: Decreased breath sounds at the bases, few rhonchi, no expiratory wheezes, no chest wall tenderness, no intercostal retractions. Heart: First heart sound is normal, second heart sound is normal there is systolic ejection murmur 2/6 located in the left sternal border. Abdomen: Soft, nontender, nondistended, positive bowel sounds. Extremities: There is no edema no calf tenderness dorsalis pedis +1 on the right side posterior tibialis could not be palpated, there is a wound to the left heel that is covered with Aquacel silver there is left above-knee amputation. Neurologic examination: Patient is awake alert and oriented x3, cranial nerves II-12 appear grossly intact, muscle power were 4 out of 5 in upper extremities and 3 out of 5 in the right lower extremity, left [id number] amputation. ASSESSMENT AND PLAN: 1. Gross hematuria secondary to cystitis with hematuria with an ESBL Klebsiella as well as VRE ampicillin sensitive UTI. Continue patient on IV fluid resuscitation in the form of normal saline at 75 cc an hour, continue Invanz 1 g piggyback every 24 hours, repeat urine culture at this time, follow-up with the patient very closely, urology consultation as well as infectious disease consultation appreciated. 2. Recurrent UTI. Continue patient on treatment as in previous paragraph, I had a long conversation with urology regarding patient is not interested in any surgical intervention, she may need to have a cystoscopy as an outpatient down the line with infection is better, to rule out any urinary malignancy, otherwise the surgery for fistula at this point in time is not warranted as the patient is not interested in any surgical intervention. 3. Infected wound of the right heel status post sharp debridement with a culture showing methicillin-resistant Staphylococcus aureus patient was started on vancomycin pending the final result of the sensitivity panel 4. Coronary artery disease status post coronary artery bypass graft continue patient on isosorbide mononitrate 30 mg once every day, continue metoprolol 12.5 mg orally twice every day, continue patient on atorvastatin 20 mg orally once every day, continue patient on Plavix 75 mg orally once every day. 5. Paroxysmal atrial fibrillation. Continue patient on digoxin 125 mcg orally once every day, metoprolol 12.5 mg twice every day, continue amiodarone 200 mg orally twice every day continue Eliquis 5 mg orally twice every day, monitor the patient very closely. 6. Chronic diastolic heart failure. Continue patient on metoprolol 12.5 mg orally twice every day, Jardiance 25 mg once every day we will monitor the patient very closely. 7. Hypertension and hypertensive cardiovascular disease. Continue patient on metoprolol 12.5 mg orally twice every day monitor the patient blood pressure very closely. 8. Mixed hyperlipidemia. Continue patient on atorvastatin 20 mg once every day, monitor lipid panel, keep LDL 55-70. 9. History of PAD status post multiple interventions along with left above-knee amputation. Continue patient on Plavix 75 mg once every day as well as atorvastatin 20 mg once every day for secondary prevention, continue patient with a local care for the right heel wound with Wilneryl will consult vascular surgery for wound care. 10. GERD with esophagitis. Continue with Protonix 40 mg orally once every day. Continue famotidine 20 mg orally twice every day. 11. Diabetic polyneuropathy. Continue pregabalin 75 mg orally 3 times every day. 12. Orthostatic hypotension. Continue midodrine 5 mg orally 3 times every day. If systolic blood pressure less than 100. 13. DVT prophylaxis. Continue patient on Eliquis 5 mg orally twice every day. 14. GI prophylaxis. Continue patient on famotidine 20 mg orally twice a day as well as pantoprazole 40 mg once every day. 15. Diarrhea likely related to the use of enema as well as stool softeners we will recheck in the next 24 hours, if not better will check her stool for C. difficile. 16. Physical therapy evaluation. 17. tube worker consultation for discharge planning Objective - Vital Signs Vital signs: Vital Signs Temp 97.7 F 01/28/24 07:05 Pulse 63 01/28/24 07:05 Resp 17 01/28/24 07:05 BP 174/65 01/28/24 07:05 Pulse Ox 98 01/28/24 07:05 FiO2 Intake & Output 01/27/24 01/28/24 01/28/24 18:59 06:59 18:59 Intake Total 2035 240 Balance 2035 240 Intake: Oral 2035 240 Other: Voiding Method Diaper Incontinent External Catheter # Voids 4 # Bowel Movements 4 - Labs CBC & Chem 7: 01/26/24 05:28 01/28/24 05:16 Labs: Abnormal Lab Results - Last 24 Hours (Table) 01/27/24 01/27/24 01/27/24 Range/Units 12:14 16:53 20:03 Chloride (98-107) mmol/L BUN (7-17) mg/dL POC Glucose (mg/dL) 188 H 175 H 144 H (70-110) mg/dL Total Protein (6.3-8.2) g/dL Albumin (3.5-5.0) g/dL 01/28/24 01/28/24 Range/Units 01:47 05:16 Chloride 112 H (98-107) mmol/L BUN 26 H (7-17) mg/dL POC Glucose (mg/dL) 129 H (70-110) mg/dL Total Protein 5.7 L (6.3-8.2) g/dL Albumin 3.2 L (3.5-5.0) g/dL Microbiology - Last 24 Hours (Table) 01/25/24 16:00 Anaerobic Culture - Preliminary Foot - Right 01/25/24 16:00 Gram Stain - Final Foot - Right Tissue Culture - Final Methicillin resist S. aureus
[2024-01-28 10:12] LABS: Basophils # (A) 0.08 X 10*3/uL (0.00-0.10); Basophils % (A) 0.9 %; Eosinophils # (A) 0.57 X 10*3/uL (0.04-0.35); Eosinophils % (A) 6.3 %; HCT 37.3 % (37.2-46.3); HGB 11.7 g/dL (12.0-15.0); Lymphocytes % (A) 17.7 %; MCH 28.2 pg (27.0-32.0); MCHC 31.4 g/dL (32.0-37.0); MCV 89.9 FL (80.0-97.0); Mean Platelet Volume 11.6 FL (9.5-12.2); Monocytes % (A) 8.8 %; NRBC Per 100 WBC 0 X 10*3/uL (0.00-0.01); Neutrophils # (A) 5.84 X 10*3/uL (1.80-7.70); Neutrophils % (A) 64.4 %; Platelet Count 269 X 10*3/uL (140-440); RBC 4.15 X 10*6/uL (4.10-5.20); RDW 18.1 % (11.5-14.5); WBC 9.06 X 10*3/uL (4.50-10.00)
[2024-01-28 12:09] LABS: Glucose,Whole Blood 120 mg/dL (70-110)
--- NOTE | 2024-01-28 12:47 | P.PN ---
Subjective Progress Note Date: 01/28/24 HISTORY OF PRESENT ILLNESS: This is an 83-year-old female with a previous medical history signi ficant for coronary artery disease status post coronary artery bypass graft, hypertension and hypertensive cardiovascular disease, hyperlipidemia, diabetes mellitus type 2, with diabetic polyneuropathy, history of peripheral vascular occlusive disease status post multiple angioplasties with left above knee amputation that was done at [facility], history of paroxysmal atrial fibrillation, history of recurrent UTI, patient was at [facility] for quite some times, she just left [facility] about a week ago on December 09, 2023 and she has been residing at [facility] with her , patient was recently seen in the office and she had urinary tract infection that was positive for ESBL Klebsiella as well as VRE that is ampicillin sensitive at that time she was treated with oral antibiotic that she just finished yesterday, however the patient presented to the emergency department at [facility] today because of her brief was full of bloody urine, and she was seen and evaluated in the emergency department, had a CT scan of the abdomen pelvis that did show evidence of cystitis at that time, no evidence of any fistula at this point, patient was seen in consultation by urology as well as by infectious disease because of her prior urine culture on 01/15/2024 was positive for ESBL Klebsiella and VRE she was placed on Invanz 1 g piggyback every 24 hours, she was seen in consultation by urology I had a long conversation with the urologist Dr. Houser and at this point in time we are going to treat the patient conservatively, we are not trying to look for any cystoscopy or any colonoscopy at this point in time to rule out any fistula as the patient is not interested in any surgical intervention at this point. 01/24: Patient is laying down in bed in no apparent distress, she did have multiple episode of diarrhea after she received enema, she cannot control her bowel at this point, we will monitor the patient very closely, if she continues to have diarrhea over the next 24 hours, will check her stool for C. difficile, otherwise she is female better, she has no abdominal pain, she has no chest pain or shortness of breath, she continues to be on Invanz 1 g IV every 24 hours because of her multidrug resistant organism including ESBL Klebsiella UTI as well as VRE that is sensitive to ampicillin infectious disease as well as urology is following patient is not a candidate for any surgical intervention at this point. 01/25: Patient is laying down in bed in no apparent distress, she seems to be tolerating treatment very well, she denies any chest pain, or shortness of breath, she has no soreness in her mouth, she continues to be on Invanz 1 g IV piggyback every 24 hours, infectious disease recommended to continue current treatment plan as the patient failed outpatient management she has 2 bacteria one of them is ESBL Klebsiella the other one is VRE that is sensitive to ampicillin underwent sharp debridement of the right heel, the culture is presumptive MRSA so far 01/26: Patient is laying down in no apparent distress, her daughter was at the bedside, her other daughter was on the phone, I spoke with the family about her wound on the right heel is growing MRSA, infectious disease following, added vancomycin for coverage until the final sensitivity panel tomorrow morning, we will continue to monitor the patient very closely, continue patient on Invanz and vancomycin together, patient has not had any further diarrhea at this point in time, she has no abdominal pain, she seems to be tolerating her treatment very well, she is eager to get out of the hospital hopefully the next few days. 01/27: Jeanette is sitting up in bed in no apparent distress today, she is feeling a lot better today, she denies any chest pain, shortness of breath, she had a bit of loose stool today in the morning, she has no abdominal cramps, she has no fever or chills at this time, she has been tolerating vancomycin and Invanz, her culture showing MRSA that is sensitive to vancomycin. Infectious disease for the final disposition for the patient as far as midline with IV antibiotic versus oral antibiotic on discharge. REVIEW OF SYSTEMS: Constitutional: No documented fever, no chills, no night sweats. No weight change. No weakness, fatigue or lethargy. No daytime sleepiness. EENT: No headache. No blurred vision or double vision, no loss of vision. No loss of Hearing, no ringing in the ears, no dizziness. No nasal drainage or congestion. No epistaxis. No sore throat. Lungs: No shortness of breath, no cough, no sputum production. No wheezing. Reports dyspnea with activity. Cardiovascular: No chest pain, no lower extremity edema. No palpitations. No paroxysmal nocturnal dyspnea. No orthopnea. No lightheadedness or dizziness. No syncopal episodes. Abdominal: Reports no abdominal pain. No nausea, vomiting. No diarrhea. No constipation. No bloody or tarry stools reports loss of appetite. Genitourinary: No dysuria, increased frequency, urgency. No urinary retention. No flank pain. Positive for hematuria that has resolved. Musculoskeletal: No myalgias. No muscle weakness, positive for gait dysfunction, no frequent falls. No back pain. No neck pain. Integumentary: Right heel wound that is covered with dressing., no lesions. No rash or pruritus. No unusual bruising. No change in hair or nails. Neurologic: No aphasia. No facial droop. No change in mentation. No head injury. No headache. No paralysis. No paresthesia. Psychiatric: No depression. No anxiety. No mood swings. Endocrine: No abnormal blood sugars. No weight change. PHYSICAL EXAMINATION: General: This is an 83-year-old female down in bed in no apparent distress. HEENT: Head is atraumatic, normocephalic, pupils were equal round reactive to light and recommendation, extraocular muscle movement were intact, sclera nonicteric, conjunctivae were pale, mucous membranes of the mouth are somewhat dry. Neck: Supple, no JVP, normal carotid upstroke bilaterally, no lymphadenopathy. Chest: Decreased breath sounds at the bases, few rhonchi, no expiratory wheezes, no chest wall tenderness, no intercostal retractions. Heart: First heart sound is normal, second heart sound is normal there is systolic ejection murmur 2/6 located in the left sternal border. Abdomen: Soft, nontender, nondistended, positive bowel sounds. Extremities: There is no edema no calf tenderness dorsalis pedis +1 on the right side posterior tibialis could not be palpated, there is a wound to the left heel that is covered with Aquacel silver there is left above-knee amputation. Neurologic examination: Patient is awake alert and oriented x3, cranial nerves II-12 appear grossly intact, muscle power were 4 out of 5 in upper extremities and 3 out of 5 in the right lower extremity, left [id number] amputation. ASSESSMENT AND PLAN: 1. Acute cystitis with hematuria with an ESBL Klebsiella as well as VRE ampicillin sensitive UTI. Continue patient on IV fluid resuscitation in the form of normal saline at 75 cc an hour, continue Invanz 1 g piggyback every 24 hours, repeat urine culture at this time, follow-up with the patient very closely, urology consultation as well as infectious disease consultation appreciated. 2. Recurrent UTI. Continue patient on treatment as in previous paragraph, I had a long conversation with urology regarding patient is not interested in any surgical intervention, she may need to have a cystoscopy as an outpatient down t he line with infection is better, to rule out any urinary malignancy, otherwise the surgery for fistula at this point in time is not warranted as the patient is not interested in any surgical intervention. 3. Infected wound of the right heel status post sharp debridement with a culture showing methicillin-resistant Staphylococcus aureus patient was started on vancomycin pending the final result of the sensitivity panel 4. Coronary artery disease status post coronary artery bypass graft continue patient on isosorbide mononitrate 30 mg once every day, continue metoprolol 12.5 mg orally twice every day, continue patient on atorvastatin 20 mg orally once every day, continue patient on Plavix 75 mg orally once every day. 5. Paroxysmal atrial fibrillation. Continue patient on digoxin 125 mcg orally once every day, metoprolol 12.5 mg twice every day, continue amiodarone 200 mg orally twice every day continue Eliquis 5 mg orally twice every day, monitor the patient very closely. 6. Chronic diastolic heart failure. Continue patient on metoprolol 12.5 mg orally twice every day, Jardiance 25 mg once every day we will monitor the patient very closely. 7. Hypertension and hypertensive cardiovascular disease. Continue patient on metoprolol 12.5 mg orally twice every day monitor the patient blood pressure very closely. 8. Mixed hyperlipidemia. Continue patient on atorvastatin 20 mg once every day, monitor lipid panel, keep LDL 55-70. 9. History of PAD status post multiple interventions along with left above-knee amputation. Continue patient on Plavix 75 mg once every day as well as atorvastatin 20 mg once every day for secondary prevention, continue patient with a local care for the right heel wound with Jaci will consult vascular surgery for wound care. 10. GERD with esophagitis. Continue with Protonix 40 mg orally once every day. Continue famotidine 20 mg orally twice every day. 11. Diabetic polyneuropathy. Continue pregabalin 75 mg orally 3 times every day. 12. Orthostatic hypotension. Continue midodrine 5 mg orally 3 times every day. If systolic blood pressure less than 100. 13. DVT prophylaxis. Continue patient on Eliquis 5 mg orally twice every day. 14. GI prophylaxis. Continue patient on famotidine 20 mg orally twice a day as well as pantoprazole 40 mg once every day. 15. Diarrhea likely related to the use of enema as well as stool softeners we will recheck in the next 24 hours, if not better will check her stool for C. dif ficile. 16. Physical therapy evaluation. 17. 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 for discharge planning Objective - Vital Signs Vital signs: Vital Signs Temp 97.7 F 01/28/24 07:05 Pulse 63 01/28/24 07:05 Resp 17 01/28/24 07:05 BP 174/65 01/28/24 07:05 Pulse Ox 98 01/28/24 07:05 FiO2 Intake & Output 01/27/24 01/28/24 01/28/24 18:59 06:59 18:59 Intake Total 6 240 480 Balance 2035 240 480 Intake: Oral 2035 240 480 Other: Voiding Method Diaper Incontinent External Catheter # Voids 4 # Bowel Movements 4 - Labs CBC & Chem 7: 01/28/24 05:16 01/28/24 05:16 Labs: Abnormal Lab Results - Last 24 Hours (Table) 01/27/24 01/27/24 01/27/24 Range/Units 12:14 16:53 20:03 Chloride (98-107) mmol/L BUN (7-17) mg/dL POC Glucose (mg/dL) 188 H 175 H 144 H (70-110) mg/dL Total Protein (6.3-8.2) g/dL Albumin (3.5-5.0) g/dL 01/28/24 01/28/24 Range/Units 01:47 05:16 Chloride 112 H (98-107) mmol/L BUN 26 H (7-17) mg/dL POC Glucose (mg/dL) 129 H (70-110) mg/dL Total Protein 5.7 L (6.3-8.2) g/dL Albumin 3.2 L (3.5-5.0) g/dL Microbiology - Last 24 Hours (Table) 01/25/24 16:00 Anaerobic Culture - Preliminary Foot - Right 01/25/24 16:00 Gram Stain - Final Foot - Right Tissue Culture - Final Methicillin resist S. aureus
[2024-01-28 17:03] LABS: Glucose,Whole Blood 133 mg/dL (70-110)
[2024-01-28 20:02] LABS: Glucose,Whole Blood 166 mg/dL (70-110)
--- NOTE | 2024-01-28 21:39 | P.PN ---
Subjective Progress Note Date: 01/28/24 Principal diagnosis: Reason for follow-up is a urinary tract infection Patient is a 83-year-old female with a past medical history significant for diabetes mellitus coronary artery disease recurrent urinary tract infection in this patient currently has been treated for UTI over the last 3 weeks with an oral antibiotic therapy patient has not been brought into the hospital as the patient started having blood in the urine, patient did have CT of abdominal pelvis which shows irregular bladder wall correlate for cystitis. On today's evaluation that is 01/28/2024, Patient is afebrile this morning patient denies having any chest pain shortness of breath or cough, the patient is currently on room air, patient denies any abdominal pain no diarrhea no nausea no vomiting denies having further hematuria or any worsening pain to the right heel wound. Patient did have a white count 9.06 creatinine 0.60 right heel culture finalized with MRSA that is resistant to tetracycline sensitive to Bactrim and Zyvox Objective - Vital Signs Vital signs: Vital Signs Temp 98.0 F 01/28/24 12:50 Pulse 53 L 01/28/24 12:50 Resp 16 01/28/24 12:50 BP 144/62 01/28/24 12:50 Pulse Ox 98 01/28/24 12:50 FiO2 Intake & Output 01/27/24 01/28/24 01/28/24 18:59 06:59 18:59 Intake Total 6 240 716 Balance 6 240 716 Intake: Oral 2035 240 716 Other: Voiding Method Diaper Diaper Incontinent Incontinent External Catheter External Catheter # Voids 4 # Bowel Movements 4 - Exam GENERAL DESCRIPTION: An elderly female lying in bed in no distress RESPIRATORY SYSTEM: Unlabored breathing , decreased breath sounds at bases HEART: S1 S2 regular rate and rhythm , ABDOMEN: Soft , no tenderness EXTREMITIES: Right heel currently dressed no drainage - Labs CBC & Chem 7: 01/28/24 05:16 01/28/24 05:16 Labs: Abnormal Lab Results - Last 24 Hours (Table) 01/27/24 01/27/24 01/28/24 Range/Units 16:53 20:03 01:47 Hgb (12.0-15.0) g/dL MCHC (32.0-37.0) g/dL RDW (11.5-14.5) % Immature Gran # (0.00-0.04) X 10*3/uL Eosinophils # (0.04-0.35) X 10*3/uL Chloride (98-107) mmol/L BUN (7-17) mg/dL POC Glucose (mg/dL) 175 H 144 H 129 H (70-110) mg/dL Total Protein (6.3-8.2) g/dL Albumin (3.5-5.0) g/dL 01/28/24 01/28/24 01/28/24 Range/Units 05:16 05:16 12:08 Hgb 11.7 L (12.0-15.0) g/dL MCHC 31.4 L (32.0-37.0) g/dL RDW 18.1 H (11.5-14.5) % Immature Gran # 0.17 H (0.00-0.04) X 10*3/uL Eosinophils # 0.57 H (0.04-0.35) X 10*3/uL Chloride 112 H (98-107) mmol/L BUN 26 H (7-17) mg/dL POC Glucose (mg/dL) 120 H (70-110) mg/dL Total Protein 5.7 L (6.3-8.2) g/dL Albumin 3.2 L (3.5-5.0) g/dL Microbiology - Last 24 Hours (Table) 01/25/24 16:00 Anaerobic Culture - Preliminary Foot - Right 01/25/24 16:00 Gram Stain - Final Foot - Right Tissue Culture - Final Methicillin resist S. aureus Assessment and Plan (1) Hematuria Current Visit: Yes Status: Acute Code(s): R31.9 - HEMATURIA, UNSPECIFIED SNOMED Code(s): 24897370 (2) UTI (urinary tract infection) Current Visit: Yes Status: Acute Code(s): N39.0 - URINARY TRACT INFECTION, SITE NOT SPECIFIED SNOMED Code(s): 46683816 (3) History of ESBL Klebsiella pneumoniae infection Current Visit: Yes Status: Acute Code(s): Z86.19 - PERSONAL HISTORY OF OTHER INFECTIOUS AND PARASITIC DISEASES SNOMED Code(s): 839412430 (4) VRE (vancomycin resistant enterococcus) culture positive Current Visit: Yes Status: Acute Code(s): Z22.39 - CARRIER OF OTHER SPECIFIED BACTERIAL DISEASES SNOMED Code(s): 836792975 (5) MRSA (methicillin resistant staph aureus) culture positive Current Visit: Yes Status: Acute Code(s): Z22.322 - CARRIER OR SUSPECTED CARRIER OF METHICILLIN RESIS STAPH SNOMED Code(s): 022837370 (6) Pressure ulcer of right heel, stage 2 Current Visit: Yes Status: Acute Code(s): L89.612 - PRESSURE ULCER OF RIGHT HEEL, STAGE 2 SNOMED Code(s): 27359347826982 Plan: 1patient presented to the hospital for hematuria and this patient apparently did have history of recurrent UTI with a last urine culture done on 01/12/2024 was positive for ESBL Klebsiella as well as VRE which was ampicillin sensitive failing outpatient oral antibiotic therapy with evidence of cystitis on the CT but did not show any other structural abnormality 2-patient did have resolution of her hematuria urine culture has been negative, Invanz was discontinued 3-right heel culture currently growing MRSA that is resistant to tetracycline but sensitive to Bactrim and Zyvox 4-patient is currently on vancomycin pharmacy to dose however will be able to finish therapy with a short course of oral Bactrim DS on discharge cannot use Zyvox because of drug interaction with buspirone Dictation was produced using [employer] dictation software. please excuse any grammatical, word or spelling errors. Time with Patient: Less than 30
[2024-01-29 05:27] LABS: African American GFR (CKD) >90 (>60 ml/min/1.73 sqM); Non-African American GFR(CKD) 87 (>60 ml/min/1.73 sqM)
[2024-01-29 07:13] LABS: Glucose,Whole Blood 61 mg/dL (70-110)
[2024-01-29 08:45] VITALS: PULSE 51
[2024-01-29 08:56] LABS: Glucose,Whole Blood 181 mg/dL (70-110)
[2024-01-29] MEDS: ZINC OXIDE PASTE (Z-GUARD) 1 APPLIC TOPICAL PRN (09:21)
[2024-01-29 12:18] LABS: Glucose,Whole Blood 125 mg/dL (70-110)
--- NOTE | 2024-01-29 12:40 | P.PN ---
Progress Note - Text 83-year-old white female patient is known to us from the wound clinic patient has a wound on the right heel and IV antibiotic with using Santyl cream dressing should be changed on daily basis goes home will follow-up with the wound clinic next Monday at [facility] with Santyl cream dressing should be changed on a daily basis
[2024-01-29 13:44] VITALS: BP 181/67; RESP 15; TEMP 97.7
[2024-01-29 17:10] LABS: Glucose,Whole Blood 181 mg/dL (70-110)
--- NOTE | 2024-01-29 17:53 | P.PN ---
Subjective Progress Note Date: 01/22/24 HISTORY OF PRESENT ILLNESS: This is an 83-year-old female with a previous medical history signi ficant for coronary artery disease status post coronary artery bypass graft, hypertension and hypertensive cardiovascular disease, hyperlipidemia, diabetes mellitus type 2, with diabetic polyneuropathy, history of peripheral vascular occlusive disease status post multiple angioplasties with left above knee amputation that was done at [facility], history of paroxysmal atrial fibrillation, history of recurrent UTI, patient was at [facility] for quite some times, she just left [facility] about a week ago on December 09, 2023 and she has been residing at [facility] with her , patient was recently seen in the office and she had urinary tract infection that was positive for ESBL Klebsiella as well as VRE that is ampicillin sensitive at that time she was treated with oral antibiotic that she just finished yesterday, however the patient presented to the emergency department at [facility] today because of her brief was full of bloody urine, and she was seen and evaluated in the emergency department, had a CT scan of the abdomen pelvis that did show evidence of cystitis at that time, no evidence of any fistula at this point, patient was seen in consultation by urology as well as by infectious disease because of her prior urine culture on 01/15/2024 was positive for ESBL Klebsiella and VRE she was placed on Invanz 1 g piggyback every 24 hours, she was seen in consultation by urology I had a long conversation with the urologist Dr. Houser and at this point in time we are going to treat the patient conservatively, we are not trying to look for any cystoscopy or any colonoscopy at this point in time to rule out any fistula as the patient is not interested in any surgical intervention at this point. 01/24: Patient is laying down in bed in no apparent distress, she did have multiple episode of diarrhea after she received enema, she cannot control her bowel at this point, we will monitor the patient very closely, if she continues to have diarrhea over the next 24 hours, will check her stool for C. difficile, otherwise she is female better, she has no abdominal pain, she has no chest pain or shortness of breath, she continues to be on Invanz 1 g IV every 24 hours because of her multidrug resistant organism including ESBL Klebsiella UTI as well as VRE that is sensitive to ampicillin infectious disease as well as urology is following patient is not a candidate for any surgical intervention at this point. 01/25: Patient is laying down in bed in no apparent distress, she seems to be tolerating treatment very well, she denies any chest pain, or shortness of breath, she has no soreness in her mouth, she continues to be on Invanz 1 g IV piggyback every 24 hours, infectious disease recommended to continue current treatment plan as the patient failed outpatient management she has 2 bacteria one of them is ESBL Klebsiella the other one is VRE that is sensitive to ampicillin underwent sharp debridement of the right heel, the culture is presumptive MRSA so far 01/26: Patient is laying down in no apparent distress, her daughter was at the bedside, her other daughter was on the phone, I spoke with the family about her wound on the right heel is growing MRSA, infectious disease following, added vancomycin for coverage until the final sensitivity panel tomorrow morning, we will continue to monitor the patient very closely, continue patient on Invanz and vancomycin together, patient has not had any further diarrhea at this point in time, she has no abdominal pain, she seems to be tolerating her treatment very well, she is eager to get out of the hospital hopefully the next few days. 01/27: Jeanette is sitting up in bed in no apparent distress today, she is feeling a lot better today, she denies any chest pain, shortness of breath, she had a bit of loose stool today in the morning, she has no abdominal cramps, she has no fever or chills at this time, she has been tolerating vancomycin and Invanz, her culture showing MRSA that is sensitive to vancomycin. Infectious disease for the final disposition for the patient as far as midline with IV antibiotic versus oral antibiotic on discharge. 01/28: Patient is doing a lot better today, she denies any chest pain, shortness of breath, she has good bowel movement, she was seen by infectious disease recommended for the patient to be on Bactrim double strength twice every day for the next 10 days, she will be discharged home and follow-up with me as an outpatient next week. REVIEW OF SYSTEMS: Constitutional: No documented fever, no chills, no night sweats. No weight change. No weakness, fatigue or lethargy. No daytime sleepiness. EENT: No headache. No blurred vision or double vision, no loss of vision. No loss of Hearing, no ringing in the ears, no dizziness. No nasal drainage or congestion. No epistaxis. No sore throat. Lungs: No shortness of breath, no cough, no sputum production. No wheezing. Reports dyspnea with activity. Cardiovascular: No chest pain, no lower extremity edema. No palpitations. No paroxysmal nocturnal dyspnea. No orthopnea. No lightheadedness or dizziness. No syncopal episodes. Abdominal: Reports no abdominal pain. No nausea, vomiting. No diarrhea. No constipation. No bloody or tarry stools reports loss of appetite. Genitourinary: No dysuria, increased frequency, urgency. No urinary retention. No flank pain. Positive for hematuria that has resolved. Musculoskeletal: No myalgias. No muscle weakness, positive for gait dysf unction, no frequent falls. No back pain. No neck pain. Integumentary: Right heel wound that is covered with dressing., no lesions. No rash or pruritus. No unusual bruising. No change in hair or nails. Neurologic: No aphasia. No facial droop. No change in mentation. No head injury. No headache. No paralysis. No paresthesia. Psychiatric: No depression. No anxiety. No mood swings. Endocrine: No abnormal blood sugars. No weight change. PHYSICAL EXAMINATION: General: This is an 83-year-old female down in bed in no apparent distress. HEENT: Head is atraumatic, normocephalic, pupils were equal round reactive to light and recommendation, extraocular muscle movement were intact, sclera nonicteric, conjunctivae were pale, mucous membranes of the mouth are somewhat dry. Neck: Supple, no JVP, normal carotid upstroke bilaterally, no lymphadenopathy. Chest: Decreased breath sounds at the bases, few rhonchi, no expiratory wheezes, no chest wall tenderness, no intercostal retractions. Heart: First heart sound is normal, second heart sound is normal there is systolic ejection murmur 2/6 located in the left sternal border. Abdomen: Soft, nontender, nondistended, positive bowel sounds. Extremities: There is no edema no calf tenderness dorsalis pedis +1 on the right side posterior tibialis could not be palpated, there is a wound to the left heel that is covered with Therahoney there is left above-knee amputation. Neurologic examination: Patient is awake alert and oriented x3, cranial nerves II-12 appear grossly intact, muscle power were 4 out of 5 in upper extremities and 3 out of 5 in the right lower extremity, left [id number]-blne amputation. ASSESSMENT AND PLAN: 1. Acute cystitis with hematuria due to ESBL Klebsiella as well as VRE ampicillin sensitive UTI. Continue patient on IV fluid resuscitation in the form of normal saline at 75 cc an hour, continue Invanz 1 g piggyback every 24 hours, repeat urine culture at this time, follow-up with the patient very closely, urology consultation as well as infectious disease consultation appreciated. 2. Recurrent UTI. Continue patient on treatment as in previous paragraph, I had a long conversation with urology regarding patient is not interested in any surgical intervention, she may need to have a cystoscopy as an outpatient down the line with infection is better, to rule out any urinary malignancy, otherwise the surgery for fistula at this point in time is not warranted as the patient is not interested in any surgical intervention. 3. Infected wound of the right heel status post sharp debridement with a culture showing methicillin-resistant Staphylococcus aureus patient was started on vancomycin we will continue with that, and transition the patient to Bactrim double strength 1 tablet orally twice every day for the next 7 days. 4. Coronary artery disease status post coronary artery bypass graft continue patient on isosorbide mononitrate 30 mg once every day, continue metoprolol 12.5 mg orally twice every day, continue patient on atorvastatin 20 mg orally once every day, continue patient on Plavix 75 mg orally once every day. 5. Paroxysmal atrial fibrillation. Continue patient on digoxin 125 mcg orally once every day, metoprolol 12.5 mg twice every day, continue amiodarone 200 mg orally twice every day continue Eliquis 5 mg orally twice every day, monitor the patient very closely. 6. Chronic diastolic heart failure. Continue patient on metoprolol 12.5 mg orally twice every day, Jardiance 25 mg once every day we will monitor the patient very closely. 7. Hypertension and hypertensive cardiovascular disease. Continue patient on metoprolol 12.5 mg orally twice every day monitor the patient blood pressure very closely. 8. Mixed hyperlipidemia. Continue patient on atorvastatin 20 mg once every day, monitor lipid panel, keep LDL 55-70. 9. History of PAD status post multiple interventions along with left above-knee amputation. Continue patient on Plavix 75 mg once every day as well as atorvastatin 20 mg once every day for secondary prevention, continue patient with a local care for the right heel wound with Santyl will consult vascular surgery for wound care. 10. GERD with esophagitis. Continue with Protonix 40 mg orally once every day. Continue famotidine 20 mg orally twice every day. 11. Diabetic polyneuropathy. Continue pregabalin 75 mg orally 3 times every day. 12. Orthostatic hypotension. Continue midodrine 5 mg orally 3 times every day. If systolic blood pressure less than 100. 13. DVT prophylaxis. Continue patient on Eliquis 5 mg orally twice every day. 14. GI prophylaxis. Continue patient on famotidine 20 mg orally twice a day as well as pantoprazole 40 mg once every day. 15. Diarrhea likely related to the use of enema as well as stool softeners we will recheck in the next 24 hours, if not better will check her stool for C. difficile. 16. Physical therapy evaluation. 17. 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 Likely home tomorrow morning. Objective - Vital Signs Vital signs: Vital Signs Temp 97.9 F 01/29/24 07:17 Pulse 51 L 01/29/24 07:17 Resp 16 01/29/24 07:17 BP 145/66 01/29/24 07:17 Pulse Ox 100 01/29/24 07:17 FiO2 Intake & Output 01/28/24 01/29/24 01/29/24 18:59 06:59 18:59 Intake Total 2592 840 Output Total 4 1200 Balance 2588 840 -1200 Intake: Intake, IV Titration 250 Amount Vancomycin 1,250 mg In 250 Sodium Chloride 0.9% 250 ml @ 125 mls/hr IVPB Q16H [facility] Rx#:[id number] Oral 2592 590 Output: Urine 1200 Stool 4 Other: Voiding Method Diaper Diaper Incontinent Incontinent External Catheter # Voids 5 2 1 # Bowel Movements 2 - Labs CBC & Chem 7: 01/28/24 05:16 01/29/24 04:39 Labs: Abnormal Lab Results - Last 24 Hours (Table) 01/28/24 01/28/24 01/29/24 Range/Units 17:02 20:02 07:11 POC Glucose (mg/dL) 133 H 166 H 61 L (70-110) mg/dL 11/11/24 11/11/24 Range/Units 08:54 12:17 POC Glucose (mg/dL) 181 H 125 H (70-110) mg/dL
--- NOTE | 2024-01-29 18:00 | P.DS ---
Providers Date of admission: 01/24/24 16:22 Expected date of discharge: 01/29/24 Attending physician: Pierre White Consults: 01/24/24 01:36 Consult Physician Urgent Consulting Provider: Oralia Frazier Consult Reason/Comments: hematuria, recent antibiotic treatment, hx esbl Do you want consulting provider notified?: Yes 01/24/24 07:24 Consult Physician Routine Consulting Provider: Rodrigue Houser Consult Reason/Comments: recurrent uti Do you want consulting provider notified?: Yes 01/24/24 18:31 Consult Physician Routine Consulting Provider: Ed Garnica Consult Reason/Comments: wound care, know to pt Do you want consulting provider notified?: Yes, Notify in am [facility] Course: HISTORY OF PRESENT ILLNESS: This is an 83-year-old female with a previous medical history significant for coronary artery disease status post coronary artery bypass graft, hypertension and hypertensive cardiovascular disease, hyperlipidemia, diabetes mellitus type 2, with diabetic polyneuropathy, history of peripheral vascular occlusive disease status post multiple angioplasties with left above knee amputation that was done at [facility], history of paroxysmal atrial fibrillation, history of recurrent UTI, patient was at [facility] for quite some times, she just left [facility] about a week ago on December 09, 2023 and she has been residing at [facility] with her , patient was recently seen in the office and she had urinary tract infection that was positive for ESBL Klebsiella as well as VRE that is ampicillin sensitive at that time she was treated with oral antibiotic that she just finished yesterday, however the patient presented to the emergency department at [facility] today because of her brief was full of bloody urine, and she was seen and evaluated in the emergency department, had a CT scan of the abdomen pelvis that did show evidence of cystitis at that time, no evidence of any fistula at this point, patient was seen in consultation by urology as well as by infectious disease because of her prior urine culture on 01/15/2024 was positive for ESBL Klebsiella and VRE she was placed on Invanz 1 g piggyback every 24 hours, she was seen in consultation by urology I had a long conversation with the urologist Dr. Houser and at this point in time we are going to treat the patient conse rvatively, we are not trying to look for any cystoscopy or any colonoscopy at this point in time to rule out any fistula as the patient is not interested in any surgical intervention at this point. 01/24: Patient is laying down in bed in no apparent distress, she did have multiple episode of diarrhea after she received enema, she cannot control her bowel at this point, we will monitor the patient very closely, if she continues to have diarrhea over the next 24 hours, will check her stool for C. difficile, otherwise she is female better, she has no abdominal pain, she has no chest pain or shortness of breath, she continues to be on Invanz 1 g IV every 24 hours because of her multidrug resistant organism including ESBL Klebsiella UTI as well as VRE that is sensitive to ampicillin infectious disease as well as urology is following patient is not a candidate for any surgical intervention at this point. 01/25: Patient is laying down in bed in no apparent distress, she seems to be tolerating treatment very well, she denies any chest pain, or shortness of breath, she has no soreness in her mouth, she continues to be on Invanz 1 g IV piggyback every 24 hours, infectious disease recommended to continue current treatment plan as the patient failed outpatient management she has 2 bacteria one of them is ESBL Klebsiella the other one is VRE that is sensitive to ampicillin underwent sharp debridement of the right heel, the culture is presumptive MRSA so far 01/26: Patient is laying down in no apparent distress, her daughter was at the bedside, her other daughter was on the phone, I spoke with the family about her wound on the right heel is growing MRSA, infectious disease following, added vancomycin for coverage until the final sensitivity panel tomorrow morning, we will continue to monitor the patient very closely, continue patient on Invanz and vancomycin together, patient has not had any further diarrhea at this point in time, she has no abdominal pain, she seems to be tolerating her treatment very well, she is eager to get out of the hospital hopefully the next few days. 01/27: Jeanette is sitting up in bed in no apparent distress today, she is feeling a lot better today, she denies any chest pain, shortness of breath, she had a bit of loose stool today in the morning, she has no abdominal cramps, she has no fever or chills at this time, she has been tolerating vancomycin and Invanz, her culture showing MRSA that is sensitive to vancomycin. Infectious disease for the final disposition for the patient as far as midline with IV antibiotic versus oral antibiotic on discharge. 01/28: Patient is doing a lot better today, she denies any chest pain, shortness of breath, she has no abdominal pain, she denies any nausea vomiting or diarrhea, infectious disease recommended for the patient to be on Bactrim double strength twice every day for the next 10 days and patient can be discharged home and follow-up with us as an outpatient next week. Discharge diagnoses: 1. Acute cystitis with hematuria due to ESBL Klebsiella as well as VRE ampicillin sensitive UTI. 2. Recurrent UTI. 3. Infected wound of the right heel status post sharp debridement with a cultur e showing methicillin-resistant Staphylococcus aureus 4. Coronary artery disease status post coronary artery bypass graft 5. Paroxysmal atrial fibrillation. 6. Chronic diastolic heart failure. 7. Hypertension and hypertensive cardiovascular disease. 8. Mixed hyperlipidemia. 9. History of PAD status post multiple interventions along with left above-knee amputation. 10. GERD with esophagitis. 11. Diabetic polyneuropathy. 12. Orthostatic hypotension. Patient Condition at Discharge: Fair Plan - Discharge Summary Discharge Rx Participant: No New Discharge Prescriptions: New Sulfamethox-Tmp 800-160Mg [Bactrim DS 800-160 mg] 1 tab PO Q12HR #14 tab Discontinued Ciprofloxacin HCl [Cipro] 500 mg PO BID No Action Pregabalin [Lyrica] 75 mg PO TID Metoprolol Tartrate [Lopressor] 12.5 mg PO TID Isosorbide Mononitrate ER [Imdur] 15 mg PO DAILY Digoxin [Digitek] 125 mcg PO DAILY Clopidogrel [Plavix] 75 mg PO DAILY Apixaban [Eliquis] 5 mg PO BID #60 tab Insulin Glargine,Hum.rec.anlog [Lantus Solostar Pen] 10 units SQ HS #0 Midodrine [ProAmatine] 5 mg PO TID PRN #0 PRN Reason: hypotensio Hydrophilic Cream [Triad (Kerodex geq)] 1 applic TOPICAL DIRECTED PRN PRN Reason: AFTER EACH DRESSING CHANGE Empagliflozin [Jardiance] 10 mg PO DAILY Cholecalciferol [Vitamin D3 (25 Mcg = 1000 Iu)] 25 mcg PO DAILY Atorvastatin [Lipitor] 20 mg PO HS Amiodarone [Cordarone] 200 mg PO BID busPIRone HCL 10 mg PO DAILY Collagenase [Santyl Ointment] 1 applic TOPICAL DAILY Insulin Lispro [humaLOG Kwikpen] See Protocol SQ ACHS Discharge Medication List Amiodarone [Cordarone] 200 mg PO BID 01/03/24 [History] Atorvastatin [Lipitor] 20 mg PO HS 01/03/24 [History] Cholecalciferol [Vitamin D3 (25 Mcg = 1000 Iu)] 25 mcg PO DAILY 01/03/24 [History] Clopidogrel [Plavix] 75 mg PO DAILY 01/03/24 [History] Digoxin [Digitek] 125 mcg PO DAILY 01/03/24 [History] Isosorbide Mononitrate ER [Imdur] 15 mg PO DAILY 01/03/24 [History] Metoprolol Tartrate [Lopressor] 12.5 mg PO TID 01/03/24 [History] Pregabalin [Lyrica] 75 mg PO TID 01/03/24 [History] busPIRone HCL 10 mg PO DAILY 01/03/24 [History] Apixaban [Eliquis] 5 mg PO BID #60 tab 01/05/24 [Rx] Insulin Glargine,Hum.rec.anlog [Lantus Solostar Pen] 10 units SQ HS #0 01/05/24 [Rx] Midodrine [ProAmatine] 5 mg PO TID PRN #0 01/05/24 [Rx] Collagenase [Santyl Ointment] 1 applic TOPICAL DAILY 01/23/24 [History] Empagliflozin [Jardiance] 10 mg PO DAILY 01/23/24 [History] Hydrophilic Cream [Triad (Kerodex geq)] 1 applic TOPICAL DIRECTED PRN 01/23/24 [History] Insulin Lispro [humaLOG Kwikpen] See Protocol SQ ACHS 01/23/24 [History] Sulfamethox-Tmp 800-160Mg [Bactrim DS 800-160 mg] 1 tab PO Q12HR #14 tab 01/29/24 [Rx] Follow up Appointment(s)/Referral(s): [facility], [NON-STAFF] - 1 Week Pierre White MD [Primary Care Provider] - 1-2 days Patient Instructions/Handouts: Sulfamethoxazole/Trimethoprim (By mouth), MRSA (Methicillin-Resistant Staphylococcus Aureus) (DC), Urinary Tract Infection in Women (DC), Weakness (DC) Activity/Diet/Wound Care/Special Instructions: Santyl ointment to wound on right heel daily with wet to dry dressing, gauze and kerlix. Keep heel elevated when in bed.
--- NOTE | 2024-01-29 22:12 | P.PN ---
Subjective Progress Note Date: 01/29/24 Principal diagnosis: Reason for follow-up is a urinary tract infection Patient is a 83-year-old female with a past medical history significant for diabetes mellitus coronary artery disease recurrent urinary tract infection in this patient currently has been treated for UTI over the last 3 weeks with an oral antibiotic therapy patient has not been brought into the hospital as the patient started having blood in the urine, patient did have CT of abdominal pelvis which shows irregular bladder wall correlate for cystitis. On today's evaluation that is 01/29/2024,the patient denies any fever or any chills, patient is breathing comfortably on room air, the patient denies chest pain shortness of breath and no significant cough, patient denies abdominal pain, no nausea vomiting or diarrhea. Patient denies pain to the right heel wound. Patient did have creatinine 0.57 Objective - Vital Signs Vital signs: Vital Signs Temp 97.7 F 01/29/24 13:13 Pulse 51 L 01/29/24 13:13 Resp 15 01/29/24 13:13 BP 181/67 01/29/24 13:13 Pulse Ox 99 01/29/24 13:13 FiO2 Intake & Output 01/28/24 01/29/24 01/29/24 18:59 06:59 18:59 Intake Total 2592 840 Output Total 4 1200 Balance 2588 840 -1200 Intake: Intake, IV Titration 250 Amount Vancomycin 1,250 mg In 250 Sodium Chloride 0.9% 250 ml @ 125 mls/hr IVPB Q16H [facility] Rx#:[id number] Oral 2592 590 Output: Urine 1200 Stool 4 Other: Voiding Method Diaper Diaper Incontinent Incontinent External Catheter # Voids 5 2 1 # Bowel Movements 2 - Exam GENERAL DESCRIPTION: An elderly female lying in bed in no distress RESPIRATORY SYSTEM: Unlabored breathing , decreased breath sounds at bases HEART: S1 S2 regular rate and rhythm , ABDOMEN: Soft , no tenderness EXTREMITIES: Right heel wound with some slough tissue no significant redness or drainage - Labs CBC & Chem 7: 01/28/24 05:16 01/29/24 04:39 Labs: Abnormal Lab Results - Last 24 Hours (Table) 01/28/24 01/28/24 01/29/24 Range/Units 17:02 20:02 07:11 POC Glucose (mg/dL) 133 H 166 H 61 L (70-110) mg/dL 01/29/24 01/29/24 Range/Units 08:54 12:17 POC Glucose (mg/dL) 181 H 125 H (70-110) mg/dL Assessment and Plan (1) Hematuria Status: Acute Code(s): R31.9 - HEMATURIA, UNSPECIFIED SNOMED Code(s): 91783664 (2) UTI (urinary tract infection) Status: Acute Code(s): N39.0 - URINARY TRACT INFECTION, SITE NOT SPECIFIED SNOMED Code(s): 56720938 (3) History of ESBL Klebsiella pneumoniae infection Status: Acute Code(s): Z86.19 - PERSONAL HISTORY OF OTHER INFECTIOUS AND PARASITIC DISEASES SNOMED Code(s): 315203088 (4) VRE (vancomycin resistant enterococcus) culture positive Status: Acute Code(s): Z22.39 - CARRIER OF OTHER SPECIFIED BACTERIAL DISEASES SNOMED Code(s): 472887546 (5) MRSA (methicillin resistant staph aureus) culture positive Status: Acute Code(s): Z22.322 - CARRIER OR SUSPECTED CARRIER OF METHICILLIN RESIS STAPH SNOMED Code(s): 289643355 (6) Pressure ulcer of right heel, stage 2 Status: Acute Code(s): L89.612 - PRESSURE ULCER OF RIGHT HEEL, STAGE 2 SNOMED Code(s): 22319401874279 Plan: 1patient presented to the hospital for hematuria and this patient apparently did have history of recurrent UTI with a last urine culture done on 01/12/2024 was positive for ESBL Klebsiella as well as VRE which was ampicillin sensitive failing outpatient oral antibiotic therapy with evidence of cystitis on the CT but did not show any other structural abnormality 2-patient did have resolution of her hematuria urine culture has been negative, Invanz was discontinued 3-right heel culture currently growing MRSA that is resistant to tetracycline but sensitive to Bactrim and Zyvox 4-patient will be advised short course of oral Bactrim DS on discharge prescription sent to the pharmacy Family at the bedside questions answered Dictation was produced using [facility] software. please excuse any grammatical, word or spelling errors. Time with Patient: Less than 30
[2024-01-30] MEDS ORDERED: VANCOMYCIN TROUGH DUE 1 EACH MISC MISCELLANE ONE (04:00)
== END 2024-01-29 18:43 | disposition home health service (06) | DRG 674 ==
LOC: EC 17:11 → 5NMEDONC 01-24 01:36 → OBSVTOIN 01-24 16:22
PROVIDERS: ADMIT Internal Medicine; ATTEND Internal Medicine
PROC: 0JBQ0ZZ Excision of Right Foot Subcutaneous Tissue and Fascia, Open Approach (ICD-10-PCS; principal; 2024-01-25)
DX: N30.01 Acute cystitis with hematuria (principal); I50.32 Chronic diastolic (congestive) heart failure; Z16.12 Extended spectrum beta lactamase (ESBL) resistance; Z16.21 Resistance to vancomycin; Z16.24 Resistance to multiple antibiotics; Z16.29 Resistance to other single specified antibiotic; N93.9 Abnormal uterine and vaginal bleeding, unspecified; B95.2 Enterococcus as the cause of diseases classified elsewhere; B95.62 Methicillin resistant Staphylococcus aureus infection as the cause of diseases classified elsewhere; B96.1 Klebsiella pneumoniae [K. pneumoniae] as the cause of diseases classified elsewhere; E11.42 Type 2 diabetes mellitus with diabetic polyneuropathy; I11.0 Hypertensive heart disease with heart failure; E78.2 Mixed hyperlipidemia; I25.10 Atherosclerotic heart disease of native coronary artery without angina pectoris; I25.2 Old myocardial infarction; I48.0 Paroxysmal atrial fibrillation; I95.1 Orthostatic hypotension; K21.00 Gastro-esophageal reflux disease with esophagitis, without bleeding; K59.00 Constipation, unspecified; L89.159 Pressure ulcer of sacral region, unspecified stage; L89.612 Pressure ulcer of right heel, stage 2; Z74.01 Bed confinement status; Z79.01 Long term (current) use of anticoagulants; Z79.02 Long term (current) use of antithrombotics/antiplatelets; Z79.4 Long term (current) use of insulin; Z79.84 Long term (current) use of oral hypoglycemic drugs; Z79.899 Other long term (current) drug therapy; Z87.440 Personal history of urinary (tract) infections; Z86.19 Personal history of other infectious and parasitic diseases; Z87.891 Personal history of nicotine dependence; Z89.612 Acquired absence of left leg above knee; Z95.1 Presence of aortocoronary bypass graft
CPT/HCPCS: 36415; 74177; 80048; 80053; 81001; 82565; 83036; 83735; 84100; 84484; 85025; 87070; 87075; 87077; 87086; 87186; 87205; 96360; 96361; 96374; 99285

== ENCOUNTER 2024-03-03 11:38 | Observation (INO) | payer MEDICARE ==
--- NOTE | 2024-03-03 12:19 | ED ---
General Adult HPI - General Chief complaint: Extremity Problem,Nontraumatic Stated complaint: right leg pain Time Seen by Provider: 03/03/24 11:58 Source: patient, RN notes reviewed Mode of arrival: ambulatory Limitations: no limitations - History of Present Illness Initial comments: Patient is an 83-year-old female presenting to the emergency department with concern for right leg pain. Onset of symptoms was a week or so ago when she bumped it. Patient has had some intermittent swelling. Patient has discomfort anterior where she did bump it. No calf pain. No calf swelling. Patient has noticed some redness. Discomfort has increased the past 2 days. No fevers. Patient has history of left leg amputation. Patient has history of right heel ulcer with history of MRSA in it. Patient is not currently on antibiotics - Related Data Home Medications Medication Instructions Recorded Confirmed Amiodarone [Cordarone] 200 mg PO BID 01/03/24 01/23/24 Atorvastatin [Lipitor] 20 mg PO HS 01/03/24 01/23/24 Cholecalciferol [Vitamin D3 (25 25 mcg PO DAILY 01/03/24 01/23/24 Mcg = 1000 Iu)] Clopidogrel [Plavix] 75 mg PO DAILY 01/03/24 01/23/24 Digoxin [Digitek] 125 mcg PO DAILY 01/03/24 01/23/24 Isosorbide Mononitrate ER [Imdur] 15 mg PO DAILY 01/03/24 01/23/24 Metoprolol Tartrate [Lopressor] 12.5 mg PO TID 01/03/24 01/23/24 Pregabalin [Lyrica] 75 mg PO TID 01/03/24 01/23/24 busPIRone HCL 10 mg PO DAILY 01/03/24 01/23/24 Collagenase [Santyl Ointment] 1 applic TOPICAL DAILY 01/23/24 01/23/24 Empagliflozin [Jardiance] 10 mg PO DAILY 01/23/24 01/23/24 Hydrophilic Cream [Triad (Kerodex 1 applic TOPICAL DIRECTED PRN 01/23/24 01/23/24 geq)] Insulin Lispro [humaLOG Kwikpen] See Protocol SQ ACHS 01/23/24 01/23/24 Previous Rx's Medication Instructions Recorded Apixaban [Eliquis] 5 mg PO BID #60 tab 01/05/24 Insulin Glargine,Hum.rec.anlog 10 units SQ HS #0 01/05/24 [Lantus Solostar Pen] Midodrine [ProAmatine] 5 mg PO TID PRN #0 01/05/24 Collagenase [Santyl Ointment] 1 applic TOPICAL DAILY each 01/29/24 Nystatin 100,000 Unit/gm Powd 1 applic TOPICAL BID #200 each 01/29/24 [Mycostatin Powder] Sulfamethox-Tmp 800-160Mg [Bactrim 1 tab PO Q12HR #14 tab 01/29/24 DS 800-160 mg] Allergies Allergy/AdvReac Type Severity Reaction Status Date / Time codeine Allergy Swelling Verified 03/03/24 11:47 Review of Systems ROS Statement: Those systems with pertinent positive or pertinent negative responses have been documented in the HPI. ROS Other: All systems not noted in ROS Statement are negative. Constitutional: Denies: fever, chills Eyes: Denies: eye pain ENT: Denies: ear pain Respiratory: Denies: cough, dyspnea Cardiovascular: Denies: chest pain Gastrointestinal: Denies: abdominal pain Musculoskeletal: Reports: as per HPI Skin: Reports: as per HPI Past Medical History Past Medical History: Coronary Artery Disease (CAD), Diabetes Mellitus, Eye Disorder Additional Past Medical History / Comment(s): Heart attack 2013. 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 History of Any Multi-Drug Resistant Organisms: None Reported Date of last positivie culture/infection: 01/25/24 MDRO Source:: MRSA right heel Past Surgical History: Coronary Bypass/CABG Past Anesthesia/Blood Transfusion Reactions: No Reported Reaction Past Psychological History: No Psychological Hx Reported Smoking Status: Former smoker Past Alcohol Use History: Rare Past Drug Use History: None Reported - Past Family History Father Family Medical History: Unable to Obtain Mother Family Medical History: Cancer Additional Family Medical History / Comment(s): colon CA General Exam Limitations: no limitations General appearance: alert, in no apparent distress Eye exam: Present: normal appearance Neck exam: Present: normal inspection Respiratory exam: Present: normal lung sounds bilaterally Cardiovascular Exam: Present: regular rate, normal rhythm Expanded Peripheral pulses: 2+: Posterior Tibialis (R), Dorsalis Pedis (R) GI/Abdominal exam: Present: soft. Absent: tenderness Extremities exam: Present: other (Left lower leg amputation. Right anterior tibial region with tenderness, mild swelling and mild erythema. Distally the extremity is neurovascular intact. Right heel small ulcer stage II/). Absent: calf tenderness Neurological exam: Present: alert Psychiatric exam: Present: normal affect, normal mood Skin exam: Present: rash Course Vital Signs 03/03/24 11:42 Temperature 98 F Pulse Rate 65 Respiratory 18 Rate Blood Pressure 155/67 O2 Sat by Pulse 96 Oximetry Medical Decision Making - Medical Decision Making Was pt. sent in by a medical professional or institution (, PA, CEMENT BLOCK MAKER, urgent care, hospital, or fpc...) When possible be specific @ -No Did you speak to anyone other than the patient for history (EMS, parent, family, police, friend...)? What history was obtained from this source @ -Daughter is present helps provide history including recent UTI and history of MRSA in the heel Did you review nursing and triage notes (agree or disagree)? Why? @ -I reviewed and agree with nursing and triage notes Were old charts reviewed (outside hosp., previous admission, EMS record, old EKG, old radiological studies, urgent care reports/EKG's, fpc records)? Report findings @ -Previous culture of the heel wound reviewed showing MRSA Differential Diagnosis (chest pain, altered mental status, abdominal pain women, abdominal pain men, vaginal bleeding, weakness, fever, dyspnea, syncope, headache, dizziness, GI bleed, back pain, seizure, CVA, palpatations, mental health, musculoskeletal)? @ -Differential Fever: Pneumonia, viral URI, endocarditis, myocarditis, pericarditis, otitis, sinusitis, peritonsillar Abscess, retropharyngeal Abscess, epiglottitis, peritonitis, appendicitis, Angelique cystitis, diverticulitis, hepatitis, colitis, UTI, PID, TOA, pyelonephritis, prostatitis, epididymitis, meningitis, encephalitis, pulmonary embolism, CVA, thyroid storm, pancreatitis, adrenal crisis, cavernous sinus thrombosis, this is not meant to be an all-inclusive list. EKG interpreted by me (3pts min.). @ -As above X-rays interpreted by me (1pt min.). @ -Right tib-fib x-ray does not reveal acute abnormality mild soft tissue swelling. CT interpreted by me (1pt min.). @ -None done U/S interpreted by me (1pt. min.). @ -None done What testing was considered but not performed or refused? (CT, X-rays, U/S, labs)? Why? @ -None What meds were considered but not given or refused? Why? @ -None Did you discuss the management of the patient with other professionals (professionals i.e. , PA, CEMENT BLOCK MAKER, lab, RT, psych nurse, 7th grade social studies teacher, family lawyer, teacher, parking officer, residential case manager)? Give summary @ -Case was discussed with Dr. Ramos her who will come evaluate and admit his Was smoking cessation discussed for >3mins.? @ -No Was critical care preformed (if so, how long)? @ -No Were there social determinants of health that impacted care today? How? (Homelessness, low income, unemployed, alcoholism, drug addiction, transportation, low edu. Level, literacy, decrease access to med. care, chcf, rehab)? @ -No Was there de-escalation of care discussed even if they declined (Discuss DNR or withdrawal of care, Hospice)? DNR status @ -No What co-morbidities impacted this encounter? (DM, HTN, Smoking, COPD, CAD, Cancer, CVA, ARF, Chemo, Hep., AIDS, mental health diagnosis, sleep apnea, morbid obesity)? @ -History of ulcer, history of diabetes, history of left leg amputation Was patient admitted / discharged? Hospital course, mention meds given and route, prescriptions, significant lab abnormalities, going to OR and other pertinent info. @ -Patient presents with concern for infection to the leg with increasing symptoms and discomfort. White blood cell count elevated. Patient will be admitted. Blood culture and lactic acid ordered. IV antibiotics will be ordered. Admission orders written Undiagnosed new problem with uncertain prognosis? @ -No Drug Therapy requiring intensive monitoring for toxicity (Heparin, Nitro, Insu jake, Cardizem)? @ -No Were any procedures done? @ -No Diagnosis/symptom? @ -Cellulitis right lower leg Acute, or Chronic, or Acute on Chronic? @ -Acute Uncomplicated (without systemic symptoms) or Complicated (systemic symptoms)? @ -Default Side effects of treatment? @ -No Exacerbation, Progression, or Severe Exacerbation? @ -No Poses a threat to life or bodily function? How? (Chest pain, [place], [place], pneumonia, PE, COPD, DKA, ARF, appy, cholecystitis, CVA, Diverticulitis, Homicidal, Suicidal, threat to staff... and all critical care pts) @ -Threat for worsening infection and potential sepsis or amputation - Lab Data Result diagrams: 03/03/24 12:34 03/03/24 12:34 Lab Results 03/03/24 03/03/24 03/03/24 Range/Units 12:34 12:34 12:34 WBC 16.9 H (3.8-10.6) k/uL RBC 3.83 (3.80-5.40) m/uL Hgb 11.1 L (11.4-16.0) gm/dL Hct 35.4 (34.0-46.0) % MCV 92.5 (80.0-100.0) fL MCH 29.1 (25.0-35.0) pg MCHC 31.4 (31.0-37.0) g/dL RDW 16.2 H (11.5-15.5) % Plt Count 299 (150-450) k/uL MPV 8.4 Neutrophils % 86 % Lymphocytes % 7 % Monocytes % 5 % Eosinophils % 0 % Basophils % 0 % Neutrophils # 14.5 H (1.3-7.7) k/uL Lymphocytes # 1.2 (1.0-4.8) k/uL Monocytes # 0.9 (0-1.0) k/uL Eosinophils # 0.1 (0-0.7) k/uL Basophils # 0.0 (0-0.2) k/uL Hypochromasia Moderate Anisocytosis Slight Sodium 134 L (137-145) mmol/L Potassium 4.6 (3.5-5.1) mmol/L Chloride 104 (98-107) mmol/L Carbon Dioxide 21 L (22-30) mmol/L Anion Gap 9 mmol/L BUN 23 H (7-17) mg/dL Creatinine 0.67 (0.52-1.04) mg/dL Est GFR (CKD-EPI)AfAm >90 (>60 ml/min/1.73 sqM) Est GFR (CKD-EPI)NonAf 83 (>60 ml/min/1.73 sqM) Glucose 365 H (74-99) mg/dL Plasma Lactic Acid Ronn 1.7 (0.7-2.0) mmol/L Calcium 8.6 (8.4-10.2) mg/dL Total Bilirubin 0.4 (0.2-1.3) mg/dL AST 17 (14-36) U/L ALT 15 (4-34) U/L Alkaline Phosphatase 84 (38-126) U/L Total Protein 5.5 L (6.3-8.2) g/dL Albumin 3.0 L (3.5-5.0) g/dL Disposition Clinical Impression: Cellulitis of right lower leg Disposition: ADMITTED IP TO THIS HOSP Is patient prescribed a controlled substance at d/c from ED?: No Referrals: Pierre White MD [Primary Care Provider] - 1-2 days Time of Disposition: 13:17
[2024-03-03 12:46] LABS: Anisocytosis Slight; Basophils % (A) 0 %; Eosinophils # (A) 0.1 k/uL (0-0.7); Eosinophils % (A) 0 %; HCT 35.4 % (34.0-46.0); HGB 11.1 gm/dL (11.4-16.0); Hypochromasia Moderate; Lymphocytes # (A) 1.2 k/uL (1.0-4.8); Lymphocytes % (A) 7 %; MCH 29.1 pg (25.0-35.0); MCHC 31.4 g/dL (31.0-37.0); MCV 92.5 fL (80.0-100.0); Mean Platelet Volume 8.4; Monocytes # (A) 0.9 k/uL (0-1.0); Monocytes % (A) 5 %; Neutrophils # (A) 14.5 k/uL (1.3-7.7); Neutrophils % (A) 86 %; Platelet Count 299 k/uL (150-450); RBC 3.83 m/uL (3.80-5.40); RDW 16.2 % (11.5-15.5); WBC 16.9 k/uL (3.8-10.6)
[2024-03-03 13:00] LABS: ALT 15 U/L (4-34); AST 17 U/L (14-36); African American GFR (CKD) >90 (>60 ml/min/1.73 sqM); Alkaline Phosphatase 84 U/L (38-126); Anion Gap 9 mmol/L; Blood Urea Nitrogen 23 mg/dL (7-17); Calcium 8.6 mg/dL (8.4-10.2); Carbon Dioxide 21 mmol/L (22-30); Chloride 104 mmol/L (98-107); Glucose 365 mg/dL (74-99); Non-African American GFR(CKD) 83 (>60 ml/min/1.73 sqM); Potassium 4.6 mmol/L (3.5-5.1); Sodium 134 mmol/L (137-145); Total Bilirubin 0.4 mg/dL (0.2-1.3); Total Protein 5.5 g/dL (6.3-8.2)
--- NOTE | 2024-03-03 13:10 | XR ---
EXAMINATION TYPE: XR tibia fibula RT DATE OF EXAM: 03/03/2024 12:54 PM COMPARISON: None CLINICAL INDICATION: Female, 83 years old with history of infection; pain TECHNIQUE: XR tibia fibula RT; examined in AP and lateral projections. FINDINGS: No evidence of any acute osseous pathology, joint dislocation, or soft tissue swelling is n oted. Atherosclerosis of the arterial vasculature. No evidence for osseous erosion. Calcaneal plantar spurring. Fixation hardware in the foot partially visualized. No subcutaneous gas definitively visua lized. There is mild degeneration changes of the knee with joint space tearing osteophyte formation. IMPRESSION: No evidence of acute fracture. Mild soft tissue swelling of the foot and leg without evidence for osseous erosion. No subcutaneous g as. [facility], , 03/03/2024 1:08 PM
[2024-03-03] MEDS ORDERED: traMADol 50 MG TAB PO PRN (13:17)
[2024-03-03] MEDS ORDERED: NALOXONE 0.4 MG/ML 1 ML VIAL IV PRN (13:17)
[2024-03-03] MEDS ORDERED: IBUPROFEN 400 MG TAB PO PRN (13:17)
[2024-03-03] MEDS ORDERED: VANCOMYCIN IV PER PHARMACY 1 EACH MISC MISCELLANE PRN (13:17)
[2024-03-03] MEDS: VANCOMYCIN 1,250 MG in SODIUM CHLORIDE 0.9% 250 ML IVPB ONE (15:02)
--- NOTE | 2024-03-03 15:44 | P.GSCN ---
History of Present Illness History of present illness: 83-year-old white female patient is well-known to me from the wound clinic. Patient had history of trauma to the right lower extremity patient developed hematoma right leg and villarreal area and at ankle area with some tenderness and some fluctuation the toe was not expanding x-ray of the leg shows no evidence of fracture. Patient also has a wound on the right heel which we have been treatin g with local wound care wound center Medical history history of diabetes history of coronary artery disease Surgical history patient had a left above-knee amputation done in the past Neck supple no bruit appreciated Chest is clear good in both lung. Second sound pre\\ Abdomen soft nontender vascular femorals are 1+ bilateral has right lower extremity him hematoma and tenderness noted and no evidence of pending area at the villarreal also has a small hematoma has been marked at this point patient is has a wound on the right heel which has been treated and her culture has been taken patient is an IV antibiotic at this point no surgical intervention we will follow-up very closely Past Medical History Past Medical History: Coronary Artery Disease (CAD), Diabetes Mellitus, Eye Disorder Additional Past Medical History / Comment(s): Heart attack 2013. 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 History of Any Multi-Drug Resistant Organisms: None Reported Year Discovered:: 01/25/24 MDRO Source:: MRSA right heel Past Surgical History: Coronary Bypass/CABG Past Anesthesia/Blood Transfusion Reactions: No Reported Reaction Past Psychological History: No Psychological Hx Reported Smoking Status: Former smoker Past Alcohol Use History: Rare Past Drug Use History: None Reported - Past Family History Father Family Medical History: Unable to Obtain Mother Family Medical History: Cancer Additional Family Medical History / Comment(s): colon CA Medications and Allergies Home Medications Medication Instructions Recorded Confirmed Type Amiodarone [Cordarone] 200 mg PO BID 01/03/24 01/23/24 History Atorvastatin [Lipitor] 20 mg PO HS 01/03/24 01/23/24 History Cholecalciferol [Vitamin D3 (25 25 mcg PO DAILY 01/03/24 01/23/24 History Mcg = 1000 Iu)] Clopidogrel [Plavix] 75 mg PO DAILY 01/03/24 01/23/24 History Digoxin [Digitek] 125 mcg PO DAILY 01/03/24 01/23/24 History Isosorbide Mononitrate ER [Imdur] 15 mg PO DAILY 01/03/24 01/23/24 History Metoprolol Tartrate [Lopressor] 12.5 mg PO TID 01/03/24 01/23/24 History Pregabalin [Lyrica] 75 mg PO TID 01/03/24 01/23/24 History busPIRone HCL 10 mg PO DAILY 01/03/24 01/23/24 History Apixaban [Eliquis] 5 mg PO BID #60 tab 01/05/24 01/23/24 Rx Insulin Glargine,Hum.rec.anlog 10 units SQ HS #0 01/05/24 01/23/24 Rx [Lantus Solostar Pen] Midodrine [ProAmatine] 5 mg PO TID PRN #0 01/05/24 01/23/24 Rx Collagenase [Santyl Ointment] 1 applic TOPICAL DAILY 01/23/24 01/23/24 History Empagliflozin [Jardiance] 10 mg PO DAILY 01/23/24 01/23/24 History Hydrophilic Cream [Triad (Kerodex 1 applic TOPICAL DIRECTED PRN 01/23/24 01/23/24 History geq)] Insulin Lispro [humaLOG Kwikpen] See Protocol SQ ACHS 01/23/24 01/23/24 History Collagenase [Santyl Ointment] 1 applic TOPICAL DAILY each 01/29/24 Rx Nystatin 100,000 Unit/gm Powd 1 applic TOPICAL BID #200 each 01/29/24 Rx [Mycostatin Powder] Sulfamethox-Tmp 800-160Mg [Bactrim 1 tab PO Q12HR #14 tab 01/29/24 Rx DS 800-160 mg] Allergies Allergy/AdvReac Type Severity Reaction Status Date / Time codeine Allergy Swelling Verified 03/03/24 11:47 Surgical - Exam Vital Signs Temp Pulse Resp BP Pulse Ox 98 F 65 18 155/67 96 03/03/24 11:42 03/03/24 11:42 03/03/24 11:42 03/03/24 11:42 03/03/24 11:42 Results - Labs 03/03/24 12:34 03/03/24 12:34 Abnormal Lab Results - Last 24 Hours (Table) 03/03/24 03/03/24 Range/Units 12:34 12:34 WBC 16.9 H (3.8-10.6) k/uL Hgb 11.1 L (11.4-16.0) gm/dL RDW 16.2 H (11.5-15.5) % Neutrophils # 14.5 H (1.3-7.7) k/uL Sodium 134 L (137-145) mmol/L Carbon Dioxide 21 L (22-30) mmol/L BUN 23 H (7-17) mg/dL Glucose 365 H (74-99) mg/dL Total Protein 5.5 L (6.3-8.2) g/dL Albumin 3.0 L (3.5-5.0) g/dL Diabetes panel 03/03/24 Range/Units 12:34 Sodium 134 L (137-145) mmol/L Potassium 4.6 (3.5-5.1) mmol/L Chloride 104 (98-107) mmol/L Carbon Dioxide 21 L (22-30) mmol/L BUN 23 H (7-17) mg/dL Creatinine 0.67 (0.52-1.04) mg/dL Glucose 365 H (74-99) mg/dL Calcium 8.6 (8.4-10.2) mg/dL AST 17 (14-36) U/L ALT 15 (4-34) U/L Alkaline Phosphatase 84 (38-126) U/L Total Protein 5.5 L (6.3-8.2) g/dL Albumin 3.0 L (3.5-5.0) g/dL Calcium panel 03/03/24 Range/Units 12:34 Calcium 8.6 (8.4-10.2) mg/dL Albumin 3.0 L (3.5-5.0) g/dL Pituitary panel 03/03/24 Range/Units 12:34 Sodium 134 L (137-145) mmol/L Potassium 4.6 (3.5-5.1) mmol/L Chloride 104 (98-107) mmol/L Carbon Dioxide 21 L (22-30) mmol/L BUN 23 H (7-17) mg/dL Creatinine 0.67 (0.52-1.04) mg/dL Glucose 365 H (74-99) mg/dL Calcium 8.6 (8.4-10.2) mg/dL Adrenal panel 03/03/24 Range/Units 12:34 Sodium 134 L (137-145) mmol/L Potassium 4.6 (3.5-5.1) mmol/L Chloride 104 (98-107) mmol/L Carbon Dioxide 21 L (22-30) mmol/L BUN 23 H (7-17) mg/dL Creatinine 0.67 (0.52-1.04) mg/dL Glucose 365 H (74-99) mg/dL Calcium 8.6 (8.4-10.2) mg/dL Total Bilirubin 0.4 (0.2-1.3) mg/dL AST 17 (14-36) U/L ALT 15 (4-34) U/L Alkaline Phosphatase 84 (38-126) U/L Total Protein 5.5 L (6.3-8.2) g/dL Albumin 3.0 L (3.5-5.0) g/dL
[2024-03-03 17:26] LABS: Glucose,Whole Blood 255 mg/dL (70-110)
[2024-03-03] MEDS: INSULIN ASPART (NovoLOG) 100 UNIT/ML VIAL SQ SCH (18:43)
[2024-03-03] MEDS: SODIUM CHLORIDE 0.9% 1,000 ML IV SCH (18:43)
[2024-03-03 20:16] LABS: Glucose,Whole Blood 244 mg/dL (70-110)
[2024-03-03] MEDS: ACETAMINOPHEN TAB 325 MG TAB PO PRN (21:52)
[2024-03-04] MEDS: VANCOMYCIN 1,000 MG in SODIUM CHLORIDE 0.9% 250 ML IVPB SCH (05:40)
[2024-03-04 05:43] LABS: Glucose,Whole Blood 168 mg/dL (70-110)
[2024-03-04] MEDS ORDERED: NYSTATIN 100,000 UNIT/GM POWD 15 GM TOPICAL PRN (06:07)
[2024-03-04] MEDS ORDERED: MIDODRINE 5 MG TAB PO PRN (06:07)
--- NOTE | 2024-03-04 06:11 | P.HPIM ---
History of Present Illness H&P Date: 03/03/24 Chief Complaint: Infected left heel ulcer HISTORY OF PRESENT ILLNESS: This is an 83-year-old female with a previous medical history significant for coronary artery disease status post coronary artery bypass graft, hypertension and hypertensive cardiovascular disease, hyperlipidemia, diabetes mellitus type 2, with diabetic polyneuropathy, history of peripheral va scular occlusive disease status post multiple angioplasties with left above knee amputation that was done at [facility], history of paroxysmal atrial fibrillation, history of recurrent UTI, patient was at [facility] for quite some times, she just left [facility] December 09, 2023 and she has been residing at [facility] with her , patient was recently admitted to the hospital for recurrent urinary tract infection with gross hematuria was seen in consultation by urology she was taken off Jardiance due to the recurrent nature of urine tract infection, patient presented to the emergency department at [facility] at this time because she hit her left lower extremity and she has an elevated white count of 16.9 thousand, x-ray did not show evidence of acute osteomyelitis however she does appear to have a significant infected wound to the left heel that she has been dealing with vascular surgery and wound care center on a regular basis, patient did have a prior history of MRSA in the past, therefore she was admitted to the hospital for wound culture, as well as vascular surgery and infectious disease consultation, start the patient on vancomycin with pharmacy to dose its peak and trough. REVIEW OF SYSTEMS: Constitutional: No documented fever, no chills, no night sweats. No weight change. No weakness, fatigue or lethargy. No daytime sleepiness. EENT: No headache. No blurred vision or double vision, no loss of vision. No loss of Hearing, no ringing in the ears, no dizziness. No nasal drainage or congestion. No epistaxis. No sore throat. Lungs: No shortness of breath, no cough, no sputum production. No wheezing. Reports dyspnea with activity. Cardiovascular: No chest pain, no lower extremity edema. No palpitations. No paroxysmal nocturnal dyspnea. No orthopnea. No lightheadedness or dizziness. No syncopal episodes. Abdominal: Reports no abdominal pain. No nausea, vomiting. No diarrhea. No constipation. No bloody or tarry stools reports loss of appetite. Genitourinary: Positive for dysuria, increased frequency, urgency. No urinary retention. No flank pain. Positive for hematuria Musculoskeletal: No myalgias. No muscle weakness, positive for gait dysfunction, no frequent falls. No back pain. No neck pain. Integumentary: No wounds, no lesions. No rash or pruritus. No unusual bruising. No change in hair or nails. Neurologic: No aphasia. No facial droop. No change in mentation. No head injury. No headache. No paralysis. No paresthesia. Psychiatric: No depression. No anxiety. No mood swings. Endocrine: No abnormal blood sugars. No weight change. PAST MEDICAL HISTORY: Hypertension and hypertensive cardiovascular disease. Mixed hyperlipidemia. Paroxysmal atrial fibrillation. PAD post multiple angioplasties ended up with left above-knee amputation. CAD post CABG. Status post left above-knee amputation currently in a wheelchair. Recurrent UTI. 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 Osteoarthritis. Orthostatic hypotension. GERD with esophagitis. Diabetes mellitus type 2. Diabetic polyneuropathy. PAST SURGICAL HISTORY: Coronary artery bypass graft. Left above-knee amputation. Bilateral cataract surgery. Multiple angioplasty of bilateral lower extremities. Left transmetatarsal amputation EGD and colonoscopy. SOCIAL HISTORY: Patient is a lifelong non-smoker, she denies any alcohol ingestion, she denies any drug use or abuse, she currently resides at the [facility]. FAMILY HISTORY: Noncontributory. PHYSICAL EXAMINATION: General: This is an 83-year-old female down in bed in no apparent d istress. HEENT: Head is atraumatic, normocephalic, pupils were equal round reactive to light and recommendation, extraocular muscle movement were intact, sclera nonicteric, conjunctivae were pale, mucous membranes of the mouth are somewhat dry. Neck: Supple, no JVP, normal carotid upstroke bilaterally, no lymphadenopathy. Chest: Decreased breath sounds at the bases, few rhonchi, no expiratory wheezes, no chest wall tenderness, no intercostal retractions. Heart: First heart sound is normal, second heart sound is normal there is systolic ejection murmur 2/6 located in the left sternal border. Abdomen: Soft, nontender, nondistended, positive bowel sounds. Extremities: There is no edema no calf tenderness dorsalis pedis +1 on the right side posterior tibialis could not be palpated, there is a wound to the right heel 1.5x1.5x0.5 cm left above-knee amputation. Neurologic examination: Patient is awake alert and oriented x3, cranial nerves II-12 appear grossly intact, muscle power were 4 out of 5 in upper extremities and 3 out of 5 in the right lower extremity, left [id number] amputation. ASSESSMENT AND PLAN: 1. possible Infected right heel decubitus ulcer with a prior history of MRSA infection and cellulitis to [facility] lower extremity Check wound culture, consult vascular surgery, consult infectious disease, start the patient on vancomycin with pharmacy to dose the peak and trough, monitor the patient symptoms very closely. Keep up fluid. Continue local care. 2. Diabetes mellitus type 2. Continue patient on Lantus 10 units at bedtime along with a sliding scale insulin. 3. Coronary artery disease status post coronary artery bypass graft continue patient on isosorbide mononitrate 30 mg once every day, continue metoprolol 12.5 mg orally twice every day, continue patient on atorvastatin 20 mg orally once every day, continue patient on Plavix 75 mg orally once every day. 4. Paroxysmal atrial fibrillation. Continue patient on digoxin 125 mcg orally once every day, metoprolol 12.5 mg twice every day, continue amiodarone 200 mg orally twice every day continue Eliquis 5 mg orally twice every day, monitor the patient very closely. 5. Chronic diastolic heart failure. Continue patient on metoprolol 12.5 mg orally twice every day, Jardiance 25 mg once every day we will monitor the patient very closely. 6. Hypertension and hypertensive cardiovascular disease. Continue patient on metoprolol 12.5 mg orally twice every day monitor the patient blood pressure very closely. 7. Mixed hyperlipidemia. Continue patient on atorvastatin 20 mg once every day, monitor lipid panel, keep LDL 55-70. 8. History of PAD status post multiple interventions along with left above-knee amputation. Continue patient on Plavix 75 mg once every day as well as ator vastatin 20 mg once every day for secondary prevention, continue patient with a local care for the right heel wound with Wilneryl will consult vascular surgery for wound care. 9. GERD with esophagitis. Continue with Protonix 40 mg orally once every day. Continue famotidine 20 mg orally twice every day. 10. Diabetic polyneuropathy. Continue pregabalin 75 mg orally 3 times every day. 11. Orthostatic hypotension. Continue midodrine 5 mg orally 3 times every day. If systolic blood pressure less than 100. 12. DVT prophylaxis. Continue patient on Eliquis 5 mg orally twice every day. 13. GI prophylaxis. Continue patient on famotidine 20 mg orally twice a day as well as pantoprazole 40 mg once every day. 14. Admit patient as inpatient with plan for minimal hospitalization of 2 nig hts. 15. Patient is full code. Past Medical History Past Medical History: Coronary Artery Disease (CAD), Diabetes Mellitus, Eye Disorder Additional Past Medical History / Comment(s): Heart attack 2013. 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 History of Any Multi-Drug Resistant Organisms: None Reported Date of last positivie culture/infection: 01/25/24 MDRO Source:: MRSA right heel Past Surgical History: Coronary Bypass/CABG Past Anesthesia/Blood Transfusion Reactions: No Reported Reaction Past Psychological History: No Psychological Hx Reported Smoking Status: Former smoker Past Alcohol Use History: Rare Past Drug Use History: None Reported - Past Family History Father Family Medical History: Unable to Obtain Mother Family Medical History: Cancer Additional Family Medical History / Comment(s): colon CA Medications and Allergies Home Medications Medication Instructions Recorded Confirmed Type Amiodarone [Cordarone] 200 mg PO BID 01/03/24 03/03/24 History Atorvastatin [Lipitor] 20 mg PO HS 01/03/24 03/03/24 History Cholecalciferol [Vitamin D3 (25 25 mcg PO DAILY 01/03/24 03/03/24 History Mcg = 1000 Iu)] Clopidogrel [Plavix] 75 mg PO DAILY 01/03/24 03/03/24 History Digoxin [Digitek] 125 mcg PO DAILY 01/03/24 03/03/24 History Isosorbide Mononitrate ER [Imdur] 15 mg PO DAILY 01/03/24 03/03/24 History Metoprolol Tartrate [Lopressor] 12.5 mg PO TID@0745,1645,2145 01/03/24 03/03/24 History Pregabalin [Lyrica] 75 mg PO TID@0745,1645,2145 01/03/24 03/03/24 History busPIRone HCL 10 mg PO DAILY 01/03/24 03/03/24 History Apixaban [Eliquis] 5 mg PO BID #60 tab 01/05/24 03/03/24 Rx Insulin Glargine,Hum.rec.anlog 10 units SQ HS #0 01/05/24 03/03/24 Rx [Lantus Solostar Pen] Collagenase [Santyl Ointment] 1 applic TOPICAL DAILY 01/23/24 03/03/24 History Insulin Lispro [humaLOG Kwikpen] See Protocol SQ ACHS 01/23/24 03/03/24 History Midodrine [ProAmatine] 5 mg PO TID PRN 03/03/24 03/03/24 History Nystatin 100,000 Unit/gm Powd 1 applic TOPICAL BID PRN 03/03/24 03/03/24 History [Mycostatin Powder] Spironolactone [Aldactone] 25 mg PO DAILY 03/03/24 03/03/24 History Allergies Allergy/AdvReac Type Severity Reaction Status Date / Time codeine Allergy Swelling Verified 03/03/24 15:57 Physical Exam Vitals: Vital Signs Temp Pulse Resp BP Pulse Ox 03/03/24 11:42 98 F 65 18 155/67 96 Intake and Output 03/02/24 03/03/24 03/03/24 22:59 06:59 14:59 Other: Weight 65.771 kg Results CBC & Chem 7: 03/03/24 12:34 03/03/24 12:34 Labs: Abnormal Lab Results - Last 24 Hours (Table) 03/03/24 03/03/24 Range/Units 12:34 12:34 WBC 16.9 H (3.8-10.6) k/uL Hgb 11.1 L (11.4-16.0) gm/dL RDW 16.2 H (11.5-15.5) % Neutrophils # 14.5 H (1.3-7.7) k/uL Sodium 134 L (137-145) mmol/L Carbon Dioxide 21 L (22-30) mmol/L BUN 23 H (7-17) mg/dL Glucose 365 H (74-99) mg/dL Total Protein 5.5 L (6.3-8.2) g/dL Albumin 3.0 L (3.5-5.0) g/dL
[2024-03-04 08:40] LABS: Basophils # (A) 0.07 X 10*3/uL (0.00-0.10); Basophils % (A) 0.5 %; Eosinophils # (A) 0.21 X 10*3/uL (0.04-0.35); Eosinophils % (A) 1.4 %; HGB 11.5 g/dL (12.0-15.0); Lymphocytes # (A) 1.36 X 10*3/uL (0.90-5.00); MCH 28.2 pg (27.0-32.0); MCHC 31.1 g/dL (32.0-37.0); MCV 90.7 FL (80.0-97.0); Mean Platelet Volume 11.5 FL (9.5-12.2); Monocytes # (A) 1.06 X 10*3/uL (0.20-1.00); NRBC Per 100 WBC 0 X 10*3/uL (0.00-0.01); Neutrophils # (A) 12.15 X 10*3/uL (1.80-7.70); Neutrophils % (A) 80.4 %; Platelet Count 327 X 10*3/uL (140-440); RBC 4.08 X 10*6/uL (4.10-5.20); RDW 17.1 % (11.5-14.5)
--- NOTE | 2024-03-04 08:51 | P.CONS ---
History of Present Illness - Reason for Consult Consult date: 03/03/24 Cellulitis Requesting physician: Jose Andrade - Chief Complaint Right leg pain swelling redness x 2 days - History of Present Illness Patient is 83-year-old female with a past medical history significant for coronary disease diabetes mellitus patient did have a right heel pressure ulcer that is currently been taking care at [facility]) did have a previous history of MRSA infection related to it patient has been brought into the hospital concerning for right leg pain apparently patient did have trauma to eat when she bumped it about a week ago subsequently she did have 2 areas on the right anterior leg that has becoming more swollen red and painful that has been getting worse over the last 2 days patient has been eval by the home care nurse concerning for infection to the leg for the patient was advised to go to the hospital patient denies high-grade fever or any chills has been complaining of pain to the right leg to be mostly dull aching to sharp moderate intensity without radiation patient was not running any fever presented to the hospital patient was not tachycardic hypotensive or hypoxic she did have white count of 16.9 with a left shift creatinine 0.67 liver enzymes are normal local culture has been obtained patient did have x-rays of the tibia-fibula did not show any fracture she was started on vancomycin because of her history of MRSA infectious disease was consulted for further management of antibiotic therapy Review of Systems Positive point and negatives has been mentioned in the HPI, complete review of systems was performed and all other systems are negative Past Medical History Past Medical History: Coronary Artery Disease (CAD), Diabetes Mellitus, Eye Disorder Additional Past Medical History / Comment(s): Heart attack 2013. 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 History of Any Multi-Drug Resistant Organisms: None Reported Year Discovered:: 01/25/24 MDRO Source:: MRSA right heel Past Surgical History: Coronary Bypass/CABG Past Anesthesia/Blood Transfusion Reactions: No Reported Reaction Past Psychological History: No Psychological Hx Reported Smoking Status: Former smoker Past Alcohol Use History: Rare Past Drug Use History: None Reported - Past Family History Father Family Medical History: Unable to Obtain Mother Family Medical History: Cancer Additional Family Medical History / Comment(s): colon CA Medications and Allergies Home Medications Medication Instructions Recorded Confirmed Type Amiodarone [Cordarone] 200 mg PO BID 01/03/24 03/03/24 History Atorvastatin [Lipitor] 20 mg PO HS 01/03/24 03/03/24 History Cholecalciferol [Vitamin D3 (25 25 mcg PO DAILY 01/03/24 03/03/24 History Mcg = 1000 Iu)] Clopidogrel [Plavix] 75 mg PO DAILY 01/03/24 03/03/24 History Digoxin [Digitek] 125 mcg PO DAILY 01/03/24 03/03/24 History Isosorbide Mononitrate ER [Imdur] 15 mg PO DAILY 01/03/24 03/03/24 History Metoprolol Tartrate [Lopressor] 12.5 mg PO TID@0745,1645,5 01/03/24 03/03/24 History Pregabalin [Lyrica] 75 mg PO TID@0745,1645,5 01/03/24 03/03/24 History busPIRone HCL 10 mg PO DAILY 01/03/24 03/03/24 History Apixaban [Eliquis] 5 mg PO BID #60 tab 01/05/24 03/03/24 Rx Insulin Glargine,Hum.rec.anlog 10 units SQ HS #0 01/05/24 03/03/24 Rx [Lantus Solostar Pen] Collagenase [Santyl Ointment] 1 applic TOPICAL DAILY 01/23/24 03/03/24 History Insulin Lispro [humaLOG Kwikpen] See Protocol SQ ACHS 01/23/24 03/03/24 History Midodrine [ProAmatine] 5 mg PO TID PRN 03/03/24 03/03/24 History Nystatin 100,000 Unit/gm Powd 1 applic TOPICAL BID PRN 03/03/24 03/03/24 History [Mycostatin Powder] Spironolactone [Aldactone] 25 mg PO DAILY 03/03/24 03/03/24 History Allergies Allergy/AdvReac Type Severity Reaction Status Date / Time codeine Allergy Swelling Verified 03/03/24 15:57 Physical Exam Vitals: Vital Signs Temp Pulse Resp BP Pulse Ox 03/03/24 11:42 98 F 65 18 155/67 96 Intake and Output 03/02/24 03/03/24 03/03/24 22:59 06:59 14:59 Other: Weight 65.771 kg GENERAL DESCRIPTION: Elderly female lying in bed, no distress. No tachypnea or accessory muscle of respiration use. HEENT: Shows Pallor , no scleral icterus. Oral mucous membrane is dry. NECK: Trachea central, no thyromegaly. LUNGS: Unlabored breathing. Clear to auscultation anteriorly. No wheeze or crackle. HEART: S1, S2, regular rate and rhythm. No loud murmur ABDOMEN: Soft, no tenderness , guarding or rigidity, no organomegaly EXTREMITIES: Right heel did have a pressure ulcer with some necrotic tissue patient did have swelling and redness to the right anterior leg but no purulent drainage SKIN: No rash, no masses palpable. NEUROLOGICAL: The patient is awake, alert, oriented x3, mood and affect normal. Results CBC & Chem 7: 03/04/24 04:36 03/03/24 12:34 Labs: Abnormal Lab Results - Last 24 Hours (Table) 03/03/24 03/03/24 Range/Units 12:34 12:34 WBC 16.9 H (3.8-10.6) k/uL Hgb 11.1 L (11.4-16.0) gm/dL RDW 16.2 H (11.5-15.5) % Neutrophils # 14.5 H (1.3-7.7) k/uL Sodium 134 L (137-145) mmol/L Carbon Dioxide 21 L (22-30) mmol/L BUN 23 H (7-17) mg/dL Glucose 365 H (74-99) mg/dL Total Protein 5.5 L (6.3-8.2) g/dL Albumin 3.0 L (3.5-5.0) g/dL Assessment and Plan (1) Leukocytosis Current Visit: Yes Status: Acute Code(s): D72.829 - ELEVATED WHITE BLOOD CELL COUNT, UNSPECIFIED SNOMED Code(s): 035950764 (2) Cellulitis of right lower leg Current Visit: Yes Status: Acute Code(s): L03.115 - CELLULITIS OF RIGHT LOWER LIMB SNOMED Code(s): 511552394 Plan: 1patient presented to hospital with increasing pain and swelling into the right lower extremity in this patient who did have a slight trauma to the leg currently did have some swelling redness but no point overall any drainage patient did have right heel pressure ulcer which seem to be healing and previous history of MRSA infection will need to cover for MRSA while waiting for the culture to finalize 2vancomycin pharmacy to dose target trough of 15 while watching kidney function and Vanco trough closely 3local wound care with the Santyl followed by moist dressing and keep the area of the pressure We will follow on clinical condition and cultures to further adjust medication if needed Thank you for this consultation we will follow the patient along with you Dictation was produced using [employer] dictation software. please excuse any grammatical, word or spelling errors. Time with Patient: Greater than 30
[2024-03-04 09:03] LABS: ALT 15 U/L (8-44); AST 13 U/L (13-35); Albumin 3.3 g/dL (3.8-4.9); Albumin/Globulin Ratio 1.27 Ratio (1.60-3.17); Alkaline Phosphatase 99 U/L (41-126); Blood Urea Nitrogen 14.2 mg/dL (9.0-27.0); Calcium 8.8 mg/dL (8.7-10.3); Carbon Dioxide 23.9 mmol/L (21.6-31.8); Chloride 106 mmol/L (96-109); Globulin 2.6 g/dL (1.6-3.3); Glucose 192 mg/dL (70-110); Potassium 4.1 mmol/L (3.5-5.5); Sodium 141 mmol/L (135-145); Total Bilirubin 0.3 mg/dL (0.3-1.2); Total Protein 5.9 g/dL (6.2-8.2)
[2024-03-04] MEDS: CLOPIDOGREL 75 MG TAB PO SCH (09:53)
[2024-03-04] MEDS: SPIRONOLACTONE 25 MG TAB PO SCH (09:57)
[2024-03-04] MEDS: PREGABALIN 75 MG CAP PO SCH (09:57)
[2024-03-04] MEDS: APIXABAN 5 MG TAB PO SCH (09:58)
[2024-03-04] MEDS: ISOSORBIDE MONONITRATE ER 15 MG TAB PO SCH (09:58)
[2024-03-04] MEDS: CHOLECALCIFEROL 25 MCG (1000 IU) TABLET PO SCH (09:58)
[2024-03-04] MEDS: AMIODARONE 200 MG TAB PO SCH (09:58)
[2024-03-04] MEDS: DIGOXIN 125 MCG TAB PO SCH (09:58)
[2024-03-04] MEDS: busPIRone HCl 10 MG TAB PO SCH (09:58)
[2024-03-04] MEDS: COLLAGENASE 250 UNIT/GM OINTMENT 30 GM TUBE TOPICAL SCH (10:00)
[2024-03-04] MEDS: METOPROLOL TARTRATE 12.5 MG TAB PO SCH (10:05)
[2024-03-04 10:35] LABS: Erythrocyte Sedimentation Rate 49 mm/Hr (0-30)
[2024-03-04 12:23] LABS: Glucose,Whole Blood 210 mg/dL (70-110)
[2024-03-04 17:26] LABS: Glucose,Whole Blood 214 mg/dL (70-110)
[2024-03-04] MEDS: LOSARTAN 50 MG TAB PO SCH (17:56)
--- NOTE | 2024-03-04 18:00 | P.PN ---
Subjective Progress Note Date: 03/04/24 HISTORY OF PRESENT ILLNESS: This is an 83-year-old female with a previous medical history signi ficant for coronary artery disease status post coronary artery bypass graft, hypertension and hypertensive cardiovascular disease, hyperlipidemia, diabetes mellitus type 2, with diabetic polyneuropathy, history of peripheral vascular occlusive disease status post multiple angioplasties with left above knee amputation that was done at [facility], history of paroxysmal atrial fibrillation, history of recurrent UTI, patient was at [facility] for quite some times, she just left [facility] December 09, 2023 and she has been residing at [facility] with her , patient was recently admitted to the hospital for recurrent urinary tract infection with gross hematuria was seen in consultation by urology she was taken off Jardiance due to the recurrent nature of urine tract infection, patient presented to the emergency department at [facility] at this time because she hit her left lower extremity and she has an elevated white count of 16.9 thousand, x-ray did not show evidence of acute osteomyelitis however she does appear to have a significant infected wound to the left heel that she has been dealing with vascular surgery and wound care center on a regular basis, patient did have a prior history of MRSA in the past, therefore she was admitted to the hospital for wound culture, as well as vascular surgery and infectious disease consultation, start the patient on vancomycin with pharmacy to dose its peak and trough. 03/04: Patient is laying down in bed in no apparent distress, she is feeling better today, she continues to have erythema in the right lower extremity, minimal hematoma to the right villarreal, due to her trauma, she continues to have the right heel ulcer that was seen yesterday for vascular surgery, continue with the Santyl on a daily basis, continue current local care, continue IV antibiotic in the form of vancomycin, await infectious disease consultation, I will follow-up with the patient very closely, repeat labs today and physical therapy evaluation and social work msw consultation for discharge planning. REVIEW OF SYSTEMS: Constitutional: No documented fever, no chills, no night sweats. No weight change. No weakness, fatigue or lethargy. No daytime sleepiness. EENT: No headache. No blurred vision or double vision, no loss of vision. No loss of Hearing, no ringing in the ears, no dizziness. No nasal drainage or congestion. No epistaxis. No sore throat. Lungs: No shortness of breath, no cough, no sputum production. No wheezing. Reports dyspnea with activity. Cardiovascular: No chest pain, no lower extremity edema. No palpitations. No paroxysmal nocturnal dyspnea. No orthopnea. No lightheadedness or dizziness. No syncopal episodes. Abdominal: Reports no abdominal pain. No nausea, vomiting. No diarrhea. No constipation. No bloody or tarry stools reports loss of appetite. Genitourinary: Positive for dysuria, increased frequency, urgency. No urinary retention. No flank pain. Positive for hematuria Musculoskeletal: No myalgias. No muscle weakness, positive for gait dysfunction, no frequent falls. No back pain. No neck pain. Integumentary: No wounds, no lesions. No rash or pruritus. No unusual bruising. No change in hair or nails. Neurologic: No aphasia. No facial droop. No change in mentation. No head injury. No headache. No paralysis. No paresthesia. Psychiatric: No depression. No anxiety. No mood swings. Endocrine: No abnormal blood sugars. No weight change. PHYSICAL EXAMINATION: General: This is an 83-year-old female down in bed in no apparent distress. HEENT: Head is atraumatic, normocephalic, pupils were equal round reactive to light and recommendation, extraocular muscle movement were intact, sclera nonicteric, conjunctivae were pale, mucous membranes of the mouth are somewhat dry. Neck: Supple, no JVP, normal carotid upstroke bilaterally, no lymphadenopathy. Chest: Decreased breath sounds at the bases, few rhonchi, no expiratory wheezes, no chest wall tenderness, no intercostal retractions. Heart: First heart sound is normal, second heart sound is normal there is systolic ejection murmur 2/6 located in the left sternal border. Abdomen: Soft, nontender, nondistended, positive bowel sounds. Extremities: There is no edema no calf tenderness dorsalis pedis +1 on the right side posterior tibialis could not be palpated, there is a wound to the right heel 1.5x1.5x0.5 cm left above-knee amputation. Neurologic examination: Patient is awake alert and oriented x3, cranial nerves II-12 appear grossly intact, muscle power were 4 out of 5 in upper extremities and 3 out of 5 in the right lower extremity, left [id number] amputation. ASSESSMENT AND PLAN: 1. possible Infected right heel decubitus ulcer with a prior history of MRSA infection and cellulitis to the [facility] lower extremity Check wound culture, consult vascular surgery, consult infectious disease, start the patient on vancomycin with pharmacy to dose the peak and trough, monitor the patient symptoms very closely. Keep up fluid. Continue local care. 2. Diabetes mellitus type 2. Continue patient on Lantus 10 units at bedtime along with a sliding scale insulin. 3. Coronary artery disease status post coronary artery bypass graft continue patient on isosorbide mononitrate 30 mg once every day, continue metoprolol 12.5 mg orally twice every day, continue patient on atorvastatin 20 mg orally once every day, continue patient on Plavix 75 mg orally once every day. 4. Paroxysmal atrial fibrillation. Continue patient on digoxin 125 mcg orally once every day, metoprolol 12.5 mg twice every day, continue amiodarone 200 mg orally twice every day continue Eliquis 5 mg orally twice every day, monitor the patient very closely. 5. Chronic diastolic heart failure. Continue patient on metoprolol 12.5 mg orally twice every day, spironolactone 25 mg po daily and was taking off of Jardiance due to recurrent UTI and Yeast infection. 6. Hypertension and hypertensive cardiovascular disease. Continue patient on metoprolol 12.5 mg orally twice every day monitor the patient blood pressure very closely.doscontinue Midodrin and start Losartan 50 mg po bid 7. Mixed hyperlipidemia. Continue patient on atorvastatin 20 mg once every day, monitor lipid panel, keep LDL 55-70. 8. History of PAD status post multiple interventions along with left above-knee amputation. Continue patient on Plavix 75 mg once every day as well as atorvastatin 20 mg once every day for secondary prevention, continue patient with a local care for the right heel wound with Santyl will consult vascular surgery for wound care. 9. GERD with esophagitis. Continue with Protonix 40 mg orally once every day. Continue famotidine 20 mg orally twice every day. 10. Diabetic polyneuropathy. Continue pregabalin 75 mg orally 3 times every day. 11. Orthostatic hypotension. Resolved 12. DVT prophylaxis. Continue patient on Eliquis 5 mg orally twice every day. 13. GI prophylaxis. Continue patient on pantoprazole 40 mg once every day. Objective - Vital Signs Vital signs: Vital Signs Temp 97.7 F 03/04/24 01:59 Pulse 69 03/04/24 01:59 Resp 16 03/04/24 01:59 BP 141/53 03/04/24 01:59 Pulse Ox 93 L 03/04/24 01:59 FiO2 Intake & Output 03/03/24 03/03/24 03/04/24 06:59 18:59 06:59 Output Total 1300 Balance -1300 Weight 65.771 kg Output: Urine 1300 Other: Voiding Method External Catheter External Catheter # Bowel Movements 1 - Labs CBC & Chem 7: 03/04/24 04:36 03/04/24 04:36 Labs: Abnormal Lab Results - Last 24 Hours (Table) 03/03/24 03/03/24 03/03/24 Range/Units 12:34 12:34 17:24 WBC 16.9 H (3.8-10.6) k/uL Hgb 11.1 L (11.4-16.0) gm/dL RDW 16.2 H (11.5-15.5) % Neutrophils # 14.5 H (1.3-7.7) k/uL Sodium 134 L (137-145) mmol/L Carbon Dioxide 21 L (22-30) mmol/L BUN 23 H (7-17) mg/dL Glucose 365 H (74-99) mg/dL POC Glucose (mg/dL) 255 H (70-110) mg/dL Total Protein 5.5 L (6.3-8.2) g/dL Albumin 3.0 L (3.5-5.0) g/dL 03/03/24 03/04/24 Range/Units 20:14 05:42 WBC (3.8-10.6) k/uL Hgb (11.4-16.0) gm/dL RDW (11.5-15.5) % Neutrophils # (1.3-7.7) k/uL Sodium (137-145) mmol/L Carbon Dioxide (22-30) mmol/L BUN (7-17) mg/dL Glucose (74-99) mg/dL POC Glucose (mg/dL) 244 H 168 H (70-110) mg/dL Total Protein (6.3-8.2) g/dL Albumin (3.5-5.0) g/dL Microbiology - Last 24 Hours (Table) 03/03/24 14:55 Gram Stain - Preliminary Foot - Right
[2024-03-04 20:51] LABS: Glucose,Whole Blood 253 mg/dL (70-110)
--- NOTE | 2024-03-04 21:39 | P.PN ---
Subjective Progress Note Date: 03/04/24 Principal diagnosis: Reason for follow-up is right lower extremity cellulitis Patient is 83-year-old female with a past medical history significant for coronary disease diabetes mellitus patient did have a right heel pressure ulcer that is currently been taking care at [facility] wound care center has been brought to the hospital concerning for right lower extremity swelling redness and concern for cellulitis. On today's evaluation that is 03/04/2024, patient has been afebrile, patient is breathing comfortably and is currently on room air, patient denies having any significant cough no chest pain, patient denies nausea vomiting or diarrhea and no abdominal pain, pain to the right leg has slightly decreased in intensity. Patient white count is down to 15.10 creatinine 0.5 cultures currently pending Objective - Vital Signs Vital signs: Vital Signs Temp 98.5 F 03/04/24 07:05 Pulse 78 03/04/24 07:05 Resp 16 03/04/24 07:05 BP 184/77 03/04/24 07:05 Pulse Ox 94 L 03/04/24 07:05 FiO2 Intake & Output 03/03/24 03/04/24 03/04/24 18:59 06:59 18:59 Output Total 1300 Balance -1300 Weight 65.771 kg Output: Urine 1300 Other: Voiding Method External Catheter External Catheter External Catheter # Bowel Movements 1 - Exam GENERAL DESCRIPTION: An elderly female lying in bed in no distress RESPIRATORY SYSTEM: Unlabored breathing , decreased breath sounds at bases HEART: S1 S2 regular rate and rhythm , ABDOMEN: Soft , no tenderness EXTREMITIES: Right leg swelling redness slightly decreased - Labs CBC & Chem 7: 03/04/24 04:36 03/04/24 04:36 Labs: Abnormal Lab Results - Last 24 Hours (Table) 03/03/24 03/03/24 03/03/24 Range/Units 12:34 12:34 17:24 WBC 16.9 H (3.8-10.6) k/uL RBC (4.10-5.20) X 10*6/uL Hgb 11.1 L (11.4-16.0) gm/dL Hct (37.2-46.3) % MCHC (32.0-37.0) g/dL RDW 16.2 H (11.5-15.5) % Immature Gran # (0.00-0.04) X 10*3/uL Neutrophils # 14.5 H (1.3-7.7) k/uL Monocytes # (0.20-1.00) X 10*3/uL ESR (0-30) mm/Hr Sodium 134 L (137-145) mmol/L Carbon Dioxide 21 L (22-30) mmol/L BUN 23 H (7-17) mg/dL Creatinine (0.6-1.5) mg/dL BUN/Creatinine Ratio (12.00-20.00) Ratio Glucose 365 H (74-99) mg/dL POC Glucose (mg/dL) 255 H (70-110) mg/dL Total Protein 5.5 L (6.3-8.2) g/dL Albumin 3.0 L (3.5-5.0) g/dL Albumin/Globulin Ratio (1.60-3.17) Ratio 03/03/24 03/04/24 03/04/24 Range/Units 20:14 04:36 04:36 WBC 15.10 H (3.8-10.6) k/uL RBC 4.08 L (4.10-5.20) X 10*6/uL Hgb 11.5 L (11.4-16.0) gm/dL Hct 37.0 L (37.2-46.3) % MCHC 31.1 L (32.0-37.0) g/dL RDW 17.1 H (11.5-15.5) % Immature Gran # 0.25 H (0.00-0.04) X 10*3/uL Neutrophils # 12.15 H (1.3-7.7) k/uL Monocytes # 1.06 H (0.20-1.00) X 10*3/uL ESR 49 H (0-30) mm/Hr Sodium (137-145) mmol/L Carbon Dioxide (22-30) mmol/L BUN (7-17) mg/dL Creatinine 0.5 L (0.6-1.5) mg/dL BUN/Creatinine Ratio 28.40 H (12.00-20.00) Ratio Glucose 192 H (74-99) mg/dL POC Glucose (mg/dL) 244 H (70-110) mg/dL Total Protein 5.9 L (6.3-8.2) g/dL Albumin 3.3 L (3.5-5.0) g/dL Albumin/Globulin Ratio 1.27 L (1.60-3.17) Ratio 03/04/24 03/04/24 Range/Units 05:42 12:22 WBC (3.8-10.6) k/uL RBC (4.10-5.20) X 10*6/uL Hgb (11.4-16.0) gm/dL Hct (37.2-46.3) % MCHC (32.0-37.0) g/dL RDW (11.5-15.5) % Immature Gran # (0.00-0.04) X 10*3/uL Neutrophils # (1.3-7.7) k/uL Monocytes # (0.20-1.00) X 10*3/uL ESR (0-30) mm/Hr Sodium (137-145) mmol/L Carbon Dioxide (22-30) mmol/L BUN (7-17) mg/dL Creatinine (0.6-1.5) mg/dL BUN/Creatinine Ratio (12.00-20.00) Ratio Glucose (74-99) mg/dL POC Glucose (mg/dL) 168 H 210 H (70-110) mg/dL Total Protein (6.3-8.2) g/dL Albumin (3.5-5.0) g/dL Albumin/Globulin Ratio (1.60-3.17) Ratio Microbiology - Last 24 Hours (Table) 03/03/24 14:55 Gram Stain - Preliminary Foot - Right Assessment and Plan (1) Leukocytosis Current Visit: Yes Status: Acute Code(s): D72.829 - ELEVATED WHITE BLOOD C ELL COUNT, UNSPECIFIED SNOMED Code(s): 416985107 (2) Cellulitis of right lower leg Current Visit: Yes Status: Acute Code(s): L03.115 - CELLULITIS OF RIGHT LOWER LIMB SNOMED Code(s): 920914610 Plan: 1patient presented to hospital with increasing pain and swelling into the right lower extremity in this patient who did have a slight trauma to the leg currently did have some swelling redness but no point overall any drainage patient did have right heel pressure ulcer which seem to be healing and previous history of MRSA infection will need to cover for MRSA while waiting for the culture to finalize 2patient to continue local wound care with the Santyl followed by moist dressing and keep the area of the pressure 3patient will be treated with vancomycin pharmacy to dose while watching her kidney function closely while waiting for the culture to finalize Dictation was produced using [employer] dictation software. please excuse any grammatical, word or spelling errors. Time with Patient: Less than 30
[2024-03-04] MEDS: ATORVASTATIN 20 MG TAB PO SCH (22:10)
[2024-03-04] MEDS: INSULIN DETEMIR (LEVEMIR) 100 UNIT/ML SYR SQ SCH (22:11)
[2024-03-05 06:07] LABS: Basophils # (A) 0.1 k/uL (0-0.2); Basophils % (A) 0 %; Eosinophils # (A) 0.3 k/uL (0-0.7); Eosinophils % (A) 2 %; HCT 38.4 % (34.0-46.0); Hypochromasia Moderate; Lymphocytes # (A) 1.3 k/uL (1.0-4.8); Lymphocytes % (A) 9 %; MCH 28.8 pg (25.0-35.0); MCHC 31.2 g/dL (31.0-37.0); MCV 92.5 fL (80.0-100.0); Mean Platelet Volume 8.1; Monocytes # (A) 0.8 k/uL (0-1.0); Monocytes % (A) 6 %; Neutrophils # (A) 10.9 k/uL (1.3-7.7); Neutrophils % (A) 80 %; Platelet Count 313 k/uL (150-450); RBC 4.15 m/uL (3.80-5.40); RDW 15.9 % (11.5-15.5); WBC 13.6 k/uL (3.8-10.6)
[2024-03-05] MEDS: PANTOPRAZOLE 40 MG TABLET PO SCH (06:13)
[2024-03-05 06:27] LABS: Potassium 4.2 mmol/L (3.5-5.1)
[2024-03-05 06:29] LABS: ALT 17 U/L (4-34); AST 17 U/L (14-36); African American GFR (CKD) >90 (>60 ml/min/1.73 sqM); Albumin 3.2 g/dL (3.5-5.0); Albumin/Globulin Ratio 1.1; Alkaline Phosphatase 94 U/L (38-126); Anion Gap 6 mmol/L; Blood Urea Nitrogen 12 mg/dL (7-17); Calcium 9.2 mg/dL (8.4-10.2); Carbon Dioxide 22 mmol/L (22-30); Chloride 109 mmol/L (98-107); Digoxin 0.9 ng/mL; Globulin 2.9 g/dL; Glucose 129 mg/dL (74-99); Non-African American GFR(CKD) >90 (>60 ml/min/1.73 sqM); Sodium 137 mmol/L (137-145); Total Bilirubin 0.5 mg/dL (0.2-1.3); Total Protein 6.1 g/dL (6.3-8.2)
[2024-03-05 06:31] LABS: Glucose,Whole Blood 136 mg/dL (70-110)
[2024-03-05] MEDS: ZINC OXIDE PASTE (Z-GUARD) 1 APPLIC TOPICAL PRN (08:49)
--- NOTE | 2024-03-05 11:42 | P.PN ---
Subjective Progress Note Date: 03/05/24 HISTORY OF PRESENT ILLNESS: This is an 83-year-old female with a previous medical history signi ficant for coronary artery disease status post coronary artery bypass graft, hypertension and hypertensive cardiovascular disease, hyperlipidemia, diabetes mellitus type 2, with diabetic polyneuropathy, history of peripheral vascular occlusive disease status post multiple angioplasties with left above knee amputation that was done at [facility], history of paroxysmal atrial fibrillation, history of recurrent UTI, patient was at [facility] for quite some times, she just left [facility] December 09, 2023 and she has been residing at [facility] with her , patient was recently admitted to the hospital for recurrent urinary tract infection with gross hematuria was seen in consultation by urology she was taken off Jardiance due to the recurrent nature of urine tract infection, patient presented to the emergency department at [facility] at this time because she hit her left lower extremity and she has an elevated white count of 16.9 thousand, x-ray did not show evidence of acute osteomyelitis however she does appear to have a significant infected wound to the left heel that she has been dealing with vascular surgery and wound care center on a regular basis, patient did have a prior history of MRSA in the past, therefore she was admitted to the hospital for wound culture, as well as vascular surgery and infectious disease consultation, start the patient on vancomycin with pharmacy to dose its peak and trough. 03/04: Patient is laying down in bed in no apparent distress, she is feeling better today, she continues to have erythema in the right lower extremity, minimal hematoma to the right villarreal, due to her trauma, she continues to have the right heel ulcer that was seen yesterday for vascular surgery, continue with the Santyl on a daily basis, continue current local care, continue IV antibiotic in the form of vancomycin, await infectious disease consultation, I will follow-up with the patient very closely, repeat labs today and physical therapy evaluation and addiction social worker consultation for discharge planning. 03/05: Patient is laying down in bed appears to be a bit emotional her daughter Lorraine was at the bedside, she was updated about her current mother situation, patient continues to have a significant hematoma to the villarreal without evidence of any drainage at this time, she continues to have the right heel wound that is covered with Santyl and vascular surgery is following, I spoke with the nursing staff about adding Christiano wrap to the right lower extremity, and put some ice packs on the hematoma, continue IV antibiotic for another 24 hours, hopefully we get the sensitivity panel she can be switched to oral antibiotic the next 24 hours and she can be discharged home tomorrow morning. She is complaining of more diarrhea we will start the patient on Questran 4 g orally twice every day, patient will be offered yogurt 3 times every day as well as REVIEW OF SYSTEMS: Constitutional: No documented fever, no chills, no night sweats. No weight change. No weakness, fatigue or lethargy. No daytime sleepiness. EENT: No headache. No blurred vision or double vision, no loss of vision. No loss of Hearing, no ringing in the ears, no dizziness. No nasal drainage or congestion. No epistaxis. No sore throat. Lungs: No shortness of breath, no cough, no sputum production. No wheezing. Reports dyspnea with activity. Cardiovascular: No chest pain, no lower extremity edema. No palpitations. No paroxysmal nocturnal dyspnea. No orthopnea. No lightheadedness or dizziness. No syncopal episodes. Abdominal: Reports no abdominal pain. No nausea, vomiting. No diarrhea. No constipation. No bloody or tarry stools reports loss of appetite. Genitourinary: Positive for dysuria, increased frequency, urgency. No urinary retention. No flank pain. Positive for hematuria Musculoskeletal: No myalgias. No muscle weakness, positive for gait dysfunction, no frequent falls. No back pain. No neck pain. Integumentary: No wounds, no lesions. No rash or pruritus. No unusual bruising. No change in hair or nails. Neurologic: No aphasia. No facial droop. No change in mentation. No head injury. No headache. No paralysis. No paresthesia. Psychiatric: No depression. No anxiety. No mood swings. Endocrine: No abnormal blood sugars. No weight change. PHYSICAL EXAMINATION: General: This is an 83-year-old female down in bed in no apparent distress. HEENT: Head is atraumatic, normocephalic, pupils were equal round reactive to light and recommendation, extraocular muscle movement were intact, sclera nonicteric, conjunctivae were pale, mucous membranes of the mouth are somewhat dry. Neck: Supple, no JVP, normal carotid upstroke bilaterally, no lymphadenopathy. Chest: Decreased breath sounds at the bases, few rhonchi, no expiratory wheezes, no chest wall tenderness, no intercostal retractions. Heart: First heart sound is normal, second heart sound is normal there is systolic ejection murmur 2/6 located in the left sternal border. Abdomen: Soft, nontender, nondistended, positive bowel sounds. Extremities: There is no edema no calf tenderness dorsalis pedis +1 on the right side posterior tibialis could not be palpated, there is a wound to the right heel 1.5x1.5x0.5 cm left above-knee amputation. Neurologic examination: Patient is awake alert and oriented x3, cranial nerves II-12 appear grossly intact, muscle power were 4 out of 5 in upper extremities and 3 out of 5 in the right lower extremity, left [id number] amputation. ASSESSMENT AND PLAN: 1. possible Infected right heel decubitus ulcer with a prior history of MRSA infection and [facility]ul[facility] we will continue with vancomycin awaiting the final result of the sensitivity panel, hopefully she will be able to switch to oral antibiotic and discharge home tomorrow morning. Continue Santyl to the right heel wound, continue with Christiano wrap and ice packs to the right lower extremity. 2. Diabetes mellitus type 2. Continue patient on Lantus and increase to 15 units at bedtime along with a sliding scale insulin. 3. Coronary artery disease status post coronary artery bypass graft continue patient on isosorbide mononitrate 30 mg once every day, continue metoprolol 12.5 mg orally twice every day, continue patient on atorvastatin 20 mg orally once every day, continue patient on Plavix 75 mg orally once every day. 4. Paroxysmal atrial fibrillation. Continue patient on digoxin 125 mcg orally once every day, metoprolol 12.5 mg twice every day, continue amiodarone 200 mg orally twice every day continue Eliquis 5 mg orally twice every day, monitor the patient very closely. 5. Chronic diastolic heart failure. Continue patient on metoprolol 12.5 mg orally twice every day, spironolactone 25 mg po daily and was taking off of Jardiance due to recurrent UTI and Yeast infection. 6. Hypertension and hypertensive cardiovascular disease. Continue patient on metoprolol 12.5 mg orally twice every day, continue losartan 50 mg orally twice every day, and add amlodipine 5 mg orally once every day as the blood pressure is not optimal yet. 7. Mixed hyperlipidemia. Continue patient on atorvastatin 20 mg once every day, monitor lipid panel, keep LDL 55-70. 8. History of PAD status post multiple interventions along with left above-knee amputation. Continue patient on Plavix 75 mg once every day as well as atorvastatin 20 mg once every day for secondary prevention, continue patient with a local care for the right heel wound with Santyl will consult vascular surgery for wound care. 9. GERD with esophagitis. Continue with Protonix 40 mg orally once every day. Continue famotidine 20 mg orally twice every day. 10. Diabetic polyneuropathy. Continue pregabalin 75 mg orally 3 times every day. 11. Orthostatic hypotension. Resolved 12. DVT prophylaxis. Continue patient on Eliquis 5 mg orally twice every day. 13. GI prophylaxis. Continue patient on pantoprazole 40 mg once every day. 14. Hopefully home tomorrow morning Objective - Vital Signs Vital signs: Vital Signs Temp 97.6 F 03/05/24 07:00 Pulse 69 03/05/24 07:00 Resp 16 03/05/24 07:00 BP 189/72 03/05/24 07:00 Pulse Ox 97 03/05/24 07:00 FiO2 Intake & Output 03/04/24 03/05/24 03/05/24 18:59 06:59 18:59 Intake Total 880 355 Output Total 550 500 Balance 330 -500 355 Intake: Oral 880 355 Output: Urine 550 500 Other: Voiding Method External Catheter External Catheter # Bowel Movements 2 2 - Labs CBC & Chem 7: 03/05/24 04:59 03/05/24 04:59 Labs: Abnormal Lab Results - Last 24 Hours (Table) 03/04/24 03/04/24 03/04/24 Range/Units 12:22 17:24 20:48 WBC (3.8-10.6) k/uL RDW (11.5-15.5) % Neutrophils # (1.3-7.7) k/uL Chloride (98-107) mmol/L Creatinine (0.52-1.04) mg/dL Glucose (74-99) mg/dL POC Glucose (mg/dL) 210 H 214 H 253 H (70-110) mg/dL Total Protein (6.3-8.2) g/dL Albumin (3.5-5.0) g/dL 03/05/24 03/05/24 03/05/24 Range/Units 04:59 04:59 06:28 WBC 13.6 H (3.8-10.6) k/uL RDW 15.9 H (11.5-15.5) % Neutrophils # 10.9 H (1.3-7.7) k/uL Chloride 109 H (98-107) mmol/L Creatinine 0.45 L (0.52-1.04) mg/dL Glucose 129 H (74-99) mg/dL POC Glucose (mg/dL) 136 H (70-110) mg/dL Total Protein 6.1 L (6.3-8.2) g/dL Albumin 3.2 L (3.5-5.0) g/dL Microbiology - Last 24 Hours (Table) 03/03/24 15:04 Blood Culture - Preliminary Blood 03/03/24 12:40 Blood Culture - Preliminary Blood 03/03/24 14:55 Gram Stain - Preliminary Foot - Right Wound Culture - Preliminary Presumptive MRSA
[2024-03-05 12:30] LABS: Glucose,Whole Blood 186 mg/dL (70-110)
[2024-03-05] MEDS: amLODIPine 5 MG TAB PO SCH (12:48)
[2024-03-05 17:01] LABS: Glucose,Whole Blood 226 mg/dL (70-110)
[2024-03-05] MEDS: COLLAGENASE 250 UNIT/GM OINTMENT 30 GM TUBE TOPICAL SCH (17:16)
[2024-03-05] MEDS: CHOLESTYRAMINE (WITH SUGAR) 4 GM PACKET PO SCH (17:21)
[2024-03-05 20:26] LABS: Glucose,Whole Blood 205 mg/dL (70-110)
[2024-03-05] MEDS: INSULIN DETEMIR (LEVEMIR) 100 UNIT/ML SYR SQ SCH (21:04)
[2024-03-06 05:59] LABS: Glucose,Whole Blood 83 mg/dL (70-110)
[2024-03-06 06:06] LABS: ALT 15 U/L (4-34); AST 16 U/L (14-36); African American GFR (CKD) >90 (>60 ml/min/1.73 sqM); Albumin 3.1 g/dL (3.5-5.0); Albumin/Globulin Ratio 1.1; Alkaline Phosphatase 91 U/L (38-126); Anion Gap 3 mmol/L; Blood Urea Nitrogen 13 mg/dL (7-17); Calcium 9.2 mg/dL (8.4-10.2); Carbon Dioxide 26 mmol/L (22-30); Chloride 109 mmol/L (98-107); Globulin 2.9 g/dL; Glucose 87 mg/dL (74-99); Non-African American GFR(CKD) >90 (>60 ml/min/1.73 sqM); Sodium 138 mmol/L (137-145); Total Bilirubin 0.4 mg/dL (0.2-1.3)
[2024-03-06] MEDS: VANCOMYCIN TROUGH DUE 1 EACH MISC MISCELLANE ONE (06:16)
--- NOTE | 2024-03-06 07:46 | P.PN ---
Progress Note - Text Patient has a small hematoma not expanding right lower extremity patient has a wound to the right heel we will treating with the local wound care using Santyl cream is stable from surgical point of view patient has been coming to wound clinic on regular basis to go home today if is okay with medicine go home and follow-up in the wound clinic on Monday using Santyl cream for the right heel
[2024-03-06 07:54] VITALS: RESP 16; TEMP 98
[2024-03-06 08:54] LABS: Basophils # (A) 0.08 X 10*3/uL (0.00-0.10); Basophils % (A) 0.5 %; Eosinophils # (A) 0.37 X 10*3/uL (0.04-0.35); Eosinophils % (A) 2.5 %; HCT 36.9 % (37.2-46.3); HGB 11.7 g/dL (12.0-15.0); Lymphocytes # (A) 1.24 X 10*3/uL (0.90-5.00); Lymphocytes % (A) 8.3 %; MCH 28.1 pg (27.0-32.0); MCHC 31.7 g/dL (32.0-37.0); MCV 88.7 FL (80.0-97.0); Mean Platelet Volume 11.3 FL (9.5-12.2); Monocytes # (A) 1.05 X 10*3/uL (0.20-1.00); NRBC Per 100 WBC 0 X 10*3/uL (0.00-0.01); Neutrophils # (A) 12.02 X 10*3/uL (1.80-7.70); Neutrophils % (A) 80.2 %; Platelet Count 350 X 10*3/uL (140-440); RBC 4.16 X 10*6/uL (4.10-5.20); RDW 16.6 % (11.5-14.5); WBC 14.98 X 10*3/uL (4.50-10.00)
[2024-03-06 12:07] LABS: Glucose,Whole Blood 176 mg/dL (70-110)
--- NOTE | 2024-03-06 12:16 | P.PN ---
Subjective Progress Note Date: 03/05/24 Principal diagnosis: Reason for follow-up is right lower extremity cellulitis Patient is 83-year-old female with a past medical history significant for coronary disease diabetes mellitus patient did have a right heel pressure ulcer that is currently been taking care at [facility] care center has been brought to the hospital concerning for right lower extremity swelling redness and concern for cellulitis. On today's evaluation that is 03/05/2024, Patient is afebrile this morning patient denies having any chest pain shortness of breath or cough, the patient is currently on room air, patient denies any abdominal pain, has been complaining of some diarrhea, no nausea no vomiting, the patient pain to the right lower extremity has slightly decreased in intensity. Patient white count is down to 13.6, creatinine 0.45 Objective - Vital Signs Vital signs: Vital Signs Temp 97.6 F 03/05/24 07:00 Pulse 69 03/05/24 07:00 Resp 16 03/05/24 07:00 BP 189/72 03/05/24 07:00 Pulse Ox 97 03/05/24 07:00 FiO2 Intake & Output 03/04/24 03/05/24 03/05/24 18:59 06:59 18:59 Intake Total 880 355 Output Total 550 500 Balance 330 -500 355 Intake: Oral 880 355 Output: Urine 550 500 Other: Voiding Method External Catheter External Catheter External Catheter # Bowel Movements 2 2 - Exam GENERAL DESCRIPTION: An elderly female lying in bed in no distress RESPIRATORY SYSTEM: Unlabored breathing , decreased breath sounds at bases HEART: S1 S2 regular rate and rhythm , ABDOMEN: Soft , no tenderness EXTREMITIES: Right leg swelling redness slightly decreased - Labs CBC & Chem 7: 03/06/24 04:55 03/06/24 04:55 Labs: Abnormal Lab Results - Last 24 Hours (Table) 03/04/24 03/04/24 03/05/24 Range/Units 17: 20:48 04:59 WBC (3.8-10.6) k/uL RDW (11.5-15.5) % Neutrophils # (1.3-7.7) k/uL Chloride 109 H (98-107) mmol/L Creatinine 0.45 L (0.52-1.04) mg/dL Glucose 129 H (74-99) mg/dL POC Glucose (mg/dL) 214 H 253 H (70-110) mg/dL Total Protein 6.1 L (6.3-8.2) g/dL Albumin 3.2 L (3.5-5.0) g/dL 03/05/24 03/05/24 03/05/24 Range/Units 04:59 06:28 12:28 WBC 13.6 H (3.8-10.6) k/uL RDW 15.9 H (11.5-15.5) % Neutrophils # 10.9 H (1.3-7.7) k/uL Chloride (98-107) mmol/L Creatinine (0.52-1.04) mg/dL Glucose (74-99) mg/dL POC Glucose (mg/dL) 136 H 186 H (70-110) mg/dL Total Protein (6.3-8.2) g/dL Albumin (3.5-5.0) g/dL Microbiology - Last 24 Hours (Table) 03/03/24 15:04 Blood Culture - Preliminary Blood 03/03/24 12:40 Blood Culture - Preliminary Blood 03/03/24 14:55 Gram Stain - Preliminary Foot - Right Wound Culture - Preliminary Presumptive MRSA Assessment and Plan (1) Leukocytosis Current Visit: Yes Status: Acute Code(s): D72.829 - ELEVATED WHITE BLOOD CELL COUNT, UNSPECIFIED SNOMED Code(s): 144213265 (2) Cellulitis of right lower leg Current Visit: Yes Status: Acute Code(s): L03.115 - CELLULITIS OF RIGHT LOWER LIMB SNOMED Code(s): 573759075 (3) Diarrhea Current Visit: Yes Status: Acute Code(s): R19.7 - DIARRHEA, UNSPECIFIED SNOMED Code(s): 12007356 Plan: 1patient presented to hospital with increasing pain and swelling into the right lower extremity in this patient who did have a slight trauma to the leg currently did have some swelling redness but no point overall any drainage patient did have right heel pressure ulcer which seem to be healing and previous history of MRSA infection will need to cover for MRSA while waiting for the culture to finalize 2patient to continue local wound care with the Santyl followed by moist dressing and keep the area of the pressure 3patient will continue with vancomycin pharmacy to dose while watching her kidney function closely 4diarrhea likely antibiotic associated encouraged to increase her yogurt intake we will add Questran for symptomatic relief Dictation was produced using [employer] dictation software. please excuse any grammatical, word or spelling errors. Time with Patient: Less than 30
--- NOTE | 2024-03-06 12:17 | P.PN ---
Subjective Progress Note Date: 03/06/24 Principal diagnosis: Reason for follow-up is right lower extremity cellulitis Patient is 83-year-old female with a past medical history significant for coronary disease diabetes mellitus patient did have a right heel pressure ulcer that is currently been taking care at [facility] wound care center has been brought to the hospital concerning for right lower extremity swelling redness and concern for cellulitis. On today's evaluation that is 03/06/2024,the patient denies any fever or any chills, patient is breathing comfortably on room air, the patient denies chest pain shortness of breath and no significant cough, patient denies abdominal pain, no nausea vomiting and diarrhea has slowed down, patient mention pain to the right leg has decreased she is feeling better and wants to go home. The patient white count is slightly up to 14.98 today, creatinine 0.46 potassium is 4.0 Objective - Vital Signs Vital signs: Vital Signs Temp 98.0 F 03/06/24 07:00 Pulse 68 03/06/24 07:00 Resp 16 03/06/24 07:00 BP 190/80 03/06/24 07:00 Pulse Ox 96 03/06/24 07:00 FiO2 Intake & Output 03/05/24 03/06/24 03/06/24 18:59 06:59 18:59 Intake Total 591 Output Total 375 600 Balance 216 -600 Intake: Oral 591 Output: Urine 375 600 Other: Voiding Method External Catheter External Catheter External Catheter # Bowel Movements 2 0 - Exam GENERAL DESCRIPTION: An elderly female lying in bed in no distress RESPIRATORY SYSTEM: Unlabored breathing , decreased breath sounds at bases HEART: S1 S2 regular rate and rhythm , ABDOMEN: Soft , no tenderness EXTREMITIES: Right leg swelling redness slightly decreased - Labs CBC & Chem 7: 03/06/24 04:55 03/06/24 04:55 Labs: Abnormal Lab Results - Last 24 Hours (Table) 03/05/24 03/05/24 03/05/24 Range/Units 12:28 17:00 20:23 WBC (4.50-10.00) X 10*3/uL Hgb (12.0-15.0) g/dL Hct (37.2-46.3) % MCHC (32.0-37.0) g/dL RDW (11.5-14.5) % Immature Gran # (0.00-0.04) X 10*3/uL Neutrophils # (1.80-7.70) X 10*3/uL Monocytes # (0.20-1.00) X 10*3/uL Eosinophils # (0.04-0.35) X 10*3/uL Chloride (98-107) mmol/L Creatinine (0.52-1.04) mg/dL POC Glucose (mg/dL) 186 H 226 H 205 H (70-110) mg/dL Total Protein (6.3-8.2) g/dL Albumin (3.5-5.0) g/dL 03/06/24 03/06/24 Range/Units 04:55 04:55 WBC 14.98 H (4.50-10.00) X 10*3/uL Hgb 11.7 L (12.0-15.0) g/dL Hct 36.9 L (37.2-46.3) % MCHC 31.7 L (32.0-37.0) g/dL RDW 16.6 H (11.5-14.5) % Immature Gran # 0.22 H (0.00-0.04) X 10*3/uL Neutrophils # 12.02 H (1.80-7.70) X 10*3/uL Monocytes # 1.05 H (0.20-1.00) X 10*3/uL Eosinophils # 0.37 H (0.04-0.35) X 10*3/uL Chloride 109 H (98-107) mmol/L Creatinine 0.46 L (0.52-1.04) mg/dL POC Glucose (mg/dL) (70-110) mg/dL Total Protein 6.0 L (6.3-8.2) g/dL Albumin 3.1 L (3.5-5.0) g/dL Microbiology - Last 24 Hours (Table) 03/03/24 15:04 Blood Culture - Preliminary Blood 03/03/24 12:40 Blood Culture - Preliminary Blood 03/03/24 14:55 Anaerobic Culture - Preliminary Calcaneus - Right 03/03/24 14:55 Gram Stain - Final Foot - Right Wound Culture - Final Methicillin resist S. aureus Assessment and Plan (1) Leukocytosis Current Visit: Yes Status: Acute Code(s): D72.829 - ELEVATED WHITE BLOOD CELL COUNT, UNSPECIFIED SNOMED Code(s): 292717184 (2) Cellulitis of right lower leg Current Visit: Yes Status: Acute Code(s): L03.115 - CELLULITIS OF RIGHT LOWER LIMB SNOMED Code(s): 668843933 Plan: 1patient presented to hospital with increasing pain and swelling into the right lower extremity in this patient who did have a slight trauma to the leg currently did have some swelling redness but no point overall any drainage patient did have right heel pressure ulcer which seem to be healing and previous history of MRSA infection will need to cover for MRSA while waiting for the culture to finalize 2patient to continue local wound care with the Santyl followed by moist dressing and keep the area of the pressure 3patient diarrhea likely antibiotic associated encouraged to increase her yogurt intake and continue with the Questran as the patient has some improvement 4patient with right lower skin cellulitis concerning for possible MRSA still have some swelling redness and white count slightly up however patient mention she has been told by Dr. Garnica that she can go in that case would recommend a 10-day course of Bactrim DS 1 twice daily cannot use Zyvox because of drug interaction and the pathogen is resistant to tetracycline Dictation was produced using [employer] dictation software. please excuse any grammatical, word or spelling errors. Time with Patient: Less than 30
[2024-03-06 12:46] VITALS: BP 157/69; PULSE 65
--- NOTE | 2024-03-06 13:48 | P.DS ---
Providers Date of admission: 03/03/24 13:18 Expected date of discharge: 03/06/24 Attending physician: Pierre White Consults: 03/03/24 13:17 Consult Physician Routine Consulting Provider: Ed Garnica Consult Reason/Comments: cellulitis Do you want consulting provider notified?: Yes Consult Physician Routine Consulting Provider: Oralia Frazier Consult Reason/Comments: cellulitis Do you want consulting provider notified?: Yes Primary care physician: Pierre White [facility] Course: HISTORY OF PRESENT ILLNESS: This is an 83-year-old female with a previous medical history significant for coronary artery disease status post coronary artery bypass graft, hypertension and hypertensive cardiovascular disease, hyperlipidemia, diabetes mellitus type 2, with diabetic polyneuropathy, history of peripheral vascular occlusive disease status post multiple angioplasties with left above knee amputation that was done at [facility], history of paroxysmal atrial fibrillation, history of recurrent UTI, patient was at [facility] for quite some times, she just left [facility] December 09, 2023 and she has been residing at [facility] with her , patient was recently admitted to the hospital for recurrent urinary tract infection with gross hematuria was seen in consultation by urology she was taken off Jardiance due to the recurrent nature of urine tract infection, patient presented to the emergency department at [facility] at this time because she hit her left lower extremity and she has an elevated white count of 16.9 thousand, x-ray did not show evidence of acute osteomyelitis however she does appear to have a significant infected wound to the left heel that she has been dealing with vascular surgery and wound care center on a regular basis, patient did have a prior history of MRSA in the past, therefore she was admitted to the hospital for wound culture, as well as vascular surgery and infectious disease consultation, start the patient on vancomycin with pharmacy to dose its peak and trough. 03/04: Patient is laying down in bed in no apparent distress, she is feeling better today, she continues to have erythema in the right lower extremity, minimal hematoma to the right villarreal, due to her trauma, she continues to have the right heel ulcer that was seen yesterday for vascular surgery, continue with the Santyl on a daily basis, continue current local care, continue IV antibiotic in the form of vancomycin, await infectious disease consultation, I will follow-up with the patient very closely, repeat labs today and physical therapy evaluation and psychotherapist social worker consultation for discharge planning. 03/05: Patient is laying down in bed appears to be a bit emotional her daughter Lorraine was at the bedside, she was updated about her current mother situation, patient continues to have a significant hematoma to the villarreal without evidence of any drainage at this time, she continues to have the right heel wound that is covered with Santyl and vascular surgery is following, I spoke with the nursing staff about adding Christiano wrap to the right lower extremity, and put some ice packs on the hematoma, continue IV antibiotic for another 24 hours, hopefully we get the sensitivity panel she can be switched to oral antibiotic the next 24 hours and she can be discharged home tomorrow morning. She is complaining of more diarrhea we will start the patient on Questran 4 g orally twice every day, patient will be offered yogurt 3 times every day as well as 03/06: Patient sitting up in bed in no apparent distress, she has no chest pain or shortness of breath, she appears to have a minimal loose stool, she was started on Questran 4 g orally twice every day, follow-up with the patient very closely, her culture from the right heel finalizes with MRSA, will start the patient on Bactrim double strength twice every day for 10 days. Discharge diagnoses: 1. MRSA cellulitis of the right lower extremity with infected diabetic heel ulcer with SIRS. 2. Diabetes mellitus type 2. 3. Coronary artery disease status post coronary artery bypass graft 4. Paroxysmal atrial fibrillation. 5. Chronic diastolic heart failure. 6. Hypertension and hypertensive cardiovascular disease. 7. Mixed hyperlipidemia. 8. History of PAD status post multiple interventions along with left above-knee amputation. 9. GERD with esophagitis. 10. Diabetic polyneuropathy. 11. Orthostatic hypotension. 12. Left above-knee amputation. Patient Condition at Discharge: Stable Plan - Discharge Summary Discharge Rx Participant: Yes New Discharge Prescriptions: New Losartan [Cozaar] 50 mg PO BID #60 tab amLODIPine [Norvasc] 5 mg PO DAILY #30 tab Cholestyramine (with Sugar) [Questran Packet] 4 gm PO BID@1000,1800 #14 packet Sulfamethox-Tmp 800-160Mg [Bactrim DS 800-160 mg] 1 tab PO Q12HR 10 Days #20 tab Continue Pregabalin [Lyrica] 75 mg PO TID@0745,1645,2145 Metoprolol Tartrate [Lopressor] 12.5 mg PO TID@45,1644,2144 Isosorbide Mononitrate ER [Imdur] 15 mg PO DAILY Digoxin [Digitek] 125 mcg PO DAILY Clopidogrel [Plavix] 75 mg PO DAILY Apixaban [Eliquis] 5 mg PO BID #60 tab Spironolactone [Aldactone] 25 mg PO DAILY Cholecalciferol [Vitamin D3 (25 Mcg = 1000 Iu)] 25 mcg PO DAILY Atorvastatin [Lipitor] 20 mg PO HS Amiodarone [Cordarone] 200 mg PO BID busPIRone HCL 10 mg PO DAILY Collagenase [Santyl Ointment] 1 applic TOPICAL DAILY Insulin Lispro [humaLOG Kwikpen] See Protocol SQ ACHS Nystatin 100,000 Unit/gm Powd [Mycostatin Powder] 1 applic TOPICAL BID PRN PRN Reason: groin Changed Insulin Glargine,Hum.rec.anlog [Lantus Solostar Pen] 15 units SQ HS #0 Discontinued Midodrine [ProAmatine] 5 mg PO TID PRN PRN Reason: SBP less than 100 Discharge Medication List Amiodarone [Cordarone] 200 mg PO BID 01/03/24 [History] Atorvastatin [Lipitor] 20 mg PO HS 01/03/24 [History] Cholecalciferol [Vitamin D3 (25 Mcg = 1000 Iu)] 25 mcg PO DAILY 01/03/24 [History] Clopidogrel [Plavix] 75 mg PO DAILY 01/03/24 [History] Digoxin [Digitek] 125 mcg PO DAILY 01/03/24 [History] Isosorbide Mononitrate ER [Imdur] 15 mg PO DAILY 01/03/24 [History] Metoprolol Tartrate [Lopressor] 12.5 mg PO TID@45,1644,214401/03/24 [History] Pregabalin [Lyrica] 75 mg PO TID@744,1644,214401/03/24 [History] busPIRone HCL 10 mg PO DAILY 01/03/24 [History] Apixaban [Eliquis] 5 mg PO BID #60 tab 01/05/24 [Rx] Collagenase [Santyl Ointment] 1 applic TOPICAL DAILY 01/23/24 [History] Insulin Lispro [humaLOG Kwikpen] See Protocol SQ ACHS 01/23/24 [History] Nystatin 100,000 Unit/gm Powd [Mycostatin Powder] 1 applic TOPICAL BID PRN 03/03/24 [History] Spironolactone [Aldactone] 25 mg PO DAILY 03/03/24 [History] Cholestyramine (with Sugar) [Questran Packet] 4 gm PO BID@1000,1800 #14 packet 03/06/24 [Rx] Insulin Glargine,Hum.rec.anlog [Lantus Solostar Pen] 15 units SQ HS #0 03/06/24 [Rx] Losartan [Cozaar] 50 mg PO BID #60 tab 03/06/24 [Rx] Sulfamethox-Tmp 800-160Mg [Bactrim DS 800-160 mg] 1 tab PO Q12HR 10 Days #20 tab 03/06/24 [Rx] amLODIPine [Norvasc] 5 mg PO DAILY #30 tab 03/06/24 [Rx] Follow up Appointment(s)/Referral(s): Pierre White MD [Primary Care Provider] - 1-2 Days Discharge Disposition: HOME WITH HOME HEALTH SERVICES
[2024-03-06] MEDS ORDERED: VANCOMYCIN 1,250 MG in SODIUM CHLORIDE 0.9% 250 ML IVPB SCH (22:00)
== END 2024-03-06 16:10 | disposition home health service (06) ==
LOC: EC 11:38 → 6NMEDSUR 13:18
PROVIDERS: ADMIT Internal Medicine; ATTEND Internal Medicine
DX: L89.619 Pressure ulcer of right heel, unspecified stage (principal); E11.621 Type 2 diabetes mellitus with foot ulcer; B95.62 Methicillin resistant Staphylococcus aureus infection as the cause of diseases classified elsewhere; L03.115 Cellulitis of right lower limb; M19.90 Unspecified osteoarthritis, unspecified site; I95.1 Orthostatic hypotension; K21.00 Gastro-esophageal reflux disease with esophagitis, without bleeding; R19.7 Diarrhea, unspecified; I25.10 Atherosclerotic heart disease of native coronary artery without angina pectoris; E11.42 Type 2 diabetes mellitus with diabetic polyneuropathy; I11.0 Hypertensive heart disease with heart failure; I50.32 Chronic diastolic (congestive) heart failure; I48.0 Paroxysmal atrial fibrillation; E78.2 Mixed hyperlipidemia; E11.51 Type 2 diabetes mellitus with diabetic peripheral angiopathy without gangrene; I25.2 Old myocardial infarction; Z86.14 Personal history of Methicillin resistant Staphylococcus aureus infection; Z87.440 Personal history of urinary (tract) infections; Z87.891 Personal history of nicotine dependence; Z89.612 Acquired absence of left leg above knee; Z95.1 Presence of aortocoronary bypass graft; Z99.3 Dependence on wheelchair; Z79.01 Long term (current) use of anticoagulants; Z79.02 Long term (current) use of antithrombotics/antiplatelets; Z79.4 Long term (current) use of insulin; Z79.84 Long term (current) use of oral hypoglycemic drugs; Z79.899 Other long term (current) drug therapy; Z88.5 Allergy status to narcotic agent
CPT/HCPCS: 96365 ×2; 96366 ×5; 99285; 36415; 97162; 80053 ×4; 85652; 80162; 83605; 85025 ×4; 80202; 87040; 87070; 87205; 87075; 87077; 87186; 73590; G0378 ×4; J3370 ×4

== ENCOUNTER 2024-03-16 14:24 | Inpatient (IN) | payer MEDICARE ==
--- NOTE | 2024-03-16 14:44 | ED ---
General Adult HPI - General Chief complaint: Arrhythmia/Palpitations Stated complaint: low heart rate Time Seen by Provider: 03/16/24 14:29 Source: patient, EMS Mode of arrival: EMS Limitations: altered mental status - History of Present Illness Initial comments: Dictation was produced using [employer] dictation software. please excuse any grammatical, word or spelling errors. Chief Complaint: 83-year-old female brought to the emergency department for hester llucinations of bradycardia History of Present Illness: Patient is 83-year-old female with cardiac history. She was brought in from home by EMS. Initial EMS call was for hallucinations. Hallucinations were described as patient seeing bunch of little children going in and out of her house. Patient states that she has been feeling fatigued for the last 48 hours. This morning she felt even more tired. EMS arrived on scene states that she was profoundly bradycardic. Patient denies any pain complaints. Patient's only complaint is feeling tired. The ROS documented in this emergency department record has been reviewed and confirmed by me. Those systems with pertinent positive or negative responses have been documented in the HPI. All other systems are other negative and/or noncontributory. - Related Data Home Medications Medication Instructions Recorded Confirmed Amiodarone [Cordarone] 200 mg PO BID 01/03/24 03/16/24 Atorvastatin [Lipitor] 20 mg PO HS 01/03/24 03/16/24 Cholecalciferol [Vitamin D3 (25 25 mcg PO DAILY 01/03/24 03/16/24 Mcg = 1000 Iu)] Clopidogrel [Plavix] 75 mg PO DAILY 01/03/24 03/16/24 Digoxin [Digitek] 125 mcg PO DAILY 01/03/24 03/16/24 Isosorbide Mononitrate ER [Imdur] 15 mg PO DAILY 01/03/24 03/16/24 Metoprolol Tartrate [Lopressor] 12.5 mg PO TID@0745,1645,2145 01/03/24 03/16/24 Pregabalin [Lyrica] 75 mg PO TID@0745,1645,2145 01/03/24 03/16/24 busPIRone HCL 10 mg PO DAILY 01/03/24 03/16/24 Collagenase [Santyl Ointment] 1 applic TOPICAL DAILY 01/23/24 03/16/24 Insulin Lispro [humaLOG Kwikpen] See Protocol SQ ACHS 01/23/24 03/16/24 Nystatin 100,000 Unit/gm Powd 1 applic TOPICAL BID PRN 03/03/24 03/16/24 [Mycostatin Powder] Spironolactone [Aldactone] 25 mg PO DAILY 03/03/24 03/16/24 Acetaminophen Tab [Tylenol Tab] 1,000 mg PO Q6H PRN 03/16/24 03/16/24 Previous Rx's Medication Instructions Recorded Apixaban [Eliquis] 5 mg PO BID #60 tab 01/05/24 Insulin Glargine,Hum.rec.anlog 15 units SQ HS #0 03/06/24 [Lantus Solostar Pen] Losartan [Cozaar] 50 mg PO BID #60 tab 03/06/24 Sulfamethox-Tmp 800-160Mg [Bactrim 1 tab PO Q12HR 10 Days #20 tab 03/06/24 DS 800-160 mg] amLODIPine [Norvasc] 5 mg PO DAILY #30 tab 03/06/24 Allergies Allergy/AdvReac Type Severity Reaction Status Date / Time codeine Allergy Swelling Verified 03/16/24 15:44 Review of Systems ROS Statement: Those systems with pertinent positive or pertinent negative responses have been documented in the HPI. ROS Other: All systems not noted in ROS Statement are negative. Past Medical History Past Medical History: Coronary Artery Disease (CAD), Diabetes Mellitus, Eye Disorder Additional Past Medical History / Comment(s): Heart attack 2013. 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 History of Any Multi-Drug Resistant Organisms: None Reported Date of last positivie culture/infection: 01/25/24 MDRO Source:: MRSA right heel Past Surgical History: Coronary Bypass/CABG Past Anesthesia/Blood Transfusion Reactions: No Reported Reaction Past Psychological History: No Psychological Hx Reported Smoking Status: Former smoker Past Alcohol Use History: Rare Past Drug Use History: None Reported - Past Family History Father Family Medical History: Unable to Obtain Mother Family Medical History: Cancer Additional Family Medical History / Comment(s): colon CA General Exam - General Exam Comments Initial Comments: PHYSICAL EXAM: General Impression: Alert and oriented x2/4, not in acute distress HEENT: Normocephalic atraumatic, extra-ocular movements intact, pupils equal and reactive to light bilaterally, mucous membranes moist. Cardiovascular: Cardiac Chest: Able to complete full sentences, no retractions, no tachypnea Abdomen: abdomen soft, non-tender, non-distended, no organomegaly Musculoskeletal: Pulses present and equal in all extremities, no peripheral edema Motor: no focal deficits noted Neurological: CN II-XII grossly intact, no focal motor or sensory deficits noted Skin: Intact with no visualized rashes Psych: Confused Limitations: altered mental status Course Vital Signs 03/16/24 03/16/24 03/16/24 14:27 14:59 15:13 Temperature 95.6 F L Pulse Rate 33 L 31 L 42 L Respiratory 18 12 16 Rate Blood Pressure 98/40 104/39 138/57 O2 Sat by Pulse 95 96 100 Oximetry 03/16/24 03/16/24 03/16/24 15:39 16:03 16:33 Temperature Pulse Rate 38 L 39 L 37 L Respiratory 14 16 12 Rate Blood Pressure 140/53 115/58 123/43 O2 Sat by Pulse 98 97 99 Oximetry 03/16/24 03/16/24 17:05 17:18 Temperature Pulse Rate 40 L 45 L Respiratory 12 12 Rate Blood Pressure 114/45 122/45 O2 Sat by Pulse 100 97 Oximetry - Reevaluation(s) Reevaluation #1: 03/16/24 14:[address] Matthews was notified that patient is profoundly bradycardic with concern for significant heart block with a rate in the 30s. It was stated that patient will need an transvenous pacemaker. He recommended patient be started on dopamine and await pending labs. 03/16/24 14:54 03/16/24 14:55 EKG Findings - EKG Comments: EKG Findings:: My EKG interpretation: Ventricular rate 34, heart block versus ventricular escape rhythm, QRS 180, QTc 448. No VT prolongation, no QTC prolongation, no ST or T-wave changes noted. EKG compared to 01/2024 showing significant changes Medical Decision Making - Medical Decision Making Was pt. sent in by a medical professional or institution (, PA, CA[employer]ERIA SERVER, urgent care, hospital, or longterm...) When possible be specific @ -No Did you speak to anyone other than the patient for history (EMS, parent, family, police, friend...)? What history was obtained from this source @ -EMS as described above Did you review nursing and triage notes (agree or disagree)? Why? @ -I reviewed and agree with nursing and triage notes Were old charts reviewed (outside hosp., previous admission, EMS record, old EKG, old radiological studies, urgent care reports/EKG's, longterm records)? Report findings @ -No old charts were reviewed Differential Diagnosis (chest pain, altered mental status, abdominal pain women, abdominal pain men, vaginal bleeding, musculoskeletal, weakness, fever, dyspnea, syncope, headache, dizziness, GI bleed, back pain, seizure, CVA, palpatations, mental health)? @ -Differential Altered Mental Status: Hypoglycemia, DKA, hypercapnia, ETOH, overdose, CO poisoning, trauma, myxedema coma, HTN encephalopathy, infection, encephalitis, psychosis, intercranial hemorrhage, hepatic encephalopathy, meningitis, CVA, this is not meant to be an all-inclusive list EKG interpreted by me (3pts min.). @ -See above X-rays interpreted by me (1pt min.). @ -Chest x-ray shows no acute processes CT interpreted by me (1pt min.). @ -CT brain shows no acute processes U/S interpreted by me (1pt. min.). @ -None done What testing was considered but not performed or refused? (CT, X-rays, U/S, labs)? Why? @ -None What meds were considered but not given or refused? Why? @ -None Was smoking cessation discussed for >3mins.? @ -No Were there social determinants of health that impacted care today? How? (Homelessness, low income, unemployed, alcoholism, drug addiction, transportati on, low edu. Level, literacy, decrease access to med. care, senior care, rehab)? @ -No Was there de-escalation of care discussed even if they declined (Discuss DNR or withdrawal of care, Hospice)? DNR status @ -No What co-morbidities impacted this encounter? (DM, HTN, Smoking, COPD, CAD, Cancer, CVA, ARF, Chemo, Hep., AIDS, mental health diagnosis, sleep apnea, morbid obesity)? @ -Digoxin use Was patient admitted / discharged? Hospital course, mention meds given and route, prescriptions, significant lab abnormalities, going to OR and other pertinent info. @ -83-year-old female brought to the emergency department for altered mental status. She was found to be profoundly bradycardic by EMS. Patient appears to have wide-complex ventricular escape rhythm concerning for block. Case discussed with cardiology as described above. Patient altered slightly somnolent however has no acute complaints. Laboratory evaluation obtained. CBC unremarkable. Coag panel is negative. Metabolic panel shows digoxin toxicity with associated hyperkalemia. Patient given Digibind chicho. Patient be admitted with consultation to cardiology. Did you discuss the management of the patient with other professionals (professionals i.e. , PA, [employer] SERVER, lab, RT, psych nurse, social worker assistant, stapler machine, teacher, data officer, disability case manager)? Give summary @ -No Was critical care preformed (if so, how long)? @ -yes, 77 minutes Undiagnosed new problem with uncertain prognosis? @ -No Drug Therapy requiring intensive monitoring for toxicity (Heparin, Nitro, Insulin, Cardizem)? @ -No Were any procedures done? @ -No Diagnosis/symptom? Acute, or Chronic, or Acute on Chronic? Uncomplicated (without systemic symptoms) or Complicated (systemic symptoms)? @ -Digoxin toxicity Side effects of treatment? @ -No Exacerbation, Progression, or Severe Exacerbation? @ -No Poses a threat to life or bodily function? How? (Chest pain, [place], [place], pneumonia, PE, COPD, DKA, ARF, appy, cholecystitis, CVA, Diverticulitis, Homicidal, Suicidal, threat to staff... and all critical care pts) @ -yes - Lab Data Result diagrams: 03/16/24 14:36 03/16/24 15:25 Lab Results 03/16/24 03/16/24 03/16/24 Range/Units 14:36 14:36 14:36 WBC 10.4 (3.8-10.6) k/uL RBC 3.81 (3.80-5.40) m/uL Hgb 10.9 L (11.4-16.0) gm/dL Hct 34.1 (34.0-46.0) % MCV 89.6 (80.0-100.0) fL MCH 28.6 (25.0-35.0) pg MCHC 32.0 (31.0-37.0) g/dL RDW 16.1 H (11.5-15.5) % Plt Count 460 H (150-450) k/uL MPV 8.4 Neutrophils % 80 % Lymphocytes % 13 % Monocytes % 4 % Eosinophils % 2 % Basophils % 0 % Neutrophils # 8.3 H (1.3-7.7) k/uL Lymphocytes # 1.4 (1.0-4.8) k/uL Monocytes # 0.4 (0-1.0) k/uL Eosinophils # 0.2 (0-0.7) k/uL Basophils # 0.0 (0-0.2) k/uL Anisocytosis Slight PT 12.2 (10.0-12.5) sec INR 1.1 (<1.2) APTT 29.2 (22.0-30.0) sec Sodium Cancelled Potassium Cancelled Chloride Cancelled Carbon Dioxide Cancelled Anion Gap Cancelled BUN Cancelled Creatinine Cancelled Est GFR (CKD-EPI) Cancelled Est GFR (CKD-EPI)AfAm Cancelled Est GFR (CKD-EPI)NonAf Cancelled Glucose Cancelled POC Glucose (mg/dL) (70-110) mg/dL POC Glu Primary Health Care Nurse ID Plasma Lactic Acid Ronn (0.7-2.0) mmol/L Calcium Cancelled Ionized Calcium Alayna 4.4 L (4.5-5.3) mg/dL Magnesium Cancelled Total Bilirubin Cancelled AST Cancelled ALT Cancelled Alkaline Phosphatase Cancelled Troponin I (0.000-0.034) ng/mL NT-Pro-B Natriuret Pep Cancelled Total Protein Cancelled Albumin Cancelled Digoxin Cancelled 03/16/24 03/16/24 03/16/24 Range/Units 14:36 14:36 14:39 WBC (3.8-10.6) k/uL RBC (3.80-5.40) m/uL Hgb (11.4-16.0) gm/dL Hct (34.0-46.0) % MCV (80.0-100.0) fL MCH (25.0-35.0) pg MCHC (31.0-37.0) g/dL RDW (11.5-15.5) % Plt Count (150-450) k/uL MPV Neutrophils % % Lymphocytes % % Monocytes % % Eosinophils % % Basophils % % Neutrophils # (1.3-7.7) k/uL Lymphocytes # (1.0-4.8) k/uL Monocytes # (0-1.0) k/uL Eosinophils # (0-0.7) k/uL Basophils # (0-0.2) k/uL Anisocytosis PT (10.0-12.5) sec INR (<1.2) APTT (22.0-30.0) sec Sodium Potassium Chloride Carbon Dioxide Anion Gap BUN Creatinine Est GFR (CKD-EPI) Est GFR (CKD-EPI)AfAm Est GFR (CKD-EPI)NonAf Glucose POC Glucose (mg/dL) 96 (70-110) mg/dL POC Glu Primary Health Care Nurse ID June Plasma Lactic Acid Ronn 1.8 (0.7-2.0) mmol/L Calcium Ionized Calcium Alayna (4.5-5.3) mg/dL Magnesium Total Bilirubin AST ALT Alkaline Phosphatase Troponin I 0.016 (0.000-0.034) ng/mL NT-Pro-B Natriuret Pep Total Protein Albumin Digoxin 03/16/24 Range/Units 15:25 WBC (3.8-10.6) k/uL RBC (3.80-5.40) m/uL Hgb (11.4-16.0) gm/dL Hct (34.0-46.0) % MCV (80.0-100.0) fL MCH (25.0-35.0) pg MCHC (31.0-37.0) g/dL RDW (11.5-15.5) % Plt Count (150-450) k/uL MPV Neutrophils % % Lymphocytes % % Monocytes % % Eosinophils % % Basophils % % Neutrophils # (1.3-7.7) k/uL Lymphocytes # (1.0-4.8) k/uL Monocytes # (0-1.0) k/uL Eosinophils # (0-0.7) k/uL Basophils # (0-0.2) k/uL Anisocytosis PT (10.0-12.5) sec INR (<1.2) APTT (22.0-30.0) sec Sodium 126 L Potassium 6.1 H* Chloride 96 L Carbon Dioxide 19 L Anion Gap 11 BUN 42 H Creatinine 1.74 H Est GFR (CKD-EPI) Est GFR (CKD-EPI)AfAm 31 Est GFR (CKD-EPI)NonAf 27 Glucose 83 POC Glucose (mg/dL) (70-110) mg/dL POC Glu Primary Health Care Nurse ID Plasma Lactic Acid Ronn (0.7-2.0) mmol/L Calcium 8.4 Ionized Calcium Alayna (4.5-5.3) mg/dL Magnesium 2.0 Total Bilirubin 0.1 L AST 103 H ALT 149 H Alkaline Phosphatase 115 Troponin I (0.000-0.034) ng/mL NT-Pro-B Natriuret Pep 6850 Total Protein 6.0 L Albumin 3.4 L Digoxin 3.5 H* Disposition Clinical Impression: Digoxin toxicity Disposition: ADMITTED IP TO THIS HOSP Condition: Critical Referrals: Pierre White MD [Primary Care Provider] - 1-2 days Decision Time: 17:21
[2024-03-16 14:51] LABS: Glucose,Whole Blood 96 mg/dL (70-110)
[2024-03-16 15:03] LABS: Anisocytosis Slight; Basophils % (A) 0 %; Eosinophils # (A) 0.2 k/uL (0-0.7); Eosinophils % (A) 2 %; HCT 34.1 % (34.0-46.0); HGB 10.9 gm/dL (11.4-16.0); Lymphocytes # (A) 1.4 k/uL (1.0-4.8); Lymphocytes % (A) 13 %; MCH 28.6 pg (25.0-35.0); MCV 89.6 fL (80.0-100.0); Mean Platelet Volume 8.4; Monocytes # (A) 0.4 k/uL (0-1.0); Monocytes % (A) 4 %; Neutrophils # (A) 8.3 k/uL (1.3-7.7); Neutrophils % (A) 80 %; Platelet Count 460 k/uL (150-450); RBC 3.81 m/uL (3.80-5.40); RDW 16.1 % (11.5-15.5); WBC 10.4 k/uL (3.8-10.6)
[2024-03-16] MEDS: ATROPINE SULFATE 0.1 MG/ML 10ML SYRINGE IV STA (15:03)
[2024-03-16 15:06] LABS: INR 1.1 (<1.2); Partial Thromboplastin Time 29.2 sec (22.0-30.0); Prothrombin Time 12.2 sec (10.0-12.5)
--- NOTE | 2024-03-16 15:14 | XR ---
EXAMINATION TYPE: XR chest 1V portable DATE OF EXAM: 03/16/2024 2:47 PM COMPARISON: Chest radiographs from 01/21/2024 CLINICAL INDICATION: Female, 83 years old with history of bradycardia; [facility] TECHNIQUE: XR chest 1V portable Frontal view of the chest. FINDINGS: Lungs/Pleura: There is no evidence of pleural effusion, focal consolidation, or pneumothorax. Pulmonary vascularity: Unremarkable. Heart/mediastinum: Cardiac size is normal. Musculoskeletal: No acute osseous pathology. Midline sternotomy wires are noted. IMPRESSION: No acute cardiopulmonary disease/process. [facility], , 03/16/2024 3:12 PM
[2024-03-16] MEDS: DOPamine DRIP 800 MG in DEXTROSE/WATER 1 250ML.BAG IV ONE (15:37)
[2024-03-16 16:20] LABS: ALT 149 U/L (4-34); AST 103 U/L (14-36); African American GFR (CKD) 31 (>60 ml/min/1.73 sqM); Albumin 3.4 g/dL (3.5-5.0); Alkaline Phosphatase 115 U/L (38-126); Anion Gap 11 mmol/L; Blood Urea Nitrogen 42 mg/dL (7-17); Calcium 8.4 mg/dL (8.4-10.2); Carbon Dioxide 19 mmol/L (22-30); Chloride 96 mmol/L (98-107); Glucose 83 mg/dL (74-99); Non-African American GFR(CKD) 27 (>60 ml/min/1.73 sqM); Sodium 126 mmol/L (137-145); Total Bilirubin 0.1 mg/dL (0.2-1.3)
[2024-03-16 16:26] LABS: NT-Pro-B-Type Natriuretic Pept 6850 pg/mL
[2024-03-16 17:04] LABS: Digoxin 3.5 ng/mL; Potassium 6.1 mmol/L (3.5-5.1)
[2024-03-16] MEDS: SODIUM CHLORIDE 0.9% IVPB STA ×2 (17:12→18:11)
[2024-03-16] MEDS: DIGOXIN IMMUNE FAB IVPB STA ×2 (17:12→18:11)
--- NOTE | 2024-03-16 17:13 | CT ---
EXAMINATION TYPE: CT brain wo con DATE OF EXAM: 03/16/2024 4:41 PM COMPARISON: None. CLINICAL INDICATION: Female, 83 years old with history of ams, hallucinations, AMS/Hallucinations TECHNIQUE: Brain: Axial CT images of the brain were obtained with coronal and sagittal reformats created and rev iewed. Contrast used: None. Oral contrast used: None. CT DLP: 1155.4 mGycm, Automated exposure control for dose reduction was used. FINDINGS: Brain: Extra-axial spaces: No abnormal extra-axial fluid collections. Ventricular system: Dilatation in proportion to cerebral atrophy. Cerebral parenchyma: Cerebral atrophy. No acute intraparenchymal hemorrhage or mass effect. The odonnell -white junction is well differentiated. Scattered hypoattenuating areas are seen within the white mat ter. Cerebellum: Unremarkable. Mass effect: No evidence of midline shift. Intracranial vasculature: Atherosclerotic calcifications of the intracranial vessels. Soft tissues: Normal. Calvarium/osseous structures: No depressed skull fracture. Paranasal sinuses and mastoid air cells: Mild scattered paranasal sinus disease. Visualized orbits: Bilateral aphakia, postsurgical changes to the right globe. IMPRESSION: 1. No acute intracranial process. 2. Nonspecific white matter changes, likely secondary to chronic small vessel ischemic disease. [facility], , 03/16/2024 5:11 PM
[2024-03-16] MEDS ORDERED: NALOXONE 0.4 MG/ML 1 ML VIAL IV PRN (17:17)
[2024-03-16] MEDS: SODIUM CHLORIDE 0.9% 1,000 ML IV STA (18:11)
[2024-03-16 20:15] LABS: African American GFR (CKD) 38 (>60 ml/min/1.73 sqM); Anion Gap 11 mmol/L; Blood Urea Nitrogen 41 mg/dL (7-17); Calcium 8.4 mg/dL (8.4-10.2); Carbon Dioxide 15 mmol/L (22-30); Chloride 102 mmol/L (98-107); Glucose 61 mg/dL (74-99); Non-African American GFR(CKD) 33 (>60 ml/min/1.73 sqM); Potassium 5.6 mmol/L (3.5-5.1); Sodium 128 mmol/L (137-145)
[2024-03-16 20:34] LABS: Glucose,Whole Blood 69 mg/dL (70-110)
[2024-03-16] MEDS ORDERED: ZINC OXIDE PASTE (Z-GUARD) 1 APPLIC TOPICAL PRN (21:08)
[2024-03-16 21:28] LABS: Glucose,Whole Blood 61 mg/dL (70-110)
[2024-03-16] MEDS: SODIUM ZIRCONIUM CYCLOSILICATE 10 GM PACKET PO ONE (21:43)
[2024-03-16] MEDS: DEXTROSE 50% SYRINGE 50 ML IVP STA (21:44)
[2024-03-16] MEDS: CALCIUM GLUCONATE IN NACL 1 GM in SALINE 1 100ML.BAG IVPB ONE (21:44)
[2024-03-16] MEDS: SODIUM BICARB 8.4% 50 ML SYR (1 MEQ/ML) IV STA (21:46)
[2024-03-16] MEDS: SODIUM CHLORIDE 0.9% 1,000 ML IV SCH (21:56)
[2024-03-16 22:36] LABS: Glucose,Whole Blood 163 mg/dL (70-110)
[2024-03-16 23:26] LABS: Appearance,Urine Turbid (Clear); Bacteria,Urine Many /hpf; Bilirubin,Urine Negative (Negative); Blood,Urine Moderate (Negative); Color,Urine Colorless; Glucose,Urine (UA) Negative (Negative); Hyaline Casts,Urine 31 /lpf (0-2); Ketones,Urine Negative (Negative); Leukocyte Esterase,Urine Large (Negative); Nitrite,Urine Negative (Negative); Protein,Urine 2+ (Negative); RBC,Urine >182 /hpf (0-5); Specific Gravity,Urine 1.019 (1.001-1.035); Urobilinogen,Urine <2.0 mg/dL (<2.0); WBC,Urine >182 /hpf (0-5)
[2024-03-17] MEDS: HEPARIN SODIUM,PORCINE 5,000 UNIT/ML 1 ML VIAL SQ SCH
[2024-03-17 06:43] LABS: Glucose,Whole Blood 154 mg/dL (70-110)
[2024-03-17 06:45] LABS: African American GFR (CKD) 54 (>60 ml/min/1.73 sqM); Anion Gap 9 mmol/L; Blood Urea Nitrogen 35 mg/dL (7-17); Calcium 8.8 mg/dL (8.4-10.2); Carbon Dioxide 19 mmol/L (22-30); Chloride 104 mmol/L (98-107); Glucose 125 mg/dL (74-99); Non-African American GFR(CKD) 47 (>60 ml/min/1.73 sqM); Sodium 132 mmol/L (137-145)
[2024-03-17 06:52] LABS: Potassium 5.3 mmol/L (3.5-5.1)
[2024-03-17] MEDS: INSULIN ASPART (NovoLOG) 100 UNIT/ML VIAL SQ SCH (07:06)
[2024-03-17] MEDS: PANTOPRAZOLE 40 MG/10 ML VIAL IVP SCH (08:53)
[2024-03-17 09:02] LABS: HCT 35.4 % (34.0-46.0); HGB 11.1 gm/dL (11.4-16.0); Hypochromasia Slight; MCH 28.2 pg (25.0-35.0); MCHC 31.2 g/dL (31.0-37.0); MCV 90.2 fL (80.0-100.0); Platelet Count 517 k/uL (150-450); RBC 3.92 m/uL (3.80-5.40); WBC 9.7 k/uL (3.8-10.6)
[2024-03-17 10:22] LABS: Eosinophils # (M) 0.39 k/uL (0-0.7); Lymphocytes # (M) 1.07 k/uL (1.0-4.8); Monocytes # (M) 0.68 k/uL (0-1.0); Neutrophils # (M) 7.57 k/uL (1.3-7.7); Neutrophils % (M) 78 %; Nucleated Red Blood Cells 0 /100 WBC (0-0); Total Cells Counted 100
[2024-03-17 11:11] LABS: Glucose,Whole Blood 262 mg/dL (70-110)
[2024-03-17] MEDS: SODIUM POLYSTYRENE SULFONATE 15 GM/60 ML BOTTLE PO STA (11:41)
[2024-03-17] MEDS: ACETAMINOPHEN TAB 325 MG TAB PO PRN (11:41)
[2024-03-17] MEDS ORDERED: HEPARIN SODIUM 1,000 UN/ML (10ML VL) IV PRN (12:24)
[2024-03-17] MEDS: HEPARIN SODIUM 1,000 UN/ML (10ML VL) IV ONE (12:48)
[2024-03-17] MEDS: HEPARIN SOD,PORK IN 0.45% NACL 25,000 UNIT in 0.45% NACL 1 250ML.BAG IV SCH (12:49)
--- NOTE | 2024-03-17 13:00 | P.CNPUL ---
History of Present Illness Consult date: 03/17/24 Requesting physician: Ag Orourke Reason for consult: other (digoxin toxicity, ICU management) Chief complaint: Hallucinations History of present illness: This is an 83-year-old female, patient was recently in the hospital from 03/03/2024 until 03/06/2024. Looking back at the chart, patient was admitted with MRSA cellulitis of the right lower extremity and infected diabetic heel ulcer. Her problems at the time included coronary artery disease, previous CABG, history of type 2 diabetes, paroxysmal atrial fibrillation, chronic diastolic congestive heart failure, hypertension, GERD, diabetic polyneuropathy, and orthostatic hypotension, history of left above-knee amputation. Yesterday, patient was noted by family members to have intermittent episodes of hallucinations, and upon arrival to the ER, the patient was noted to be quite bradycardic. Patient to this the patient has been fatigued for the last 48 hours, patient was noted to have positive digoxin toxicity, she was also noted to have significantly abnormal electrolytes including hyponatremia, hyperkalemia, and acute kidney injury with creatinine of 1.74 although she had normal baseline creatinine few weeks ago. Her digoxin level was 3.5, toxic range. For her digoxin toxicity, patient received Digibind, she was placed on dopamine for bradycardia and she remains on dopamine at 5 mg/kg/min for her hyperkalemia she received typical protocol for hyperkalemia and today's lab showed significant improvement. Her sodium is 132 potassium 5.3 bicarb is 19 BUN 35 creatinine 1.1. Blood sugar is a bit elevated at 262. And her digoxin level today is 1.7, in the therapeutic range. Patient is feeling much better today compared to how she felt yesterday. No more hallucinations, no more nausea and vomiting, and no diarrhea. Review of Systems Constitutional: Negative EENT: Negative Lungs: Denies shortness of breath cough wheezing or chest pain Cardiovascular: Denies any chest pain orthopnea PND, denies any palpitations Abdominal: Negative Genitourinary: negative Musculoskeletal: Mostly symptoms of weakness on her initial presentation. Integumentary: History of nonhealing right foot ulcer Neurologic: Diabetic polyneuropathy Psychiatric: Negative Endocrine: History of type 2 diabetes Past Medical History Past Medical History: Atrial Fibrillation, Coronary Artery Disease (CAD), CVA/TIA, Diabetes Mellitus, Eye Disorder, GERD/Reflux, Hearing Disorder / Deafness, Hyperlipidemia, Hypertension, Myocardial Infarction ([place]), Rheumatoid Arthritis ([place]) Additional Past Medical History / Comment(s): Heart attack 2013. 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. Carotid stenosis. 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 Last Myocardial Infarction Date:: 2013 History of Any Multi-Drug Resistant Organisms: None Reported Date of last positivie culture/infection: 01/25/24 MDRO Source:: MRSA right heel Past Surgical History: Coronary Bypass/CABG Additional Past Surgical History / Comment(s): CABG x4 in 2013 Past Anesthesia/Blood Transfusion Reactions: No Reported Reaction Past Psychological History: Anxiety Smoking Status: Former smoker Past Alcohol Use History: Rare Past Drug Use History: None Reported - Past Family History Father Family Medical History: Unable to Obtain Mother Family Medical History: Cancer Additional Family Medical History / Comment(s): colon CA Medications and Allergies Home Medications Medication Instructions Recorded Confirmed Type Amiodarone [Cordarone] 200 mg PO BID 01/03/24 03/16/24 History Atorvastatin [Lipitor] 20 mg PO HS 01/03/24 03/16/24 History Cholecalciferol [Vitamin D3 (25 25 mcg PO DAILY 01/03/24 03/16/24 History Mcg = 1000 Iu)] Clopidogrel [Plavix] 75 mg PO DAILY 01/03/24 03/16/24 History Digoxin [Digitek] 125 mcg PO DAILY 01/03/24 03/16/24 History Isosorbide Mononitrate ER [Imdur] 15 mg PO DAILY 01/03/24 03/16/24 History Metoprolol Tartrate [Lopressor] 12.5 mg PO TID@0745,1645,2145 01/03/24 03/16/24 History Pregabalin [Lyrica] 75 mg PO TID@0745,1645,2145 01/03/24 03/16/24 History busPIRone HCL 10 mg PO DAILY 01/03/24 03/16/24 History Apixaban [Eliquis] 5 mg PO BID #60 tab 01/05/24 03/16/24 Rx Collagenase [Santyl Ointment] 1 applic TOPICAL DAILY 01/23/24 03/16/24 History Insulin Lispro [humaLOG Kwikpen] See Protocol SQ ACHS 01/23/24 03/16/24 History Nystatin 100,000 Unit/gm Powd 1 applic TOPICAL BID PRN 03/03/24 03/16/24 History [Mycostatin Powder] Spironolactone [Aldactone] 25 mg PO DAILY 03/03/24 03/16/24 History Insulin Glargine,Hum.rec.anlog 15 units SQ HS #0 03/06/24 03/16/24 Rx [Lantus Solostar Pen] Losartan [Cozaar] 50 mg PO BID #60 tab 03/06/24 03/16/24 Rx Sulfamethox-Tmp 800-160Mg [Bactrim 1 tab PO Q12HR 10 Days #20 tab 03/06/24 03/16/24 Rx DS 800-160 mg] amLODIPine [Norvasc] 5 mg PO DAILY #30 tab 03/06/24 03/16/24 Rx Acetaminophen Tab [Tylenol Tab] 1,000 mg PO Q6H PRN 03/16/24 03/16/24 History Allergies Allergy/AdvReac Type Severity Reaction Status Date / Time codeine Allergy Swelling Verified 03/16/24 15:44 Physical Exam Vitals: Vital Signs Temp Pulse Pulse Resp BP BP Pulse Ox 03/17/24 11:30 50 L 20 142/54 98 03/17/24 11:00 47 L 15 139/41 98 03/17/24 10:30 44 L 13 155/40 99 03/17/24 10:00 51 L 29 H 149/43 98 03/17/24 09:45 48 L 9 L 133/39 98 03/17/24 09:30 47 L 18 124/32 98 03/17/24 09:15 45 L 13 108/63 98 03/17/24 09:00 47 L 15 134/33 97 03/17/24 08:45 45 L 13 127/35 97 03/17/24 08:30 49 L 10 L 98 03/17/24 08:15 48 L 12 98 03/17/24 08:00 98.8 F 48 L 11 L 145/45 96 03/17/24 07:45 68 13 139/51 100 03/17/24 07:30 71 14 162/54 95 03/17/24 07:15 71 17 155/51 98 03/17/24 07:00 66 12 158/58 99 03/17/24 06:45 69 11 L 158/53 97 03/17/24 06:30 66 25 H 146/47 98 03/17/24 06:15 64 13 144/46 98 03/17/24 06:00 64 12 155/54 99 03/17/24 05:45 69 18 154/71 99 03/17/24 05:30 67 20 127/94 97 03/17/24 05:15 63 19 135/46 99 03/17/24 05:00 56 L 10 L 98 03/17/24 04:45 61 13 105/87 98 03/17/24 04:30 63 14 130/45 96 03/17/24 04:15 64 15 124/48 99 03/17/24 04:00 62 12 120/46 98 03/17/24 03:45 62 20 124/44 97 03/17/24 03:30 62 10 L 125/41 95 03/17/24 03:15 66 15 140/52 98 03/17/24 03:00 66 15 126/57 99 03/17/24 02:45 67 20 99 03/17/24 02:30 68 18 120/49 98 03/17/24 02:15 62 20 99/41 99 03/17/24 02:00 58 L 16 120/53 97 03/17/24 01:45 54 L 17 117/44 92 L 03/17/24 01:30 51 L 19 108/46 99 03/17/24 01:15 53 L 20 104/41 98 03/17/24 01:00 48 L 13 105/57 98 03/17/24 00:45 45 L 15 96 03/17/24 00:30 45 L 27 H 90 L 03/17/24 00:15 50 L 18 105/57 96 03/17/24 00:00 98.1 F 49 L 12 99 03/16/24 23:45 52 L 13 96 03/16/24 23:30 50 L 9 L 95 03/16/24 23:16 52 L 17 120/59 96 03/16/24 23:15 48 L 23 120/59 96 03/16/24 23:00 50 L 17 130/52 97 03/16/24 22:45 55 L 30 H 130/52 96 03/16/24 22:30 97.9 F 53 L 24 114/45 96 03/16/24 22:15 46 L 10 L 95 03/16/24 22:13 43 L 23 96 03/16/24 22:00 97.9 F 45 L 18 147/44 03/16/24 20:27 42 L 16 109/48 98 03/16/24 20:11 36 L 20 109/48 93 L 03/16/24 20:00 41 L 03/16/24 19:00 48 L 15 103/51 97 03/16/24 18:51 50 L 15 103/51 96 03/16/24 18:17 49 L 12 134/48 95 03/16/24 18:05 49 L 18 123/50 97 03/16/24 17:18 45 L 12 122/45 97 03/16/24 17:05 40 L 12 114/45 100 03/16/24 16:33 37 L 12 123/43 99 03/16/24 16:03 39 L 16 115/58 97 03/16/24 15:39 38 L 14 140/53 98 03/16/24 15:13 42 L 16 138/57 100 03/16/24 14:59 31 L 12 104/39 96 03/16/24 14:27 95.6 F L 33 L 18 98/40 95 Intake and Output 03/16/24 03/17/24 03/17/24 22:59 06:59 14:59 Intake Total 19.146 260 150 Output Total 970 575 Balance 19.146 710 425 Intake: IV 260 150 Calcium Gluconate in NaCl 100 1 gm In Saline 1 100ml. bag @ 100 mls/hr IVPB ONCE ONE Rx#:[id number] Sodium Chloride 0.9% 1, 160 100 000 ml @ 20 mls/hr IV . Q24H [facility] Rx#:[id number] cefTRIAXone 2 gm In 50 Sodium Chloride 0.9% 50 ml @ 100 mls/hr IVPB Q24HR [facility] Rx#:[id number] Intake, IV Titration 19.146 Amount DOPamine DRIP 800 mg In 19.146 Dextrose/Water 1 250ml. bag @ 1 MCG/KG/MIN 1.276 mls/hr IV .Q24H ONE Rx#: [id number] Output: Urine 970 575 Other: Voiding Method Indwelling Catheter Indwelling Catheter Indwelling Catheter # Bowel Movements 1 Weight 68.039 kg 70.9 kg General: 83-year-old female in no distress, on 2 L nasal cannula. On dopamine at 5 mcg/kg/min. HEENT: Head is atraumatic, normocephalic, pupils were equal round reactive to light and recommendation, extraocular muscle movement were intact, sclera n onicteric, conjunctivae were pale, mucous membranes of the mouth are somewhat dry. Neck: Supple, no JVP, normal carotid upstroke bilaterally, no lymphadenopathy. Chest: Breath sound bilaterally no crackles rhonchi or wheezes Heart: Regular rhythm, no S3 gallop, 2/6 systolic murmur throughout the left lower sternal border Abdomen: Soft, nontender, nondistended, positive bowel sounds. Extremities: No clubbing edema or cyanosis dorsalis pedis +1 on the right side posterior tibialis could not be palpated, there is a wound to the right heel 1.5x1.5x0.5 cm patient has left above-knee amputation. Neurologic examination: Alert oriented x 3 no gross focal deficit Theatric: Normal mood, affect and no mental status examination Results - Laboratory Findings CBC and BMP: 03/17/24 08:46 03/17/24 06:11 PT/INR, D-dimer PT 12.2 sec (10.0-12.5) 03/16/24 14:36 INR 1.1 (<1.2) 03/16/24 14:36 Abnormal lab findings: Abnormal Labs 03/16/24 03/16/24 03/16/24 14:36 14:36 15:25 Hgb 10.9 L RDW 16.1 H Plt Count 460 H Neutrophils # 8.3 H Sodium 126 L Potassium 6.1 H* Chloride 96 L Carbon Dioxide 19 L BUN 42 H Creatinine 1.74 H Glucose POC Glucose (mg/dL) Ionized Calcium [place] 4.4 L Total Bilirubin 0.1 L AST 103 H ALT 149 H Total Protein 6.0 L Albumin 3.4 L Urine Appearance Urine Protein Urine Blood Ur Leukocyte Esterase Urine RBC Urine WBC Urine WBC Clumps Urine Bacteria Hyaline Casts Digoxin 3.5 H* 03/16/24 03/16/24 03/16/24 19:12 20:33 21:26 Hgb RDW Plt Count Neutrophils # Sodium 128 L Potassium 5.6 H Chloride Carbon Dioxide 15 L BUN 41 H Creatinine 1.49 H Glucose 61 L POC Glucose (mg/dL) 69 L 61 L Ionized Calcium [place] Total Bilirubin AST ALT Total Protein Albumin Urine Appearance Urine Protein Urine Blood Ur Leukocyte Esterase Urine RBC Urine WBC Urine WBC Clumps Urine Bacteria Hyaline Casts Digoxin 03/16/24 03/16/24 03/17/24 22:35 23:03 02:29 Hgb RDW Plt Count Neutrophils # Sodium Potassium 5.3 H Chloride Carbon Dioxide BUN Creatinine Glucose POC Glucose (mg/dL) 163 H Ionized Calcium [place] Total Bilirubin AST ALT Total Protein Albumin Urine Appearance Turbid H Urine Protein 2+ H Urine Blood Moderate H Ur Leukocyte Esterase Large H Urine RBC >182 H Urine WBC >182 H Urine WBC Clumps Many H Urine Bacteria Many H Hyaline Casts 31 H Digoxin 03/17/24 03/17/24 03/17/24 06:11 06:42 08:46 Hgb 11.1 L RDW 16.0 H Plt Count 517 H Neutrophils # Sodium 132 L Potassium 5.3 H Chloride Carbon Dioxide 19 L BUN 35 H Creatinine 1.10 H Glucose 125 H POC Glucose (mg/dL) 154 H Ionized Calcium [place] Total Bilirubin AST ALT Total Protein Albumin Urine Appearance Urine Protein Urine Blood Ur Leukocyte Esterase Urine RBC Urine WBC Urine WBC Clumps Urine Bacteria Hyaline Casts Digoxin 03/17/24 11:09 Hgb RDW Plt Count Neutrophils # Sodium Potassium Chloride Carbon Dioxide BUN Creatinine Glucose POC Glucose (mg/dL) 262 H Ionized Calcium [place] Total Bilirubin AST ALT Total Protein Albumin Urine Appearance Urine Protein Urine Blood Ur Leukocyte Esterase Urine RBC Urine WBC Urine WBC Clumps Urine Bacteria Hyaline Casts Digoxin - Diagnostic Findings Chest x-ray: image reviewed (Chest x-ray reviewed, no evidence of acute pulmonary process) Assessment and Plan Assessment: Impression: Acute digoxin toxicity Bradycardia secondary to above Hypotension secondary to above/resolved Acute kidney injury secondary to acute tubular necrosis, improving since admission. 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 Paroxysmal atrial fibrillation. PAD post multiple angioplasties ended up with left above-knee amputation. CAD post CABG. Recurrent UTI. Urine cultures are pending in the meantime patient is receiving Rocephin Osteoarthritis. Orthostatic hypotension. GERD with esophagitis. Diabetes mellitus type 2. Diabetic polyneuropathy. Recommendation: Continue to monitor in the ICU Continue dopamine Continue antibiotics and address based on final cultures from the urine Resume home meds continue to hold digoxin continue to monitor daily labs including renal profile and electrolytes They seem to be improving over the last 24 hours continue GI DVT prophylaxis Continue clinical improvement noted since admission Will continue to follow Time with Patient: Greater than 30
[2024-03-17 13:10] LABS: Basophils % (A) 0 %; Eosinophils # (A) 0.2 k/uL (0-0.7); Eosinophils % (A) 2 %; HCT 36.8 % (34.0-46.0); HGB 11.6 gm/dL (11.4-16.0); Hypochromasia Slight; Lymphocytes % (A) 10 %; MCH 28.7 pg (25.0-35.0); MCHC 31.7 g/dL (31.0-37.0); MCV 90.5 fL (80.0-100.0); Mean Platelet Volume 8.1; Monocytes # (A) 0.6 k/uL (0-1.0); Monocytes % (A) 6 %; Neutrophils # (A) 8.3 k/uL (1.3-7.7); Neutrophils % (A) 81 %; Platelet Count 478 k/uL (150-450); RBC 4.06 m/uL (3.80-5.40); WBC 10.3 k/uL (3.8-10.6)
[2024-03-17 13:26] LABS: INR 1.1 (<1.2)
[2024-03-17 13:27] LABS: Partial Thromboplastin Time 29.4 sec (22.0-30.0); Prothrombin Time 11.7 sec (10.0-12.5)
[2024-03-17] MEDS: DOPamine DRIP 800 MG in DEXTROSE/WATER 1 250ML.BAG IV SCH (15:02)
[2024-03-17 16:18] LABS: Glucose,Whole Blood 203 mg/dL (70-110)
[2024-03-17 20:05] LABS: Glucose,Whole Blood 263 mg/dL (70-110)
[2024-03-17] MEDS: INSULIN DETEMIR (LEVEMIR) 100 UNIT/ML SYR SQ SCH (20:22)
[2024-03-17] MEDS: ATORVASTATIN 20 MG TAB PO SCH (20:22)
--- NOTE | 2024-03-17 22:28 | P.CONS ---
History of Present Illness - Reason for Consult Consult date: 03/17/24 UTI Requesting physician: Ag Orourke - Chief Complaint Weakness and hallucination x 1 day - History of Present Illness Patient is a 83-year-old female with a past medical history significant for atrial fibrillation coronary artery disease diabetes mellitus CVA TIA hypertension hyperlipidemia recent admission to the hospital with right lower extremity cellulitis, wound cultures came back positive for MRSA that was resistant to tetracycline Zyvox could not be used because of drug interaction she was advised to Bactrim DS 1 twice daily for her lower extremity wound and cellulitis patient has been brought into the hospital for evaluation of mental status changes at the patient was noticed to be hallucinating by her daughter patient also been complaining of feeling fatigued over the last 48 hours with the symptoms EMS was called and and the patient was noted to be profoundly bradycardic for the patient has been admitted to the ICU on presentation to the hospital patient did have hypothermia subsequently pressure has normalized, she was bradycardic but not hypotensive or hypoxic and no need for supplemental oxygen patient did have white count of 10.4 BUN and creatinine has been mildly elevated potassium is 5.6 he did have a digoxin level of 3.5 did have a UA that has been significantly positive and cloudy urine patient did require Vidales catheter placement did have some suprapubic discomfort but no burning or shooting or any hematuria patient had been started on Rocephin infectious disease was consulted for further management of antibiotic therapy Review of Systems Positive point and negatives has been mentioned in the HPI, complete review of systems was performed and all other systems are negative Past Medical History Past Medical History: Atrial Fibrillation, Coronary Artery Disease (CAD), CVA/TIA, Diabetes Mellitus, Eye Disorder, GERD/Reflux, Hearing Disorder / De afness, Hyperlipidemia, Hypertension, Myocardial Infarction (RI), Rheumatoid Arthritis (RA) Additional Past Medical History / Comment(s): Heart attack 2013. 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. Carotid stenosis. 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 Last Myocardial Infarction Date:: 2013 History of Any Multi-Drug Resistant Organisms: None Reported Year Discovered:: 01/25/24 MDRO Source:: MRSA right heel Past Surgical History: Coronary Bypass/CABG Additional Past Surgical History / Comment(s): CABG x4 in 2013 Past Anesthesia/Blood Transfusion Reactions: No Reported Reaction Past Psychological History: Anxiety Smoking Status: Former smoker Past Alcohol Use History: Rare Past Drug Use History: None Reported - Past Family History Father Family Medical History: Unable to Obtain Mother Family Medical History: Cancer Additional Family Medical History / Comment(s): colon CA Medications and Allergies Home Medications Medication Instructions Recorded Confirmed Type Amiodarone [Cordarone] 200 mg PO BID 01/03/24 03/16/24 History Atorvastatin [Lipitor] 20 mg PO HS 01/03/24 03/16/24 History Cholecalciferol [Vitamin D3 (25 25 mcg PO DAILY 01/03/24 03/16/24 History Mcg = 1000 Iu)] Clopidogrel [Plavix] 75 mg PO DAILY 01/03/24 03/16/24 History Digoxin [Digitek] 125 mcg PO DAILY 01/03/24 03/16/24 History Isosorbide Mononitrate ER [Imdur] 15 mg PO DAILY 01/03/24 03/16/24 History Metoprolol Tartrate [Lopressor] 12.5 mg PO TID@0745,1645,2145 01/03/24 03/16/24 History Pregabalin [Lyrica] 75 mg PO TID@0745,1645,2145 01/03/24 03/16/24 History busPIRone HCL 10 mg PO DAILY 01/03/24 03/16/24 History Apixaban [Eliquis] 5 mg PO BID #60 tab 01/05/24 03/16/24 Rx Collagenase [Santyl Ointment] 1 applic TOPICAL DAILY 01/23/24 03/16/24 History Insulin Lispro [humaLOG Kwikpen] See Protocol SQ ACHS 01/23/24 03/16/24 History Nystatin 100,000 Unit/gm Powd 1 applic TOPICAL BID PRN 03/03/24 03/16/24 History [Mycostatin Powder] Spironolactone [Aldactone] 25 mg PO DAILY 03/03/24 03/16/24 History Insulin Glargine,Hum.rec.anlog 15 units SQ HS #0 03/06/24 03/16/24 Rx [Lantus Solostar Pen] Losartan [Cozaar] 50 mg PO BID #60 tab 03/06/24 03/16/24 Rx Sulfamethox-Tmp 800-160Mg [Bactrim 1 tab PO Q12HR 10 Days #20 tab 03/06/24 03/16/24 Rx DS 800-160 mg] amLODIPine [Norvasc] 5 mg PO DAILY #30 tab 03/06/24 03/16/24 Rx Acetaminophen Tab [Tylenol Tab] 1,000 mg PO Q6H PRN 03/16/24 03/16/24 History Allergies Allergy/AdvReac Type Severity Reaction Status Date / Time codeine Allergy Swelling Verified 03/16/24 15:44 Physical Exam Vitals: Vital Signs Temp Pulse Pulse Resp BP BP Pulse Ox 03/17/24 11:30 50 L 20 142/54 98 03/17/24 11:00 47 L 15 139/41 98 03/17/24 10:30 44 L 13 155/40 99 03/17/24 10:00 51 L 29 H 149/43 98 03/17/24 09:45 48 L 9 L 133/39 98 03/17/24 09:30 47 L 18 124/32 98 03/17/24 09:15 45 L 13 108/63 98 03/17/24 09:00 47 L 15 134/33 97 03/17/24 08:45 45 L 13 127/35 97 03/17/24 08:30 49 L 10 L 98 03/17/24 08:15 48 L 12 98 03/17/24 08:00 98.8 F 48 L 11 L 145/45 96 03/17/24 07:45 68 13 139/51 100 03/17/24 07:30 71 14 162/54 95 03/17/24 07:15 71 17 155/51 98 03/17/24 07:00 66 12 158/58 99 03/17/24 06:45 69 11 L 158/53 97 03/17/24 06:30 66 25 H 146/47 98 03/17/24 06:15 64 13 144/46 98 03/17/24 06:00 64 12 155/54 99 03/17/24 05:45 69 18 154/71 99 03/17/24 05:30 67 20 127/94 97 03/17/24 05:15 63 19 135/46 99 03/17/24 05:00 56 L 10 L 98 03/17/24 04:45 61 13 105/87 98 03/17/24 04:30 63 14 130/45 96 03/17/24 04:15 64 15 124/48 99 03/17/24 04:00 62 12 120/46 98 03/17/24 03:45 62 20 124/44 97 03/17/24 03:30 62 10 L 125/41 95 03/17/24 03:15 66 15 140/52 98 03/17/24 03:00 66 15 126/57 99 03/17/24 02:45 67 20 99 03/17/24 02:30 68 18 120/49 98 03/17/24 02:15 62 20 99/41 99 03/17/24 02:00 58 L 16 120/53 97 03/17/24 01:45 54 L 17 117/44 92 L 03/17/24 01:30 51 L 19 108/46 99 03/17/24 01:15 53 L 20 104/41 98 03/17/24 01:00 48 L 13 105/57 98 03/17/24 00:45 45 L 15 96 03/17/24 00:30 45 L 27 H 90 L 03/17/24 00:15 50 L 18 105/57 96 03/17/24 00:00 98.1 F 49 L 12 99 03/16/24 23:45 52 L 13 96 03/16/24 23:30 50 L 9 L 95 03/16/24 23:16 52 L 17 120/59 96 03/16/24 23:15 48 L 23 120/59 96 03/16/24 23:00 50 L 17 130/52 97 03/16/24 22:45 55 L 30 H 130/52 96 03/16/24 22:30 97.9 F 53 L 24 114/45 96 03/16/24 22:15 46 L 10 L 95 03/16/24 22:13 43 L 23 96 03/16/24 22:00 97.9 F 45 L 18 147/44 03/16/24 20:27 42 L 16 109/48 98 03/16/24 20:11 36 L 20 109/48 93 L 03/16/24 20:00 41 L 03/16/24 19:00 48 L 15 103/51 97 03/16/24 18:51 50 L 15 103/51 96 03/16/24 18:17 49 L 12 134/48 95 03/16/24 18:05 49 L 18 123/50 97 03/16/24 17:18 45 L 12 122/45 97 03/16/24 17:05 40 L 12 114/45 100 03/16/24 16:33 37 L 12 123/43 99 03/16/24 16:03 39 L 16 115/58 97 03/16/24 15:39 38 L 14 140/53 98 03/16/24 15:13 42 L 16 138/57 100 03/16/24 14:59 31 L 12 104/39 96 03/16/24 14:27 95.6 F L 33 L 18 98/40 95 Intake and Output 03/16/24 03/17/24 03/17/24 22:59 06:59 14:59 Intake Total 19.146 260 150 Output Total 970 575 Balance 19.320 -899 -538 Intake: IV 260 150 Calcium Gluconate in NaCl 100 1 gm In Saline 1 100ml. bag @ 100 mls/hr IVPB ONCE ONE Rx#:[id number] Sodium Chloride 0.9% 1, 160 100 000 ml @ 20 mls/hr IV . Q24H [facility] Rx#:[id number] cefTRIAXone 2 gm In 50 Sodium Chloride 0.9% 50 ml @ 100 mls/hr IVPB Q24HR [facility] Rx#:[id number] Intake, IV Titration 19.146 Amount DOPamine DRIP 800 mg In 19.146 Dextrose/Water 1 250ml. bag @ 1 MCG/KG/MIN 1.276 mls/hr IV .Q24H [facility] Rx#: [id number] Output: Urine 970 575 Other: Voiding Method Indwelling Catheter Indwelling Catheter Indwelling Catheter # Bowel Movements 1 Weight 68.039 kg 70.9 kg GENERAL DESCRIPTION: Elderly female lying in bed, no distress. No tachypnea or accessory muscle of respiration use. HEENT: Shows Pallor , no scleral icterus. Oral mucous membrane is dry. NECK: Trachea central, no thyromegaly. LUNGS: Unlabored breathing. Clear to auscultation anteriorly. No wheeze or crackle. HEART: S1, S2, regular but slow ABDOMEN: Soft, mild suprapubic tenderness , EXTREMITIES: Right heel wound is currently has no drainage SKIN: No rash, no masses palpable. NEUROLOGICAL: The patient is awake, alert, oriented x3, mood and affect normal. Results CBC & Chem 7: 03/19/24 06:06 03/19/24 06:06 Labs: Abnormal Lab Results - Last 24 Hours (Table) 03/16/24 03/16/24 03/16/24 Range/Units 14:36 14:36 15:25 Hgb 10.9 L (11.4-16.0) gm/dL RDW 16.1 H (11.5-15.5) % Plt Count 460 H (150-450) k/uL Neutrophils # 8.3 H (1.3-7.7) k/uL Sodium 126 L (137-145) mmol/L Potassium 6.1 H* (3.5-5.1) mmol/L Chloride 96 L (98-107) mmol/L Carbon Dioxide 19 L (22-30) mmol/L BUN 42 H (7-17) mg/dL Creatinine 1.74 H (0.52-1.04) mg/dL Glucose (74-99) mg/dL POC Glucose (mg/dL) (70-110) mg/dL Ionized Calcium Alayna 4.4 L (4.5-5.3) mg/dL Total Bilirubin 0.1 L (0.2-1.3) mg/dL AST 103 H (14-36) U/L ALT 149 H (4-34) U/L Total Protein 6.0 L (6.3-8.2) g/dL Albumin 3.4 L (3.5-5.0) g/dL Urine Appearance (Clear) Urine Protein (Negative) Urine Blood (Negative) Ur Leukocyte Esterase (Negative) Urine RBC (0-5) /hpf Urine WBC (0-5) /hpf Urine WBC Clumps (None) /hpf Urine Bacteria (None) /hpf Hyaline Casts (0-2) /lpf Digoxin 3.5 H* ng/mL 03/16/24 03/16/24 03/16/24 Range/Units 19:12 20:33 21:26 Hgb (11.4-16.0) gm/dL RDW (11.5-15.5) % Plt Count (150-450) k/uL Neutrophils # (1.3-7.7) k/uL Sodium 128 L (137-145) mmol/L Potassium 5.6 H (3.5-5.1) mmol/L Chloride (98-107) mmol/L Carbon Dioxide 15 L (22-30) mmol/L BUN 41 H (7-17) mg/dL Creatinine 1.49 H (0.52-1.04) mg/dL Glucose 61 L (74-99) mg/dL POC Glucose (mg/dL) 69 L 61 L (70-110) mg/dL Ionized Calcium Alayna (4.5-5.3) mg/dL Total Bilirubin (0.2-1.3) mg/dL AST (14-36) U/L ALT (4-34) U/L Total Protein (6.3-8.2) g/dL Albumin (3.5-5.0) g/dL Urine Appearance (Clear) Urine Protein (Negative) Urine Blood (Negative) Ur Leukocyte Esterase (Negative) Urine RBC (0-5) /hpf Urine WBC (0-5) /hpf Urine WBC Clumps (None) /hpf Urine Bacteria (None) /hpf Hyaline Casts (0-2) /lpf Digoxin ng/mL 03/16/24 03/16/24 03/17/24 Range/Units 22:35 23:03 02:29 Hgb (11.4-16.0) gm/dL RDW (11.5-15.5) % Plt Count (150-450) k/uL Neutrophils # (1.3-7.7) k/uL Sodium (137-145) mmol/L Potassium 5.3 H (3.5-5.1) mmol/L Chloride (98-107) mmol/L Carbon Dioxide (22-30) mmol/L BUN (7-17) mg/dL Creatinine (0.52-1.04) mg/dL Glucose (74-99) mg/dL POC Glucose (mg/dL) 163 H (70-110) mg/dL Ionized Calcium Alayna (4.5-5.3) mg/dL Total Bilirubin (0.2-1.3) mg/dL AST (14-36) U/L ALT (4-34) U/L Total Protein (6.3-8.2) g/dL Albumin (3.5-5.0) g/dL Urine Appearance Turbid H (Clear) Urine Protein 2+ H (Negative) Urine Blood Moderate H (Negative) Ur Leukocyte Esterase Large H (Negative) Urine RBC >182 H (0-5) /hpf Urine WBC >182 H (0-5) /hpf Urine WBC Clumps Many H (None) /hpf Urine Bacteria Many H (None) /hpf Hyaline Casts 31 H (0-2) /lpf Digoxin ng/mL 03/17/24 03/17/24 03/17/24 Range/Units 06:11 06:42 08:46 Hgb 11.1 L (11.4-16.0) gm/dL RDW 16.0 H (11.5-15.5) % Plt Count 517 H (150-450) k/uL Neutrophils # (1.3-7.7) k/uL Sodium 132 L (137-145) mmol/L Potassium 5.3 H (3.5-5.1) mmol/L Chloride (98-107) mmol/L Carbon Dioxide 19 L (22-30) mmol/L BUN 35 H (7-17) mg/dL Creatinine 1.10 H (0.52-1.04) mg/dL Glucose 125 H (74-99) mg/dL POC Glucose (mg/dL) 154 H (70-110) mg/dL Ionized Calcium Alayna (4.5-5.3) mg/dL Total Bilirubin (0.2-1.3) mg/dL AST (14-36) U/L ALT (4-34) U/L Total Protein (6.3-8.2) g/dL Albumin (3.5-5.0) g/dL Urine Appearance (Clear) Urine Protein (Negative) Urine Blood (Negative) Ur Leukocyte Esterase (Negative) Urine RBC (0-5) /hpf Urine WBC (0-5) /hpf Urine WBC Clumps (None) /hpf Urine Bacteria (None) /hpf Hyaline Casts (0-2) /lpf Digoxin ng/mL 03/17/24 Range/Units 11:09 Hgb (11.4-16.0) gm/dL RDW (11.5-15.5) % Plt Count (150-450) k/uL Neutrophils # (1.3-7.7) k/uL Sodium (137-145) mmol/L Potassium (3.5-5.1) mmol/L Chloride (98-107) mmol/L Carbon Dioxide (22-30) mmol/L BUN (7-17) mg/dL Creatinine (0.52-1.04) mg/dL Glucose (74-99) mg/dL POC Glucose (mg/dL) 262 H (70-110) mg/dL Ionized Calcium Alayna (4.5-5.3) mg/dL Total Bilirubin (0.2-1.3) mg/dL AST (14-36) U/L ALT (4-34) U/L Total Protein (6.3-8.2) g/dL Albumin (3.5-5.0) g/dL Urine Appearance (Clear) Urine Protein (Negative) Urine Blood (Negative) Ur Leukocyte Esterase (Negative) Urine RBC (0-5) /hpf Urine WBC (0-5) /hpf Urine WBC Clumps (None) /hpf Urine Bacteria (None) /hpf Hyaline Casts (0-2) /lpf Digoxin ng/mL Assessment and Plan (1) UTI (urinary tract infection) Current Visit: No Status: Acute Code(s): N39.0 - URINARY TRACT INFECTION, SITE NOT SPECIFIED SNOMED Code(s): 26540489 Plan: 1patient presented to hospital with hallucination weakness did have suprapubic discomfort and some tenderness significantly positive UA concerning for symptomatic UTI likely from enteric gram-negative pathogen. 2Rocephin 2 g daily while waiting for the culture to finalize. Family the bedside question concern answered We will follow on clinical condition and cultures to further adjust medication if needed Thank you for this consultation we will follow the patient along with you Dictation was produced using [employer] dictation software. please excuse any grammatical, word or spelling errors.
[2024-03-18 05:52] LABS: Glucose,Whole Blood 51 mg/dL (70-110)
[2024-03-18 05:53] LABS: Basophils % (A) 0 %; Eosinophils # (A) 0.2 k/uL (0-0.7); Eosinophils % (A) 2 %; HCT 37.6 % (34.0-46.0); HGB 11.9 gm/dL (11.4-16.0); Hypochromasia Slight; Lymphocytes # (A) 1.7 k/uL (1.0-4.8); Lymphocytes % (A) 15 %; MCH 28.9 pg (25.0-35.0); MCHC 31.5 g/dL (31.0-37.0); MCV 91.5 fL (80.0-100.0); Mean Platelet Volume 7.9; Monocytes # (A) 0.8 k/uL (0-1.0); Monocytes % (A) 7 %; Neutrophils # (A) 8.5 k/uL (1.3-7.7); Neutrophils % (A) 75 %; Platelet Count 416 k/uL (150-450); RBC 4.11 m/uL (3.80-5.40); RDW 15.9 % (11.5-15.5); WBC 11.4 k/uL (3.8-10.6)
[2024-03-18 06:12] LABS: ALT 131 U/L (4-34); AST 66 U/L (14-36); African American GFR (CKD) 78 (>60 ml/min/1.73 sqM); Albumin 3.1 g/dL (3.5-5.0); Alkaline Phosphatase 111 U/L (38-126); Anion Gap 6 mmol/L; Blood Urea Nitrogen 27 mg/dL (7-17); Calcium 8.9 mg/dL (8.4-10.2); Carbon Dioxide 19 mmol/L (22-30); Chloride 113 mmol/L (98-107); Non-African American GFR(CKD) 67 (>60 ml/min/1.73 sqM); Potassium 5.1 mmol/L (3.5-5.1); Sodium 138 mmol/L (137-145); Total Bilirubin 0.2 mg/dL (0.2-1.3); Total Protein 5.9 g/dL (6.3-8.2)
[2024-03-18 06:13] LABS: Glucose,Whole Blood 78 mg/dL (70-110)
[2024-03-18 06:18] LABS: Prothrombin Time 11.5 sec (10.0-12.5)
[2024-03-18 06:20] LABS: Glucose 44 mg/dL (74-99)
--- NOTE | 2024-03-18 07:56 | P.PN ---
Subjective Progress Note Date: 03/18/24 PROGRESS NOTE The patient is an 83-year-old female, status post CABG, PCI, left AKA with history of peripheral vascular disease who presented with change in mental status and was noted to be bradycardic with what appears to be junctional rhythm. She was dig toxic. She has history of cellulitis. Nonhealing ulcer on the right heel. She is in sinus mechanism on IV dopamine. Her blood pressure is stable. She has no evidence of malignant arrhythmia. Hemodynamically she is stable. She does appear to be awake and alert today. She received a bind. She had no further episodes of significant bradycardia arrhythmia. Medications: IV dopamine, Plavix 75 mg daily, IV heparin, isosorbide mononitrate 15 mg daily, insulin, Lipitor 20 mg daily. Patient was on amiodarone, digoxin and metoprolol as an outpatient. She was anticoagulated because of a history of paroxysmal atrial fibrillation. PHYSICAL EXAMINATION: Blood pressure 120/60 heart rate 60 LUNGS: Clear to auscultation HEART: [Regular rate and rhythm, S1, S2. No S3. Systolic ejection murmur, /, bilateral bruit Abdomen: Soft, nontender, no organomegaly EXTREMETIES: Dressing on the right lower extremity status post left AKA LAB: Hemoglobin 11.9, BUN 27, creatinine 0.82. Digoxin level 1.7 IMPRESSION: 1. Change in mental status, improving 2. Digoxin toxicity with bradycardia, resolved 3. History of CAD status post CABG and PCI 4. History of PAD status post left AKA and nonhealing ulcer on the right heel with recent cellulitis 5. Paroxysmal atrial fibrillation 6. History of hyperlipidemia PLAN: 1. Wean IV dopamine to off 2. If she remains in sinus mechanism, no indications for temporary pacemaker at this time 3. Continue IV heparin for now and if stable switch back to Eliquis 4. Follow renal function and potassium 5. Depending on her progress further recommendations will be made Objective - Vital Signs Vital signs: Vital Signs Temp 97.9 F 03/18/24 04:00 Pulse 61 03/18/24 07:00 Resp 10 L 03/18/24 07:00 BP 126/35 03/18/24 07:00 Pulse Ox 97 03/18/24 07:00 FiO2 Intake & Output 03/17/24 03/18/24 03/18/24 18:59 06:59 18:59 Intake Total 290.798 220 130.008 Output Total 870 1510 125 Balance -579.202 -1290 5.008 Weight 69.8 kg Intake: IV 290 220 20 Sodium Chloride 0.9% 1, 240 220 20 000 ml @ 20 mls/hr IV . Q24H [facility] Rx#:[id number] cefTRIAXone 2 gm In 50 Sodium Chloride 0.9% 50 ml @ 100 mls/hr IVPB Q24HR [facility] Rx#:[id number] Intake, IV Titration 0.798 110.008 Amount DOPamine DRIP 800 mg In 0.798 110.008 Dextrose/Water 1 250ml. bag @ 1 MCG/KG/MIN 1.329 mls/hr IV .Q24H [facility] Rx#: [id number] Output: Urine 870 1510 125 Other: Voiding Method Indwelling Catheter Indwelling Catheter - Labs CBC & Chem 7: 03/18/24 05:31 03/18/24 05:31 Labs: Abnormal Lab Results - Last 24 Hours (Table) 03/17/24 03/17/24 03/17/24 Range/Units 08:46 11:09 12:29 WBC (3.8-10.6) k/uL Hgb 11.1 L (11.4-16.0) gm/dL RDW 16.0 H 16.0 H (11.5-15.5) % Plt Count 517 H 478 H (150-450) k/uL Neutrophils # 8.3 H (1.3-7.7) k/uL APTT (22.0-30.0) sec Chloride (98-107) mmol/L Carbon Dioxide (22-30) mmol/L BUN (7-17) mg/dL Glucose (74-99) mg/dL POC Glucose (mg/dL) 262 H (70-110) mg/dL AST (14-36) U/L ALT (4-34) U/L Total Protein (6.3-8.2) g/dL Albumin (3.5-5.0) g/dL 03/17/24 03/17/24 03/17/24 Range/Units 16:17 18:51 20:04 WBC (3.8-10.6) k/uL Hgb (11.4-16.0) gm/dL RDW (11.5-15.5) % Plt Count (150-450) k/uL Neutrophils # (1.3-7.7) k/uL APTT 44.7 H (22.0-30.0) sec Chloride (98-107) mmol/L Carbon Dioxide (22-30) mmol/L BUN (7-17) mg/dL Glucose (74-99) mg/dL POC Glucose (mg/dL) 203 H 263 H (70-110) mg/dL AST (14-36) U/L ALT (4-34) U/L Total Protein (6.3-8.2) g/dL Albumin (3.5-5.0) g/dL 03/18/24 03/18/24 03/18/24 Range/Units 05:31 05:31 05:52 WBC 11.4 H (3.8-10.6) k/uL Hgb (11.4-16.0) gm/dL RDW 15.9 H (11.5-15.5) % Plt Count (150-450) k/uL Neutrophils # 8.5 H (1.3-7.7) k/uL APTT (22.0-30.0) sec Chloride 113 H (98-107) mmol/L Carbon Dioxide 19 L (22-30) mmol/L BUN 27 H (7-17) mg/dL Glucose 44 L* (74-99) mg/dL POC Glucose (mg/dL) 51 L (70-110) mg/dL AST 66 H (14-36) U/L ALT 131 H (4-34) U/L Total Protein 5.9 L (6.3-8.2) g/dL Albumin 3.1 L (3.5-5.0) g/dL
[2024-03-18] MEDS: ISOSORBIDE MONONITRATE ER 15 MG TAB PO SCH (08:11)
[2024-03-18] MEDS: CLOPIDOGREL 75 MG TAB PO SCH (08:12)
[2024-03-18] MEDS: CHOLECALCIFEROL 25 MCG (1000 IU) TABLET PO SCH (08:12)
[2024-03-18] MEDS ORDERED: ISOSORBIDE MONONITRATE ER 30 MG TAB.ER.24H PO SCH (09:00)
--- NOTE | 2024-03-18 09:10 | HP ---
HISTORY AND PHYSICAL CHIEF COMPLAINT: Change in mental status, hallucination, bradycardia. HISTORY OF PRESENT ILLNESS: This 83-year-old with a past medical history of multiple medical problems including atrial fibrillation, CAD, CVA, diabetes mellitus type 2, was noted to have some difficulty in speech and had some hallucinations by the family. The patient also was noted to have bradycardia in the 40s. The patient came to [facility]. The digoxin level of 3.5 indicating digitoxic. The patient was given digoxin antibody. The patient is being closely monitored. There is no history of fever, rigors, or chills at this time. The patient is confused. PAST MEDICAL HISTORY: Reviewed include atrial fibrillation, CVA, TIA, diabetes mellitus also reviewed. HOME MEDICATIONS: Reviewed include Lantus, dose and rest of medications noted. ALLERGIES: Codeine. FAMILY HISTORY: Could not be taken because of change in mental status. SOCIAL HISTORY: Could not be taken because of change in mental status. REVIEW OF SYSTEMS: Could not be taken because of change in mental status. PHYSICAL EXAM: VITAL SIGNS: Pulse is 47, blood pressure 130/45, respirations 15. HEENT: Conjunctivae normal. NECK: No jugular venous distention. CARDIOVASCULAR: S1, S2. RESPIRATIONS: Breath sounds diminished at the bases. A few scattered rhonchi. ABDOMEN: Soft. LEGS: No edema. NERVOUS SYSTEM: No focal deficit. LABORATORY DATA: Potassium 5.6, creatinine is 1.49. ASSESSMENT: 1. Change in mental status and severe bradycardia, possibly digoxin toxicity. 2. Acute renal failure with hyperkalemia. 3. Rule out TIA. 4. History of atrial fibrillation. 5. Diabetes mellitus, type 2. 6. History of myocardial infarction. 7. History of rheumatoid arthritis. 8. History of urinary tract infection. RECOMMENDATION: Recommend to continue current management and continue symptomatic treatment. Otherwise, avoid digoxin. The patient also has history of UTI. Otherwise, option of the pacemaker was offered. Family will monitor the heart rate closely. The patient is still confused. We will obtain the cultures. Infectious disease evaluation. Neurology consultation. Full neurovascular workup. Prognosis guarded because of multiple complex medical conditions. Further recommendations to follow. Discussed with staff and family. MMFARAZL / MATEON: [id number] / RANDELL
--- NOTE | 2024-03-18 09:11 | CONS ---
CONSULTATION HISTORY OF PRESENT ILLNESS: Jeanette is an 83-year-old lady with history of paroxysmal atrial fibrillation, hypertension, dyslipidemia, who presented to hospital, brought in by her daughter because she was hallucinating at home, was bradycardic and was not feeling well. She had a junctional bradycardia on her EKG, but was hemodynamically stable. The ER doctor had consulted me for the same. I evaluated the patient in the emergency room on 03/16/2024 and started her on dopamine and instructed the ER physician to obtain digoxin level and electrolyte. Her digoxin level came back elevated and she received Digibind and her potassium was elevated and this was to be treated. If this does not improve her heart rate, I will consider a temporary pacemaker. PAST MEDICAL AND SURGICAL HISTORY: Significant for coronary artery disease, status post CABG, status post retinal detachment, status post left above-knee amputation, and paroxysmal atrial fibrillation. CURRENT MEDICATIONS: Include, 1. Amiodarone 200 b.i.d. 2. Eliquis 5 b.i.d. 3. Vitamin D. 4. Plavix. 5. Insulin. 6. Imdur. 7. Losartan. 8. Metoprolol. 9. Amlodipine. 10.Lyrica. 11.Lipitor. 12.Insulin. ALLERGIES: To codeine. FAMILY HISTORY: Negative for premature coronary artery disease. SOCIAL HISTORY: Negative for current smoking. She was a drug abuser. REVIEW OF SYSTEMS: review of systems has been performed. Pertinents are as documented. EXAM: GENERAL: Patient is comfortable at rest. VITAL SIGNS: Heart rate is slow in the 40s. Blood pressure is 110/70, respiratory rate is 18. CHEST: Reveals good air entry bilaterally. HEART: Reveals first and second heart sounds. Systolic murmur at the apex. ABDOMEN: Soft. EXTREMITIES: Reveals mild edema. Peripheral pulses are palpable. LABORATORY DATA: The patient's potassium is elevated. Digoxin level is elevated. Hemoglobin is normal. ASSESSMENT AND PLAN: 1. Asymptomatic bradycardia secondary to digitoxicity. 2. History of atrial fibrillation. 3. Coronary artery disease status post coronary artery bypass graft. PLAN: Will hold all AV jamir blockers including the Cordarone, metoprolol, and digoxin. Stop the spironolactone because of the hyperkalemia and watch the patient in ICU and consider a temporary pacemaker if necessary. MMODL / IJN: [id number] /
--- NOTE | 2024-03-18 09:11 | PN ---
PROGRESS NOTE DATE OF SERVICE: 03/17/2024 SUBJECTIVE: Jeanette Varela is an 83-year-old lady, who is admitted to hospital with acute digitoxicity with heart rates around 34 beats per minute. She was treated with Digibind and also received Kayexalate last night. Clinically, she looks very stable. She was actually in sinus rhythm with heart rates in the 60s last night. I do not see any sinus activity this morning, but the heart rate is around 40 to 46 beats per minute. She is tolerating the heart rate well and the blood pressure well. I talked to the patient and her daughter about doing a temporary transvenous pacemaker and we have decided not to do any temporary pacemaker at this time as she is tolerating her bradycardia well and I anticipate her sinus rhythm resuming. I will give her another dose of Kayexalate and anticipate the digoxin level to go down over the next 24 hours and if at the end of that, if she behaves like a tachy-judy syndrome, we might end up doing a permanent pacemaker in her. PHYSICAL EXAMINATION: VITAL SIGNS: Today, heart rate is 50 beats per minute, blood pressure is 140/54, respiratory rate is 18, O2 saturation is 98%. NECK: There is no jugular venous distention. CHEST: Exam reveals good air entry bilaterally. HEART: Reveals first and second heart sounds. Systolic murmur at the apex. ABDOMEN: Soft. EXTREMITIES: Examination of the extremities reveals 1+ edema over the left leg. LABORATORY DATA: Labs show hemoglobin of 11.1, potassium is 5.3, creatinine is 1.1. ASSESSMENT AND PLAN: 1. Digitoxicity. 2. Hyperkalemia. 3. History of paroxysmal atrial fibrillation. PLAN: The patient is on IV dopamine which I am going to continue. Was on Eliquis which is on hold. We will start her on heparin in the meantime, and once we decide on whether she needs a pacemaker or not, we can resume the Eliquis. Going forward, we will avoid all AV jamir blockers, no digoxin, and no aldactone as she had significant hyperkalemia as a result. MMODL / IJN: [id number] /
[2024-03-18 11:34] LABS: Glucose,Whole Blood 111 mg/dL (70-110)
--- NOTE | 2024-03-18 12:34 | CA ---
Transthoracic Echo Report Name: Jeanette Varela Age: 83 Gender: F : 1940 Exam Date: 03/18/2024 10:23 Exam Location: [facility] Ht (in): 62 Wt (lb): 153 Ordering Physician: Nicanor Carmona MD ([id number]) Attending/Referring Phys: Non Destructive Testing Engineer Mary Kate Fang RDCS Procedure CPT: Indications: CAD Cardiac Hx: Technical Quality: Fair Contrast 1: Total Dose (mL): Contrast 2: Total Dose (mL): MEASUREMENTS (Male / Female) Normal Values 2D ECHO LV Diastolic Diameter PLAX 4.2 cm 4.2 - 5.9 / 3.9 - 5.3 cm LV Systolic Diameter PLAX 2.4 cm IVS Diastolic Thickness 1.2 cm 0.6 - 1.0 / 0.6 - 0.9 cm LVPW Diastolic Thickness 1.2 cm 0.6 - 1.0 / 0.6 - 0.9 cm LV Relative Wall Thickness 0.6 RV Internal Dim ED PLAX 2.5 cm LA Systolic Diameter LX 3.9 cm 3.0 - 4.0 / 2.7 - 3.8 cm LV Diastolic Volume MOD BP 35.9 cm??? 67 - 155 / 56 - 104 cm??? LV Systolic Volume MOD BP 12.8 cm??? 22 - 58 / 19 - 49 cm??? LV Ejection Fraction MOD BP 64.3 % >= 55 % LV Cardiac Index MOD BP 772.3 cm???/min???m??? LV Diastolic Volume MOD 4C 32.8 cm??? LV Systolic Volume MOD 4C 5.3 cm??? LV Ejection Fraction MOD 4C 83.7 % LV Cardiac Index MOD 4C 917.6 cm???/min???m??? LV Diastolic Length 4C 5.6 cm LV Systolic Length 4C 2.4 cm LV Diastolic Volume MOD 2C 37.5 cm??? LV Systolic Volume MOD 2C 13.6 cm??? LV Ejection Fraction MOD 2C 63.7 % LV Cardiac Index MOD 2C 799.4 cm???/min???m??? LV Diastolic Length 2C 6.0 cm LV Systolic Length 2C 5.5 cm M-MODE Aortic Root Diameter MM 3.1 cm LA Systolic Diameter MM 3.7 cm LA Ao Ratio MM 1.2 AV Cusp Separation MM 1.9 cm DOPPLER AV Peak Velocity 149.7 cm/s AV Peak Gradient 9.0 mmHg MV Peak Velocity 187.1 cm/s MV Peak Gradient 14.0 mmHg MV Mean Velocity 96.8 cm/s MV Mean Gradient 5.2 mmHg MV Velocity Time Integral 59.7 cm Mitral E Point Velocity 159.4 cm/s Mitral A Point Velocity 87.3 cm/s Mitral E to A Ratio 1.8 MV Deceleration Time 432.3 ms MV E' Velocity 5.3 cm/s Mitral E to MV E' Ratio 30.3 TR Peak Velocity 241.8 cm/s TR Peak Gradient 23.4 mmHg Right Ventricular Systolic Press 34.0 mmHg FINDINGS Left Ventricle Left ventricular ejection fraction is estimated at 60-65 %. Mildly increased septal wall thickness. Mildly increased posterior wall thickness. Normal left ventricular systolic function with no obvious regional wall motion abnormalities. Right Ventricle Normal right ventricular size and function. Right ventricular systolic pressure within normal limits. Right Atrium Normal right atrial size. Left Atrium Mildly increased left atrial diameter. Mitral Valve Mitral valve thickened. Mild to moderate mitral stenosis 5.18 mmHg. Mild mitral regurgitation. Moderate mitral annular calcification. Aortic Valve Trileaflet aortic valve. No aortic valve stenosis or regurgitation. Tricuspid Valve Structurally normal tricuspid valve. Mild tricuspid regurgitation. No tricuspid stenosis. Pulmonic Valve Structurally normal pulmonic valve. No pulmonic stenosis. Trace pulmonic regurgitation. Pericardium No pericardial effusion. Left pleural effusion. Aorta Normal size aortic root and proximal ascending aorta. CONCLUSIONS Normal biventricular systolic function Mild to moderate mitral stenosis Mild mitral regurgitation Previewed by: Dr. Roldan Mireles MD (Electronically Signed) Final Date: 18 March 2024 12:33
--- NOTE | 2024-03-18 13:00 | P.PN ---
Subjective Progress Note Date: 03/18/24 Principal diagnosis: Digoxin toxicity. This is an 83-year-old female, patient was recently in the hospital from 03/03/2024 until 03/06/2024. Looking back at the chart, patient was admitted with MRSA cellulitis of the right lower extremity and infected diabetic heel ulcer. Her problems at the time included coronary artery disease, previous CABG, history of type 2 diabetes, paroxysmal atrial fibrillation, chronic diastolic congestive heart failure, hypertension, GERD, diabetic polyneuropathy, and orthostatic hypotension, history of left above-knee amputation. Yesterday, patient was noted by family members to have intermittent episodes of hallucinations, and upon arrival to the ER, the patient was noted to be quite bradycardic. Patient to this the patient has been fatigued for the last 48 hours, patient was noted to have positive digoxin toxicity, she was also noted to have significantly abnormal electrolytes including hyponatremia, hyperkalemia, and acute kidney injury with creatinine of 1.74 although she had normal baseline creatinine few weeks ago. Her digoxin level was 3.5, toxic range. For her digoxin toxicity, patient received Digibind, she was placed on dopamine for bradycardia and she remains on dopamine at 5 mg/kg/min for her hyperkalemia she received typical protocol for hyperkalemia and today's lab showed significant improvement. Her sodium is 132 potassium 5.3 bicarb is 19 BUN 35 creatinine 1.1. Blood sugar is a bit elevated at 262. And her digoxin level today is 1.7, in the therapeutic range. Patient is feeling much better today compared to how she felt yesterday. No more hallucinations, no more nausea and vomiting, and no diarrhea. Progress note dated March 18, 2024. This is a 83-year-old female who was admitted on March 16 for digoxin toxicity. She was very bradycardic with a heart rate in the 30s. She had third-degree heart block. She was transferred to the intensive care unit, for further monitoring and management, and is currently on dopamine at 2 mcg/kg/min. She is also getting saline at 20 cc an hour. She is also on nasal O2 2 L. Current labs include a white count 11.4, hemoglobin 9.9, macro 37.6, and a platelet count of 416,000. PTT is 43.7. Sodium 138, potassium 5.1, chlorides 113, CO2 19, anion gap 6, BUN 27, creatinine 0.82. Glucose is 111. Albumin 3.1. Urine is revealing gram-negative bacilli. Objective - Vital Signs Vital signs: Vital Signs Temp 97.6 F 03/18/24 08:00 Pulse 61 03/18/24 12:00 Resp 18 03/18/24 12:00 BP 135/49 03/18/24 12:00 Pulse Ox 99 03/18/24 12:00 FiO2 Intake & Output 03/17/24 03/18/24 03/18/24 18:59 06:59 18:59 Intake Total 290.798 220 290.842 Output Total 870 1510 650 Balance -579.202 -1290 -359.158 Weight 69.8 kg Intake: IV 290 220 170 Sodium Chloride 0.9% 1, 240 220 120 000 ml @ 20 mls/hr IV . Q24H [facility] Rx#:[id number] cefTRIAXone 2 gm In 50 50 Sodium Chloride 0.9% 50 ml @ 100 mls/hr IVPB Q24HR [facility]INDY Rx#:[id number] Intake, IV Titration 0.798 120.842 Amount DOPamine DRIP 800 mg In 0.798 120.842 Dextrose/Water 1 250ml. bag @ 1 MCG/KG/MIN 1.329 mls/hr IV .Q24H CINDY Rx#: [id number] Output: Urine 870 1510 650 Other: Voiding Method Indwelling Catheter Indwelling Catheter Indwelling Catheter - Exam No acute distress, oriented 3. HEENT examination is grossly unremarkable. Mucous membranes are moist. No oral lesions. Neck supple. Full range of motion. No adenopathy thyromegaly or neck vein distention. Cardiovascular examination reveals regular rhythm rate. S1-S2 normal. No S3 or S4. Soft systolic murmur is noted. Lungs reveal clear breath sounds. Breath sounds are equal bilaterally. No adventitious lung sounds including wheezes rhonchi or crackles. Abdomen soft bowel sounds are heard. No masses or tenderness. Extremities are intact. No cyanosis clubbing or edema. The patient has a the knee amputation. Right heel wound. Skin is without rash or lesion. Neurologic examination is brief but nonfocal. - Labs CBC & Chem 7: 03/18/24 05:31 03/18/24 05:31 Labs: Abnormal Lab Results - Last 24 Hours (Table) 03/17/24 03/17/24 03/17/24 Range/Units 12: 16:17 18:51 WBC (3.8-10.6) k/uL RDW 16.0 H (11.5-15.5) % Plt Count 478 H (150-450) k/uL Neutrophils # 8.3 H (1.3-7.7) k/uL APTT 44.7 H (22.0-30.0) sec Chloride (98-107) mmol/L Carbon Dioxide (22-30) mmol/L BUN (7-17) mg/dL Glucose (74-99) mg/dL POC Glucose (mg/dL) 203 H (70-110) mg/dL AST (14-36) U/L ALT (4-34) U/L Total Protein (6.3-8.2) g/dL Albumin (3.5-5.0) g/dL 03/17/24 03/18/24 03/18/24 Range/Units 20:04 05:31 05:31 WBC 11.4 H (3.8-10.6) k/uL RDW 15.9 H (11.5-15.5) % Plt Count (150-450) k/uL Neutrophils # 8.5 H (1.3-7.7) k/uL APTT (22.0-30.0) sec Chloride 113 H (98-107) mmol/L Carbon Dioxide 19 L (22-30) mmol/L BUN 27 H (7-17) mg/dL Glucose 44 L* (74-99) mg/dL POC Glucose (mg/dL) 263 H (70-110) mg/dL AST 66 H (14-36) U/L ALT 131 H (4-34) U/L Total Protein 5.9 L (6.3-8.2) g/dL Albumin 3.1 L (3.5-5.0) g/dL 03/18/24 03/18/24 03/18/24 Range/Units 05:52 10:50 11:33 WBC (3.8-10.6) k/uL RDW (11.5-15.5) % Plt Count (150-450) k/uL Neutrophils # (1.3-7.7) k/uL APTT 43.7 H (22.0-30.0) sec Chloride (98-107) mmol/L Carbon Dioxide (22-30) mmol/L BUN (7-17) mg/dL Glucose (74-99) mg/dL POC Glucose (mg/dL) 51 L 111 H (70-110) mg/dL AST (14-36) U/L ALT (4-34) U/L Total Protein (6.3-8.2) g/dL Albumin (3.5-5.0) g/dL Microbiology - Last 24 Hours (Table) 03/16/24 23:03 Urine Culture - Preliminary Urine,Catheterized Gram Neg Bacilli Assessment and Plan Assessment: Acute digoxin toxicity, with secondary bradycardia. Hypotension, secondary to above, resolved. Acute kidney injury secondary to ATN. History of CAD with previous bypass grafting. Chronic right foot cellulitis, secondary to MRSA. History of left [id number]-skrz amputation. Hyperlipidemia. Paroxysmal atrial fibrillation. PAD, status post multiple angioplasties of the left lower extremity. Recurrent UTI. History of osteoarthritis. Orthostatic hypotension. Gastroesophageal reflux disease with esophagitis. Diabetes mellitus, type II, with diabetic polyneuropathy. Plan: Plan dated March 18, 2024. The patient's urine is showing evidence of gram-negative bacilli. The patient remains on Rocephin. The patient was on dopamine at 5 mcg/kg/min. Is been weaned down to 2 mcg/kg/min. The patient also remains on nasal O2 at 2 L. She is getting saline at 20 cc an hour. Labs, x-rays, and all medications are reviewed. The patient is overall prognosis remains guarded. We will continue to follow the patient, make recommendations along the way. Time with Patient: Greater than 30
--- NOTE | 2024-03-18 14:14 | P.CNNES ---
History of Present Illness Consult date: 03/18/24 Requesting physician: Ag Orourke Reason for Consult: altered mental status History of Present Illness: This is an 83-year-old woman who presented emergency department for hallucination and bradycardia. It seems the patient has history of atrial fibrillation and is on digoxin. Patient could not provide the details of the story but per the ED note it seems that patient was having hallucination bradycardia and EMS was called for hallucination and was described as seeing bunch of little children going around her house. Patient stated that yesterday she was having generalized weakness felt she was having loss of balance and was dizzy. Stated that her sugar yesterday was low and was in the 60s. She stated that she is diabetic and she is on insulin according to the nurse today her mentation is drastically better. She was found to have digoxin toxicity and elevated liver function test. Nurse her heart rate on presentation was in the 30s and she was on dopamine and her bradycardia resolved. Patient denies of any focal weakness, visual disturbance, difficulty getting her words out. Denies of any headache. Some of the workup during this hospital visit consisted of: Potassium is 6.1 -1.74 and the BUN is 42 Initial serum glucose is 83 and the repeat it was 61. A the serum glucose is 44 Her liver function tests is elevated most recent ALT is 131 AST is 66. Urinalysis is turbid, leukocyte esterase is large, urine white blood cells more than 182, urine white blood cell clumps is many and urine bacteria is many. Urine culture is positive for gram-negative bacilli. Digoxin level on presentation is 3.5 which is considered toxic. Most recent repeat 1 is within normal range. CT of the head is reported as no acute intracranial process. I personally reviewed the CT and agree there is no acute or subacute stroke. Review of Systems As per HPI. Past Medical History Past Medical History: Atrial Fibrillation, Coronary Artery Disease (CAD), CVA/TIA, Diabetes Mellitus, Eye Disorder, GERD/Reflux, Hearing Disorder / Deafness, Hyperlipidemia, Hypertension, Myocardial Infarction ([place]), Rheumatoid Arthritis ([place]) Additional Past Medical History / Comment(s): Heart attack 2013. 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. Carotid stenosis. 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 Last Myocardial Infarction Date:: 2013 History of Any Multi-Drug Resistant Organisms: None Reported Date of last positivie culture/infection: 01/25/24 MDRO Source:: MRSA right heel Past Surgical History: Coronary Bypass/CABG Additional Past Surgical History / Comment(s): CABG x4 in 2014 Past Anesthesia/Blood Transfusion Reactions: No Reported Reaction Past Psychological History: Anxiety Smoking Status: Former smoker Past Alcohol Use History: Rare Past Drug Use History: None Reported - Past Family History Father Family Medical History: Unable to Obtain Mother Family Medical History: Cancer Additional Family Medical History / Comment(s): colon CA Medications and Allergies Home Medications Medication Instructions Recorded Confirmed Type Amiodarone [Cordarone] 200 mg PO BID 01/03/24 03/16/24 History Atorvastatin [Lipitor] 20 mg PO HS 01/03/24 03/16/24 History Cholecalciferol [Vitamin D3 (25 25 mcg PO DAILY 01/03/24 03/16/24 History Mcg = 1000 Iu)] Clopidogrel [Plavix] 75 mg PO DAILY 01/03/24 03/16/24 History Digoxin [Digitek] 125 mcg PO DAILY 01/03/24 03/16/24 History Isosorbide Mononitrate ER [Imdur] 15 mg PO DAILY 01/03/24 03/16/24 History Metoprolol Tartrate [Lopressor] 12.5 mg PO TID@0745,1645,2145 01/03/24 03/16/24 History Pregabalin [Lyrica] 75 mg PO TID@0745,1645,2145 01/03/24 03/16/24 History busPIRone HCL 10 mg PO DAILY 01/03/24 03/16/24 History Apixaban [Eliquis] 5 mg PO BID #60 tab 01/05/24 03/16/24 Rx Collagenase [Santyl Ointment] 1 applic TOPICAL DAILY 01/23/24 03/16/24 History Insulin Lispro [humaLOG Kwikpen] See Protocol SQ ACHS 01/23/24 03/16/24 History Nystatin 100,000 Unit/gm Powd 1 applic TOPICAL BID PRN 03/03/24 03/16/24 History [Mycostatin Powder] Spironolactone [Aldactone] 25 mg PO DAILY 03/03/24 03/16/24 History Insulin Glargine,Hum.rec.anlog 15 units SQ HS #0 03/06/24 03/16/24 Rx [Lantus Solostar Pen] Losartan [Cozaar] 50 mg PO BID #60 tab 03/06/24 03/16/24 Rx Sulfamethox-Tmp 800-160Mg [Bactrim 1 tab PO Q12HR 10 Days #20 tab 03/06/24 03/16/24 Rx DS 800-160 mg] amLODIPine [Norvasc] 5 mg PO DAILY #30 tab 03/06/24 03/16/24 Rx Acetaminophen Tab [Tylenol Tab] 1,000 mg PO Q6H PRN 03/16/24 03/16/24 History Allergies Allergy/AdvReac Type Severity Reaction Status Date / Time codeine Allergy Swelling Verified 03/16/24 15:44 Physical Examination - Vital Signs Vital Signs: Vital Signs Temp Pulse Resp BP Pulse Ox 03/18/24 13:00 62 5 L 169/58 100 03/18/24 12:30 63 7 L 141/55 99 03/18/24 12:00 61 18 135/49 99 03/18/24 11:30 57 L 14 131/45 98 03/18/24 11:00 61 7 L 141/58 98 03/18/24 10:30 62 23 135/41 99 03/18/24 10:00 61 20 128/40 99 03/18/24 09:30 54 L 13 144/41 99 03/18/24 09:00 59 L 16 150/46 100 03/18/24 08:30 61 16 141/56 100 03/18/24 08:00 97.6 F 66 10 L 162/56 88 L 03/18/24 07:30 68 16 109/28 94 L 03/18/24 07:00 61 10 L 126/35 97 03/18/24 06:30 61 11 L 112/39 92 L 03/18/24 06:00 65 9 L 137/113 03/18/24 05:30 56 L 13 145/40 03/18/24 05:00 65 17 136/46 03/18/24 04:30 68 14 145/53 03/18/24 04:00 97.9 F 74 13 157/76 03/18/24 03:30 74 19 149/54 03/18/24 03:00 74 9 L 110/73 03/18/24 02:30 72 11 L 141/48 95 03/18/24 02:00 68 12 142/39 96 03/18/24 01:30 64 7 L 139/45 95 03/18/24 01:00 64 38 H 149/55 95 03/18/24 00:30 67 5 L 150/49 91 L 03/18/24 00:00 97.7 F 70 21 140/55 97 03/17/24 23:35 67 15 140/55 94 L 03/17/24 23:30 70 19 146/52 95 03/17/24 23:00 68 11 L 144/49 97 03/17/24 22:30 63 9 L 150/50 97 03/17/24 22:00 63 5 L 158/44 97 03/17/24 21:30 65 13 148/51 98 03/17/24 21:00 70 17 143/52 95 03/17/24 20:30 55 L 6 L 137/42 96 03/17/24 20:00 98.2 F 52 L 13 144/43 98 03/17/24 19:30 51 L 32 H 146/44 97 03/17/24 19:00 49 L 19 147/46 96 03/17/24 18:30 47 L 134/38 97 03/17/24 18:00 47 L 22 128/37 96 03/17/24 17:30 49 L 11 L 127/105 97 03/17/24 17:00 51 L 12 136/39 97 03/17/24 16:30 46 L 15 139/37 97 03/17/24 16:00 98.8 F 49 L 17 125/40 96 03/17/24 15:30 51 L 16 111/67 96 03/17/24 15:00 45 L 16 146/45 96 03/17/24 14:30 46 L 16 133/44 97 Intake and Output 03/17/24 03/18/24 03/18/24 22:59 06:59 14:59 Intake Total 140.798 160 518.437 Output Total 575 1110 750 Balance -434.202 -950 -231.563 Intake: IV 140 160 190 Sodium Chloride 0.9% 1, 140 160 140 000 ml @ 20 mls/hr IV . Q24H [facility] Rx#:[id number] cefTRIAXone 2 gm In 50 Sodium Chloride 0.9% 50 ml @ 100 mls/hr IVPB Q24HR [facility] Rx#:[id number] Intake, IV Titration 0.798 328.437 Amount DOPamine DRIP 800 mg In 0.798 120.842 Dextrose/Water 1 250ml. bag @ 1 MCG/KG/MIN 1.329 mls/hr IV .Q24H [facility] Rx#: [id number] Heparin Sod,Pork in 0.45% 207.595 NaCl 25,000 unit In 0.45 % NaCl 1 250ml.bag @ 12 UNITS/KG/HR 8.508 mls/hr IV .Q24H [facility] Rx#: [id number] Output: Urine 575 1110 750 Other: Voiding Method Indwelling Catheter Indwelling Catheter Indwelling Catheter Weight 69.8 kg GENERAL: The patient is lying in bed and is not in acute distress. NEUROLOGICAL: Higher mental function: The patient is awake, alert, oriented to self, place and time. Patient is following commands. No aphasia and no neglect. Cranial nerves: The pupils are round, equal and reactive to light and accommodation. Visual null are full to confrontation throughout. Extraocular movement is intact no nystagmus is noted. Facial sensation is normal to touch throughout. The facial strength is normal throughout. Hearing is normal bilaterally to hand rub. Tongue is midline and moved [id number] without any difficulty. No dysarthria is noted. Shoulder shrug is normal bilaterally. Motor: Has left AKA. Strength is 5/5 throughout. Normal tone and bulk. Cerebellum: Normal finger to nose heel to chin bilaterally. Sensation: Sensation is normal to touch throughout. Reflexes (right/left): 2+ throughout (has left AKA). Plantars is mute on the right and has left AKA. Results - Laboratory Findings CBC and BMP: 03/18/24 05:31 03/18/24 05:31 Abnormal Lab Findings: Abnormal Labs 03/16/24 03/16/24 03/16/24 14:36 14:36 15:25 WBC Hgb 10.9 L RDW 16.1 H Plt Count 460 H Neutrophils # 8.3 H APTT Sodium 126 L Potassium 6.1 H* Chloride 96 L Carbon Dioxide 19 L BUN 42 H Creatinine 1.74 H Glucose POC Glucose (mg/dL) Ionized Calcium Alayna 4.4 L Total Bilirubin 0.1 L AST 103 H ALT 149 H Total Protein 6.0 L Albumin 3.4 L Urine Appearance Urine Protein Urine Blood Ur Leukocyte Esterase Urine RBC Urine WBC Urine WBC Clumps Urine Bacteria Hyaline Casts Digoxin 3.5 H* 03/16/24 03/16/24 03/16/24 19:12 20:33 21:26 WBC Hgb RDW Plt Count Neutrophils # APTT Sodium 128 L Potassium 5.6 H Chloride Carbon Dioxide 15 L BUN 41 H Creatinine 1.49 H Glucose 61 L POC Glucose (mg/dL) 69 L 61 L Ionized Calcium Alayna Total Bilirubin AST ALT Total Protein Albumin Urine Appearance Urine Protein Urine Blood Ur Leukocyte Esterase Urine RBC Urine WBC Urine WBC Clumps Urine Bacteria Hyaline Casts Digoxin 03/16/24 03/16/24 03/17/24 22:35 23:03 02:29 WBC Hgb RDW Plt Count Neutrophils # APTT Sodium Potassium 5.3 H Chloride Carbon Dioxide BUN Creatinine Glucose POC Glucose (mg/dL) 163 H Ionized Calcium Alayna Total Bilirubin AST ALT Total Protein Albumin Urine Appearance Turbid H Urine Protein 2+ H Urine Blood Moderate H Ur Leukocyte Esterase Large H Urine RBC >182 H Urine WBC >182 H Urine WBC Clumps Many H Urine Bacteria Many H Hyaline Casts 31 H Digoxin 03/17/24 03/17/24 03/17/24 06:11 06:42 08:46 WBC Hgb 11.1 L RDW 16.0 H Plt Count 517 H Neutrophils # APTT Sodium 132 L Potassium 5.3 H Chloride Carbon Dioxide 19 L BUN 35 H Creatinine 1.10 H Glucose 125 H POC Glucose (mg/dL) 154 H Ionized Calcium Alayna Total Bilirubin AST ALT Total Protein Albumin Urine Appearance Urine Protein Urine Blood Ur Leukocyte Esterase Urine RBC Urine WBC Urine WBC Clumps Urine Bacteria Hyaline Casts Digoxin 03/17/24 03/17/24 03/17/24 11:09 12:29 16:17 WBC Hgb RDW 16.0 H Plt Count 478 H Neutrophils # 8.3 H APTT Sodium Potassium Chloride Carbon Dioxide BUN Creatinine Glucose POC Glucose (mg/dL) 262 H 203 H Ionized Calcium Alayna Total Bilirubin AST ALT Total Protein Albumin Urine Appearance Urine Protein Urine Blood Ur Leukocyte Esterase Urine RBC Urine WBC Urine WBC Clumps Urine Bacteria Hyaline Casts Digoxin 03/17/24 03/17/24 03/18/24 18:51 20:04 05:31 WBC 11.4 H Hgb RDW 15.9 H Plt Count Neutrophils # 8.5 H APTT 44.7 H Sodium Potassium Chloride Carbon Dioxide BUN Creatinine Glucose POC Glucose (mg/dL) 263 H Ionized Calcium Alayna Total Bilirubin AST ALT Total Protein Albumin Urine Appearance Urine Protein Urine Blood Ur Leukocyte Esterase Urine RBC Urine WBC Urine WBC Clumps Urine Bacteria Hyaline Casts Digoxin 03/18/24 03/18/24 03/18/24 05:31 05:52 10:50 WBC Hgb RDW Plt Count Neutrophils # APTT 43.7 H Sodium Potassium Chloride 113 H Carbon Dioxide 19 L BUN 27 H Creatinine Glucose 44 L* POC Glucose (mg/dL) 51 L Ionized Calcium Alayna Total Bilirubin AST 66 H ALT 131 H Total Protein 5.9 L Albumin 3.1 L Urine Appearance Urine Protein Urine Blood Ur Leukocyte Esterase Urine RBC Urine WBC Urine WBC Clumps Urine Bacteria Hyaline Casts Digoxin 03/18/24 11:33 WBC Hgb RDW Plt Count Neutrophils # APTT Sodium Potassium Chloride Carbon Dioxide BUN Creatinine Glucose POC Glucose (mg/dL) 111 H Ionized Calcium Alayna Total Bilirubin AST ALT Total Protein Albumin Urine Appearance Urine Protein Urine Blood Ur Leukocyte Esterase Urine RBC Urine WBC Urine WBC Clumps Urine Bacteria Hyaline Casts Digoxin Assessment and Plan Assessment: This is an 83-year-old woman who presented emergency department because of hallucination and bradycardia. She was found to be and digoxin toxicity, hypoglycemia, acute urinary tract infection, elevated liver function test with bradycardia. Altered mental status due to multifactorial: Toxic metabolic encephalopathy, digoxin toxicity as well as acute urinary tract infection--mentation improved Digoxin toxicity--resolved Hypoglycemia Acute urinary tract infection Transaminitis Hyperkalemia Acute urinary tract infection History of atrial fibrillation on Eliquis and is on digoxin Bradycardia History of left above-knee amputation Diabetes mellitus on insulin Plan: From a neurology perspective no further workup since patient mentation is improved. Again as stated earlier this seems more toxic metabolic encephalopathy. Please avoid hypoglycemia and will defer the management to the primary team Will defer the rest of the medical management to the primary and other specialist The plan discussed with the patient and her nurse as well as the primary attending Thank you for the consultation There is no further neurological workup. Will sign off. Please reconsult if needed Time with Patient: Greater than 30
[2024-03-18 16:28] LABS: Glucose,Whole Blood 189 mg/dL (70-110)
[2024-03-18] MEDS: COLLAGENASE 250 UNIT/GM OINTMENT 30 GM TUBE TOPICAL SCH (17:05)
--- NOTE | 2024-03-18 17:11 | P.GSCN ---
History of Present Illness History of present illness: 83-year-old white female patient is well-known to us from the wound clinic. Came with bradycardia and some hallucination patient was seen in the intensive care unit history of diabetes hypertension peripheral vascular disease patient has a right heel pressure ulcer we have been treating with local wound care and Santyl cream Patient was seen in the [facility] unit neck is supple no bruit appreciated Chest crackles bilateral. 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. Carotid stenosis. 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 Last Myocardial Infarction Date:: 2013 History of Any Multi-Drug Resistant Organisms: None Reported Year Discovered:: 01/25/24 MDRO Source:: MRSA right heel Past Surgical History: Coronary Bypass/CABG Additional Past Surgical History / Comment(s): CABG x4 in 2013 Past Anesthesia/Blood Transfusion Reactions: No Reported Reaction Past Psychological History: Anxiety Smoking Status: Former smoker Past Alcohol Use History: Rare Past Drug Use History: None Reported - Past Family History Father Family Medical History: Unable to Obtain Mother Family Medical History: Cancer Additional Family Medical History / Comment(s): colon CA Medications and Allergies Home Medications Medication Instructions Recorded Confirmed Type Amiodarone [Cordarone] 200 mg PO BID 01/03/24 03/16/24 History Atorvastatin [Lipitor] 20 mg PO HS 01/03/24 03/16/24 History Cholecalciferol [Vitamin D3 (25 25 mcg PO DAILY 01/03/24 03/16/24 History Mcg = 1000 Iu)] Clopidogrel [Plavix] 75 mg PO DAILY 01/03/24 03/16/24 History Digoxin [Digitek] 125 mcg PO DAILY 01/03/24 03/16/24 History Isosorbide Mononitrate ER [Imdur] 15 mg PO DAILY 01/03/24 03/16/24 History Metoprolol Tartrate [Lopressor] 12.5 mg PO TID@0745,1645,2145 01/03/24 03/16/24 History Pregabalin [Lyrica] 75 mg PO TID@0745,1645,2145 01/03/24 03/16/24 History busPIRone HCL 10 mg PO DAILY 01/03/24 03/16/24 History Apixaban [Eliquis] 5 mg PO BID #60 tab 01/05/24 03/16/24 Rx Collagenase [Santyl Ointment] 1 applic TOPICAL DAILY 01/23/24 03/16/24 History Insulin Lispro [humaLOG Kwikpen] See Protocol SQ ACHS 01/23/24 03/16/24 History Nystatin 100,000 Unit/gm Powd 1 applic TOPICAL BID PRN 03/03/24 03/16/24 History [Mycostatin Powder] Spironolactone [Aldactone] 25 mg PO DAILY 03/03/24 03/16/24 History Insulin Glargine,Hum.rec.anlog 15 units SQ HS #0 03/06/24 03/16/24 Rx [Lantus Solostar Pen] Losartan [Cozaar] 50 mg PO BID #60 tab 03/06/24 03/16/24 Rx Sulfamethox-Tmp 800-160Mg [Bactrim 1 tab PO Q12HR 10 Days #20 tab 03/06/24 03/16/24 Rx DS 800-160 mg] amLODIPine [Norvasc] 5 mg PO DAILY #30 tab 03/06/24 03/16/24 Rx Acetaminophen Tab [Tylenol Tab] 1,000 mg PO Q6H PRN 03/16/24 03/16/24 History Allergies Allergy/AdvReac Type Severity Reaction Status Date / Time codeine Allergy Swelling Verified 03/16/24 15:44 Surgical - Exam Vital Signs Temp Pulse Resp BP Pulse Ox 95.6 F L 33 L 18 98/40 95 03/16/24 14:27 03/16/24 14:27 03/16/24 14:27 03/16/24 14:27 03/16/24 14:27 Results - Labs 03/18/24 05:31 03/18/24 05:31 Abnormal Lab Results - Last 24 Hours (Table) 03/17/24 03/17/24 03/18/24 Range/Units 18:51 20:04 05:31 WBC 11.4 H (3.8-10.6) k/uL RDW 15.9 H (11.5-15.5) % Neutrophils # 8.5 H (1.3-7.7) k/uL APTT 44.7 H (22.0-30.0) sec Chloride (98-107) mmol/L Carbon Dioxide (22-30) mmol/L BUN (7-17) mg/dL Glucose (74-99) mg/dL POC Glucose (mg/dL) 263 H (70-110) mg/dL AST (14-36) U/L ALT (4-34) U/L Total Protein (6.3-8.2) g/dL Albumin (3.5-5.0) g/dL 03/18/24 03/18/24 03/18/24 Range/Units 05:31 05:52 10:50 WBC (3.8-10.6) k/uL RDW (11.5-15.5) % Neutrophils # (1.3-7.7) k/uL APTT 43.7 H (22.0-30.0) sec Chloride 113 H (98-107) mmol/L Carbon Dioxide 19 L (22-30) mmol/L BUN 27 H (7-17) mg/dL Glucose 44 L* (74-99) mg/dL POC Glucose (mg/dL) 51 L (70-110) mg/dL AST 66 H (14-36) U/L ALT 131 H (4-34) U/L Total Protein 5.9 L (6.3-8.2) g/dL Albumin 3.1 L (3.5-5.0) g/dL 03/18/24 03/18/24 Range/Units 11:33 16:27 WBC (3.8-10.6) k/uL RDW (11.5-15.5) % Neutrophils # (1.3-7.7) k/uL APTT (22.0-30.0) sec Chloride (98-107) mmol/L Carbon Dioxide (22-30) mmol/L BUN (7-17) mg/dL Glucose (74-99) mg/dL POC Glucose (mg/dL) 111 H 189 H (70-110) mg/dL AST (14-36) U/L ALT (4-34) U/L Total Protein (6.3-8.2) g/dL Albumin (3.5-5.0) g/dL Microbiology - Last 24 Hours (Table) 03/16/24 23:03 Urine Culture - Preliminary Urine,Catheterized Gram Neg Bacilli Diabetes panel 03/18/24 Range/Units 05:31 Sodium 138 (137-145) mmol/L Potassium 5.1 (3.5-5.1) mmol/L Chloride 113 H (98-107) mmol/L Carbon Dioxide 19 L (22-30) mmol/L BUN 27 H (7-17) mg/dL Creatinine 0.82 (0.52-1.04) mg/dL Glucose 44 L* (74-99) mg/dL Calcium 8.9 (8.4-10.2) mg/dL AST 66 H (14-36) U/L ALT 131 H (4-34) U/L Alkaline Phosphatase 111 (38-126) U/L Total Protein 5.9 L (6.3-8.2) g/dL Albumin 3.1 L (3.5-5.0) g/dL Calcium panel 03/18/24 Range/Units 05:31 Calcium 8.9 (8.4-10.2) mg/dL Albumin 3.1 L (3.5-5.0) g/dL Pituitary panel 03/18/24 Range/Units 05:31 Sodium 138 (137-145) mmol/L Potassium 5.1 (3.5-5.1) mmol/L Chloride 113 H (98-107) mmol/L Carbon Dioxide 19 L (22-30) mmol/L BUN 27 H (7-17) mg/dL Creatinine 0.82 (0.52-1.04) mg/dL Glucose 44 L* (74-99) mg/dL Calcium 8.9 (8.4-10.2) mg/dL Adrenal panel 03/18/24 Range/Units 05:31 Sodium 138 (137-145) mmol/L Potassium 5.1 (3.5-5.1) mmol/L Chloride 113 H (98-107) mmol/L Carbon Dioxide 19 L (22-30) mmol/L BUN 27 H (7-17) mg/dL Creatinine 0.82 (0.52-1.04) mg/dL Glucose 44 L* (74-99) mg/dL Calcium 8.9 (8.4-10.2) mg/dL Total Bilirubin 0.2 (0.2-1.3) mg/dL AST 66 H (14-36) U/L ALT 131 H (4-34) U/L Alkaline Phosphatase 111 (38-126) U/L Total Protein 5.9 L (6.3-8.2) g/dL Albumin 3.1 L (3.5-5.0) g/dL
[2024-03-18 20:24] LABS: Glucose,Whole Blood 271 mg/dL (70-110)
[2024-03-18] MEDS: ATORVASTATIN 40 MG TAB PO SCH (20:56)
[2024-03-18 23:56] LABS: Glucose,Whole Blood 104 mg/dL (70-110)
--- NOTE | 2024-03-19 00:20 | PN ---
PROGRESS NOTE DATE OF SERVICE: 03/18/2024 SUBJECTIVE: This is an 83-year-old woman, who was admitted with digitoxicity, is being closely monitored. The patient had some confusion . Other neurological manifestation could be due to digitoxicity. The 2D echo showed mild to moderate mitral stenosis. PAST MEDICAL HISTORY: Reviewed. REVIEW OF SYSTEMS: A 14-point review of systems is negative except as mentioned earlier. CURRENT MEDICATIONS: Reviewed. PHYSICAL EXAMINATION: VITAL SIGNS: Pulse is 63, blood pressure is 140/52, respirations 17. HEENT: Conjunctivae normal. NECK: No JVD. CARDIOVASCULAR: S1, S2. RESPIRATIONS: Breath sounds diminished at the bases. ABDOMEN: Soft. NERVOUS SYSTEM: Nonfocal. LABORATORY DATA: Glucose noted. ASSESSMENT: 1. Change in mental status, severe bradycardia, possibly digitoxicity. 2. Acute renal failure with hyperkalemia. 3. Rule out transient ischemic attack. 4. History of atrial fibrillation. 5. Diabetes mellitus, type 2 with hypoglycemia. 6. History of myocardial infarction. 7. History of rheumatoid arthritis. 8. History of urinary tract infection. 9. Multiple complex medical issues. RECOMMENDATIONS: Recommend to continue current management and continue symptomatic treatment. Repeat labs. Otherwise, we will closely monitor. Avoid digoxin. Monitor heart rate. The pulse appears to be improving. Neurology, GI workup. Further recommendations to follow. MMODL / IJN: [id number] /
[2024-03-19 06:36] LABS: Anisocytosis Slight; Basophils % (A) 0 %; Eosinophils # (A) 0.4 k/uL (0-0.7); Eosinophils % (A) 3 %; HCT 32.8 % (34.0-46.0); HGB 10.3 gm/dL (11.4-16.0); Hypochromasia Slight; Lymphocytes # (A) 1.3 k/uL (1.0-4.8); Lymphocytes % (A) 12 %; MCH 28.5 pg (25.0-35.0); MCHC 31.4 g/dL (31.0-37.0); MCV 90.7 fL (80.0-100.0); Mean Platelet Volume 7.8; Monocytes # (A) 0.6 k/uL (0-1.0); Monocytes % (A) 5 %; Neutrophils # (A) 8.5 k/uL (1.3-7.7); Neutrophils % (A) 78 %; Platelet Count 353 k/uL (150-450); RBC 3.62 m/uL (3.80-5.40); RDW 16.2 % (11.5-15.5); WBC 10.9 k/uL (3.8-10.6)
[2024-03-19 06:42] LABS: Glucose,Whole Blood 134 mg/dL (70-110)
[2024-03-19 06:57] LABS: African American GFR (CKD) >90 (>60 ml/min/1.73 sqM); Anion Gap 7 mmol/L; Blood Urea Nitrogen 13 mg/dL (7-17); Calcium 8.6 mg/dL (8.4-10.2); Carbon Dioxide 22 mmol/L (22-30); Chloride 108 mmol/L (98-107); Glucose 119 mg/dL (74-99); Magnesium 1.6 mg/dL (1.6-2.3); Non-African American GFR(CKD) 84 (>60 ml/min/1.73 sqM); Potassium 4.5 mmol/L (3.5-5.1); Sodium 137 mmol/L (137-145)
--- NOTE | 2024-03-19 07:37 | P.PN ---
Subjective Progress Note Date: 03/19/24 PROGRESS NOTE The patient is an 83-year-old female, status post CABG, PCI, left AKA with history of peripheral vascular disease who presented with change in mental status and was noted to be bradycardic with what appears to be junctional rhythm. She was dig toxic. She has history of cellulitis. Nonhealing ulcer on the right heel. She is in sinus mechanism on IV dopamine. Her blood pressure is stable. She has no evidence of malignant arrhythmia. Hemodynamically she is stable. She does appear to be awake and alert today. She received Digibind. She had no further episodes of significant bradycardia arrhythmia. March 19: The patient is feeling better today, she continues to be in sinus mechanism with no further episodes of bradycardia arrhythmia. Hemodynamically she is stable. She is anxious to go home. She denies any dizziness or palpitations. Her blood pressure has been stable. She has no nausea or vomiting. She is off the IV dopamine and continues to be on IV heparin. Her echocardiogram showed a preserved systolic function with mild to moderate mitral stenosis. Medications: Plavix 75 mg daily, IV heparin, isosorbide mononitrate 15 mg daily, insulin, Lipitor 40 mg daily. Patient was on amiodarone, digoxin and metoprolol as an outpatient. She was anticoagulated because of a history of paroxysmal atrial fibrillation. PHYSICAL EXAMINATION: Blood pressure 145/59 heart rate 63 LUNGS: Clear to auscultation HEART: Regular rate and rhythm, S1, S2. No S3. Systolic ejection murmur, 3/6, bilateral bruit Abdomen: Soft, nontender, no organomegaly EXTREMETIES: Dressing on the right lower extremity status post left AKA LAB: Hemoglobin 10.3, BUN 13, creatinine 0.63. IMPRESSION: 1. Change in mental status, improving 2. Digoxin toxicity with bradycardia, resolved 3. History of CAD status post CABG and PCI 4. History of PAD status post left AKA and nonhealing ulcer on the right heel with recent cellulitis 5. Paroxysmal atrial fibrillation 6. History of hyperlipidemia PLAN: 1. Change to oral anticoagulation 2. Continue other treatment 3. Follow blood pressure and adjust treatment as needed 4. Probable transfer to telemetry Objective - Vital Signs Vital signs: Vital Signs Temp 98.2 F 03/19/24 04:00 Pulse 63 03/19/24 07:00 Resp 17 03/19/24 07:00 BP 145/59 03/19/24 07:00 Pulse Ox 95 03/19/24 07:00 FiO2 Intake & Output 03/18/24 03/19/24 03/19/24 18:59 06:59 18:59 Intake Total 1018.437 840 Output Total 1300 1445 100 Balance -281.563 -605 -100 Weight 65.487 kg Intake: IV 290 100 Sodium Chloride 0.9% 1, 240 100 000 ml @ 20 mls/hr IV . Q24H [facility] Rx#:[id number] cefTRIAXone 2 gm In 50 Sodium Chloride 0.9% 50 ml @ 100 mls/hr IVPB Q24HR [facility] Rx#:[id number] Intake, IV Titration 328.437 Amount DOPamine DRIP 800 mg In 120.842 Dextrose/Water 1 250ml. bag @ 1 MCG/KG/MIN 1.329 mls/hr IV .Q24H [facility] Rx#: [id number] Heparin Sod,Pork in 0.45% 207.595 NaCl 25,000 unit In 0.45 % NaCl 1 250ml.bag @ 12 UNITS/KG/HR 8.508 mls/hr IV .Q24H [facility] Rx#: [id number] Oral 400 740 Output: Urine 1300 1445 100 Other: Voiding Method Indwelling Catheter Indwelling Catheter # Bowel Movements 1 - Labs CBC & Chem 7: 03/19/24 06:06 03/19/24 06:06 Labs: Abnormal Lab Results - Last 24 Hours (Table) 03/18/24 03/18/24 03/18/24 Range/Units 10:50 11:33 16:27 WBC (3.8-10.6) k/uL RBC (3.80-5.40) m/uL Hgb (11.4-16.0) gm/dL Hct (34.0-46.0) % RDW (11.5-15.5) % Neutrophils # (1.3-7.7) k/uL APTT 43.7 H (22.0-30.0) sec Chloride (98-107) mmol/L Glucose (74-99) mg/dL POC Glucose (mg/dL) 111 H 189 H (70-110) mg/dL 03/18/24 03/19/24 03/19/24 Range/Units 20:23 06:06 06:06 WBC 10.9 H (3.8-10.6) k/uL RBC 3.62 L (3.80-5.40) m/uL Hgb 10.3 L (11.4-16.0) gm/dL Hct 32.8 L (34.0-46.0) % RDW 16.2 H (11.5-15.5) % Neutrophils # 8.5 H (1.3-7.7) k/uL APTT (22.0-30.0) sec Chloride 108 H (98-107) mmol/L Glucose 119 H (74-99) mg/dL POC Glucose (mg/dL) 271 H (70-110) mg/dL 03/19/24 03/19/24 Range/Units 06:06 06:40 WBC (3.8-10.6) k/uL RBC (3.80-5.40) m/uL Hgb (11.4-16.0) gm/dL Hct (34.0-46.0) % RDW (11.5-15.5) % Neutrophils # (1.3-7.7) k/uL APTT 40.2 H (22.0-30.0) sec Chloride (98-107) mmol/L Glucose (74-99) mg/dL POC Glucose (mg/dL) 134 H (70-110) mg/dL Microbiology - Last 24 Hours (Table) 03/17/24 18:51 Blood Culture - Preliminary Blood 03/16/24 23:03 Urine Culture - Preliminary Urine,Catheterized Gram Neg Bacilli
[2024-03-19] MEDS: APIXABAN 5 MG TAB PO SCH (08:58)
[2024-03-19] MEDS: ISOSORBIDE MONONITRATE ER 30 MG TAB.ER.24H PO SCH (08:59)
--- NOTE | 2024-03-19 09:28 | P.PN ---
Subjective This is a pleasant 83 years old female who presents initially because of hallucination, altered mental status and bradycardia Found to have low heart rate in the 30s, and digoxin level was high 3.5 she was diagnosed with digoxin toxicity and she was admitted to the ICU for close monitoring. 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 She is continued on heparin drip and switched today to Eliquis for her chronic A-fib. Patient also developing some diarrhea but no abdominal pain Currently she is afebrile She has mild leukocytosis 10.9, hemoglobin 10.3 Liver enzymes slightly elevated. BMP, INR, troponin were unremarkable Urine analysis suspicious for infection proBNP is 6850 Urine culture is growing gram-negative bacilli Ejection fraction 60 to 65% with mild to moderate mitral stenosis CT of the brain is negative for acute process Chest x-ray showing no acute cardiopulmonary process. C. difficile is ordered and is pending Review of systems CONSTITUTIONAL: No fever, no malaise, no fatigue. HEENT: No recent visual problems or hearing problems. Denied any sore throat. CARDIOVASCULAR: No orthopnea, PND, no palpitations, no syncope. PULMONARY: No shortness of breath, no cough, no hemoptysis. GENITOURINARY: Denies any burning micturition, frequency, or urgency. MUSCULOSKELETAL/RHEUMATOLOGICAL: Denies any joint pain, swelling, or any muscle pain. ENDOCRINE: Denies any polyuria or polydipsia. Active Medications Generic Name Dose Route Start Last Admin Trade Name Freq PRN Reason Stop Dose Admin Acetaminophen 650 mg 03/17/24 11:08 03/19/24 04:57 Acetaminophen Tab 325 Mg Tab PO 650 mg Q6HR PRN Administration Fever and/ or Pain Apixaban 5 mg 03/19/24 09:00 03/19/24 08:58 Apixaban 5 Mg Tab PO 5 mg BID [facility] Administration Protocol Atorvastatin Calcium 40 mg 03/18/24 21:00 03/18/24 20:56 Atorvastatin 40 Mg Tab PO 40 mg HS [facility] Administration Cholecalciferol 25 mcg 03/18/24 09:00 03/19/24 08:59 Cholecalciferol 25 Mcg (1000 Iu) Tablet PO 25 mcg DAILY [facility] Administration Clopidogrel Bisulfate 75 mg 03/18/24 09:00 03/19/24 08:58 Clopidogrel 75 Mg Tab PO 75 mg DAILY [facility] Administration Collagenase 1 applic 03/18/24 16:15 03/18/24 17:05 Collagenase 250 Unit/Gm Ointment 30 Gm Tube TOPICAL 1 applic DAILY [facility] Administration Protocol Dextrose/Water 50 ml 03/16/24 23:38 Dextrose 50% Syringe 50 Ml IVP ONCE PRN Hypoglycemia Sodium Chloride 1,000 mls @ 20 mls/hr 03/16/24 17:30 03/19/24 03:38 Saline 0.9% IV Not Given .Q24H [facility] Ceftriaxone Sodium 2 gm/ 50 mls @ 100 mls/hr 03/17/24 09:30 03/19/24 08:58 Sodium Chloride IVPB 100 mls/hr Q24HR [facility] Administration Protocol Insulin Aspart 0 unit 03/17/24 07:30 03/19/24 06:48 Insulin Aspart (Novolog) 100 Unit/Ml Vial SQ Not Given ACHS [facility] Protocol Insulin Detemir 15 unit 03/17/24 21:00 03/19/24 00:07 Insulin Detemir (Levemir) 100 Unit/Ml Syr SQ Not Given HS [facility] Isosorbide Mononitrate 30 mg 03/19/24 09:00 03/19/24 08:59 Isosorbide Mononitrate Er 30 Mg Tab.Er.24h PO 30 mg DAILY [facility] Administration Naloxone HCl 0.2 mg 03/16/24 17:17 Naloxone 0.4 Mg/Ml 1 Ml Vial IV Q2M PRN Opioid Reversal Pantoprazole Sodium 40 mg 03/17/24 09:00 03/19/24 08:58 Pantoprazole 40 Mg/10 Ml Vial IVP 40 mg DAILY [facility] Administration Petrolatum 1 applic 03/16/24 21:08 Zinc Oxide Paste (Z-Guard) 1 Applic TOPICAL Q2HR PRN [facility] Protocol Objective - Vital Signs Vital signs: Vital Signs Temp 98.1 F 03/19/24 08:00 Pulse 60 03/19/24 09:00 Resp 15 03/19/24 09:00 BP 125/60 03/19/24 09:00 Pulse Ox 97 03/19/24 09:00 FiO2 Intake & Output 03/18/24 03/19/24 03/19/24 18:59 06:59 18:59 Intake Total 1018.437 840 190 Output Total 1300 1445 230 Balance -281.563 -605 -40 Weight 65.487 kg Intake: IV 290 100 Sodium Chloride 0.9% 1, 240 100 000 ml @ 20 mls/hr IV . Q24H [facility] Rx#:[id number] cefTRIAXone 2 gm In 50 Sodium Chloride 0.9% 50 ml @ 100 mls/hr IVPB Q24HR [facility] Rx#:[id number] Intake, IV Titration 328.437 70 Amount DOPamine DRIP 800 mg In 120.842 Dextrose/Water 1 250ml. bag @ 1 MCG/KG/MIN 1.329 mls/hr IV .Q24H [facility] Rx#: [id number] Heparin Sod,Pork in 0.45% 207.595 NaCl 25,000 unit In 0.45 % NaCl 1 250ml.bag @ 12 UNITS/KG/HR 8.508 mls/hr IV .Q24H [facility] Rx#: [id number] Sodium Chloride 0.9% 1, 20 000 ml @ 20 mls/hr IV . Q24H [facility] Rx#:[id number] cefTRIAXone 2 gm In 50 Sodium Chloride 0.9% 50 ml @ 100 mls/hr IVPB Q24HR [facility] Rx#:[id number] Oral 400 740 120 Output: Urine 1300 1445 230 Other: Voiding Method Indwelling Catheter Indwelling Catheter # Bowel Movements 1 1 - Exam GENERAL: The patient is alert and oriented x3, not in any acute distress. Well developed, well nourished. HEENT: Pupils are round and equally reacting to light. EOMI. No scleral icterus. No conjunctival pallor. Normocephalic, atraumatic. No pharyngeal erythema. No thyromegaly. CARDIOVASCULAR: S1 and S2 present. No murmurs, rubs, or gallops. PULMONARY: Chest is clear to auscultation, no wheezing , no crackles. ABDOMEN: Soft, nontender, nondistended, normoactive bowel sounds. No palpable organomegaly. MUSCULOSKELETAL: No joint swelling or deformity. -EXTREMITIES: No cyanosis, clubbing, or pedal edema. Left AKA. Right lower extremity in a dressing for her chronic cellulitis NEUROLOGICAL: Gross neurological examination did not reveal any focal deficits. SKIN: No rashes. no petechiae. - Labs CBC & Chem 7: 03/19/24 06:06 03/19/24 06:06 Labs: Abnormal Lab Results - Last 24 Hours (Table) 03/18/24 03/18/24 03/18/24 Range/Units 10:50 11:33 16:27 WBC (3.8-10.6) k/uL RBC (3.80-5.40) m/uL Hgb (11.4-16.0) gm/dL Hct (34.0-46.0) % RDW (11.5-15.5) % Neutrophils # (1.3-7.7) k/uL APTT 43.7 H (22.0-30.0) sec Chloride (98-107) mmol/L Glucose (74-99) mg/dL POC Glucose (mg/dL) 111 H 189 H (70-110) mg/dL 03/18/24 03/19/24 03/19/24 Range/Units 20:23 06:06 06:06 WBC 10.9 H (3.8-10.6) k/uL RBC 3.62 L (3.80-5.40) m/uL Hgb 10.3 L (11.4-16.0) gm/dL Hct 32.8 L (34.0-46.0) % RDW 16.2 H (11.5-15.5) % Neutrophils # 8.5 H (1.3-7.7) k/uL APTT (22.0-30.0) sec Chloride 108 H (98-107) mmol/L Glucose 119 H (74-99) mg/dL POC Glucose (mg/dL) 271 H (70-110) mg/dL 03/19/24 03/19/24 Range/Units 06:06 06:40 WBC (3.8-10.6) k/uL RBC (3.80-5.40) m/uL Hgb (11.4-16.0) gm/dL Hct (34.0-46.0) % RDW (11.5-15.5) % Neutrophils # (1.3-7.7) k/uL APTT 40.2 H (22.0-30.0) sec Chloride (98-107) mmol/L Glucose (74-99) mg/dL POC Glucose (mg/dL) 134 H (70-110) mg/dL Microbiology - Last 24 Hours (Table) 03/17/24 18:51 Blood Culture - Preliminary Blood 03/16/24 23:03 Urine Culture - Preliminary Urine,Catheterized Gram Neg Bacilli Assessment and Plan Assessment: Digoxin toxicity with bradycardia and hypotension, resolved Acute kidney injury, resolved Acute urinary tract infection secondary to gram-negative bacilli Chronic atrial fibrillation, currently heart rate is controlled. 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 Plan: Continue with ceftriaxone and follow-up urine culture Started on Eliquis for A-fib Continue with Plavix Keep off digoxin Cardiology and pulmonary team consult Check for C. difficile if negative may resume antimotility medication Labs and medication were reviewed.. Continue same treatment. Continue with symptomatic treatment. Resume home medication. Monitor labs and vitals. DVT and GI prophylaxis. Further recommendations as per clinical course of the patient DVT prophylaxis: S Eliquis GI Prophylaxis: P Protonix Prognosis is guarded
[2024-03-19] MEDS: ERTAPENEM 1 GM in SODIUM CHLORIDE 0.9% 50 ML IVPB SCH (11:19)
[2024-03-19 11:37] LABS: Glucose,Whole Blood 149 mg/dL (70-110)
--- NOTE | 2024-03-19 13:51 | P.PN ---
Subjective Progress Note Date: 03/19/24 Principal diagnosis: Digoxin toxicity. This is an 83-year-old female, patient was recently in the hospital from 03/03/2024 until 03/06/2024. Looking back at the chart, patient was admitted with MRSA cellulitis of the right lower extremity and infected diabetic heel ulcer. Her problems at the time included coronary artery disease, previous CABG, history of type 2 diabetes, paroxysmal atrial fibrillation, chronic diastolic congestive heart failure, hypertension, GERD, diabetic polyneuropathy, and orthostatic hypotension, history of left above-knee amputation. Yesterday, patient was noted by family members to have intermittent episodes of hallucinations, and upon arrival to the ER, the patient was noted to be quite bradycardic. Patient to this the patient has been fatigued for the last 48 hours, patient was noted to have positive digoxin toxicity, she was also noted to have significantly abnormal electrolytes including hyponatremia, hyperkalemia, and acute kidney injury with creatinine of 1.74 although she had normal baseline creatinine few weeks ago. Her digoxin level was 3.5, toxic range. For her digoxin toxicity, patient received Digibind, she was placed on dopamine for bradycardia and she remains on dopamine at 5 mg/kg/min for her hyperkalemia she received typical protocol for hyperkalemia and today's lab showed significant improvement. Her sodium is 132 potassium 5.3 bicarb is 19 BUN 35 creatinine 1.1. Blood sugar is a bit elevated at 262. And her digoxin level today is 1.7, in the therapeutic range. Patient is feeling much better today compared to how she felt yesterday. No more hallucinations, no more nausea and vomiting, and no diarrhea. Progress note dated March 18, 2024. This is a 83-year-old female who was admitted on March 16 for digoxin toxicity. She was very bradycardic with a heart rate in the 30s. She had third-degree heart block. She was transferred to the intensive care unit, for further monitoring and management, and is currently on dopamine at 2 mcg/kg/min. She is also getting saline at 20 cc an hour. She is also on nasal O2 2 L. Current labs include a white count 11.4, hemoglobin 9.9, macro 37.6, and a platelet count of 416,000. PTT is 43.7. Sodium 138, potassium 5.1, chlorides 113, CO2 19, anion gap 6, BUN 27, creatinine 0.82. Glucose is 111. Albumin 3.1. Urine is revealing gram-negative bacilli. Progress note dated March 19, 2024. This is a 83-year-old female seen in room 261. She was admitted with a diagnosis of digoxin toxicity, on March 16. The patient was profoundly david ycardic and was on dopamine to support her heart rate. Currently, she is seen in room 261. She is on room air. She is getting saline at 20 cc an hour. Her urinary infection is secondary to ESBL Klebsiella. Rocephin is discontinued in favor of ertapenem. White count is 10.9, hemoglobin 10.3, hematocrit 32.8, and platelet count was normal. PTT was 40.2. Sodium 137, potassium 4.5, chlorides 108, CO2 22, BUN and creatinine were both normal. Glucose was 149. Digoxin level was 1.0. Urine culture was positive for ESBL Klebsiella pneumoniae. Objective - Vital Signs Vital signs: Vital Signs Temp 97.9 F 03/19/24 12:00 Pulse 66 03/19/24 12:00 Resp 18 03/19/24 10:00 BP 165/63 03/19/24 12:00 Pulse Ox 95 03/19/24 12:00 FiO2 Intake & Output 03/18/24 03/19/24 03/19/24 18:59 06:59 18:59 Intake Total 1018.437 840 210 Output Total 1300 1445 230 Balance -281.563 -605 -20 Weight 65.487 kg Intake: IV 290 100 Sodium Chloride 0.9% 1, 240 100 000 ml @ 20 mls/hr IV . Q24H [facility] Rx#:[id number] cefTRIAXone 2 gm In 50 Sodium Chloride 0.9% 50 ml @ 100 mls/hr IVPB Q24HR [facility] Rx#:[id number] Intake, IV Titration 328.437 90 Amount DOPamine DRIP 800 mg In 120.842 Dextrose/Water 1 250ml. bag @ 1 MCG/KG/MIN 1.329 mls/hr IV .Q24H [facility] Rx#: [id number] Heparin Sod,Pork in 0.45% 207.595 NaCl 25,000 unit In 0.45 % NaCl 1 250ml.bag @ 12 UNITS/KG/HR 8.508 mls/hr IV .Q24H [facility] Rx#: [id number] Sodium Chloride 0.9% 1, 40 000 ml @ 20 mls/hr IV . Q24H [facility] Rx#:[id number] cefTRIAXone 2 gm In 50 Sodium Chloride 0.9% 50 ml @ 100 mls/hr IVPB Q24HR [facility] Rx#:[id number] Oral 400 740 120 Output: Urine 1300 1445 230 Other: Voiding Method Indwelling Catheter Indwelling Catheter Indwelling Catheter # Bowel Movements 1 1 - Exam No acute distress, oriented 3. HEENT examination is grossly unremarkable. Mucous membranes are moist. No oral lesions. Neck supple. Full range of motion. No adenopathy thyromegaly or neck vein distention. Cardiovascular examination reveals regular rhythm rate. S1-S2 normal. No S3 or S4. Soft systolic murmur is noted. Lungs reveal clear breath sounds. Breath sounds are equal bilaterally. No adventitious lung sounds including wheezes rhonchi or crackles. Abdomen soft bowel sounds are heard. No masses or tenderness. Extremities are intact. No cyanosis clubbing or edema. The patient has a the knee amputation. Right heel wound. Skin is without rash or lesion. Neurologic examination is brief but nonfocal. - Labs CBC & Chem 7: 03/19/24 06:06 03/19/24 06:06 Labs: Abnormal Lab Results - Last 24 Hours (Table) 03/18/24 03/18/24 03/19/24 Range/Units 16:27 20:23 06:06 WBC (3.8-10.6) k/uL RBC (3.80-5.40) m/uL Hgb (11.4-16.0) gm/dL Hct (34.0-46.0) % RDW (11.5-15.5) % Neutrophils # (1.3-7.7) k/uL APTT (22.0-30.0) sec Chloride 108 H (98-107) mmol/L Glucose 119 H (74-99) mg/dL POC Glucose (mg/dL) 189 H 271 H (70-110) mg/dL 03/19/24 03/19/24 03/19/24 Range/Units 06:06 06:06 06:40 WBC 10.9 H (3.8-10.6) k/uL RBC 3.62 L (3.80-5.40) m/uL Hgb 10.3 L (11.4-16.0) gm/dL Hct 32.8 L (34.0-46.0) % RDW 16.2 H (11.5-15.5) % Neutrophils # 8.5 H (1.3-7.7) k/uL APTT 40.2 H (22.0-30.0) sec Chloride (98-107) mmol/L Glucose (74-99) mg/dL POC Glucose (mg/dL) 134 H (70-110) mg/dL 03/19/24 Range/Units 11:36 WBC (3.8-10.6) k/uL RBC (3.80-5.40) m/uL Hgb (11.4-16.0) gm/dL Hct (34.0-46.0) % RDW (11.5-15.5) % Neutrophils # (1.3-7.7) k/uL APTT (22.0-30.0) sec Chloride (98-107) mmol/L Glucose (74-99) mg/dL POC Glucose (mg/dL) 149 H (70-110) mg/dL Microbiology - Last 24 Hours (Table) 03/16/24 23:03 Urine Culture - Final Urine,Catheterized Klebsiella pneumo ESBL MDRO 03/17/24 18:51 Blood Culture - Preliminary Blood Assessment and Plan Assessment: Acute digoxin toxicity, with secondary bradycardia. Hypotension, secondary to above, resolved. Acute kidney injury secondary to ATN. History of CAD with previous bypass grafting. Chronic right foot cellulitis, secondary to MRSA. History of left [id number] amputation. Hyperlipidemia. Paroxysmal atrial fibrillation. PAD, status post multiple angioplasties of the left lower extremity. ESBL Klebsiella pneumoniae acute urinary tract infection. History of osteoarthritis. Orthostatic hypotension. Gastroesophageal reflux disease with esophagitis. Diabetes mellitus, type II, with diabetic polyneuropathy. Plan: Plan dated March 18, 2024. The patient's urine is showing evidence of gram-negative bacilli. The patient remains on Rocephin. The patient was on dopamine at 5 mcg/kg/min. Is been weaned down to 2 mcg/kg/min. The patient also remains on nasal O2 at 2 L. She is getting saline at 20 cc an hour. Labs, x-rays, and all medications are reviewed. The patient is overall prognosis remains guarded. We will continue to follow the patient, make recommendations along the way. Plan dated March 19, 2024. The patient is doing relatively well. She is waiting for a bed out of the medical floor. She is on room air. She is getting saline at 20 cc an hour. The Klebsiella in her urine is ESBL, and the patient is given ertapenem, and Rocephin is discontinued. Labs, x-rays, and medications are reviewed. We will continue to follow the patient, make recommendations along the way. Prognosis is certainly guarded. Time with Patient: Less than 30
[2024-03-19 16:10] LABS: Glucose,Whole Blood 154 mg/dL (70-110)
[2024-03-19 19:58] LABS: Glucose,Whole Blood 203 mg/dL (70-110)
[2024-03-19] MEDS: SODIUM POLYSTYRENE SULFONATE 15 GM/60 ML BOTTLE PO STA (22:35)
[2024-03-20 06:15] LABS: Glucose,Whole Blood 53 mg/dL (70-110)
[2024-03-20 06:32] LABS: Glucose,Whole Blood 52 mg/dL (70-110)
[2024-03-20 06:47] LABS: Glucose,Whole Blood 64 mg/dL (70-110)
[2024-03-20] MEDS: DEXTROSE 50% SYRINGE 50 ML IVP PRN (06:47)
[2024-03-20 07:02] LABS: Glucose,Whole Blood 143 mg/dL (70-110)
--- NOTE | 2024-03-20 09:51 | P.PN ---
Subjective Progress Note Date: 03/18/24 Principal diagnosis: Reason for follow-up is UTI Patient is a 83-year-old female with a past medical history significant for atrial fibrillation coronary artery disease diabetes mellitus CVA TIA hypertension hyperlipidemia recent admission to the hospital with right lower extremity cellulitis, now presented back to hospital with mental status changes bradycardia within the noticed to have a elevated dig level and also positive UA elevated white count concerning for UTI. On today's evaluation that is 03/18/2024, patient has been afebrile, patient is breathing comfortably and is currently on room air, patient denies having any significant cough no chest pain, patient denies nausea vomiting or diarrhea and no abdominal pain. Patient white count is slightly up to 11.4 today creatinine is 0.82 Objective - Vital Signs Vital signs: Vital Signs Temp 97.6 F 03/18/24 08:00 Pulse 62 03/18/24 13:00 Resp 5 L 03/18/24 13:00 BP 169/58 03/18/24 13:00 Pulse Ox 100 03/18/24 13:00 FiO2 Intake & Output 03/17/24 03/18/24 03/18/24 18:59 06:59 18:59 Intake Total 290.798 220 518.437 Output Total 870 1510 750 Balance -579.202 -1290 -231.563 Weight 69.8 kg Intake: IV 290 220 190 Sodium Chloride 0.9% 1, 240 220 140 000 ml @ 20 mls/hr IV . Q24H [facility] Rx#:[id number] cefTRIAXone 2 gm In 50 50 Sodium Chloride 0.9% 50 ml @ 100 mls/hr IVPB Q24HR [facility] Rx#:[id number] Intake, IV Titration 0.798 328.437 Amount DOPamine DRIP 800 mg In 0.798 120.842 Dextrose/Water 1 250ml. bag @ 1 MCG/KG/MIN 1.329 mls/hr IV .Q24H [facility] Rx#: [id number] Heparin Sod,Pork in 0.45% 207.595 NaCl 25,000 unit In 0.45 % NaCl 1 250ml.bag @ 12 UNITS/KG/HR 8.508 mls/hr IV .Q24H [facility] Rx#: [id number] Output: Urine 870 1510 750 Other: Voiding Method Indwelling Catheter Indwelling Catheter Indwelling Catheter - Exam GENERAL DESCRIPTION: An elderly female lying in bed in no distress RESPIRATORY SYSTEM: Unlabored breathing , decreased breath sounds at bases HEART: S1 S2 regular rate and rhythm , ABDOMEN: Soft , no tenderness EXTREMITIES: Right leg is currently dressed no drainage - Labs CBC & Chem 7: 03/19/24 06:06 03/19/24 06:06 Labs: Abnormal Lab Results - Last 24 Hours (Table) 03/17/24 03/17/24 03/17/24 Range/Units 16:17 18:51 20:04 WBC (3.8-10.6) k/uL RDW (11.5-15.5) % Neutrophils # (1.3-7.7) k/uL APTT 44.7 H (22.0-30.0) sec Chloride (98-107) mmol/L Carbon Dioxide (22-30) mmol/L BUN (7-17) mg/dL Glucose (74-99) mg/dL POC Glucose (mg/dL) 203 H 263 H (70-110) mg/dL AST (14-36) U/L ALT (4-34) U/L Total Protein (6.3-8.2) g/dL Albumin (3.5-5.0) g/dL 03/18/24 03/18/24 03/18/24 Range/Units 05:31 05:31 05:52 WBC 11.4 H (3.8-10.6) k/uL RDW 15.9 H (11.5-15.5) % Neutrophils # 8.5 H (1.3-7.7) k/uL APTT (22.0-30.0) sec Chloride 113 H (98-107) mmol/L Carbon Dioxide 19 L (22-30) mmol/L BUN 27 H (7-17) mg/dL Glucose 44 L* (74-99) mg/dL POC Glucose (mg/dL) 51 L (70-110) mg/dL AST 66 H (14-36) U/L ALT 131 H (4-34) U/L Total Protein 5.9 L (6.3-8.2) g/dL Albumin 3.1 L (3.5-5.0) g/dL 03/18/24 03/18/24 Range/Units 10:50 11:33 WBC (3.8-10.6) k/uL RDW (11.5-15.5) % Neutrophils # (1.3-7.7) k/uL APTT 43.7 H (22.0-30.0) sec Chloride (98-107) mmol/L Carbon Dioxide (22-30) mmol/L BUN (7-17) mg/dL Glucose (74-99) mg/dL POC Glucose (mg/dL) 111 H (70-110) mg/dL AST (14-36) U/L ALT (4-34) U/L Total Protein (6.3-8.2) g/dL Albumin (3.5-5.0) g/dL Microbiology - Last 24 Hours (Table) 03/16/24 23:03 Urine Culture - Preliminary Urine,Catheterized Gram Neg Bacilli Assessment and Plan (1) UTI (urinary tract infection) Current Visit: No Status: Acute Code(s): N39.0 - URINARY TRACT INFECTION, SITE NOT SPECIFIED SNOMED Code(s): 34436591 Plan: 1patient presented to hospital with hallucination weakness did have suprapubic discomfort and some tenderness significantly positive UA concerning for symptomatic UTI likely from enteric gram-negative pathogen. 2patient is currently covered with Rocephin 2 g daily to continue while waiting for the culture to finalize. Family the bedside question concern answered Dictation was produced using [employer] dictation software. please excuse any grammatical, word or spelling errors. Time with Patient: Less than 30
--- NOTE | 2024-03-20 09:52 | P.PN ---
Subjective Progress Note Date: 03/19/24 Principal diagnosis: Reason for follow-up is UTI Patient is a 83-year-old female with a past medical history significant for atrial fibrillation coronary artery disease diabetes mellitus CVA TIA hypertension hyperlipidemia recent admission to the hospital with right lower extremity cellulitis, now presented back to hospital with mental status changes bradycardia within the noticed to have a elevated dig level and also positive UA elevated white count concerning for UTI. On today's evaluation that is 03/19/2024, Patient is afebrile this morning patient denies having any chest pain shortness of breath or cough, the patient is currently on room air, patient denies any abdominal pain no diarrhea no nausea no vomiting Patient white count is down to 10.9 creatinine is 0.63 Objective - Vital Signs Vital signs: Vital Signs Temp 98.1 F 03/19/24 08:00 Pulse 66 03/19/24 10:00 Resp 18 03/19/24 10:00 BP 157/81 03/19/24 10:00 Pulse Ox 96 03/19/24 10:00 FiO2 Intake & Output 03/18/24 03/19/24 03/19/24 18:59 06:59 18:59 Intake Total 1018.437 840 210 Output Total 1300 1445 230 Balance -281.563 -605 -20 Weight 65.487 kg Intake: IV 290 100 Sodium Chloride 0.9% 1, 240 100 000 ml @ 20 mls/hr IV . Q24H [facility] Rx#:[id number] cefTRIAXone 2 gm In 50 Sodium Chloride 0.9% 50 ml @ 100 mls/hr IVPB Q24HR [facility] Rx#:[id number] Intake, IV Titration 328.437 90 Amount DOPamine DRIP 800 mg In 120.842 Dextrose/Water 1 250ml. bag @ 1 MCG/KG/MIN 1.329 mls/hr IV .Q24H [facility] Rx#: [id number] Heparin Sod,Pork in 0.45% 207.595 NaCl 25,000 unit In 0.45 % NaCl 1 250ml.bag @ 12 UNITS/KG/HR 8.508 mls/hr IV .Q24H [facility] Rx#: [id number] Sodium Chloride 0.9% 1, 40 000 ml @ 20 mls/hr IV . Q24H [facility] Rx#:[id number] cefTRIAXone 2 gm In 50 Sodium Chloride 0.9% 50 ml @ 100 mls/hr IVPB Q24HR [facility] Rx#:[id number] Oral 400 740 120 Output: Urine 1300 1445 230 Other: Voiding Method Indwelling Catheter Indwelling Catheter Indwelling Catheter # Bowel Movements 1 1 - Exam GENERAL DESCRIPTION: An elderly female lying in bed in no distress RESPIRATORY SYSTEM: Unlabored breathing , decreased breath sounds at bases HEART: S1 S2 regular rate and rhythm , ABDOMEN: Soft , no tenderness EXTREMITIES: Right leg is currently dressed no drainage - Labs CBC & Chem 7: 03/19/24 06:06 03/19/24 06:06 Labs: Abnormal Lab Results - Last 24 Hours (Table) 03/18/24 03/18/24 03/18/24 Range/Units 10:50 11:33 16:27 WBC (3.8-10.6) k/uL RBC (3.80-5.40) m/uL Hgb (11.4-16.0) gm/dL Hct (34.0-46.0) % RDW (11.5-15.5) % Neutrophils # (1.3-7.7) k/uL APTT 43.7 H (22.0-30.0) sec Chloride (98-107) mmol/L Glucose (74-99) mg/dL POC Glucose (mg/dL) 111 H 189 H (70-110) mg/dL 03/18/24 03/19/24 03/19/24 Range/Units 20:23 06:06 06:06 WBC 10.9 H (3.8-10.6) k/uL RBC 3.62 L (3.80-5.40) m/uL Hgb 10.3 L (11.4-16.0) gm/dL Hct 32.8 L (34.0-46.0) % RDW 16.2 H (11.5-15.5) % Neutrophils # 8.5 H (1.3-7.7) k/uL APTT (22.0-30.0) sec Chloride 108 H (98-107) mmol/L Glucose 119 H (74-99) mg/dL POC Glucose (mg/dL) 271 H (70-110) mg/dL 03/19/24 03/19/24 Range/Units 06:06 06:40 WBC (3.8-10.6) k/uL RBC (3.80-5.40) m/uL Hgb (11.4-16.0) gm/dL Hct (34.0-46.0) % RDW (11.5-15.5) % Neutrophils # (1.3-7.7) k/uL APTT 40.2 H (22.0-30.0) sec Chloride (98-107) mmol/L Glucose (74-99) mg/dL POC Glucose (mg/dL) 134 H (70-110) mg/dL Microbiology - Last 24 Hours (Table) 03/16/24 23:03 Urine Culture - Final Urine,Catheterized Klebsiella pneumo ESBL MDRO 03/17/24 18:51 Blood Culture - Preliminary Blood Assessment and Plan (1) UTI (urinary tract infection) Current Visit: No Status: Acute Code(s): N39.0 - URINARY TRACT INFECTION, SITE NOT SPECIFIED SNOMED Code(s): 74213841 Plan: 1patient presented to hospital with hallucination weakness did have suprapubic discomfort and some tenderness significantly positive UA concerning for symptomatic UTI likely from enteric gram-negative pathogen. 2patient urine culture, positive with ESBL E. coli antibiotic has been switched to Invanz is behaving more for cystitis will consider short course discussed with the family Dictation was produced using [employer] dictation software. please excuse any grammatical, word or spelling errors. Time with Patient: Less than 30
[2024-03-20 11:24] LABS: Glucose,Whole Blood 163 mg/dL (70-110)
--- NOTE | 2024-03-20 12:56 | P.PN ---
Subjective Progress Note Date: 03/20/24 Principal diagnosis: Digoxin toxicity. This is an 83-year-old female, patient was recently in the hospital from 03/03/2024 until 03/06/2024. Looking back at the chart, patient was admitted with MRSA cellulitis of the right lower extremity and infected diabetic heel ulcer. Her problems at the time included coronary artery disease, previous CABG, history of type 2 diabetes, paroxysmal atrial fibrillation, chronic diastolic congestive heart failure, hypertension, GERD, diabetic polyneuropathy, and orthostatic hypotension, history of left above-knee amputation. Yesterday, patient was noted by family members to have intermittent episodes of hallucinations, and upon arrival to the ER, the patient was noted to be quite bradycardic. Patient to this the patient has been fatigued for the last 48 hours, patient was noted to have positive digoxin toxicity, she was also noted to have significantly abnormal electrolytes including hyponatremia, hyperkalemia, and acute kidney injury with creatinine of 1.74 although she had normal baseline creatinine few weeks ago. Her digoxin level was 3.5, toxic range. For her digoxin toxicity, patient received Digibind, she was placed on dopamine for bradycardia and she remains on dopamine at 5 mg/kg/min for her hyperkalemia she received typical protocol for hyperkalemia and today's lab showed significant improvement. Her sodium is 132 potassium 5.3 bicarb is 19 BUN 35 creatinine 1.1. Blood sugar is a bit elevated at 262. And her digoxin level today is 1.7, in the therapeutic range. Patient is feeling much better today compared to how she felt yesterday. No more hallucinations, no more nausea and vomiting, and no diarrhea. Progress note dated March 18, 2024. This is a 83-year-old female who was admitted on March 16 for digoxin toxicity. She was very bradycardic with a heart rate in the 30s. She had third-degree heart block. She was transferred to the intensive care unit, for further monitoring and management, and is currently on dopamine at 2 mcg/kg/min. She is also getting saline at 20 cc an hour. She is also on nasal O2 2 L. Current labs include a white count 11.4, hemoglobin 9.9, macro 37.6, and a platelet count of 416,000. PTT is 43.7. Sodium 138, potassium 5.1, chlorides 113, CO2 19, anion gap 6, BUN 27, creatinine 0.82. Glucose is 111. Albumin 3.1. Urine is revealing gram-negative bacilli. Progress note dated March 19, 2024. This is a 83-year-old female seen in room 261. She was admitted with a diagnosis of digoxin toxicity, on March 16. The patient was profoundly david ycardic and was on dopamine to support her heart rate. Currently, she is seen in room 261. She is on room air. She is getting saline at 20 cc an hour. Her urinary infection is secondary to ESBL Klebsiella. Rocephin is discontinued in favor of ertapenem. White count is 10.9, hemoglobin 10.3, hematocrit 32.8, and platelet count was normal. PTT was 40.2. Sodium 137, potassium 4.5, chlorides 108, CO2 22, BUN and creatinine were both normal. Glucose was 149. Digoxin level was 1.0. Urine culture was positive for ESBL Klebsiella pneumoniae. Progress note dated March 20, 2023. 83-year-old female who was seen yesterday in the intensive care unit. Today she is seen in room 353. The patient was admitted with digoxin toxicity, and had significant bradycardia. At 1 point she was on dopamine. Currently, she is doing relatively well. She is on room air. She is getting saline at 20 cc an hour. She did have evidence of ESBL Klebsiella urinary tract infection, and for that she is on ertapenem. No new labs today other than a glucose of 163. Objective - Vital Signs Vital signs: Vital Signs Temp 99.1 F 03/20/24 08:45 Pulse 64 03/20/24 08:45 Resp 17 03/20/24 08:45 BP 176/67 03/20/24 08:45 Pulse Ox 99 03/20/24 08:45 FiO2 Intake & Output 03/19/24 03/20/24 03/20/24 18:59 06:59 18:59 Intake Total 600 Output Total 655 700 Balance -55 -700 Weight 47 kg Intake: Intake, IV Titration 240 Amount Ertapenem 1 gm In Sodium 50 Chloride 0.9% 50 ml @ 100 mls/hr IVPB DAILY [facility] Rx #:[id number] Sodium Chloride 0.9% 1, 140 000 ml @ 20 mls/hr IV . Q24H [facility] Rx#:[id number] cefTRIAXone 2 gm In 50 Sodium Chloride 0.9% 50 ml @ 100 mls/hr IVPB Q24HR [facility] Rx#:[id number] Oral 360 Output: Urine 655 700 Other: Voiding Method Indwelling Catheter External Catheter External Catheter # Bowel Movements 1 - Exam No acute distress, oriented 3. HEENT examination is grossly unremarkable. Mucous membranes are moist. No oral lesions. Neck supple. Full range of motion. No adenopathy thyromegaly or neck vein distention. Cardiovascular examination reveals regular rhythm rate. S1-S2 normal. No S3 or S4. Soft systolic murmur is noted. Lungs reveal clear breath sounds. Breath sounds are equal bilaterally. No adventitious lung sounds including wheezes rhonchi or crackles. Abdomen soft bowel sounds are heard. No masses or tenderness. Extremities are intact. No cyanosis clubbing or edema. The patient has a left cyjhm-olw-bunh amputation and a right heel wound. Skin is without rash or lesion. Neurologic examination is brief but nonfocal. - Labs CBC & Chem 7: 03/19/24 06:06 03/19/24 06:06 Labs: Abnormal Lab Results - Last 24 Hours (Table) 03/19/24 03/19/24 03/20/24 Range/Units 16:09 19:57 06:14 POC Glucose (mg/dL) 154 H 203 H 53 L (70-110) mg/dL 03/20/24 03/20/24 03/20/24 Range/Units 06:31 06:45 07:00 POC Glucose (mg/dL) 52 L 64 L 143 H (70-110) mg/dL 03/20/24 Range/Units 11:23 POC Glucose (mg/dL) 163 H (70-110) mg/dL Microbiology - Last 24 Hours (Table) 03/17/24 18:51 Blood Culture - Preliminary Blood 03/16/24 23:03 Urine Culture - Final Urine,Catheterized Klebsiella pneumo ESBL MDRO Assessment and Plan Assessment: Acute digoxin toxicity, with secondary bradycardia. Hypotension, secondary to above, resolved. Acute kidney injury secondary to ATN. History of CAD with previous bypass grafting. Chronic right foot cellulitis, secondary to MRSA. History of left thwna-gyr-rdnb amputation. Hyperlipidemia. Paroxysmal atrial fibrillation. PAD, status post multiple angioplasties of the left lower extremity. ESBL Klebsiella pneumoniae acute urinary tract infection. History of osteoarthritis. Orthostatic hypotension. Gastroesophageal reflux disease with esophagitis. Diabetes mellitus, type II, with diabetic polyneuropathy. Plan: Plan dated March 18, 2024. The patient's urine is showing evidence of gram-negative bacilli. The patient remains on Rocephin. The patient was on dopamine at 5 mcg/kg/min. Is been w eaned down to 2 mcg/kg/min. The patient also remains on nasal O2 at 2 L. She is getting saline at 20 cc an hour. Labs, x-rays, and all medications are reviewed. The patient is overall prognosis remains guarded. We will continue to follow the patient, make recommendations along the way. Plan dated March 19, 2024. The patient is doing relatively well. She is waiting for a bed out of the [facility] floor. She is on room air. She is getting saline at 20 cc an hour. The Klebsiella in her urine is ESBL, and the patient is given ertapenem, and Rocephin is discontinued. Labs, x-rays, and medications are reviewed. We will continue to follow the patient, make recommendations along the way. Prognosis is certainly guarded. Plan dated March 20, 2024. The patient was placed on ertapenem for her ESBL Klebsiella urinary tract infection. Labs, x-rays, and medications are reviewed. The patient is on room air. The patient is getting saline at 20 cc an hour. Labs, x-rays, and all medications are reviewed. Prognosis is guarded. We will continue to follow. Time with Patient: Less than 30
--- NOTE | 2024-03-20 15:29 | P.PN ---
Subjective Progress Note Date: 03/20/24 Principal diagnosis: Reason for follow-up is UTI Patient is a 83-year-old female with a past medical history significant for atrial fibrillation coronary artery disease diabetes mellitus CVA TIA hypertension hyperlipidemia recent admission to the hospital with right lower extremity cellulitis, now presented back to hospital with mental status changes bradycardia within the noticed to have a elevated dig level and also positive UA elevated white count concerning for UTI. On today's evaluation that is 03/20/2024,the patient denies any fever or any chills, patient is breathing comfortably on room air, the patient denies chest pain shortness of breath and no significant cough, patient denies abdominal pain, no nausea vomiting or diarrhea. Denies pain to the right lower extremity. No new lab has been obtained today Objective - Vital Signs Vital signs: Vital Signs Temp 99.1 F 03/20/24 08:45 Pulse 64 03/20/24 08:45 Resp 17 03/20/24 08:45 BP 176/67 03/20/24 08:45 Pulse Ox 99 03/20/24 08:45 FiO2 Intake & Output 03/19/24 03/20/24 03/20/24 18:59 06:59 18:59 Intake Total 600 Output Total 655 700 Balance -55 -700 Weight 47 kg Intake: Intake, IV Titration 240 Amount Ertapenem 1 gm In Sodium 50 Chloride 0.9% 50 ml @ 100 mls/hr IVPB DAILY [facility] Rx #:[id number] Sodium Chloride 0.9% 1, 140 000 ml @ 20 mls/hr IV . Q24H [facility] Rx#:[id number] cefTRIAXone 2 gm In 50 Sodium Chloride 0.9% 50 ml @ 100 mls/hr IVPB Q24HR [facility] Rx#:[id number] Oral 360 Output: Urine 655 700 Other: Voiding Method Indwelling Catheter External Catheter External Catheter # Bowel Movements 1 - Exam GENERAL DESCRIPTION: An elderly female lying in bed in no distress RESPIRATORY SYSTEM: Unlabored breathing , decreased breath sounds at bases HEART: S1 S2 regular rate and rhythm , ABDOMEN: Soft , no tenderness EXTREMITIES: Right leg is currently dressed no drainage - Labs CBC & Chem 7: 03/19/24 06:06 03/19/24 06:06 Labs: Abnormal Lab Results - Last 24 Hours (Table) 03/19/24 03/19/24 03/20/24 Range/Units 16:09 19:57 06:14 POC Glucose (mg/dL) 154 H 203 H 53 L (70-110) mg/dL 03/20/24 03/20/24 03/20/24 Range/Units 06:31 06:45 07:00 POC Glucose (mg/dL) 52 L 64 L 143 H (70-110) mg/dL 03/20/24 Range/Units 11:23 POC Glucose (mg/dL) 163 H (70-110) mg/dL Microbiology - Last 24 Hours (Table) 03/17/24 18:51 Blood Culture - Preliminary Blood Assessment and Plan (1) UTI (urinary tract infection) Current Visit: No Status: Acute Code(s): N39.0 - URINARY TRACT INFECTION, SITE NOT SPECIFIED SNOMED Code(s): 32231594 (2) Infection due to ESBL-producing Escherichia coli Current Visit: Yes Status: Acute Code(s): A49.8 - OTHER BACTERIAL INFECTIONS OF UNSPECIFIED SITE; Z16.12 - EXTENDED SPECTRUM BETA LACTAMASE (ESBL) RESISTANCE SNOMED Code(s): 663606092 Plan: 1patient presented to hospital with hallucination weakness did have suprapubic discomfort and some tenderness significantly positive UA concerning for symptomatic UTI likely from enteric gram-negative pathogen. 2patient urine culture has been finalized with ESBL E. coli patient is behaving more of a cystitis and a 3-day course of antibiotic should be more than enough discussed with the family Dictation was produced using [employer] dictation software. please excuse any grammatical, word or spelling errors. Time with Patient: Less than 30
--- NOTE | 2024-03-20 16:14 | P.PN ---
Subjective Progress Note Date: 03/20/24 PROGRESS NOTE The patient is an 83-year-old female, status post CABG, PCI, left AKA with history of peripheral vascular disease who presented with change in mental status and was noted to be bradycardic with what appears to be junctional rhythm. She was dig toxic. She has history of cellulitis. Nonhealing ulcer on the right heel. She is in sinus mechanism on IV dopamine. Her blood pressure is stable. She has no evidence of malignant arrhythmia. Hemodynamically she is stable. She does appear to be awake and alert today. She received Digibind. She had no further episodes of significant bradycardia arrhythmia. March 19: The patient is feeling better today, she continues to be in sinus mechanism with no further episodes of bradycardia arrhythmia. Hemodynamically she is stable. She is anxious to go home. She denies any dizziness or palpitations. Her blood pressure has been stable. She has no nausea or vomiting. She is off the IV dopamine and continues to be on IV heparin. Her echocardiogram showed a preserved systolic function with mild to moderate mitral stenosis. Medications: Plavix 75 mg daily, IV heparin, isosorbide mononitrate 15 mg daily, insulin, Lipitor 40 mg daily. Patient was on amiodarone, digoxin and metoprolol as an outpatient. She was anticoagulated because of a history of paroxysmal atrial fibrillation. PHYSICAL EXAMINATION: Blood pressure 145/59 heart rate 63 LUNGS: Clear to auscultation HEART: Regular rate and rhythm, S1, S2. No S3. Systolic ejection murmur, 3/6, bilateral bruit Abdomen: Soft, nontender, no organomegaly EXTREMETIES: Dressing on the right lower extremity status post left AKA 03/20/2024 Patient is seen and examined bedside this a.m. She is noticed to be slightly hypertensive today for which amlodipine was added. She denies any chest pain chest pressure shortness of breath LAB: Hemoglobin 10.3, BUN 13, creatinine 0.63. IMPRESSION: 1. Change in mental status, improving 2. Digoxin toxicity with bradycardia, resolved 3. History of CAD status post CABG and PCI 4. History of PAD status post left AKA and nonhealing ulcer on the right heel with recent cellulitis 5. Paroxysmal atrial fibrillation 6. History of hyperlipidemia PLAN: 1. Change to oral anticoagulation 2. Continue other treatment 3. Follow blood pressure and adjust treatment as needed 4. Probable transfer to telemetry Objective - Vital Signs Vital signs: Vital Signs Temp 99.1 F 03/20/24 08:45 Pulse 64 03/20/24 08:45 Resp 17 03/20/24 08:45 BP 176/67 03/20/24 08:45 Pulse Ox 99 03/20/24 08:45 FiO2 Intake & Output 03/19/24 03/20/24 03/20/24 18:59 06:59 18:59 Intake Total 600 Output Total 655 700 Balance -55 -700 Weight 47 kg Intake: Intake, IV Titration 240 Amount Ertapenem 1 gm In Sodium 50 Chloride 0.9% 50 ml @ 100 mls/hr IVPB DAILY [facility] Rx #:[id number] Sodium Chloride 0.9% 1, 140 000 ml @ 20 mls/hr IV . Q24H [facility] Rx#:[id number] cefTRIAXone 2 gm In 50 Sodium Chloride 0.9% 50 ml @ 100 mls/hr IVPB Q24HR [facility] Rx#:[id number] Oral 360 Output: Urine 655 700 Other: Voiding Method Indwelling Catheter External Catheter External Catheter # Bowel Movements 1 - Labs CBC & Chem 7: 03/19/24 06:06 03/19/24 06:06 Labs: Abnormal Lab Results - Last 24 Hours (Table) 03/19/24 03/20/24 03/20/24 Range/Units 19:57 06:14 06:31 POC Glucose (mg/dL) 203 H 53 L 52 L (70-110) mg/dL 03/20/24 03/20/24 03/20/24 Range/Units 06:45 07:00 11:23 POC Glucose (mg/dL) 64 L 143 H 163 H (70-110) mg/dL Microbiology - Last 24 Hours (Table) 03/17/24 18:51 Blood Culture - Preliminary Blood
[2024-03-20 16:17] LABS: Glucose,Whole Blood 137 mg/dL (70-110)
[2024-03-20] MEDS: amLODIPine 5 MG TAB PO SCH (16:22)
[2024-03-20 19:49] LABS: Glucose,Whole Blood 153 mg/dL (70-110)
[2024-03-20] MEDS: INSULIN DETEMIR (LEVEMIR) 100 UNIT/ML SYR SQ SCH (20:05)
[2024-03-21 06:16] LABS: Glucose,Whole Blood 58 mg/dL (70-110)
[2024-03-21 06:34] LABS: Glucose,Whole Blood 59 mg/dL (70-110)
[2024-03-21] MEDS: PANTOPRAZOLE 40 MG TABLET PO SCH (06:44)
[2024-03-21 06:55] LABS: Glucose,Whole Blood 102 mg/dL (70-110)
--- NOTE | 2024-03-21 07:21 | P.PN ---
Subjective This is a pleasant 83 years old female who presents initially because of hallucination, altered mental status and bradycardia Found to have low heart rate in the 30s, and digoxin level was high 3.5 she was diagnosed with digoxin toxicity and she was admitted to the ICU for close monitoring. 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 She is continued on heparin drip and switched today to Eliquis for her chronic A-fib. Patient also developing some diarrhea but no abdominal pain Currently she is afebrile She has mild leukocytosis 10.9, hemoglobin 10.3 Liver enzymes slightly elevated. BMP, INR, troponin were unremarkable Urine analysis suspicious for infection proBNP is 6850 Urine culture is growing gram-negative bacilli Ejection fraction 60 to 65% with mild to moderate mitral stenosis CT of the brain is negative for acute process Chest x-ray showing no acute cardiopulmonary process. C. difficile is ordered and is pending 03/20/24 Patient feels better today Diarrhea stopped and she has solid bowel movement No significant urinary symptoms Blood pressure on the high side we added Norvasc 5 mg Glucose was on the low side overnight we lowered her Levemir 15 units down to 10 units Vidales catheter discontinued, continue with bladder scan every shift, discussed with the bedside nurse Switch her anticoagulation to Eliquis by urologist md Will ask for PT OT evaluation Review of systems CONSTITUTIONAL: No fever, no malaise, no fatigue. HEENT: No recent visual problems or hearing problems. Denied any sore throat. GENITOURINARY: Denies any burning micturition, frequency, or urgency. MUSCULOSKELETAL/RHEUMATOLOGICAL: Denies any joint pain, swelling, or any muscle pain. ENDOCRINE: Denies any polyuria or polydipsia. Active Medications Generic Name Dose Route Start Last Admin Trade Name Freq PRN Reason Stop Dose Admin Acetaminophen 650 mg 03/17/24 11:08 03/20/24 16:22 Acetaminophen Tab 325 Mg Tab PO 650 mg Q6HR PRN Administration Fever and/ or Pain Amlodipine Besylate 5 mg 03/20/24 13:15 03/20/24 16:22 Amlodipine 5 Mg Tab PO 5 mg DAILY [facility] Administration Apixaban 5 mg 03/19/24 09:00 03/20/24 20:05 Apixaban 5 Mg Tab PO 5 mg BID [facility] Administration Protocol Atorvastatin Calcium 40 mg 03/18/24 21:00 03/20/24 20:05 Atorvastatin 40 Mg Tab PO 40 mg HS [facility] Administration Cholecalciferol 25 mcg 03/18/24 09:00 03/20/24 18:12 Cholecalciferol 25 Mcg (1000 Iu) Tablet PO Not Given DAILY [facility] Clopidogrel Bisulfate 75 mg 03/18/24 09:00 03/20/24 10:02 Clopidogrel 75 Mg Tab PO 75 mg DAILY [facility] Administration Collagenase 1 applic 03/18/24 16:15 03/21/24 06:47 Collagenase 250 Unit/Gm Ointment 30 Gm Tube TOPICAL 1 applic DAILY [facility] Administration Protocol Dextrose/Water 50 ml 03/16/24 23:38 03/20/24 06:47 Dextrose 50% Syringe 50 Ml IVP 25 ml ONCE PRN Administration Hypoglycemia Sodium Chloride 1,000 mls @ 20 mls/hr 03/16/24 17:30 03/20/24 20:01 Saline 0.9% IV Not Given .Q24H [facility] Ertapenem 1 gm/ Sodium 50 mls @ 100 mls/hr 03/19/24 10:30 03/20/24 10:03 Chloride IVPB 100 mls/hr DAILY [facility] Administration Protocol Insulin Aspart 0 unit 03/17/24 07:30 03/21/24 06:14 Insulin Aspart (Novolog) 100 Unit/Ml Vial SQ Not Given ACHS [facility] Protocol Insulin Detemir 10 unit 03/20/24 21:00 03/20/24 20:05 Insulin Detemir (Levemir) 100 Unit/Ml Syr SQ 10 unit HS [facility] Administration Isosorbide Mononitrate 30 mg 03/19/24 09:00 03/20/24 10:02 Isosorbide Mononitrate Er 30 Mg Tab.Er.24h PO 30 mg DAILY [facility] Administration Naloxone HCl 0.2 mg 03/16/24 17:17 Naloxone 0.4 Mg/Ml 1 Ml Vial IV Q2M PRN Opioid Reversal Pantoprazole Sodium 40 mg 03/21/24 07:30 03/21/24 06:44 Pantoprazole 40 Mg Tablet PO 40 mg [id number] CINDY Administration Petrolatum 1 applic 03/16/24 21:08 Zinc Oxide Paste (Z-Guard) 1 Applic TOPICAL Q2HR PRN Wound Healing Protocol Objective - Vital Signs Vital signs: Vital Signs Temp 99.1 F 03/20/24 08:45 Pulse 64 03/20/24 08:45 Resp 17 03/20/24 08:45 BP 176/67 03/20/24 08:45 Pulse Ox 99 03/20/24 08:45 FiO2 Intake & Output 03/19/24 03/20/24 03/20/24 18:59 06:59 18:59 Intake Total 600 Output Total 655 700 Balance -55 -700 Weight 47 kg Intake: Intake, IV Titration 240 Amount Ertapenem 1 gm In Sodium 50 Chloride 0.9% 50 ml @ 100 mls/hr IVPB DAILY [facility] Rx #:[id number] Sodium Chloride 0.9% 1, 140 000 ml @ 20 mls/hr IV . Q24H [facility] Rx#:[id number] cefTRIAXone 2 gm In 50 Sodium Chloride 0.9% 50 ml @ 100 mls/hr IVPB Q24HR [facility] Rx#:[id number] Oral 360 Output: Urine 655 700 Other: Voiding Method Indwelling Catheter External Catheter External Catheter # Bowel Movements 1 - Exam GENERAL: The patient is alert and oriented x3, not in any acute distress. Well developed, well nourished. HEENT: Pupils are round and equally reacting to light. EOMI. No scleral icterus. No conjunctival pallor. Normocephalic, atraumatic. No pharyngeal erythema. No thyromegaly. CARDIOVASCULAR: S1 and S2 present. No murmurs, rubs, or gallops. PULMONARY: Chest is clear to auscultation, no wheezing , no crackles. ABDOMEN: Soft, nontender, nondistended, normoactive bowel sounds. No palpable organomegaly. MUSCULOSKELETAL: No joint swelling or deformity. -EXTREMITIES: No cyanosis, clubbing, or pedal edema. Left AKA. Right lower extremity in a dressing for her chronic cellulitis NEUROLOGICAL: Gross neurological examination did not reveal any focal deficits. SKIN: No rashes. no petechiae. - Labs CBC & Chem 7: 03/19/24 06:06 03/19/24 06:06 Labs: Abnormal Lab Results - Last 24 Hours (Table) 03/19/24 03/19/24 03/20/24 Range/Units 16:09 19:57 06:14 POC Glucose (mg/dL) 154 H 203 H 53 L (70-110) mg/dL 03/20/24 03/20/24 03/20/24 Range/Units 06:31 06:45 07:00 POC Glucose (mg/dL) 52 L 64 L 143 H (70-110) mg/dL 03/20/24 Range/Units 11:23 POC Glucose (mg/dL) 163 H (70-110) mg/dL Microbiology - Last 24 Hours (Table) 03/17/24 18:51 Blood Culture - Preliminary Blood 03/16/24 23:03 Urine Culture - Final Urine,Catheterized Klebsiella pneumo ESBL MDRO Assessment and Plan Assessment: Digoxin toxicity with bradycardia and hypotension, resolved Acute kidney injury, resolved Acute urinary tract infection secondary to gram-negative bacilli Chronic atrial fibrillation, currently heart rate is controlled. 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 Plan: Continue with ceftriaxone, continue with antibiotic management per ID team Started on Eliquis for A-fib Continue with Plavix Keep off digoxin Cardiology and pulmonary team consult Check for C. difficile if diarrhea persist Discontinue Vidales catheter and check a bladder scan Labs and medication were reviewed.. Continue same treatment. Continue with symptomatic treatment. Resume home medication. Monitor labs and vitals. DVT and GI prophylaxis. Further recommendations as per clinical course of the patient DVT prophylaxis: Eliquis GI Prophylaxis: Protonix Prognosis is guarded
[2024-03-21 09:01] VITALS: PULSE 67; RESP 17
[2024-03-21] MEDS: LOSARTAN 50 MG TAB PO SCH (09:08)
[2024-03-21 11:48] LABS: Glucose,Whole Blood 112 mg/dL (70-110)
--- NOTE | 2024-03-21 12:45 | P.PN ---
Subjective Progress Note Date: 03/21/24 Principal diagnosis: Digoxin toxicity. This is an 83-year-old female, patient was recently in the hospital from 03/03/2024 until 03/06/2024. Looking back at the chart, patient was admitted with MRSA cellulitis of the right lower extremity and infected diabetic heel ulcer. Her problems at the time included coronary artery disease, previous CABG, history of type 2 diabetes, paroxysmal atrial fibrillation, chronic diastolic congestive heart failure, hypertension, GERD, diabetic polyneuropathy, and orthostatic hypotension, history of left above-knee amputation. Yesterday, patient was noted by family members to have intermittent episodes of hallucinations, and upon arrival to the ER, the patient was noted to be quite bradycardic. Patient to this the patient has been fatigued for the last 48 hours, patient was noted to have positive digoxin toxicity, she was also noted to have significantly abnormal electrolytes including hyponatremia, hyperkalemia, and acute kidney injury with creatinine of 1.74 although she had normal baseline creatinine few weeks ago. Her digoxin level was 3.5, toxic range. For her digoxin toxicity, patient received Digibind, she was placed on dopamine for bradycardia and she remains on dopamine at 5 mg/kg/min for her hyperkalemia she received typical protocol for hyperkalemia and today's lab showed significant improvement. Her sodium is 132 potassium 5.3 bicarb is 19 BUN 35 creatinine 1.1. Blood sugar is a bit elevated at 262. And her digoxin level today is 1.7, in the therapeutic range. Patient is feeling much better today compared to how she felt yesterday. No more hallucinations, no more nausea and vomiting, and no diarrhea. Progress note dated March 18, 2024. This is a 83-year-old female who was admitted on March 16 for digoxin toxicity. She was very bradycardic with a heart rate in the 30s. She had third-degree heart block. She was transferred to the intensive care unit, for further monitoring and management, and is currently on dopamine at 2 mcg/kg/min. She is also getting saline at 20 cc an hour. She is also on nasal O2 2 L. Current labs include a white count 11.4, hemoglobin 9.9, macro 37.6, and a platelet count of 416,000. PTT is 43.7. Sodium 138, potassium 5.1, chlorides 113, CO2 19, anion gap 6, BUN 27, creatinine 0.82. Glucose is 111. Albumin 3.1. Urine is revealing gram-negative bacilli. Progress note dated March 19, 2024. This is a 83-year-old female seen in room 261. She was admitted with a diagnosis of digoxin toxicity, on March 16. The patient was profoundly david ycardic and was on dopamine to support her heart rate. Currently, she is seen in room 261. She is on room air. She is getting saline at 20 cc an hour. Her urinary infection is secondary to ESBL Klebsiella. Rocephin is discontinued in favor of ertapenem. White count is 10.9, hemoglobin 10.3, hematocrit 32.8, and platelet count was normal. PTT was 40.2. Sodium 137, potassium 4.5, chlorides 108, CO2 22, BUN and creatinine were both normal. Glucose was 149. Digoxin level was 1.0. Urine culture was positive for ESBL Klebsiella pneumoniae. Progress note dated March 20, 2023. 83-year-old female who was seen yesterday in the intensive care unit. Today she is seen in room 353. The patient was admitted with digoxin toxicity, and had significant bradycardia. At 1 point she was on dopamine. Currently, she is doing relatively well. She is on room air. She is getting saline at 20 cc an hour. She did have evidence of ESBL Klebsiella urinary tract infection, and for that she is on ertapenem. No new labs today other than a glucose of 163. Progress note dated March 21, 2023. 83-year-old female seen in room 353. The patient was initially seen in the intensive care unit, secondary to dig toxicity, and bradycardia. At 1 point, the patient was on dopamine, to support her heart rate. Currently she is on room air. Saturations 96%. The patient was discovered to have a ESBL Klebsiella urinary tract infection, and was started on ertapenem. Current labs include a glucose of 112. Objective - Vital Signs Vital signs: Vital Signs Temp 98.7 F 03/21/24 08:50 Pulse 67 03/21/24 08:50 Resp 17 03/21/24 08:50 BP 176/65 03/21/24 08:50 Pulse Ox 96 03/21/24 08:50 FiO2 Intake & Output 03/20/24 03/21/24 03/21/24 18:59 06:59 18:59 Intake Total 20 Output Total 250 850 400 Balance -250 -830 -400 Weight 46.3 kg Intake: IV 20 Invasive Line 3 20 Output: Urine 250 850 400 Other: Voiding Method External Catheter External Catheter External Catheter # Voids 1 # Bowel Movements 1 1 - Exam No acute distress, oriented 3. HEENT examination is grossly unremarkable. Mucous membranes are moist. No oral lesions. Neck supple. Full range of motion. No adenopathy thyromegaly or neck vein distention. Cardiovascular examination reveals regular rhythm rate. S1-S2 normal. No S3 or S4. Soft systolic murmur is noted. Lungs reveal clear breath sounds. Breath sounds are equal bilaterally. No adventitious lung sounds including wheezes rhonchi or crackles. Abdomen soft bowel sounds are heard. No masses or tenderness. Extremities are intact. No cyanosis clubbing or edema. The patient has a left [id number] amputation and a right heel wound. Skin is without rash or lesion. Neurologic examination is brief but nonfocal. - Labs CBC & Chem 7: 03/19/24 06:06 03/19/24 06:06 Labs: Abnormal Lab Results - Last 24 Hours (Table) 03/20/24 03/20/24 03/21/24 Range/Units 16:12 19:47 06:13 POC Glucose (mg/dL) 137 H 153 H 58 L (70-110) mg/dL 03/21/24 03/21/24 Range/Units 06:33 11:47 POC Glucose (mg/dL) 59 L 112 H (70-110) mg/dL Microbiology - Last 24 Hours (Table) 03/17/24 18:51 Blood Culture - Preliminary Blood Assessment and Plan Assessment: Acute digoxin toxicity, with secondary bradycardia. Hypotension, secondary to above, resolved. Acute kidney injury secondary to ATN. History of CAD with previous bypass grafting. Chronic right foot cellulitis, secondary to MRSA. History of left [id number] amputation. Hyperlipidemia. Paroxysmal atrial fibrillation. PAD, status post multiple angioplasties of the left lower extremity. ESBL Klebsiella pneumoniae acute urinary tract infection. History of osteoarthritis. Orthostatic hypotension. Gastroesophageal reflux disease with esophagitis. Diabetes mellitus, type II, with diabetic polyneuropathy. Plan: Plan dated March 18, 2024. The patient's urine is showing evidence of gram-negative bacilli. The patient remains on Rocephin. The patient was on dopamine at 5 mcg/kg/min. Is been weaned down to 2 mcg/kg/min. The patient also remains on nasal O2 at 2 L. She is getting saline at 20 cc an hour. Labs, x-rays, and all medications are reviewed. The patient is overall prognosis remains guarded. We will continue to follow the patient, make recommendations along the way. Plan dated March 19, 2024. The patient is doing relatively well. She is waiting for a bed out of the medical floor. She is on room air. She is getting saline at 20 cc an hour. The Klebsiella in her urine is ESBL, and the patient is given ertapenem, and Rocephin is discontinued. Labs, x-rays, and medications are reviewed. We will continue to follow the patient, make recommendations along the way. Prognosis is certainly guarded. Plan dated March 20, 2024. The patient was placed on ertapenem for her ESBL Klebsiella urinary tract infection. Labs, x-rays, and medications are reviewed. The patient is on room air. The patient is getting saline at 20 cc an hour. Labs, x-rays, and all medications are reviewed. Prognosis is guarded. We will continue to follow. Plan dated March 21, 2023. The patient is doing very well. She is off of oxygen. She is not receiving any IV fluids. She does continue on ertapenem for her ESBL Klebsiella urinary tract infection. Labs, x-rays, and medications are reviewed. Talking to the funeral planner, the patient may be discharged, within the next 24 to 48 hours. We will continue to follow make recommendations. Prognosis is guarded. No additional recommendations are made at this time. Time with Patient: Less than 30
--- NOTE | 2024-03-21 13:03 | P.PN ---
Subjective Progress Note Date: 03/21/24 PROGRESS NOTE The patient is an 83-year-old female, status post CABG, PCI, left AKA with history of peripheral vascular disease who presented with change in mental status and was noted to be bradycardic with what appears to be junctional rhythm. She was dig toxic. She has history of cellulitis. Nonhealing ulcer on the right heel. She is in sinus mechanism on IV dopamine. Her blood pressure is stable. She has no evidence of malignant arrhythmia. Hemodynamically she is stable. She does appear to be awake and alert today. She received Digibind. She had no further episodes of significant bradycardia arrhythmia. March 19: The patient is feeling better today, she continues to be in sinus mechanism with no further episodes of bradycardia arrhythmia. Hemodynamically she is stable. She is anxious to go home. She denies any dizziness or palpitations. Her blood pressure has been stable. She has no nausea or vomiting. She is off the IV dopamine and continues to be on IV heparin. Her echocardiogram showed a preserved systolic function with mild to moderate mitral stenosis. Medications: Plavix 75 mg daily, IV heparin, isosorbide mononitrate 15 mg daily, insulin, Lipitor 40 mg daily. Patient was on amiodarone, digoxin and metoprolol as an outpatient. She was anticoagulated because of a history of paroxysmal atrial fibrillation. 03/20/2024 Patient is seen and examined bedside this a.m. She is noticed to be slightly hypertensive today for which amlodipine was added. She denies any chest pain chest pressure shortness of breath LAB: Hemoglobin 10.3, BUN 13, creatinine 0.63. 03/21/24 Patient seen and examined. She denies having any chest pain no dizziness and no palpitations. She has been off amiodarone digoxin and beta-ernestine. Heart rate 67, blood pressure 176/65, pulse ox 96% on room air. Losartan from home will be resumed. Patient is maintained on Eliquis. PHYSICAL EXAMINATION: LUNGS: Clear to auscultation HEART: Regular rate and rhythm, S1, S2. No S3. Systolic ejection murmur, 3/6, bilateral bruit Abdomen: Soft, nontender, no organomegaly EXTREMETIES: Dressing on the right lower extremity status post left AKA IMPRESSION: 1. Metabolic encephalopathy, improving 2. Digoxin toxicity with bradycardia, resolved 3. History of CAD status post CABG and PCI 4. History of PAD status post left AKA and nonhealing ulcer on the right heel with recent cellulitis 5. Paroxysmal atrial fibrillation 6. History of hyperlipidemia 7. ESBL UTI. PLAN: 1. Continue patient on oral anticoagulation with Eliquis 2. Continue to hold digoxin, amiodarone and beta-ernestine 3. Resume patient on losartan 4. Patient is cleared for discharge from cardiology perspective and may follow- up in the office in 1 to 2 weeks. Nurse practitioner note has been reviewed, I agree with documented findings and plan of care. Patient was seen and examined. Objective - Vital Signs Vital signs: Vital Signs Temp 98.1 F 03/21/24 04:35 Pulse 70 03/21/24 04:35 Resp 16 03/21/24 04:35 BP 166/67 03/21/24 04:35 Pulse Ox 96 03/21/24 04:35 FiO2 Intake & Output 03/20/24 03/21/24 03/21/24 18:59 06:59 18:59 Intake Total 20 Output Total 250 850 Balance -250 -830 Weight 46.3 kg Intake: IV 20 Invasive Line 3 20 Output: Urine 250 850 Other: Voiding Method External Catheter External Catheter # Voids 1 # Bowel Movements 1 1 - Labs CBC & Chem 7: 03/19/24 06:06 03/19/24 06:06 Labs: Abnormal Lab Results - Last 24 Hours (Table) 03/20/24 03/20/24 03/20/24 Range/Units 11:23 16:12 19:47 POC Glucose (mg/dL) 163 H 137 H 153 H (70-110) mg/dL 03/21/24 03/21/24 Range/Units 06:13 06:33 POC Glucose (mg/dL) 58 L 59 L (70-110) mg/dL Microbiology - Last 24 Hours (Table) 03/17/24 18:51 Blood Culture - Preliminary Blood
--- NOTE | 2024-03-21 13:35 | P.PN ---
Subjective Progress Note Date: 03/21/24 HISTORY OF PRESENT ILLNESS: This is a pleasant 83 years old female who presents initially because of edmonds ucination, altered mental status and bradycardia Found to have low heart rate in the 30s, and digoxin level was high 3.5 she was diagnosed with digoxin toxicity and she was admitted to the ICU for close monitoring. 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 She is continued on heparin drip and switched today to Eliquis for her chronic A-fib. Patient also developing some diarrhea but no abdominal pain Currently she is afebrile She has mild leukocytosis 10.9, hemoglobin 10.3 Liver enzymes slightly elevated. BMP, INR, troponin were unremarkable Urine analysis suspicious for infection proBNP is 6850 Urine culture is growing gram-negative bacilli Ejection fraction 60 to 65% with mild to moderate mitral stenosis CT of the brain is negative for acute process Chest x-ray showing no acute cardiopulmonary process. C. difficile is ordered and is pending 03/21: Patient is doing better today, she is laying down in bed in no apparent distress, she has been treated with Invanz 1 g IVPB every 24 hours for 3 days, based on ID recommendation at this point in time, patient is asymptomatic at this point she does have multidrug-resistant organism Klebsiella pneumonia ESBL UTI, patient was taken off digoxin, she was taken off Lyrica, she was taken off amiodarone as well, continue current treatment plan, follow-up with the patient as an outpatient in 1 week from now she will be discharged home in stable condition with her daughter. REVIEW OF SYSTEMS: Constitutional: No documented fever, no chills, no night sweats. No weight change. No weakness, fatigue or lethargy. No daytime sleepiness. EENT: No headache. No blurred vision or double vision, no loss of vision. No loss of Hearing, no ringing in the ears, no dizziness. No nasal drainage or congestion. No epistaxis. No sore throat. Lungs: No shortness of breath, no cough, no sputum production. No wheezing. Reports dyspnea with activity. Cardiovascular: No chest pain, no lower extremity edema. No palpitations. No paroxysmal nocturnal dyspnea. No orthopnea. No lightheadedness or dizziness. No syncopal episodes. Abdominal: Reports abdominal pain. No nausea, vomiting. No diarrhea. No constipation. No bloody or tarry stools reports loss of appetite. Genitourinary: No dysuria, increased frequency, urgency. No urinary retention. Musculoskeletal: No myalgias. No muscle weakness, no gait dysfunction, no frequent falls. No back pain. No neck pain. Integumentary: No wounds, no lesions. No rash or pruritus. No unusual bruising. No change in hair or nails. Neurologic: No aphasia. No facial droop. No change in mentation. No head injury. No headache. No paralysis. No paresthesia. Psychiatric: No depression. No anxiety. No mood swings. Endocrine: No abnormal blood sugars. No weight change. PHYSICAL EXAMINATION: General: Patient is laying down in bed no apparent distress. HEENT: Head is atraumatic, normocephalic, pupils were equal round reactive to light and recommendation, extraocular muscle movement were intact, sclera nonicteric, conjunctivae were pale, mucous membranes of the mouth are somewhat dry. Neck: Supple, no JVP, normal carotid upstroke bilaterally, no lymphadenopathy. Chest: Decreased breath sounds at the bases, few rhonchi, no extremity wheezes, no chest wall tenderness, no intercostal retractions. Heart: First heart sound is normal, second heart sounds normal there is systolic ejection murmur 2/6 located in the left sternal border. Abdomen: Soft, nontender, nondistended, positive bowel sounds. Extremities: There is no edema in the right lower extremity, the right heel ulcer with Kerlix wrap. Left above-knee amputation Neurologic examination: Patient is awake alert and oriented -3, cranial nerves II-12 appear grossly intact, muscle power were 5 out of 5 in upper extremities and 5 out of 5 in bilateral lower extremities, deep tendon reflexes normal bilaterally. ASSESSMENT AND PLAN: 1. Digoxin toxicity with bradycardia and hypotension, resolved 2. Acute kidney injury, resolved 3. Acute urinary tract infection secondary to ESBL Klebsiella MDRO continue IV antibiotic in the form of Invanz for 1 more dose. 4. Chronic atrial fibrillation, currently heart rate is controlled. Continue patient on Eliquis 2.5 mg orally twice every day monitor the patient symptoms very closely. 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 Continue patient on amlodipine 5 mg once every day, losartan 50 mg orally twice every day, monitor the patient blood pressure very closely. 7. Hyperlipidemia. Continue atorvastatin 40 mg once every day monitor the patient lipid panel, keep LDL 55-70. 8. Coronary artery disease. Continue Plavix 75 mg once every day, atorvastatin 40 mg once every day, continue isosorbide mononitrate 30 mg orally once every day. 9. Peripheral artery disease. Continue Plavix 75 mg once every day, atorvastatin 40 mg once every day, keep LDL around 55, 10. History of GERD. Continue pantoprazole 40 mg once every day. 11. Status post left AKA. Stable. 12. Home this afternoon with her daughter. Objective - Vital Signs Vital signs: Vital Signs Temp 98.1 F 03/21/24 04:35 Pulse 70 03/21/24 04:35 Resp 16 03/21/24 04:35 BP 166/67 03/21/24 04:35 Pulse Ox 96 03/21/24 04:35 FiO2 Intake & Output 03/20/24 03/20/24 03/21/24 06:59 18:59 06:59 Intake Total 20 Output Total 700 250 850 Balance -700 250 830 Weight 47 kg 46.3 kg Intake: IV 20 Invasive Line 3 20 Output: Urine 700 250 850 Other: Voiding Method External Catheter External Catheter External Catheter # Voids 1 # Bowel Movements 1 - Labs CBC & Chem 7: 03/19/24 06:06 03/19/24 06:06 Labs: Abnormal Lab Results - Last 24 Hours (Table) 03/20/24 03/20/24 03/20/24 Range/Units 06:45 07:00 11:23 POC Glucose (mg/dL) 64 L 143 H 163 H (70-110) mg/dL 03/20/24 03/20/24 03/21/24 Range/Units 16:12 19:47 06:13 POC Glucose (mg/dL) 137 H 153 H 58 L (70-110) mg/dL 03/21/24 Range/Units 06:33 POC Glucose (mg/dL) 59 L (70-110) mg/dL Microbiology - Last 24 Hours (Table) 03/17/24 18:51 Blood Culture - Preliminary Blood
--- NOTE | 2024-03-21 13:37 | P.DS ---
Providers Date of admission: 03/16/24 17:18 Expected date of discharge: 03/21/24 Attending physician: Pierre White Consults: 03/16/24 14:50 Consult Physician Routine Consulting Provider: Enrique Matthews Consult Reason/Comments: bradycardia, heart block Do you want consulting provider notified?: Already Contacted 03/16/24 17:34 Consult Physician Routine Consulting Provider: Yumi Hodge Consult Reason/Comments: icu patient Do you want consulting provider notified?: Yes 03/17/24 12:37 Consult Physician Routine Consulting Provider: Oralia Frazier Consult Reason/Comments: UTI Do you want consulting provider notified?: Yes 03/17/24 12:38 Consult Physician Routine Consulting Provider: Raymond Yancey Consult Reason/Comments: altered mental status Do you want consulting provider notified?: Yes 03/18/24 16:04 Consult Physician Stat Consulting Provider: Ed Garnica Consult Reason/Comments: wound care Do you want consulting provider notified?: Already Contacted Primary care physician: Pierre White Hospital Course: HISTORY OF PRESENT ILLNESS: This is a pleasant 83 years old female who presents initially because of hallucination, altered mental status and bradycardia Found to have low heart rate in the 30s, and digoxin level was high 3.5 she was diagnosed with digoxin toxicity and she was admitted to the ICU for close monitoring. 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 She is continued on heparin drip and switched today to Eliquis for her chronic A-fib. Patient also developing some diarrhea but no abdominal pain Currently she is afebrile She has mild leukocytosis 10.9, hemoglobin 10.3 Liver enzymes slightly elevated. BMP, INR, troponin were unremarkable Urine analysis suspicious for infection proBNP is 6850 Urine culture is growing gram-negative bacilli Ejection fraction 60 to 65% with mild to moderate mitral stenosis CT of the brain is negative for acute process Chest x-ray showing no acute cardiopulmonary process. C. difficile is ordered and is pending 03/21: Patient is doing better today, she is laying down in bed in no apparent distress, she has been treated with Invanz 1 g IVPB every 24 hours for 3 days, based on ID recommendation at this point in time, patient is asymptomatic at this point she does have multidrug-resistant organism Klebsiella pneumonia ESBL UTI, patient was taken off digoxin, she was taken off Lyrica, she was taken off amiodarone as well, continue current treatment plan, follow-up with the patient as an outpatient in 1 week from now she will be discharged home in stable condition with her daughter. Discharge diagnoses: 1. Digoxin toxicity with bradycardia and hypotension, resolved 2. Acute kidney injury, resolved 3. Acute urinary tract infection secondary to ESBL Klebsiella MDRO 4. Chronic atrial fibrillation, currently heart rate is controlled. 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 7. Hyperlipidemia. 8. Coronary artery disease. 9. Peripheral artery disease. 10. History of GERD. 11. Status post left AKA. S Patient Condition at Discharge: Critical Plan - Discharge Summary Discharge Rx Participant: No New Discharge Prescriptions: Continue Isosorbide Mononitrate ER [Imdur] 15 mg PO DAILY Clopidogrel [Plavix] 75 mg PO DAILY Apixaban [Eliquis] 5 mg PO BID #60 tab Losartan [Cozaar] 50 mg PO BID #60 tab amLODIPine [Norvasc] 5 mg PO DAILY #30 tab Insulin Glargine,Hum.rec.anlog [Lantus Solostar Pen] 15 units SQ HS #0 Acetaminophen Tab [Tylenol] 1,000 mg PO Q6H PRN PRN Reason: Fever And/ Or Pain Cholecalciferol [Vitamin D3 (25 Mcg = 1000 Iu)] 25 mcg PO DAILY Atorvastatin [Lipitor] 20 mg PO HS Collagenase [Santyl Ointment] 1 applic TOPICAL DAILY Insulin Lispro [humaLOG Kwikpen] See Protocol SQ ACHS Nystatin 100,000 Unit/gm Powd [Mycostatin Powder] 1 applic TOPICAL BID PRN PRN Reason: groin Discontinued Pregabalin [Lyrica] 75 mg PO TID@744,1644,2144 Metoprolol Tartrate [Lopressor] 12.5 mg PO TID@0745,1644,2144 Digoxin [Digitek] 125 mcg PO DAILY Spironolactone [Aldactone] 25 mg PO DAILY Sulfamethox-Tmp 800-160Mg [Bactrim DS 800-160 mg] 1 tab PO Q12HR 10 Days #20 tab Amiodarone [Cordarone] 200 mg PO BID busPIRone HCL 10 mg PO DAILY Discharge Medication List Atorvastatin [Lipitor] 20 mg PO HS 01/03/24 [History] Cholecalciferol [Vitamin D3 (25 Mcg = 1000 Iu)] 25 mcg PO DAILY 01/03/24 [History] Clopidogrel [Plavix] 75 mg PO DAILY 01/03/24 [History] Isosorbide Mononitrate ER [Imdur] 15 mg PO DAILY 01/03/24 [History] Apixaban [Eliquis] 5 mg PO BID #60 tab 01/05/24 [Rx] Collagenase [Santyl Ointment] 1 applic TOPICAL DAILY 01/23/24 [History] Insulin Lispro [humaLOG Kwikpen] See Protocol SQ ACHS 01/23/24 [History] Nystatin 100,000 Unit/gm Powd [Mycostatin Powder] 1 applic TOPICAL BID PRN 03/03/24 [History] Insulin Glargine,Hum.rec.anlog [Lantus Solostar Pen] 15 units SQ HS #0 03/06/24 [Rx] Losartan [Cozaar] 50 mg PO BID #60 tab 03/06/24 [Rx] amLODIPine [Norvasc] 5 mg PO DAILY #30 tab 03/06/24 [Rx] Acetaminophen Tab [Tylenol] 1,000 mg PO Q6H PRN 03/16/24 [History] Follow up Appointment(s)/Referral(s): [facility] [Provider Group] - 1 Week [facility], [NON-STAFF] - 1 Week Pierre White MD [Primary Care Provider] - 1 Week Patient Instructions/Handouts: Extended Spectrum Beta Lactamase (GEN), Digoxin Toxicity (ED) Discharge Disposition: HOME WITH HOME HEALTH SERVICES
[2024-03-21 15:48] VITALS: BP 178/66; TEMP 98.5
--- NOTE | 2024-03-21 15:53 | P.PN ---
Subjective Progress Note Date: 03/21/24 Principal diagnosis: Reason for follow-up is UTI Patient is a 83-year-old female with a past medical history significant for atrial fibrillation coronary artery disease diabetes mellitus CVA TIA hypertension hyperlipidemia recent admission to the hospital with right lower extremity cellulitis, now presented back to hospital with mental status changes bradycardia within the noticed to have a elevated dig level and also positive UA elevated white count concerning for UTI. On today's evaluation that is 03/21/2024,the patient remains to be afebrile, patient is on room air not requiring supplemental oxygen and denies any shortness of breath no chest pain or cough.Patient denies having any nausea or vomiting, no abdominal pain and no diarrhea and no urinary symptoms. No new lab has been repeated today Objective - Vital Signs Vital signs: Vital Signs Temp 98.5 F 03/21/24 11:45 Pulse 67 03/21/24 14:00 Resp 17 03/21/24 14:00 BP 178/66 03/21/24 11:45 Pulse Ox 98 03/21/24 11:45 FiO2 Intake & Output 03/20/24 03/21/24 03/21/24 18:59 06:59 18:59 Intake Total 20 240 Output Total 250 850 400 Balance -250 -830 -160 Weight 46.3 kg Intake: IV 20 Invasive Line 3 20 Oral 240 Output: Urine 250 850 400 Other: Voiding Method External Catheter External Catheter External Catheter # Voids 1 # Bowel Movements 1 1 - Exam GENERAL DESCRIPTION: An elderly female lying in bed in no distress RESPIRATORY SYSTEM: Unlabored breathing , decreased breath sounds at bases HEART: S1 S2 regular rate and rhythm , ABDOMEN: Soft , no tenderness EXTREMITIES: Right leg is currently dressed no drainage - Labs CBC & Chem 7: 03/19/24 06:06 03/19/24 06:06 Labs: Abnormal Lab Results - Last 24 Hours (Table) 03/20/24 03/20/24 03/21/24 Range/Units 16:12 19:47 06:13 POC Glucose (mg/dL) 137 H 153 H 58 L (70-110) mg/dL 03/21/24 03/21/24 Range/Units 06:33 11:47 POC Glucose (mg/dL) 59 L 112 H (70-110) mg/dL Microbiology - Last 24 Hours (Table) 12/29/24 18:51 Blood Culture - Preliminary Blood Assessment and Plan (1) UTI (urinary tract infection) Status: Acute Code(s): N39.0 - URINARY TRACT INFECTION, SITE NOT SPECIFIED SNOMED Code(s): 10417878 (2) Infection due to ESBL-producing Escherichia coli Status: Acute Code(s): A49.8 - OTHER BACTERIAL INFECTIONS OF UNSPECIFIED SITE; Z16.12 - EXTENDED SPECTRUM BETA LACTAMASE (ESBL) RESISTANCE SNOMED Code(s): 091955553 Plan: 1patient presented to hospital with hallucination weakness did have suprapubic discomfort and some tenderness significantly positive UA concerning for symptomatic UTI likely from enteric gram-negative pathogen. 2patient urine culture has been finalized with ESBL E. coli patient is behaving more of a cystitis and the patient has received a 3-day course of Invanz should be more than enough no need for antibiotic on discharge Dictation was produced using [employer] dictation software. please excuse any grammatical, word or spelling errors. Time with Patient: Less than 30
== END 2024-03-21 15:47 | disposition home health service (06) | DRG 308 ==
LOC: EC 14:24 → 2SICU 17:18 → 3SCARD 03-19 15:36
PROVIDERS: ADMIT Internal Medicine; ATTEND Internal Medicine
DX: R00.1 Bradycardia, unspecified (principal); G92.8 Other toxic encephalopathy; N17.0 Acute kidney failure with tubular necrosis; I50.32 Chronic diastolic (congestive) heart failure; L03.115 Cellulitis of right lower limb; N39.0 Urinary tract infection, site not specified; Z16.12 Extended spectrum beta lactamase (ESBL) resistance; Z16.24 Resistance to multiple antibiotics; R44.3 Hallucinations, unspecified; E87.5 Hyperkalemia; B95.62 Methicillin resistant Staphylococcus aureus infection as the cause of diseases classified elsewhere; B96.1 Klebsiella pneumoniae [K. pneumoniae] as the cause of diseases classified elsewhere; B96.20 Unspecified Escherichia coli [E. coli] as the cause of diseases classified elsewhere; E11.42 Type 2 diabetes mellitus with diabetic polyneuropathy; E11.51 Type 2 diabetes mellitus with diabetic peripheral angiopathy without gangrene; E11.621 Type 2 diabetes mellitus with foot ulcer; E11.649 Type 2 diabetes mellitus with hypoglycemia without coma; E78.2 Mixed hyperlipidemia; H91.90 Unspecified hearing loss, unspecified ear; I11.0 Hypertensive heart disease with heart failure; I25.10 Atherosclerotic heart disease of native coronary artery without angina pectoris; I25.2 Old myocardial infarction; I44.2 Atrioventricular block, complete; I48.0 Paroxysmal atrial fibrillation; I95.1 Orthostatic hypotension; K21.00 Gastro-esophageal reflux disease with esophagitis, without bleeding; L89.619 Pressure ulcer of right heel, unspecified stage; M06.9 Rheumatoid arthritis, unspecified; R01.1 Cardiac murmur, unspecified; R53.83 Other fatigue; I08.1 Rheumatic disorders of both mitral and tricuspid valves; T46.0X5A Adverse effect of cardiac-stimulant glycosides and drugs of similar action, initial encounter; Z79.01 Long term (current) use of anticoagulants; Z79.02 Long term (current) use of antithrombotics/antiplatelets; Z79.4 Long term (current) use of insulin; Z79.899 Other long term (current) drug therapy; Z86.14 Personal history of Methicillin resistant Staphylococcus aureus infection; Z86.73 Personal history of transient ischemic attack (TIA), and cerebral infarction without residual deficits; Z87.440 Personal history of urinary (tract) infections; Z87.891 Personal history of nicotine dependence; Z89.612 Acquired absence of left leg above knee; Z95.1 Presence of aortocoronary bypass graft; Z98.61 Coronary angioplasty status; Z88.5 Allergy status to narcotic agent; X58.XXXA Exposure to other specified factors, initial encounter
CPT/HCPCS: 36415; 70450; 71045; 80048; 80053; 80162; 81001; 82330; 83605; 83735; 83880; 84132; 84484; 85025; 85027; 85610; 85730; 87040; 87077; 87086; 87186; 93005; 93306; 96365; 96366; 96368; 96375; 99291

== ENCOUNTER → 2024-05-20 | Outpatient (CLI) | payer MEDICARE ==
--- NOTE | 2024-05-20 15:49 | XR ---
EXAMINATION TYPE: XR foot complete RT DATE OF EXAM: 05/20/2024 3:30 PM COMPARISON: None CLINICAL INDICATION: Female, 83 years old with history of L97.512; PHH, pain TECHNIQUE: XR foot complete RT examined in the AP, oblique, and lateral projections. FINDINGS: Fixation hardware present at the first digit metatarsophalangeal joint. There is intact. No evidence of any acute osseous pathology. Soft tissue swelling present. No evidenc e of osseous erosion to suggest osteomyelitis. Multifocal degeneration changes throughout the joints of the foot with osteophyte formation and joint space narrowing. Atherosclerosis of the arterial vasc ulature. Calcaneal plantar spurring. IMPRESSION: 1. Soft tissue swelling without evidence for resting millimeters, No evidence of acute fracture. 2. Multifocal degeneration changes throughout the joints of the foot. 3. Fixation of the first digit metatarsophalangeal joint with hardware intact. 4. Severe atherosclerosis. [facility], , 05/20/2024 3:44 PM
== END | disposition home or self-care (01) ==
LOC: RADXRMAIN 15:08
PROVIDERS: ATTEND Surgery Vascular Surgery
DX: S80.11XA Contusion of right lower leg, initial encounter (principal); L97.512 Non-pressure chronic ulcer of other part of right foot with fat layer exposed; E11.621 Type 2 diabetes mellitus with foot ulcer; L89.152 Pressure ulcer of sacral region, stage 2; I70.90 Unspecified atherosclerosis; M19.071 Primary osteoarthritis, right ankle and foot

== ENCOUNTER 2024-05-26 16:29 | Emergency (ER) | payer MEDICARE ==
--- NOTE | 2024-05-26 17:09 | ED ---
General Adult HPI - General Chief complaint: Recheck/Abnormal Lab/Rx Stated complaint: Abnormal Bleeding Time Seen by Provider: 05/26/24 16:40 Source: patient, family Mode of arrival: EMS Limitations: no limitations - History of Present Illness Initial comments: Patient is an 83-year-old woman transferred here from [facility], where she is at, to recover from left leg amputation. The patient noted to have some blood in the brief today and there was question whether it was source from urine or vaginal bleeding. The patient did have Vidales catheter that was recently taken out when she left the hospital. The patient also seemed to be more fatigued and weaker than his usual. Patient also had had nosebleed yesterday and this was self-limited. No fevers noted. Onset/Timin -: days(s) Consistency: now resolved Improves with: none Worsens with: none Associated Symptoms: weakness Treatments Prior to Arrival: none - Related Data Home Medications Medication Instructions Recorded Confirmed Atorvastatin [Lipitor] 20 mg PO HS 01/03/24 03/16/24 Cholecalciferol [Vitamin D3 (25 25 mcg PO DAILY 01/03/24 03/16/24 Mcg = 1000 Iu)] Clopidogrel [Plavix] 75 mg PO DAILY 01/03/24 03/16/24 Isosorbide Mononitrate ER [Imdur] 15 mg PO DAILY 01/03/24 03/16/24 Collagenase [Santyl Ointment] 1 applic TOPICAL DAILY 01/23/24 03/16/24 Insulin Lispro [humaLOG Kwikpen] See Protocol SQ ACHS 01/23/24 03/16/24 Nystatin 100,000 Unit/gm Powd 1 applic TOPICAL BID PRN 03/03/24 03/16/24 [Mycostatin Powder] Acetaminophen Tab [Tylenol] 1,000 mg PO Q6H PRN 03/16/24 03/16/24 Previous Rx's Medication Instructions Recorded Apixaban [Eliquis] 5 mg PO BID #60 tab 01/05/24 Insulin Glargine,Hum.rec.anlog 15 units SQ HS #0 03/06/24 [Lantus Solostar Pen] Losartan [Cozaar] 50 mg PO BID #60 tab 03/06/24 amLODIPine [Norvasc] 5 mg PO DAILY #30 tab 03/06/24 Allergies Allergy/AdvReac Type Severity Reaction Status Date / Time codeine Allergy Swelling Verified 03/16/24 15:44 Review of Systems ROS Statement: Those systems with pertinent positive or pertinent negative responses have been documented in the HPI. ROS Other: All systems not noted in ROS Statement are negative. Constitutional: Reports: weakness. Denies: fever, chills ENT: Reports: as per HPI, epistaxis Respiratory: Denies: cough, dyspnea, wheezes, hemoptysis Cardiovascular: Denies: chest pain, palpitations, edema, syncope Gastrointestinal: Denies: abdominal pain, vomiting, diarrhea, constipation Genitourinary: Reports: as per HPI, hematuria Musculoskeletal: Reports: back pain Skin: Denies: rash Neurological: Denies: headache, weakness, numbness Past Medical History Past Medical History: Atrial Fibrillation, Coronary Artery Disease (CAD), CVA/TIA, Diabetes Mellitus, Eye Disorder, GERD/Reflux, Hearing Disorder / Deafness, Hyperlipidemia, Hypertension, Myocardial Infarction (VT), Rheumatoid Arthritis (RA) Additional Past Medical History / Comment(s): 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. Carotid stenosis. 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 Last Myocardial Infarction Date:: 2013 History of Any Multi-Drug Resistant Organisms: None Reported Date of last positivie culture/infection: 01/25/24 MDRO Source:: MRSA right heel Past Surgical History: Coronary Bypass/CABG Additional Past Surgical History / Comment(s): CABG x4 in 2013 Past Anesthesia/Blood Transfusion Reactions: No Reported Reaction Past Psychological History: Anxiety Smoking Status: Former smoker Past Alcohol Use History: Rare Past Drug Use History: None Reported - Past Family History Father Family Medical History: Unable to Obtain Mother Family Medical History: Cancer Additional Family Medical History / Comment(s): colon CA General Exam General appearance: alert, in no apparent distress Head exam: Present: atraumatic, normocephalic Eye exam: Present: normal appearance, PERRL, EOMI. Absent: scleral icterus, conjunctival injection ENT exam: Present: mucous membranes dry Neck exam: Present: normal inspection, full ROM Respiratory exam: Present: normal lung sounds bilaterally. Absent: respiratory distress, wheezes, rales, rhonchi, stridor, accessory muscle use Cardiovascular Exam: Present: regular rate, normal rhythm, normal heart sounds. Absent: systolic murmur, diastolic murmur, rubs, gallop GI/Abdominal exam: Present: soft. Absent: distended, tenderness, guarding, rebound, rigid, mass Extremities exam: Present: other (There is a left leg above-knee amputation with wound dehiscence at the medial aspect. No active bleeding) Neurological exam: Present: alert, oriented X3. Absent: motor sensory deficit Skin exam: Present: warm, dry, intact, pallor. Absent: rash Course Vital Signs 05/26/24 05/26/24 05/26/24 16:38 18:46 22:45 Temperature 96.7 F L 98.5 F Pulse Rate 72 65 78 Respiratory 18 14 20 Rate Blood Pressure 101/38 86/40 108/63 O2 Sat by Pulse 99 97 97 Oximetry 05/26/24 05/26/24 05/26/24 22:46 23:01 23:02 Temperature 98.5 F 98.6 F 98.6 F Pulse Rate 78 78 78 Respiratory 20 20 20 Rate Blood Pressure 124/28 129/51 129/51 O2 Sat by Pulse 98 96 96 Oximetry 05/26/24 05/26/24 23:22 23:53 Temperature 98.9 F Pulse Rate 74 78 Respiratory 18 20 Rate Blood Pressure 134/47 126/51 O2 Sat by Pulse 96 96 Oximetry Medical Decision Making - Medical Decision Making Patient is 83-year-old woman here with complaint that she had had bleeding suspected to be urologic, after having Vidales catheter out. The patient here is found to be anemic with hemoglobin 5.3. Type and crossmatch and transfusion ordered, and blood is started. Further workup included ultrasound to ensure that there was no gynecologic source. Patient subsequently went for CT that does reveal what appears to be complex mass along the bladder wall, possibly blood clot possibly tumor into the bladder wall. Family subsequently arrived and stated that the patient did have cystoscopy between 1 and 2 years ago that was "normal." Dr. Medina had performed that however no urology coverage this week. Discussed with family and they request that if patient does require urology coverage they would like to go to [facility]. I discussed the case with Dr. Mcclain, in the emergency department and he does accept transfer. Was pt. sent in by a medical professional or institution (, PA, [employer], urgent care, hospital, or retirement...) When possible be specific @ -[No] yes the patient is sent from long-term care facility Did you speak to anyone other than the patient for history (EMS, parent, family, police, friend...)? What history was obtained from this source @ -[No] family contributed to history regarding past urologic workup Did you review nursing and triage notes (agree or disagree)? Why? @ -[I reviewed and agree with nursing and triage notes] Were old charts reviewed (outside hosp., previous admission, EMS record, old EKG, old radiological studies, urgent care reports/EKG's, retirement records)? Report findings @ -[Yes, old charts were reviewed] Differential Diagnosis (chest pain, altered mental status, abdominal pain women, abdominal pain men, vaginal bleeding, weakness, fever, dyspnea, syncope, headache, dizziness, GI bleed, back pain, seizure, CVA, palpatations, mental health, musculoskeletal)? @ -[Differential Abd Appendicitis, Cholecystitis, diverticulosis, ischemic bowel, pancreatitis, hepatitis, UTI, gastroenteritis, AAA, incarcerated hernia, bowel obstruction, constipation, inflammatory bowel, hepatitis, peptic ulcer disease, splenic infarction, perforated viscus, vulvitis, ovarian torsion, PID, kidney stone, placenta abruption, this is not meant to be an all-inclusive list EKG interpreted by me (3pts min.). @ -[As above] X-rays interpreted by me (1pt min.). @ -[None done] CT interpreted by me (1pt min.). @ -[None done] U/S interpreted by me (1pt. min.). @ -[None done] What testing was considered but not performed or refused? (CT, X-rays, U/S, labs)? Why? @ -[None] What meds were considered but not given or refused? Why? @ -[None] Did you discuss the management of the patient with other professionals (professionals i.e. , PA, [facility], lab, RT, psych nurse, social media developer, account engineer, teacher, chief school finance officer, mental health case manager)? Give summary @ -Case discussed with [facility], as above Was smoking cessation discussed for >3mins.? @ -[No] Was critical care preformed (if so, how long)? @ -[Yes, 35 minutes Were there social determinants of health that impacted care today? How? (Homel essness, low income, unemployed, alcoholism, drug addiction, transportation, low edu. Level, literacy, decrease access to med. care, mcc, rehab)? @ -[No] Was there de-escalation of care discussed even if they declined (Discuss DNR or withdrawal of care, Hospice)? DNR status @ -[No] What co-morbidities impacted this encounter? (DM, HTN, Smoking, COPD, CAD, Cancer, CVA, ARF, Chemo, Hep., AIDS, mental health diagnosis, sleep apnea, morbid obesity)? @ -[None] Was patient admitted / discharged? Hospital course, mention meds given and route, prescriptions, significant lab abnormalities, going to OR and other pertinent info. @ -[See above Undiagnosed new problem with uncertain prognosis? @ -[No] Drug Therapy requiring intensive monitoring for toxicity (Heparin, Nitro, Insulin, Cardizem)? @ -[Blood transfusion Were any procedures done? @ -[No] Diagnosis/symptom? @ -Acute hematuria Suspected bladder mass Acute anemia Acute leukocytosis Elevated transaminase levels Acute, or Chronic, or Acute on Chronic? @ -Acute default] Uncomplicated (without systemic symptoms) or Complicated (systemic symptoms)? @ -[default] uncomplicated Side effects of treatment? @ -[No] Exacerbation, Progression, or Severe Exacerbation? @ -[No] Poses a threat to life or bodily function? How? (Chest pain, USA, VT, pneumonia, PE, COPD, DKA, ARF, appy, cholecystitis, CVA, Diverticulitis, Homicidal, Suici jonathon, threat to staff... and all critical care pts) @ -[Yes with this degree of anemia there is risk of organ failure due to hypoperfusion. Risk of further bleeding including exsanguination All treatments are based on ideal body weight as in ED triage - Lab Data Result diagrams: 05/26/24 18:46 05/26/24 18:46 Lab Results 05/26/24 05/26/24 05/26/24 Range/Units 18:46 18:46 18:46 WBC 18.2 H (3.8-10.6) k/uL RBC 1.92 L (3.80-5.40) m/uL Hgb 5.3 L* (11.4-16.0) gm/dL Hct 18.3 L* (34.0-46.0) % MCV 95.3 (80.0-100.0) fL MCH 27.6 (25.0-35.0) pg MCHC 29.0 L (31.0-37.0) g/dL RDW 16.0 H (11.5-15.5) % Plt Count 459 H (150-450) k/uL MPV 8.0 Neutrophils % 83 % Lymphocytes % 9 % Monocytes % 5 % Eosinophils % 1 % Basophils % 0 % Neutrophils # 15.1 H (1.3-7.7) k/uL Lymphocytes # 1.7 (1.0-4.8) k/uL Monocytes # 0.9 (0-1.0) k/uL Eosinophils # 0.2 (0-0.7) k/uL Basophils # 0.1 (0-0.2) k/uL Hypochromasia Marked Sodium 129 L (137-145) mmol/L Potassium 5.5 H (3.5-5.1) mmol/L Chloride 100 (98-107) mmol/L Carbon Dioxide 25 (22-30) mmol/L Anion Gap 4 mmol/L BUN 39 H (7-17) mg/dL Creatinine 1.04 (0.52-1.04) mg/dL Est GFR (CKD-EPI)AfAm 58 (>60 ml/min/1.73 sqM) Est GFR (CKD-EPI)NonAf 51 (>60 ml/min/1.73 sqM) Glucose 147 H (74-99) mg/dL Plasma Lactic Acid Ronn (0.7-2.0) mmol/L Calcium 7.5 L (8.4-10.2) mg/dL Magnesium 2.0 (1.6-2.3) mg/dL Total Bilirubin 0.5 (0.2-1.3) mg/dL AST 383 H (14-36) U/L ALT 307 H (4-34) U/L Alkaline Phosphatase 85 (38-126) U/L Troponin I (0.000-0.034) ng/mL Total Protein 4.8 L (6.3-8.2) g/dL Albumin 2.5 L (3.5-5.0) g/dL Urine Color Dark Red Urine Appearance Bloody H (Clear) Urine RBC >182 H (0-5) /hpf Urine WBC >182 H (0-5) /hpf Calcium Oxalate Crystal Many H (None) /hpf Blood Type Blood Type Confirm Blood Type Recheck Bld Type Recheck Status Antibody Screen Crossmatch Spec Expiration Date 05/26/24 05/26/24 05/26/24 Range/Units 18:46 18:46 18:49 WBC (3.8-10.6) k/uL RBC (3.80-5.40) m/uL Hgb (11.4-16.0) gm/dL Hct (34.0-46.0) % MCV (80.0-100.0) fL MCH (25.0-35.0) pg MCHC (31.0-37.0) g/dL RDW (11.5-15.5) % Plt Count (150-450) k/uL MPV Neutrophils % % Lymphocytes % % Monocytes % % Eosinophils % % Basophils % % Neutrophils # (1.3-7.7) k/uL Lymphocytes # (1.0-4.8) k/uL Monocytes # (0-1.0) k/uL Eosinophils # (0-0.7) k/uL Basophils # (0-0.2) k/uL Hypochromasia Sodium (137-145) mmol/L Potassium (3.5-5.1) mmol/L Chloride (98-107) mmol/L Carbon Dioxide (22-30) mmol/L Anion Gap mmol/L BUN (7-17) mg/dL Creatinine (0.52-1.04) mg/dL Est GFR (CKD-EPI)AfAm (>60 ml/min/1.73 sqM) Est GFR (CKD-EPI)NonAf (>60 ml/min/1.73 sqM) Glucose (74-99) mg/dL Plasma Lactic Acid Ronn 1.2 (0.7-2.0) mmol/L Calcium (8.4-10.2) mg/dL Magnesium (1.6-2.3) mg/dL Total Bilirubin (0.2-1.3) mg/dL AST (14-36) U/L ALT (4-34) U/L Alkaline Phosphatase (38-126) U/L Troponin I 0.025 (0.000-0.034) ng/mL Total Protein (6.3-8.2) g/dL Albumin (3.5-5.0) g/dL Urine Color Urine Appearance (Clear) Urine RBC (0-5) /hpf Urine WBC (0-5) /hpf Calcium Oxalate Crystal (None) /hpf Blood Type Blood Type Confirm A Positive Blood Type Recheck Bld Type Recheck Status Antibody Screen Crossmatch Spec Expiration Date 05/26/24 Range/Units 20:28 WBC (3.8-10.6) k/uL RBC (3.80-5.40) m/uL Hgb (11.4-16.0) gm/dL Hct (34.0-46.0) % MCV (80.0-100.0) fL MCH (25.0-35.0) pg MCHC (31.0-37.0) g/dL RDW (11.5-15.5) % Plt Count (150-450) k/uL MPV Neutrophils % % Lymphocytes % % Monocytes % % Eosinophils % % Basophils % % Neutrophils # (1.3-7.7) k/uL Lymphocytes # (1.0-4.8) k/uL Monocytes # (0-1.0) k/uL Eosinophils # (0-0.7) k/uL Basophils # (0-0.2) k/uL Hypochromasia Sodium (137-145) mmol/L Potassium (3.5-5.1) mmol/L Chloride (98-107) mmol/L Carbon Dioxide (22-30) mmol/L Anion Gap mmol/L BUN (7-17) mg/dL Creatinine (0.52-1.04) mg/dL Est GFR (CKD-EPI)AfAm (>60 ml/min/1.73 sqM) Est GFR (CKD-EPI)NonAf (>60 ml/min/1.73 sqM) Glucose (74-99) mg/dL Plasma Lactic Acid Ronn (0.7-2.0) mmol/L Calcium (8.4-10.2) mg/dL Magnesium (1.6-2.3) mg/dL Total Bilirubin (0.2-1.3) mg/dL AST (14-36) U/L ALT (4-34) U/L Alkaline Phosphatase (38-126) U/L Troponin I (0.000-0.034) ng/mL Total Protein (6.3-8.2) g/dL Albumin (3.5-5.0) g/dL Urine Color Urine Appearance (Clear) Urine RBC (0-5) /hpf Urine WBC (0-5) /hpf Calcium Oxalate Crystal (None) /hpf Blood Type A Positive Blood Type Confirm Blood Type Recheck No Previous Record Bld Type Recheck Status CABO Indicated Antibody Screen NEGATIVE Crossmatch See Detail Spec Expiration Date 05/29/20242327 Disposition Clinical Impression: Anemia Disposition: OTHER INSTITUTION NOT DEFINED Condition: Serious Is patient prescribed a controlled substance at d/c from ED?: No Referrals: Pierre White MD [Primary Care Provider] - 1-2 days - Out of Hospital Transfer - Req. Specs Out of Hospital Transfer - Requested Specifics: Other Emergency Center
[2024-05-26] MEDS: MORPHINE SULFATE 4 MG/ML SYRINGE IV STA ×2 (17:31→23:50)
[2024-05-26] MEDS: SODIUM CHLORIDE 0.9% 500 ML 500 ML IV STA (17:32)
[2024-05-26 19:19] LABS: Basophils # (A) 0.1 k/uL (0-0.2); Basophils % (A) 0 %; Eosinophils # (A) 0.2 k/uL (0-0.7); Eosinophils % (A) 1 %; Hypochromasia Marked; Lymphocytes # (A) 1.7 k/uL (1.0-4.8); Lymphocytes % (A) 9 %; MCH 27.6 pg (25.0-35.0); MCV 95.3 fL (80.0-100.0); Monocytes # (A) 0.9 k/uL (0-1.0); Monocytes % (A) 5 %; Neutrophils # (A) 15.1 k/uL (1.3-7.7); Neutrophils % (A) 83 %; Platelet Count 459 k/uL (150-450); RBC 1.92 m/uL (3.80-5.40); WBC 18.2 k/uL (3.8-10.6)
[2024-05-26 19:26] LABS: HCT 18.3 % (34.0-46.0); HGB 5.3 gm/dL (11.4-16.0)
--- NOTE | 2024-05-26 19:31 | XR ---
EXAMINATION TYPE: XR chest 2V DATE OF EXAM: 05/26/2024 7:19 PM COMPARISON: Prior chest radiograph, most recent dated 03/16/2024. CLINICAL INDICATION: Female, 83 years old with history of weakness; [facility] TECHNIQUE: XR chest 2V Frontal and lateral views of the chest. FINDINGS: Lungs/Pleura: There is no evidence of pleural effusion, focal consolidation, or pneumothorax. Pulmonary vascularity: Pulmonary vascular congestion. Heart/mediastinum: Cardiomediastinal silhouette is enlarged and stable. Median sternotomy wires. Musculoskeletal: No acute osseous pathology. Other findings: None IMPRESSION: Cardiomegaly and pulmonary vascular congestive changes. [facility], , 05/26/2024 7:29 PM
[2024-05-26 19:40] LABS: ALT 307 U/L (4-34); AST 383 U/L (14-36); African American GFR (CKD) 58 (>60 ml/min/1.73 sqM); Albumin 2.5 g/dL (3.5-5.0); Alkaline Phosphatase 85 U/L (38-126); Anion Gap 4 mmol/L; Blood Urea Nitrogen 39 mg/dL (7-17); Calcium 7.5 mg/dL (8.4-10.2); Carbon Dioxide 25 mmol/L (22-30); Chloride 100 mmol/L (98-107); Glucose 147 mg/dL (74-99); Non-African American GFR(CKD) 51 (>60 ml/min/1.73 sqM); Potassium 5.5 mmol/L (3.5-5.1); Sodium 129 mmol/L (137-145); Total Bilirubin 0.5 mg/dL (0.2-1.3); Total Protein 4.8 g/dL (6.3-8.2)
[2024-05-26 20:14] LABS: Calcium Oxalate Crystals,Urine Many /hpf; RBC,Urine >182 /hpf (0-5); WBC,Urine >182 /hpf (0-5)
[2024-05-26 20:28] LABS: Appearance,Urine Bloody (Clear); Color,Urine Dark Red
--- NOTE | 2024-05-26 20:34 | US ---
EXAMINATION TYPE: US pelvic complete DATE OF EXAM: 05/26/2024 COMPARISON: NONE CLINICAL INDICATION: Female, 83 years old with history of post-menopausal vaginal bleeding; Recent bl adder cath removal with blood in urine since. Uterus removed, still has both ovaries TECHNIQUE: Transabdominal (TA). Transabdominal grayscale sonographic images of the pelvis were acquired. Doppler imaging: Not performed. FINDINGS: Invasive heterogeneous mass in the midline pelvis measures 10.3 x 5.0 x 6.8 cm. Mass possibly origina ting from the uterus. Urinary bladder is not well-visualized. Dilation significantly limited due to s hadowing bowel gas artifact. Bilateral ovaries are not discretely visualized. IMPRESSION: Indeterminate heterogeneous infiltrative mass possibly originating from the uterus or endometrium con cerning for underlying malignancy. Recommend either MRI with IV contrast or direct visualization for further evaluation as clinically indicated. [facility], , 05/26/2024 8:32 PM
--- NOTE | 2024-05-26 22:12 | CT ---
EXAMINATION TYPE: CT abdomen pelvis w con DATE OF EXAM: 05/26/2024 9:57 PM COMPARISON: Previous CT abdomen/pelvis 01/23/2044. CLINICAL INDICATION: Female, 83 years old with history of evaluate pelvic mass; evaluate pelvic mass TECHNIQUE: Axial CT abdomen pelvis w con;Sagittal and coronal reformats were created on a separate w orkstation. Contrast used:80ml mL of Isovue 300 with IV Contrast, (none if empty) Oral contrast used: without Oral Contrast (none if empty) CT DLP: 1185.9 mGycm, Automated exposure control for dose reduction was used. FINDINGS: LOWER CHEST: Moderate right and small left pleural effusions with adjacent lower lobe consolidative c hanges. Bronchial wall thickening partially visualized. Severe mitral annular calcifications and nion nary artery calcium also noted. ABDOMEN LIVER: Unremarkable GALLBLADDER AND BILE DUCTS: Layering increased densities within the lumen consistent with gallstones are present. PANCREAS: Unremarkable. SPLEEN: Unremarkable. ADRENAL GLANDS: Unremarkable. KIDNEYS AND URETERS: No evidence of hydronephrosis or renal calculus. The ureters are unremarkable. PELVIS BLADDER: Circumferential wall thickening with adjacent infiltration of the perivesicular fat. Additio ronaldo, extensive high density material and/or mass filling the urinary bladder lumen. No definite int ernal color Doppler flow when compared with same day pelvic ultrasound study. REPRODUCTIVE: Uterus appears surgically absent, recommend clinical correlation with patient's surgica l history. ABDOMEN & PELVIS STOMACH AND BOWEL: Stomach and duodenum are unremarkable. Moderate diffuse colonic stool burden. No e vidence of bowel obstruction. PERITONEUM/RETROPERITONEUM: No evidence of pneumoperitoneum or free fluid. VASCULATURE: No evidence of aortic aneurysm. 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 MUSCULOSKELETAL: No acute osseous abnormalities LYMPH NODES: No gross evidence for lymphadenopathy. SOFT TISSUE/ABDOMINAL WALL: Unremarkable IMPRESSION: 1. Extensive high-density material filling the urinary bladder lumen and circumferential urinary agnieszka dder wall thickening with adjacent perivesicular stranding. Findings could reflect underlying bladder malignancy and/or extensive high density blood products related to hemorrhagic cystitis. Recommend c orrelation with urinalysis and cystoscopy for further evaluation as clinical warranted. 2. Moderate right and small left pleural effusions with adjacent lower lobe consolidative changes wh ich could reflect atelectasis and/or pneumonia. 3. Cholelithiasis. 4. Impacted rectosigmoid colonic stool with additional findings shifting mild stercoral colitis. 5. Additional nonacute findings as above [facility], , 05/26/2024 10:09 PM
[2024-05-26 23:23] VITALS: TEMP 98.9
[2024-05-26 23:55] VITALS: BP 126/51; PULSE 78; RESP 20
== END 2024-05-26 23:58 | disposition other institution (70) ==
LOC: EC 16:29
DX: D64.9 Anemia, unspecified (principal); Z88.5 Allergy status to narcotic agent; Z87.891 Personal history of nicotine dependence
CPT/HCPCS: 36415; 86900; 86901; 80053; 83605; 83735; 84484; 85025; 86850; 86920; 81001; 71046; 76856; 74177; 99291; 96374; 96376; 96361; 36430; P9016; J2270; Q9967